=== PATIENT | female | born 1970 | race Caucasian/White ===

== ENCOUNTER 2019-08-20 20:00 | Emergency (ER) | payer OTHER ==
[~2019-08-20] VITALS: Ht 154.9 cm; Wt 63.5 kg
--- OUTSIDE RECORDS SUMMARY | 2019-08-20 20:07 | XMS REPORT ---
[facility] Address Unknown Phone Unavailable Care Team Providers Care Cso Name Role Phone CLARY ZEN RICO Unavailable Unavailable BAYLEE LOVETT Unavailable Unavailable SANTIAGO FLORES Unavailable Unavailable Problems This patient has no known problems. Allergies, Adverse Reactions, Alerts This patient has no known allergies or adverse reactions. Medications This patient has no known medications. Results Test Description Test Time Test Comments Text Results Atomic Results Result Comments U/S, ABDOMINAL, COMPLETE 2019-05-12 18:33:00 Reason for Exam:->jaundice, abnormal liver enzymes, hepatitis C FINAL REPORT TECHNIQUE: Grayscale ultrasound of the abdomen. INDICATION: jaundice, abnormal liver enzymes, hepatitis C. COMPARISON: Ultrasound from 05/05/2018. FINDINGS: MIDLINE V ASCULATURE: The visualized inferior vena cava is unremarkable. The maximum visualized aortic diameter is 1.5 cm. LIVER: Smooth liver contour. No focal lesions. The main portal vein is patent and measures 1.1 cm in diameter. BILIARY:Gallbladder: Prior cholecystectomyCommon bile duct measures 0.5 cm, within normal limits. No intrahepatic biliary ductal dilatation. PANCREAS: Not well visualized due to overlying bowel gas. SPLEEN: The spleen is enlarged at 15 cm in length. PERITONEUM: No free fluid. KIDNEYS: Normal in size bilaterally. No hydronephrosis. No sonographically evident solid mass lesion. IMPRESSION: 1.No definite expiration for the jaundice on this ultrasound. 2.The pancreas was not well visualized. 3.Splenomegaly. Signed: Cody Hernadez MDReport Verified Date/Time: 05/12/2019 18:33:34 Reading Location: [address] Radiology Reading Room ES VIRUS ANTIBODY, IGM 2019-05-09 13:34:00 HERPES VIRUS IGM (BEAKER) (test esdu=8491) Negative TEST PERFORMED BY wikifolioANTI-NUCLEAR ANTIBODY (JESSICA)2019-05-09 10:45:00* Test Item Value Reference Range Comments ANTI-NUCLEAR ANTIBODY (JESSICA) (BEAKER) (test iwqf=941) Positive Negative Test performed by IFA method.JESSICA TITER AND [id number] 10:45:00* Test Item Value Reference Range Comments JESSICA TITER (BEAKER) (test oosf=4626) :160 JESSICA PATTERN (BEAKER) (test mlud=2875) Homogeneous HEPATITIS B PCR, [id number] 09:54:00* Test Item Value Reference Range Comments HBV RESULT COMPONENT (BEAKER) (test uyup=0457) HBV DNA not detected HBV DNA not detected This test uses a Real-Time Polymerase Chain Reaction (RT-PCR) methodology and wa s performed using ASYA AmpliPrep/ASYA TaqMan HBV Test, v2.0 ([employer]Reportable range for this assay is 20 - 170,000,000 IU per mL ( 1.30 - 8.23 Log IU/mL).CMV PCR, [id number] 17:19:00* Test Item Value Reference Range Comments CMV VIRAL LOAD - NEGATIVE (BEAKER) (test znzk=3044) Negative or below the linear range of the assay (<375 copies/mL) Cytomegalovirus (CMV) infection can cause significant disease in immunosuppresse d patients. However, it is common for CMV to manifest as a limited infection whi ch is of no clinical significance in immunosuppressed patients or in healthy ind ividuals.Viral load measurements are helpful to identify clinical CMV infection and to guide the pre-emptive management of antiviral therapy. For treatment of CMV infection due to reactivation in transplant recipients, a threshold between 4,000 and 5,000 copies/mL is suggested. For treatment of primary CMV infection, a lower threshold can be used.CMV infection may also be monitored using weekly serial measurements. Serial measurements of CMV DNA viral load can be evaluated by identifying a 10-fold change, as well as assessing the CMV DNA viral load and the clinical context for each patient.The plasma CMV DNA viral load was detected using quantitative polymerase chain reaction and fluorescent monitoring of a s pecific hybridized probe. Genetic variation and other factors can affect the acc uracy of nucleic acid testing. Therefore, the results should be interpreted in l ight of clinical data. A negative result may not exclude the presence of CMV dis ease.This test was developed and its performance characteristics determined by [facility] Pathology Department, Section of Molecular Patholog y. It has not been cleared or approved by the U.S. Food and Drug Administration (FDA), since FDA approval is not required for clinical use of the test. Validati on was done as required by The Clinical Laboratory Improvement Amendments of 198 8.EBV VIRAL [id number] 15:55:00* Test Item Value Reference Range Comments EBV VIRAL LOAD - NEGATIVE (BEAKER) (test imkh=3591) Negative or below the linear range of the assay (<500 copies/mL) This assay was performed by real-time PCR for the detection of the Katie-Leonard virus (EBV) gene EBNA-1. The test is composed of (1) DNA extraction from patien t specimen, and (2) real-time PCR amplification and detection with NJYY-3-nnbdla ic primers and probes. A well-conserved region of the EBNA-1 gene is targeted, a long with an internal control sequence used to confirm PCR amplification. Asympt omatic carriers and viral genetic variation, among other factors, can affect the accuracy of nucleic acid testing; therefore, results should be interpreted in l ight of clinical data.This test was developed and its performance characteristic s determined by the [facility] Pathology Department, Section of M hanylaanupam Pathology. It has not been cleared or approved by the U.S. Food and Fidelina g Administration (FDA), since FDA approval is not required for clinical use of logan bita test. Validation was done as required by The Clinical Laboratory Improvement Amendments of 1987.HERPES VIRUS ANTIBODY, [id number] 06:41:00* Test Item Value Reference Range Comments HERPES VIRUS IGG (RONAKER) (test jycb=9487) Positive HSV 1 IGG=NEGATIVEHSV 2 IGG=POSITIVECYTOMEGALOVIRUS ANTIBODY, [id number] 06:40:00* Test Item Value Reference Range Comments CYTOMEGALOVIRUS, IGG (RONAKER) (test pnjh=5622) Positive Negative, Equivocal CMV IgG Result Interpretation: </=0.8 Al Negative 0.9-1.0 Al Equivocal >/=1.1 Al PositiveCYTOMEGALOVIRUS ANTIBODY, [id number] 06:40:00* Test Item Value Reference Range Comments CYTOMEGALOVIRUS IGM ANTIBODY (ElementumAKER) (test wswq=2832) Positive Negative, Equivocal CMV IgM Result Interpretation: </=0.8 Al Negative 0.9-1.0 Al Equivocal > /=1.1 Al PositiveEBV ANTIBODY, [id number] 06:40:00* Test Item Value Reference Range Comments KATIE LEONARD VIRAL CAPSID ANTIGEN IGM (BEAKER) (test rqxf=8632) Negative Negative, Equivocal Katie Leonard Viral Capsid Antigen IgM Result Interpretation: </=0.8 Al Negative 0.9-1.0 Al Equivocal >/=1.1 Al PositiveEBV ANTIBODY, [id number] 06:40:00* Test Item Value Reference Range Comments KATIE LEONARD VIRAL CAPSID ANTIGEN IGG (BEAKER) (test lxiw=2672) Negative Negative, Equivocal Katie Leonard Viral Capsid Antigen IgG Result Interpretation: </=0.8 Al Negative 0.9-1.0 Al Equivocal >/=1.1 Al PositiveHEPATITIS A ANTIBODY, [id number] 14:44:00* Test Item Value Reference Range Comments HEPATITIS A IGM ANTIBODY (BEAKER) (test auym=133) Nonreactive Nonreactive HEPATITIS B SURFACE [id number] 13:27:00* Test Item Value Reference Range Comments HEPATITIS B SURFACE ANTIBODY (BEAKER) (test nycb=906) < mIU/mL <8.0 HEPATITIS B SURFACE [id number] 13:25:00* Test Item Value Reference Range Comments HEPATITIS B SURFACE ANTIGEN (2) (BEAKER) (test fkid=0867) Nonreactive Nonreactive HEPATITIS B CORE ANTIBODY, [id number] 13:25:00* Test Item Value Reference Range Comments HEPATITIS B CORE TOTAL ANTIBODY (BEAKER) (test gpmj=766) Nonreactive Nonreactive IMMUNOGLOBULIN G (IGG)2019-05-05 13:13:00* Test Item Value Reference Range Comments IMMUNOGLOBULIN G (IGG) (BEAKER) (test dulp=438) 2421 mg/dL 540-1,822 BASIC METABOLIC [id number] 13:08:00* Test Item Value Reference Range Comments SODIUM (BEAKER) (test hzdp=162) 133 meq/L 136-145 POTASSIUM (BEAKER) (test aoqo=962) 3.8 meq/L 3.5-5.1 CHLORIDE (BEAKER) (test xbrl=922) 104 meq/L 98-107 CO2 (BEAKER) (test fxiw=667) 21 meq/L 22-29 BLOOD UREA NITROGEN (BEAKER) (test pgda=892) 11 mg/dL 7-21 CREATININE (BEAKER) (test jptp=348) 0.76 mg/dL 0.57-1.25 GLUCOSE RANDOM (BEAKER) (test jzzu=364) 145 mg/dL 70-105 CALCIUM (BEAKER) (test nzzg=148) 8.4 mg/dL 8.4-10.2 EGFR (BEAKER) (test fvmu=0507) 80 mL/min/1.73 sq m ESTIMATED GFR IS NOT ACCURATE CREATININE CLEARANCE IN PREDICTING GLOMERULAR FILTRATION RATE. ESTIMATED GFR IS NOT APPLICABLE FOR DIALYSIS PATIENTS. Specimen slightly ictericHEPATIC FUNCTION [id number] 13:08:00* Test Item Value Reference Range Comments TOTAL PROTEIN (BEAKER) (test vypv=742) 7.9 gm/dL 6.0-8.3 ALBUMIN (BEAKER) (test anwi=6189) 3.2 g/dL 3.5-5.0 BILIRUBIN TOTAL (BEAKER) (test bhqd=516) 4.4 mg/dL 0.2-1.2 BILIRUBIN DIRECT (BEAKER) (test hwyo=684) 3.5 mg/dL 0.1-0.5 ALKALINE PHOSPHATASE (BEAKER) (test yeyz=784) 368 U/L 40-150 AST (SGOT) (BEAKER) (test powv=435) 226 U/L 5-34 ALT (SGPT) (BEAKER) (test psyp=585) 112 U/L 6-55 Specimen slightly ictericGAMMA GLUTAMYL TRANSFERASE (GGT)2019-05-05 13:08:00* Test Item Value Reference Range Comments GAMMA GLUTAMYL TRANSFERASE (BEAKER) (test detg=254) 2497 U/L 9-64 Specimen slightly ictericPROTHROMBIN TIME/[id number] 12:35:00* Test Item Value Reference Range Comments PROTIME (BEAKER) (test imod=118) 13.8 seconds 11.9-14.2 INR (BEAKER) (test ciil=841) 1.1 <=5.9 Effective 11/24/2018: PT Reference Range ChangeNew: 11.9-14.2 Previous: 11.7-14. 7RECOMMENDED COUMADIN/WARFARIN INR THERAPY RANGESSTANDARD DOSE: 2.0-3.0 Include s: PROPHYLAXIS for venous thrombosis, systemic embolization; TREATMENT for venou s thrombosis and/or pulmonary embolus.HIGH RISK: Target INR is 2.5-3.5 for patie nts wiht mechanical heart valves.CBC W/PLT COUNT & AUTO [id number] 10:46:00* Test Item Value Reference Range Comments WHITE BLOOD CELL COUNT (BEAKER) (test sdrz=437) 8.3 K/ L 3.5-10.5 RED BLOOD CELL COUNT (BEAKER) (test ggwu=340) 3.70 M/ L 3.93-5.22 HEMOGLOBIN (BEAKER) (test dctx=205) 10.2 GM/DL 11.2-15.7 HEMATOCRIT (BEAKER) (test wesi=681) 33.7 % 34.1-44.9 MEAN CORPUSCULAR VOLUME (BEAKER) (test gybc=331) 91.1 fL 79.4-94.8 MEAN CORPUSCULAR HEMOGLOBIN (BEAKER) (test fdjy=649) 27.6 pg 25.6-32.2 MEAN CORPUSCULAR HEMOGLOBIN CONC (BEAKER) (test acou=122) 30.3 GM/DL 32.2-35.5 RED CELL DISTRIBUTION WIDTH (BEAKER) (test vdfb=173) 17.9 % 11.7-14.4 PLATELET COUNT (BEAKER) (test gsiq=822) 398 K/CU MM 150-450 MEAN PLATELET VOLUME (BEAKER) (test ecsc=731) 10.9 fL 9.4-12.3 NUCLEATED RED BLOOD CELLS (BEAKER) (test zftu=181) 1 /100 WBC 0-0 (CELLAVISION MANUAL DIFF)2018-07-13 10:46:00* Test Item Value Reference Range Comments NEUTROPHILS - REL (CELLAVISION)(BEAKER) (test bxva=3532) 12 % LYMPHOCYTES - REL (CELLAVISION)(BEAKER) (test xlxp=4409) 14 % MONOCYTES - REL (CELLAVISION)(BEAKER) (test hbrd=7492) 23 % EOSINOPHILS - REL (CELLAVISION)(BEAKER) (test gnrn=8661) 1 % BASOPHILS - REL (CELLAVISION)(BEAKER) (test vavx=3717) 9 % METAMYELOCYTES - REL (CELLAVISION)(BEAKER) (test lruw=2810) 7 % 0-0 MYELOCYTES - REL (CELLAVISION)(BEAKER) (test kifw=8839) 19 % 0-0 PROMYELOCYTES - REL (CELLAVSION)(BEAKER) (test fvuh=9141) 4 % 0-0 BANDS - REL (CELLAVISION)(BEAKER) (test hqrz=9102) 5 % 0-10 BLASTS - REL (CELLAVISION)(BEAKER) (test pwgh=2234) 2 % 0-0 ATYPICAL LYMPHOCYTES - REL (CELLAVISION)(BEAKER) (test vwfm=7144) 3 % 0-0 NEUTROPHILS - ABS (CELLAVISION)(BEAKER) (test aajt=0303) 1.00 K/ul 1.56-6.13 LYMPHOCYTES - ABS (CELLAVISION)(BEAKER) (test hlkw=7371) 1.16 K/ul 1.18-3.74 MONOCYTES - ABS (CELLAVISION)(BEAKER) (test ivml=1060) 1.91 K/uL 0.24-0.36 EOSINOPHILS - ABS (CELLAVISION)(BEAKER) (test jetb=3569) 0.08 K/uL 0.04-0.36 BASOPHILS - ABS (CELLAVISION)(BEAKER) (test aute=7440) 0.75 K/uL 0.01-0.08 METAMYELOCYTES - ABS (CELLAVISION)(BEAKER) (test aaix=6260) 0.58 K/uL 0.00-0.00 MYELOCYTES-ABS (CELLAVISION)(BEAKER) (test lcjx=1012) 1.58 K/uL 0.00-0.00 PROMYELOCYTES - ABS (CELLAVISION)(BEAKER) (test amfd=2406) 0.33 K/uL 0.00-0.00 BANDS - ABS (CELLAVISION)(BEAKER) (test cvfh=7955) 0.42 K/uL 0.00-0.80 BLASTS - ABS (CELLAVISION)(BEAKER) (test otqx=8272) 0.17 K/uL 0.00-0.00 ATYPICAL LYMPHOCYTES - ABS (CELLAVISION)(BEAKER) (test sphk=4288) 0.25 K/uL 0.00-0.00 TOTAL COUNTED (BEAKER) (test tsxr=3503) 100 MANUAL NRBC PER 100 CELLS (BEAKER) (test smyc=4351) 1 /100 WBC 0-0 WBC MORPHOLOGY (BEAKER) (test vwnb=505) Normal PLT MORPHOLOGY (BEAKER) (test vwjb=174) Normal POLYCHROMATOPHILLIC RBCS(BEAKER) (test jlpx=000) 1+ few ANISOCYTOSIS (BEAKER) (test tpkj=091) 2+ moderate MICROCYTES (BEAKER) (test pmhw=871) 2+ moderate POIKILOCYTES (BEAKER) (test dsoz=208) 1+ few TEAR DROP CELLS (BEAKER) (test qpdh=291) 1+ few ARTIFACT (CELLAVISION)(BEAKER) (test heei=9084) Present PLATELET CONCENTRATION (CELLAVISION)(BEAKER) (test woxf=5164) Adequate Received comment: User comments: Slide comments: VANCOMYCIN LEVEL, TROUGH 2018-07-13 09:35:00* Test Item Value Reference Range Comments VANCOMYCIN TROUGH (BEAKER) (test kbpf=899) 14.3 ug/mL 10.0-20.0 URIC [id number] 06:08:00* Test Item Value Reference Range Comments URIC ACID (BEAKER) (test naqp=482) 2.2 mg/dL 2.6-7.2 COMPREHENSIVE METABOLIC [id number] 06:08:00* Test Item Value Reference Range Comments TOTAL PROTEIN (BEAKER) (test xxgg=154) 4.9 gm/dL 6.0-8.3 ALBUMIN (BEAKER) (test fgpt=3389) 3.2 g/dL 3.5-5.0 ALKALINE PHOSPHATASE (BEAKER) (test pzlj=457) 170 U/L 40-150 BILIRUBIN TOTAL (BEAKER) (test igyb=567) 0.7 mg/dL 0.2-1.2 SODIUM (BEAKER) (test gpjl=777) 140 meq/L 136-145 POTASSIUM (BEAKER) (test vmwq=884) 3.8 meq/L 3.5-5.1 CHLORIDE (BEAKER) (test gtlo=999) 106 meq/L 98-107 CO2 (BEAKER) (test tfgd=050) 29 meq/L 22-29 BLOOD UREA NITROGEN (BEAKER) (test sdaz=771) 4 mg/dL 7-21 CREATININE (BEAKER) (test adgn=275) 0.65 mg/dL 0.57-1.25 GLUCOSE RANDOM (BEAKER) (test cyvl=690) 78 mg/dL 70-105 CALCIUM (BEAKER) (test nwnh=511) 8.5 mg/dL 8.4-10.2 AST (SGOT) (BEAKER) (test uxkg=951) 48 U/L 5-34 ALT (SGPT) (BEAKER) (test dobo=800) 64 U/L 6-55 EGFR (BEAKER) (test etwt=0744) 96 mL/min/1.73 sq m ESTIMATED GFR IS NOT ACCURATE CREATININE CLEARANCE IN PREDICTING GLOMERULAR FILTRATION RATE. ESTIMATED GFR IS NOT APPLICABLE FOR DIALYSIS PATIENTS. LACTATE DEHYDROGENASE (LDH)2018-07-13 06:08:00* Test Item Value Reference Range Comments LACTATE DEHYDROGENASE (BEAKER) (test ndre=017) 428 U/L 125-220 [id number] 05:45:00* Test Item Value Reference Range Comments PARTIAL THROMBOPLASTIN TIME (BEAKER) (test oeiq=271) 37.1 seconds 22.5-36.0 PROTHROMBIN TIME/[id number] 05:44:00* Test Item Value Reference Range Comments PROTIME (BEAKER) (test pbae=211) 15.8 seconds 11.7-14.7 INR (BEAKER) (test ucdw=194) 1.2 <=5.9 RECOMMENDED COUMADIN/WARFARIN INR THERAPY RANGESSTANDARD DOSE: 2.0 - 3.0 Inclu victoriano: PROPHYLAXIS for venous thrombosis, systemic embolization; TREATMENT for arleen ous thrombosis and/or pulmonary embolus.HIGH RISK: Target INR is 2.5-3.5 for pat ients with mechanical heart valves.BLOOD [id number] 01:01:00* Test Item Value Reference Range Comments CULTURE (BEAKER) (test rltv=8205) No growth in 5 days (MANUAL DIFFERENTIAL)2018-07-12 09:46:00* Test Item Value Reference Range Comments NEUTROPHILS - REL (DIFF) (BEAKER) (test jpzb=8855) 7 % LYMPHOCYTES - REL (DIFF) (BEAKER) (test phwt=6754) 12 % MONOCYTES - REL (DIFF) (BEAKER) (test dzto=7183) 43 % EOSINOPHILS - REL (DIFF) (BEAKER) (test zdln=4565) 2 % BASOPHILS - REL (DIFF) (BEAKER) (test nwco=7726) 4 % METAMYELOCYTES-REL (DIFF) (BEAKER) (test bbmb=811) 1 % 0-0 MYELOCYTES-REL (DIFF) (BEAKER) (test szwc=1034) 5 % 0-0 BANDS - REL (DIFF) (BEAKER) (test vreh=8112) 21 % 0-10 BLASTS - REL (DIFF) (BEAKER) (test qwex=6082) 2 % 0-0 ATYPICAL LYMPHOCYTE - REL (DIFF) (BEAKER) (test plfm=901) 3 % 0-0 NEUTROPHILS - ABS (DIFF) (BEAKER) (test ucvv=0551) 0.39 K/ L 1.80-8.00 LYMPHOCYTES - ABS (DIFF) (BEAKER) (test ticq=1576) 0.66 K/ L 1.48-4.50 MONOCYTES - ABS (DIFF) (BEAKER) (test djnf=1329) 2.37 K/ L 0.00-1.30 EOSINOPHILS - ABS (DIFF) (BEAKER) (test hpjh=7076) 0.11 K/ L 0.00-0.50 BASOPHILS - ABS (DIFF) (BEAKER) (test nszt=9331) 0.22 K/ L 0.00-0.20 METAMYELOCTYES - ABS (DIFF) (BEAKER) (test eswt=336) 0.06 K/ L 0.00-0.00 BANDS-ABS (DIFF) (BEAKER) (test mmzd=4801) 1.2 K/ L 0.0-0.8 BLASTS - ABS (DIFF) (BEAKER) (test zozu=7544) 0.11 K/ L 0.00-0.00 ATYPICAL LYMPHOCYTES - ABS (DIFF) (BEAKER) (test smiy=180) 0.17 K/ L 0.00-0.00 MYELOCYTES-ABS (DIFF) (BEAKER) (test dwnc=5458) 0.28 K/ L 0.00-0.00 TOTAL COUNTED (BEAKER) (test drma=1829) 100 BANDS + SEGMENTED NEUTROPHILS (BEAKER) (test nndg=1406) 1.54 MANUAL NRBC PER 100 CELLS (BEAKER) (test qkde=9677) 1 /100 WBC 0-0 WBC MORPHOLOGY (BEAKER) (test fnhz=259) Normal PLT MORPHOLOGY (BEAKER) (test rnqc=736) Normal HYPOCHROMIA (BEAKER) (test kfsb=651) 1+ few POLYCHROMATOPHILLIC RBCS(BEAKER) (test mkrs=311) 1+ few TEAR DROP CELLS (BEAKER) (test jqyh=156) 1+ few CBC W/PLT COUNT & AUTO [id number] 09:45:00* Test Item Value Reference Range Comments WHITE BLOOD CELL COUNT (BEAKER) (test tebg=631) 5.5 K/ L 3.5-10.5 RED BLOOD CELL COUNT (BEAKER) (test mlzm=670) 3.75 M/ L 3.93-5.22 HEMOGLOBIN (BEAKER) (test joot=469) 10.4 GM/DL 11.2-15.7 HEMATOCRIT (BEAKER) (test bqzw=193) 34.5 % 34.1-44.9 MEAN CORPUSCULAR VOLUME (BEAKER) (test wqhr=686) 92.0 fL 79.4-94.8 MEAN CORPUSCULAR HEMOGLOBIN (BEAKER) (test elqz=572) 27.7 pg 25.6-32.2 MEAN CORPUSCULAR HEMOGLOBIN CONC (BEAKER) (test iqtx=705) 30.1 GM/DL 32.2-35.5 RED CELL DISTRIBUTION WIDTH (BEAKER) (test xbjv=566) 17.8 % 11.7-14.4 PLATELET COUNT (BEAKER) (test opts=231) 438 K/CU MM 150-450 MEAN PLATELET VOLUME (BEAKER) (test sjsk=955) 10.7 fL 9.4-12.3 NUCLEATED RED BLOOD CELLS (BEAKER) (test ttst=535) 1 /100 WBC 0-0 URIC [id number] 06:09:00* Test Item Value Reference Range Comments URIC ACID (BEAKER) (test sckd=895) 1.9 mg/dL 2.6-7.2 COMPREHENSIVE METABOLIC [id number] 06:02:00* Test Item Value Reference Range Comments TOTAL PROTEIN (BEAKER) (test yjig=119) 5.0 gm/dL 6.0-8.3 ALBUMIN (BEAKER) (test krxh=2625) 3.2 g/dL 3.5-5.0 ALKALINE PHOSPHATASE (BEAKER) (test xzem=945) 177 U/L 40-150 BILIRUBIN TOTAL (BEAKER) (test ejca=015) 0.7 mg/dL 0.2-1.2 SODIUM (BEAKER) (test nqrs=227) 140 meq/L 136-145 POTASSIUM (BEAKER) (test mujj=234) 3.9 meq/L 3.5-5.1 CHLORIDE (BEAKER) (test fxxf=207) 107 meq/L 98-107 CO2 (BEAKER) (test fqtr=475) 27 meq/L 22-29 BLOOD UREA NITROGEN (BEAKER) (test lafk=289) 7 mg/dL 7-21 CREATININE (BEAKER) (test mrnp=578) 0.64 mg/dL 0.57-1.25 GLUCOSE RANDOM (BEAKER) (test cwio=364) 106 mg/dL 70-105 CALCIUM (BEAKER) (test dlys=293) 8.7 mg/dL 8.4-10.2 AST (SGOT) (BEAKER) (test ibys=400) 53 U/L 5-34 ALT (SGPT) (BEAKER) (test vhki=683) 71 U/L 6-55 EGFR (BEAKER) (test qyld=9661) 98 mL/min/1.73 sq m ESTIMATED GFR IS NOT ACCURATE CREATININE CLEARANCE IN PREDICTING GLOMERULAR FILTRATION RATE. ESTIMATED GFR IS NOT APPLICABLE FOR DIALYSIS PATIENTS. LACTATE DEHYDROGENASE (LDH)2018-07-12 06:02:00* Test Item Value Reference Range Comments LACTATE DEHYDROGENASE (BEAKER) (test bmtb=084) 444 U/L 125-220 [id number] 05:47:00* Test Item Value Reference Range Comments PARTIAL THROMBOPLASTIN TIME (BEAKER) (test vpxm=655) 38.7 seconds 22.5-36.0 PROTHROMBIN TIME/[id number] 05:46:00* Test Item Value Reference Range Comments PROTIME (BEAKER) (test jzmw=133) 15.9 seconds 11.7-14.7 INR (BEAKER) (test ttek=584) 1.3 <=5.9 RECOMMENDED COUMADIN/WARFARIN INR THERAPY RANGESSTANDARD DOSE: 2.0 - 3.0 Inclu victoriano: PROPHYLAXIS for venous thrombosis, systemic embolization; TREATMENT for arleen ous thrombosis and/or pulmonary embolus.HIGH RISK: Target INR is 2.5-3.5 for pat ients with mechanical heart valves.CBC W/PLT COUNT & AUTO [id number] 14:25:00* Test Item Value Reference Range Comments WHITE BLOOD CELL COUNT (BEAKER) (test syrg=615) 3.7 K/ L 3.5-10.5 RED BLOOD CELL COUNT (BEAKER) (test yetq=093) 3.42 M/ L 3.93-5.22 HEMOGLOBIN (BEAKER) (test zwfo=206) 9.5 GM/DL 11.2-15.7 HEMATOCRIT (BEAKER) (test pznl=382) 31.6 % 34.1-44.9 MEAN CORPUSCULAR VOLUME (BEAKER) (test vfie=967) 92.4 fL 79.4-94.8 MEAN CORPUSCULAR HEMOGLOBIN (BEAKER) (test kvvp=095) 27.8 pg 25.6-32.2 MEAN CORPUSCULAR HEMOGLOBIN CONC (BEAKER) (test crzc=452) 30.1 GM/DL 32.2-35.5 RED CELL DISTRIBUTION WIDTH (BEAKER) (test ekyk=208) 17.3 % 11.7-14.4 PLATELET COUNT (BEAKER) (test uxju=703) 368 K/CU MM 150-450 Discordant PLT result compared to previous one; Clinical correlation required. MEAN PLATELET VOLUME (BEAKER) (test mktn=318) 10.3 fL 9.4-12.3 NUCLEATED RED BLOOD CELLS (BEAKER) (test kgyj=826) 2 /100 WBC 0-0 (CELLAVISION MANUAL DIFF)2018-07-11 14:25:00* Test Item Value Reference Range Comments NEUTROPHILS - REL (CELLAVISION)(BEAKER) (test iryg=8857) 7 % LYMPHOCYTES - REL (CELLAVISION)(BEAKER) (test zthz=5427) 10 % MONOCYTES - REL (CELLAVISION)(BEAKER) (test vuft=5632) 27 % EOSINOPHILS - REL (CELLAVISION)(BEAKER) (test eyhu=2794) 4 % BASOPHILS - REL (CELLAVISION)(BEAKER) (test qbdj=2291) 16 % METAMYELOCYTES - REL (CELLAVISION)(BEAKER) (test wwme=9712) 12 % 0-0 MYELOCYTES - REL (CELLAVISION)(BEAKER) (test kcih=3072) 13 % 0-0 PROMYELOCYTES - REL (CELLAVSION)(BEAKER) (test noib=3832) 1 % 0-0 BANDS - REL (CELLAVISION)(BEAKER) (test zydw=0931) 6 % 0-10 BLASTS - REL (CELLAVISION)(BEAKER) (test agni=2294) 1 % 0-0 ATYPICAL LYMPHOCYTES - REL (CELLAVISION)(BEAKER) (test fvui=7161) 3 % 0-0 NEUTROPHILS - ABS (CELLAVISION)(BEAKER) (test sfol=4608) 0.26 K/ul 1.56-6.13 LYMPHOCYTES - ABS (CELLAVISION)(BEAKER) (test ftnm=1047) 0.37 K/ul 1.18-3.74 MONOCYTES - ABS (CELLAVISION)(BEAKER) (test gacx=5832) 1.00 K/uL 0.24-0.36 EOSINOPHILS - ABS (CELLAVISION)(BEAKER) (test jhdi=0363) 0.15 K/uL 0.04-0.36 BASOPHILS - ABS (CELLAVISION)(BEAKER) (test bazg=0134) 0.59 K/uL 0.01-0.08 METAMYELOCYTES - ABS (CELLAVISION)(BEAKER) (test rkno=2476) 0.44 K/uL 0.00-0.00 MYELOCYTES-ABS (CELLAVISION)(BEAKER) (test zjrp=7857) 0.48 K/uL 0.00-0.00 PROMYELOCYTES - ABS (CELLAVISION)(BEAKER) (test chsy=3834) 0.04 K/uL 0.00-0.00 BANDS - ABS (CELLAVISION)(BEAKER) (test amic=3769) 0.22 K/uL 0.00-0.80 BLASTS - ABS (CELLAVISION)(BEAKER) (test nscp=2850) 0.04 K/uL 0.00-0.00 ATYPICAL LYMPHOCYTES - ABS (CELLAVISION)(BEAKER) (test pncf=2213) 0.11 K/uL 0.00-0.00 TOTAL COUNTED (BEAKER) (test eewg=2475) 100 MANUAL NRBC PER 100 CELLS (BEAKER) (test apcd=5529) 3 /100 WBC 0-0 WBC MORPHOLOGY (BEAKER) (test vzkz=559) Normal PLT MORPHOLOGY (BEAKER) (test gsog=811) Normal POLYCHROMATOPHILLIC RBCS(BEAKER) (test mtbg=945) 2+ moderate ANISOCYTOSIS (BEAKER) (test jayf=445) 2+ moderate POIKILOCYTES (BEAKER) (test oqoo=790) 2+ moderate OVALOCYTES (BEAKER) (test qfza=494) 2+ moderate TEAR DROP CELLS (BEAKER) (test dcvj=899) 2+ moderate ARTIFACT (CELLAVISION)(BEAKER) (test qtqr=0297) Present PLATELET CONCENTRATION (CELLAVISION)(BEAKER) (test ynjd=9506) Adequate Received comment: User comments: Slide comments: URIC [id number] 07:16:00* Test Item Value Reference Range Comments URIC ACID (BEAKER) (test xpjl=746) 1.9 mg/dL 2.6-7.2 COMPREHENSIVE METABOLIC [id number] 07:13:00* Test Item Value Reference Range Comments TOTAL PROTEIN (BEAKER) (test ompv=937) 4.8 gm/dL 6.0-8.3 ALBUMIN (BEAKER) (test spec=9340) 3.1 g/dL 3.5-5.0 ALKALINE PHOSPHATASE (BEAKER) (test crcw=650) 175 U/L 40-150 BILIRUBIN TOTAL (BEAKER) (test fvtt=075) 0.7 mg/dL 0.2-1.2 SODIUM (BEAKER) (test yifu=907) 140 meq/L 136-145 POTASSIUM (BEAKER) (test xoir=167) 4.1 meq/L 3.5-5.1 CHLORIDE (BEAKER) (test xdzg=114) 108 meq/L 98-107 CO2 (BEAKER) (test abxe=557) 27 meq/L 22-29 BLOOD UREA NITROGEN (BEAKER) (test conf=527) 5 mg/dL 7-21 CREATININE (BEAKER) (test jmle=504) 0.62 mg/dL 0.57-1.25 GLUCOSE RANDOM (BEAKER) (test qayj=777) 90 mg/dL 70-105 CALCIUM (BEAKER) (test yrpx=828) 8.7 mg/dL 8.4-10.2 AST (SGOT) (BEAKER) (test hfcu=997) 53 U/L 5-34 ALT (SGPT) (BEAKER) (test mvxp=946) 69 U/L 6-55 EGFR (BEAKER) (test jgwb=9508) 102 mL/min/1.73 sq m ESTIMATED GFR IS NOT ACCURATE CREATININE CLEARANCE IN PREDICTING GLOMERULAR FILTRATION RATE. ESTIMATED GFR IS NOT APPLICABLE FOR DIALYSIS PATIENTS. LACTATE DEHYDROGENASE (LDH)2018-07-11 07:13:00* Test Item Value Reference Range Comments LACTATE DEHYDROGENASE (BEAKER) (test jvls=481) 403 U/L 125-220 PROTHROMBIN TIME/[id number] 06:16:00* Test Item Value Reference Range Comments PROTIME (BEAKER) (test lext=400) 15.7 seconds 11.7-14.7 INR (BEAKER) (test rfho=020) 1.2 <=5.9 RECOMMENDED COUMADIN/WARFARIN INR THERAPY RANGESSTANDARD DOSE: 2.0 - 3.0 Inclu victoriano: PROPHYLAXIS for venous thrombosis, systemic embolization; TREATMENT for arleen ous thrombosis and/or pulmonary embolus.HIGH RISK: Target INR is 2.5-3.5 for pat ients with mechanical heart valves.[id number] 06:16:00* Test Item Value Reference Range Comments PARTIAL THROMBOPLASTIN TIME (BEAKER) (test yiut=523) 40.1 seconds 22.5-36.0 LITHIUM [id number] 21:15:00* Test Item Value Reference Range Comments LITHIUM LEVEL (BEAKER) (test iaxk=563) < mmol/L 0.8-1.2 (CELLAVISION MANUAL DIFF)2018-07-10 13:08:00* Test Item Value Reference Range Comments NEUTROPHILS - REL (CELLAVISION)(BEAKER) (test hxuv=2794) 3 % LYMPHOCYTES - REL (CELLAVISION)(BEAKER) (test ojlj=2800) 17 % MONOCYTES - REL (CELLAVISION)(BEAKER) (test ncmw=9743) 58 % EOSINOPHILS - REL (CELLAVISION)(BEAKER) (test hzti=8378) 3 % BASOPHILS - REL (CELLAVISION)(BEAKER) (test mogz=4903) 11 % METAMYELOCYTES - REL (CELLAVISION)(BEAKER) (test hiqi=0664) 1 % 0-0 MYELOCYTES - REL (CELLAVISION)(BEAKER) (test mkwj=2923) 2 % 0-0 PROMYELOCYTES - REL (CELLAVSION)(BEAKER) (test wyrb=3313) 2 % 0-0 ATYPICAL LYMPHOCYTES - REL (CELLAVISION)(BEAKER) (test hudv=8738) 2 % 0-0 NEUTROPHILS - ABS (CELLAVISION)(BEAKER) (test tkic=4755) 0.10 K/ul 1.56-6.13 LYMPHOCYTES - ABS (CELLAVISION)(BEAKER) (test bquf=3808) 0.56 K/ul 1.18-3.74 MONOCYTES - ABS (CELLAVISION)(BEAKER) (test gbxq=5665) 1.91 K/uL 0.24-0.36 EOSINOPHILS - ABS (CELLAVISION)(BEAKER) (test gvyl=2391) 0.10 K/uL 0.04-0.36 BASOPHILS - ABS (CELLAVISION)(BEAKER) (test ecka=6374) 0.36 K/uL 0.01-0.08 METAMYELOCYTES - ABS (CELLAVISION)(BEAKER) (test ahhh=3207) 0.03 K/uL 0.00-0.00 MYELOCYTES-ABS (CELLAVISION)(BEAKER) (test vsgc=6935) 0.07 K/uL 0.00-0.00 PROMYELOCYTES - ABS (CELLAVISION)(BEAKER) (test dyoi=9033) 0.07 K/uL 0.00-0.00 ATYPICAL LYMPHOCYTES - ABS (CELLAVISION)(BEAKER) (test pdwa=1347) 0.07 K/uL 0.00-0.00 TOTAL COUNTED (BEAKER) (test cpix=1837) 100 MANUAL NRBC PER 100 CELLS (BEAKER) (test lays=1160) 1 /100 WBC 0-0 WBC MORPHOLOGY (BEAKER) (test kbur=228) Normal GIANT PLATELETS (BEAKER) (test iqym=874) Present LARGE PLT(BEAKER) (test trrk=8784) Present POLYCHROMATOPHILLIC RBCS(BEAKER) (test xqne=193) 2+ moderate HYPOCHROMIA (BEAKER) (test yyuy=868) 2+ moderate ANISOCYTOSIS (BEAKER) (test fzyi=728) 2+ moderate MICROCYTES (BEAKER) (test mdum=880) 2+ moderate MACROCYTES (BEAKER) (test kiog=835) 3+ many POIKILOCYTES (BEAKER) (test wioq=331) 2+ moderate SCHISTOCYTES (BEAKER) (test nvjy=510) 1+ few OVALOCYTES (BEAKER) (test lpbk=084) 2+ moderate TEAR DROP CELLS (BEAKER) (test wsvq=756) 2+ moderate ACANTHOCYTES (BEAKER) (test htco=522) 1+ few ARTIFACT (CELLAVISION)(BEAKER) (test rfxs=5011) Present PLATELET CONCENTRATION (CELLAVISION)(BEAKER) (test pwfp=6757) Adequate Received comment: User comments: Slide comments: COMPREHENSIVE METABOLIC PANEL 2018-07-10 06:18:00* Test Item Value Reference Range Comments TOTAL PROTEIN (BEAKER) (test rbix=870) 4.9 gm/dL 6.0-8.3 ALBUMIN (BEAKER) (test myrc=6497) 3.3 g/dL 3.5-5.0 ALKALINE PHOSPHATASE (BEAKER) (test kolj=421) 179 U/L 40-150 BILIRUBIN TOTAL (BEAKER) (test mvsg=100) 0.9 mg/dL 0.2-1.2 SODIUM (BEAKER) (test quzq=044) 142 meq/L 136-145 POTASSIUM (BEAKER) (test gdqq=951) 4.1 meq/L 3.5-5.1 CHLORIDE (BEAKER) (test saqy=532) 107 meq/L 98-107 CO2 (BEAKER) (test vzvl=963) 29 meq/L 22-29 BLOOD UREA NITROGEN (BEAKER) (test gswx=349) 3 mg/dL 7-21 CREATININE (BEAKER) (test gafk=738) 0.62 mg/dL 0.57-1.25 GLUCOSE RANDOM (BEAKER) (test cnfb=250) 86 mg/dL 70-105 CALCIUM (BEAKER) (test spjm=979) 8.7 mg/dL 8.4-10.2 AST (SGOT) (BEAKER) (test ekrh=574) 48 U/L 5-34 ALT (SGPT) (BEAKER) (test rhbe=947) 74 U/L 6-55 EGFR (BEAKER) (test ijhb=6177) 102 mL/min/1.73 sq m ESTIMATED GFR IS NOT ACCURATE CREATININE CLEARANCE IN PREDICTING GLOMERULAR FILTRATION RATE. ESTIMATED GFR IS NOT APPLICABLE FOR DIALYSIS PATIENTS. URIC [id number] 06:14:00* Test Item Value Reference Range Comments URIC ACID (BEAKER) (test kfqd=562) 2.2 mg/dL 2.6-7.2 LACTATE DEHYDROGENASE (LDH)2018-07-10 06:14:00* Test Item Value Reference Range Comments LACTATE DEHYDROGENASE (BEAKER) (test ewte=079) 395 U/L 125-220 CBC W/PLT COUNT & AUTO [id number] 06:05:00* Test Item Value Reference Range Comments WHITE BLOOD CELL COUNT (BEAKER) (test brkz=115) 3.3 K/ L 3.5-10.5 RED BLOOD CELL COUNT (BEAKER) (test cvbm=803) 3.48 M/ L 3.93-5.22 HEMOGLOBIN (BEAKER) (test jupb=693) 9.6 GM/DL 11.2-15.7 HEMATOCRIT (BEAKER) (test ndrv=640) 32.0 % 34.1-44.9 MEAN CORPUSCULAR VOLUME (BEAKER) (test ywwf=076) 92.0 fL 79.4-94.8 MEAN CORPUSCULAR HEMOGLOBIN (BEAKER) (test xtpq=837) 27.6 pg 25.6-32.2 MEAN CORPUSCULAR HEMOGLOBIN CONC (BEAKER) (test gomm=758) 30.0 GM/DL 32.2-35.5 RED CELL DISTRIBUTION WIDTH (BEAKER) (test cjep=360) 17.7 % 11.7-14.4 PLATELET COUNT (BEAKER) (test zxlb=946) 346 K/CU MM 150-450 MEAN PLATELET VOLUME (BEAKER) (test jkek=319) 10.5 fL 9.4-12.3 NUCLEATED RED BLOOD CELLS (BEAKER) (test fvpw=415) 2 /100 WBC 0-0 [id number] 06:01:00* Test Item Value Reference Range Comments PARTIAL THROMBOPLASTIN TIME (BEAKER) (test dpbo=057) 41.1 seconds 22.5-36.0 PROTHROMBIN TIME/[id number] 06:00:00* Test Item Value Reference Range Comments PROTIME (BEAKER) (test rtkm=778) 15.5 seconds 11.7-14.7 INR (BEAKER) (test pgwq=966) 1.2 <=5.9 RECOMMENDED COUMADIN/WARFARIN INR THERAPY RANGESSTANDARD DOSE: 2.0 - 3.0 Inclu victoriano: PROPHYLAXIS for venous thrombosis, systemic embolization; TREATMENT for arleen ous thrombosis and/or pulmonary embolus.HIGH RISK: Target INR is 2.5-3.5 for pat ients with mechanical heart valves.URINE [id number] 04:37:00* Test Item Value Reference Range Comments CULTURE (BEAKER) (test draq=3706) No growth CBC W/PLT COUNT & AUTO [id number] 13:24:00* Test Item Value Reference Range Comments WHITE BLOOD CELL COUNT (BEAKER) (test nzse=282) 2.4 K/ L 3.5-10.5 RED BLOOD CELL COUNT (BEAKER) (test rfcw=875) 3.04 M/ L 3.93-5.22 HEMOGLOBIN (BEAKER) (test jdph=155) 8.5 GM/DL 11.2-15.7 HEMATOCRIT (BEAKER) (test dcbq=546) 28.3 % 34.1-44.9 MEAN CORPUSCULAR VOLUME (BEAKER) (test gywy=041) 93.1 fL 79.4-94.8 MEAN CORPUSCULAR HEMOGLOBIN (BEAKER) (test myvo=414) 28.0 pg 25.6-32.2 MEAN CORPUSCULAR HEMOGLOBIN CONC (BEAKER) (test rkqq=100) 30.0 GM/DL 32.2-35.5 RED CELL DISTRIBUTION WIDTH (BEAKER) (test kqkt=915) 17.8 % 11.7-14.4 PLATELET COUNT (BEAKER) (test kqao=648) 211 K/CU MM 150-450 MEAN PLATELET VOLUME (BEAKER) (test xsiy=803) 11.9 fL 9.4-12.3 NUCLEATED RED BLOOD CELLS (BEAKER) (test hesr=366) 3 /100 WBC 0-0 (CELLAVISION MANUAL DIFF)2018-07-09 13:24:00* Test Item Value Reference Range Comments NEUTROPHILS - REL (CELLAVISION)(BEAKER) (test cxik=3346) 10 % LYMPHOCYTES - REL (CELLAVISION)(BEAKER) (test ltpw=2169) 19 % MONOCYTES - REL (CELLAVISION)(BEAKER) (test sfdm=3134) 45 % EOSINOPHILS - REL (CELLAVISION)(BEAKER) (test zvon=7776) 4 % BASOPHILS - REL (CELLAVISION)(BEAKER) (test pmfa=5191) 8 % METAMYELOCYTES - REL (CELLAVISION)(BEAKER) (test sufl=9774) 2 % 0-0 MYELOCYTES - REL (CELLAVISION)(BEAKER) (test ewyv=5621) 5 % 0-0 ATYPICAL LYMPHOCYTES - REL (CELLAVISION)(BEAKER) (test ezon=0147) 6 % 0-0 NEUTROPHILS - ABS (CELLAVISION)(BEAKER) (test tjjb=1324) 0.24 K/ul 1.56-6.13 LYMPHOCYTES - ABS (CELLAVISION)(BEAKER) (test xxsy=5177) 0.46 K/ul 1.18-3.74 MONOCYTES - ABS (CELLAVISION)(BEAKER) (test siem=1568) 1.08 K/uL 0.24-0.36 EOSINOPHILS - ABS (CELLAVISION)(BEAKER) (test qnww=1974) 0.10 K/uL 0.04-0.36 BASOPHILS - ABS (CELLAVISION)(BEAKER) (test yqkv=1480) 0.19 K/uL 0.01-0.08 METAMYELOCYTES - ABS (CELLAVISION)(BEAKER) (test rtmb=9766) 0.05 K/uL 0.00-0.00 MYELOCYTES-ABS (CELLAVISION)(BEAKER) (test ifcx=2626) 0.12 K/uL 0.00-0.00 ATYPICAL LYMPHOCYTES - ABS (CELLAVISION)(BEAKER) (test lqnd=6831) 0.14 K/uL 0.00-0.00 TOTAL COUNTED (BEAKER) (test tjcy=4755) 100 MANUAL NRBC PER 100 CELLS (BEAKER) (test wcun=4367) 2 /100 WBC 0-0 WBC MORPHOLOGY (BEAKER) (test cyly=578) Normal PLT MORPHOLOGY (BEAKER) (test egdc=267) Normal POLYCHROMATOPHILLIC RBCS(BEAKER) (test fejx=664) 1+ few ANISOCYTOSIS (BEAKER) (test coiu=677) 3+ many MICROCYTES (BEAKER) (test fudw=455) 3+ many POIKILOCYTES (BEAKER) (test ofwv=003) 1+ few TEAR DROP CELLS (BEAKER) (test bqrr=718) 1+ few ARTIFACT (CELLAVISION)(BEAKER) (test epsc=7867) Present PLATELET CONCENTRATION (CELLAVISION)(BEAKER) (test vmws=2494) Adequate Received comment: User comments: Slide comments: VANCOMYCIN LEVEL, TROUGH 2018-07-09 09:52:00* Test Item Value Reference Range Comments VANCOMYCIN TROUGH (BEAKER) (test scvn=350) 12.7 ug/mL 10.0-20.0 COMPREHENSIVE METABOLIC [id number] 07:04:00* Test Item Value Reference Range Comments TOTAL PROTEIN (BEAKER) (test skhq=701) 4.2 gm/dL 6.0-8.3 ALBUMIN (BEAKER) (test rqdq=2044) 2.9 g/dL 3.5-5.0 ALKALINE PHOSPHATASE (BEAKER) (test wcnj=071) 154 U/L 40-150 BILIRUBIN TOTAL (BEAKER) (test rwie=970) 0.7 mg/dL 0.2-1.2 SODIUM (BEAKER) (test pdku=860) 143 meq/L 136-145 POTASSIUM (BEAKER) (test fefe=343) 3.8 meq/L 3.5-5.1 CHLORIDE (BEAKER) (test tjtm=325) 113 meq/L 98-107 CO2 (BEAKER) (test kcsu=917) 24 meq/L 22-29 BLOOD UREA NITROGEN (BEAKER) (test mcus=220) 2 mg/dL 7-21 CREATININE (BEAKER) (test mxbq=075) 0.55 mg/dL 0.57-1.25 GLUCOSE RANDOM (BEAKER) (test ovew=608) 69 mg/dL 70-105 CALCIUM (BEAKER) (test ifxt=391) 7.4 mg/dL 8.4-10.2 AST (SGOT) (BEAKER) (test bgog=721) 35 U/L 5-34 ALT (SGPT) (BEAKER) (test acyw=496) 64 U/L 6-55 EGFR (BEAKER) (test mcda=3308) 117 mL/min/1.73 sq m ESTIMATED GFR IS NOT ACCURATE CREATININE CLEARANCE IN PREDICTING GLOMERULAR FILTRATION RATE. ESTIMATED GFR IS NOT APPLICABLE FOR DIALYSIS PATIENTS. URIC [id number] 07:04:00* Test Item Value Reference Range Comments URIC ACID (RONAKER) (test ykac=581) 1.7 mg/dL 2.6-7.2 LACTATE DEHYDROGENASE (LDH)2018-07-09 07:03:00* Test Item Value Reference Range Comments LACTATE DEHYDROGENASE (RONAKER) (test ewdc=740) 279 U/L 125-220 [id number] 06:44:00* Test Item Value Reference Range Comments PARTIAL THROMBOPLASTIN TIME (RONAKER) (test czep=617) 31.3 seconds 22.5-36.0 PROTHROMBIN TIME/[id number] 06:43:00* Test Item Value Reference Range Comments PROTIME (BEAKER) (test dckk=534) 15.9 seconds 11.7-14.7 INR (BEAKER) (test yhpz=241) 1.2 <=5.9 RECOMMENDED COUMADIN/WARFARIN INR THERAPY RANGESSTANDARD DOSE: 2.0 - 3.0 Inclu victoriano: PROPHYLAXIS for venous thrombosis, systemic embolization; TREATMENT for arleen ous thrombosis and/or pulmonary embolus.HIGH RISK: Target INR is 2.5-3.5 for pat ients with mechanical heart valves.BLOOD [id number] 01:01:00* Test Item Value Reference Range Comments CULTURE (BEAKER) (test ojdw=6599) No growth in 5 days BLOOD [id number] 01:01:00* Test Item Value Reference Range Comments CULTURE (BEAKER) (test kaqg=2692) No growth in 5 days CBC W/PLT COUNT & AUTO [id number] 14:37:00* Test Item Value Reference Range Comments WHITE BLOOD CELL COUNT (BEAKER) (test njtf=491) 1.7 K/ L 3.5-10.5 RED BLOOD CELL COUNT (BEAKER) (test yfcm=878) 3.17 M/ L 3.93-5.22 HEMOGLOBIN (BEAKER) (test yula=743) 8.8 GM/DL 11.2-15.7 HEMATOCRIT (BEAKER) (test rabx=407) 29.7 % 34.1-44.9 MEAN CORPUSCULAR VOLUME (BEAKER) (test kofv=097) 93.7 fL 79.4-94.8 MEAN CORPUSCULAR HEMOGLOBIN (BEAKER) (test yhfk=718) 27.8 pg 25.6-32.2 MEAN CORPUSCULAR HEMOGLOBIN CONC (BEAKER) (test afzr=281) 29.6 GM/DL 32.2-35.5 RED CELL DISTRIBUTION WIDTH (BEAKER) (test gofo=013) 17.5 % 11.7-14.4 PLATELET COUNT (BEAKER) (test txns=910) 256 K/CU MM 150-450 MEAN PLATELET VOLUME (BEAKER) (test boaw=900) 10.8 fL 9.4-12.3 NUCLEATED RED BLOOD CELLS (BEAKER) (test bvmm=309) 2 /100 WBC 0-0 (CELLAVISION MANUAL DIFF)2018-07-08 14:37:00* Test Item Value Reference Range Comments NEUTROPHILS - REL (CELLAVISION)(BEAKER) (test bmnd=6229) 2 % LYMPHOCYTES - REL (CELLAVISION)(BEAKER) (test gagk=9379) 25 % MONOCYTES - REL (CELLAVISION)(BEAKER) (test tigm=7383) 46 % EOSINOPHILS - REL (CELLAVISION)(BEAKER) (test ghzw=7361) 5 % BASOPHILS - REL (CELLAVISION)(BEAKER) (test uoqj=4937) 10 % METAMYELOCYTES - REL (CELLAVISION)(BEAKER) (test yvyj=7907) 2 % 0-0 MYELOCYTES - REL (CELLAVISION)(BEAKER) (test ghyh=6000) 3 % 0-0 PROMYELOCYTES - REL (CELLAVSION)(BEAKER) (test utyl=0851) 2 % 0-0 BANDS - REL (CELLAVISION)(BEAKER) (test qxdx=5832) 1 % 0-10 ATYPICAL LYMPHOCYTES - REL (CELLAVISION)(BEAKER) (test rvty=7163) 3 % 0-0 NEUTROPHILS - ABS (CELLAVISION)(BEAKER) (test gfxz=0955) 0.03 K/ul 1.56-6.13 LYMPHOCYTES - ABS (CELLAVISION)(BEAKER) (test vvar=8985) 0.43 K/ul 1.18-3.74 MONOCYTES - ABS (CELLAVISION)(BEAKER) (test kvce=6809) 0.78 K/uL 0.24-0.36 EOSINOPHILS - ABS (CELLAVISION)(BEAKER) (test zwub=3810) 0.09 K/uL 0.04-0.36 BASOPHILS - ABS (CELLAVISION)(BEAKER) (test bntd=5015) 0.17 K/uL 0.01-0.08 METAMYELOCYTES - ABS (CELLAVISION)(BEAKER) (test dlvy=2422) 0.03 K/uL 0.00-0.00 MYELOCYTES-ABS (CELLAVISION)(BEAKER) (test xfra=2811) 0.05 K/uL 0.00-0.00 PROMYELOCYTES - ABS (CELLAVISION)(BEAKER) (test neve=6512) 0.03 K/uL 0.00-0.00 BANDS - ABS (CELLAVISION)(BEAKER) (test alyf=0868) 0.02 K/uL 0.00-0.80 ATYPICAL LYMPHOCYTES - ABS (CELLAVISION)(BEAKER) (test juxn=1868) 0.05 K/uL 0.00-0.00 TOTAL COUNTED (BEAKER) (test pugm=6596) 100 MANUAL NRBC PER 100 CELLS (BEAKER) (test wltx=0273) 1 /100 WBC 0-0 WBC MORPHOLOGY (BEAKER) (test cnuo=853) Normal PLT MORPHOLOGY (BEAKER) (test qpjp=138) Normal POLYCHROMATOPHILLIC RBCS(BEAKER) (test aamb=074) 2+ moderate ANISOCYTOSIS (BEAKER) (test wqsr=540) 2+ moderate POIKILOCYTES (BEAKER) (test cvwc=814) 2+ moderate ARTIFACT (CELLAVISION)(BEAKER) (test nmcs=1658) Present PLATELET CONCENTRATION (CELLAVISION)(BEAKER) (test qdaj=4735) Adequate Received comment: User comments: Slide comments: URIC [id number] 06:30:00* Test Item Value Reference Range Comments URIC ACID (BEAKER) (test vidz=289) 1.7 mg/dL 2.6-7.2 COMPREHENSIVE METABOLIC [id number] 06:17:00* Test Item Value Reference Range Comments TOTAL PROTEIN (BEAKER) (test aiya=050) 4.5 gm/dL 6.0-8.3 ALBUMIN (BEAKER) (test rjhf=5968) 3.0 g/dL 3.5-5.0 ALKALINE PHOSPHATASE (BEAKER) (test cbkg=140) 163 U/L 40-150 BILIRUBIN TOTAL (BEAKER) (test vtzx=973) 0.7 mg/dL 0.2-1.2 SODIUM (BEAKER) (test djdu=062) 142 meq/L 136-145 POTASSIUM (BEAKER) (test wrdq=034) 3.9 meq/L 3.5-5.1 CHLORIDE (BEAKER) (test aebt=766) 109 meq/L 98-107 CO2 (BEAKER) (test vlim=816) 27 meq/L 22-29 BLOOD UREA NITROGEN (BEAKER) (test fjhm=108) 3 mg/dL 7-21 CREATININE (BEAKER) (test pkng=164) 0.58 mg/dL 0.57-1.25 GLUCOSE RANDOM (BEAKER) (test gkli=882) 99 mg/dL 70-105 CALCIUM (BEAKER) (test odcb=296) 8.3 mg/dL 8.4-10.2 AST (SGOT) (BEAKER) (test rdwk=457) 42 U/L 5-34 ALT (SGPT) (BEAKER) (test cofh=623) 79 U/L 6-55 EGFR (BEAKER) (test jiif=4136) 110 mL/min/1.73 sq m ESTIMATED GFR IS NOT ACCURATE CREATININE CLEARANCE IN PREDICTING GLOMERULAR FILTRATION RATE. ESTIMATED GFR IS NOT APPLICABLE FOR DIALYSIS PATIENTS. LACTATE DEHYDROGENASE (LDH)2018-07-08 06:17:00* Test Item Value Reference Range Comments LACTATE DEHYDROGENASE (BEAKER) (test fywu=686) 283 U/L 125-220 [id number] 06:11:00* Test Item Value Reference Range Comments PARTIAL THROMBOPLASTIN TIME (BEAKER) (test ikdk=651) 36.3 seconds 22.5-36.0 PROTHROMBIN TIME/[id number] 06:10:00* Test Item Value Reference Range Comments PROTIME (BEAKER) (test nuuz=612) 15.7 seconds 11.7-14.7 INR (BEAKER) (test bllu=891) 1.2 <=5.9 RECOMMENDED COUMADIN/WARFARIN INR THERAPY RANGESSTANDARD DOSE: 2.0 - 3.0 Inclu victoriano: PROPHYLAXIS for venous thrombosis, systemic embolization; TREATMENT for arleen ous thrombosis and/or pulmonary embolus.HIGH RISK: Target INR is 2.5-3.5 for pat ients with mechanical heart valves.CBC W/PLT COUNT & AUTO [id number] 13:53:00* Test Item Value Reference Range Comments WHITE BLOOD CELL COUNT (BEAKER) (test qein=418) 1.2 K/ L 3.5-10.5 RED BLOOD CELL COUNT (BEAKER) (test uekc=543) 3.34 M/ L 3.93-5.22 HEMOGLOBIN (BEAKER) (test xwij=621) 9.4 GM/DL 11.2-15.7 HEMATOCRIT (BEAKER) (test zfap=312) 31.1 % 34.1-44.9 MEAN CORPUSCULAR VOLUME (BEAKER) (test oidj=549) 93.1 fL 79.4-94.8 MEAN CORPUSCULAR HEMOGLOBIN (BEAKER) (test zrjh=488) 28.1 pg 25.6-32.2 MEAN CORPUSCULAR HEMOGLOBIN CONC (BEAKER) (test wbbs=314) 30.2 GM/DL 32.2-35.5 RED CELL DISTRIBUTION WIDTH (BEAKER) (test jhza=173) 17.5 % 11.7-14.4 PLATELET COUNT (BEAKER) (test ncrw=445) 192 K/CU MM 150-450 MEAN PLATELET VOLUME (BEAKER) (test fyni=439) 11.0 fL 9.4-12.3 NUCLEATED RED BLOOD CELLS (BEAKER) (test xynq=417) 4 /100 WBC 0-0 (CELLAVISION MANUAL DIFF)2018-07-07 13:53:00* Test Item Value Reference Range Comments NEUTROPHILS - REL (CELLAVISION)(BEAKER) (test vfuh=6847) 5 % LYMPHOCYTES - REL (CELLAVISION)(BEAKER) (test zppl=9368) 37 % MONOCYTES - REL (CELLAVISION)(BEAKER) (test fdnp=5715) 38 % EOSINOPHILS - REL (CELLAVISION)(BEAKER) (test apfp=3722) 1 % BASOPHILS - REL (CELLAVISION)(BEAKER) (test xzoc=9622) 6 % MYELOCYTES - REL (CELLAVISION)(BEAKER) (test bivz=1903) 3 % 0-0 PROMYELOCYTES - REL (CELLAVSION)(BEAKER) (test pype=4927) 5 % 0-0 BANDS - REL (CELLAVISION)(BEAKER) (test jprx=8654) 2 % 0-10 ATYPICAL LYMPHOCYTES - REL (CELLAVISION)(BEAKER) (test tpfc=5690) 3 % 0-0 NEUTROPHILS - ABS (CELLAVISION)(BEAKER) (test bybp=4134) 0.06 K/ul 1.56-6.13 LYMPHOCYTES - ABS (CELLAVISION)(BEAKER) (test ctld=6062) 0.44 K/ul 1.18-3.74 MONOCYTES - ABS (CELLAVISION)(BEAKER) (test fcii=2245) 0.46 K/uL 0.24-0.36 EOSINOPHILS - ABS (CELLAVISION)(BEAKER) (test euri=9815) 0.01 K/uL 0.04-0.36 BASOPHILS - ABS (CELLAVISION)(BEAKER) (test dinr=9815) 0.07 K/uL 0.01-0.08 MYELOCYTES-ABS (CELLAVISION)(BEAKER) (test sfzf=2100) 0.04 K/uL 0.00-0.00 PROMYELOCYTES - ABS (CELLAVISION)(BEAKER) (test romr=3359) 0.06 K/uL 0.00-0.00 BANDS - ABS (CELLAVISION)(BEAKER) (test uvzf=5371) 0.02 K/uL 0.00-0.80 ATYPICAL LYMPHOCYTES - ABS (CELLAVISION)(BEAKER) (test wnbp=6728) 0.04 K/uL 0.00-0.00 TOTAL COUNTED (BEAKER) (test annh=7846) 100 MANUAL NRBC PER 100 CELLS (BEAKER) (test qdus=1623) 5 /100 WBC 0-0 SMUDGE CELLS (BEAKER) (test fxfe=6305) Present GIANT PLATELETS (BEAKER) (test eetj=510) Present POLYCHROMATOPHILLIC RBCS(BEAKER) (test czsn=175) 1+ few ANISOCYTOSIS (BEAKER) (test drvj=679) 2+ moderate MICROCYTES (BEAKER) (test usau=848) 2+ moderate POIKILOCYTES (BEAKER) (test pbqa=753) 1+ few SCHISTOCYTES (BEAKER) (test iqax=564) 1+ few TEAR DROP CELLS (BEAKER) (test ajvl=453) 1+ few ARTIFACT (CELLAVISION)(BEAKER) (test qikw=8908) Present PLATELET CONCENTRATION (CELLAVISION)(BEAKER) (test vobj=4686) Adequate Received comment: User comments: Slide comments: URIC [id number] 07:16:00* Test Item Value Reference Range Comments URIC ACID (BEAKER) (test dhwk=045) 2.1 mg/dL 2.6-7.2 COMPREHENSIVE METABOLIC [id number] 07:16:00* Test Item Value Reference Range Comments TOTAL PROTEIN (BEAKER) (test rtey=797) 4.8 gm/dL 6.0-8.3 ALBUMIN (BEAKER) (test nlqs=2859) 3.2 g/dL 3.5-5.0 ALKALINE PHOSPHATASE (BEAKER) (test nduc=598) 180 U/L 40-150 BILIRUBIN TOTAL (BEAKER) (test uxmx=914) 0.9 mg/dL 0.2-1.2 SODIUM (BEAKER) (test hjoa=887) 143 meq/L 136-145 POTASSIUM (BEAKER) (test asef=500) 4.0 meq/L 3.5-5.1 CHLORIDE (BEAKER) (test urno=512) 111 meq/L 98-107 CO2 (BEAKER) (test gxzk=628) 25 meq/L 22-29 BLOOD UREA NITROGEN (BEAKER) (test gzkm=105) 2 mg/dL 7-21 CREATININE (BEAKER) (test mqdx=387) 0.61 mg/dL 0.57-1.25 GLUCOSE RANDOM (BEAKER) (test cbse=822) 76 mg/dL 70-105 CALCIUM (BEAKER) (test ocix=158) 8.4 mg/dL 8.4-10.2 AST (SGOT) (BEAKER) (test mshx=604) 45 U/L 5-34 ALT (SGPT) (BEAKER) (test cgxp=941) 90 U/L 6-55 EGFR (BEAKER) (test esum=7212) 104 mL/min/1.73 sq m ESTIMATED GFR IS NOT ACCURATE CREATININE CLEARANCE IN PREDICTING GLOMERULAR FILTRATION RATE. ESTIMATED GFR IS NOT APPLICABLE FOR DIALYSIS PATIENTS. LACTATE DEHYDROGENASE (LDH)2018-07-07 07:16:00* Test Item Value Reference Range Comments LACTATE DEHYDROGENASE (BEAKER) (test ydyb=373) 234 U/L 125-220 [id number] 06:36:00* Test Item Value Reference Range Comments PARTIAL THROMBOPLASTIN TIME (BEAKER) (test ywnq=111) 37.6 seconds 22.5-36.0 PROTHROMBIN [id number] 06:35:00* Test Item Value Reference Range Comments PROTIME (BEAKER) (test iljx=699) 15.9 seconds 11.7-14.7 INR (BEAKER) (test jpdz=322) 1.3 <=5.9 RECOMMENDED COUMADIN/WARFARIN INR THERAPY RANGESSTANDARD DOSE: 2.0 - 3.0 Inclu victoriano: PROPHYLAXIS for venous thrombosis, systemic embolization; TREATMENT for arleen ous thrombosis and/or pulmonary embolus.HIGH RISK: Target INR is 2.5-3.5 for pat ients with mechanical heart valves.CBC W/PLT COUNT & AUTO [id number] 11:31:00* Test Item Value Reference Range Comments WHITE BLOOD CELL COUNT (BEAKER) (test pocy=078) 0.5 K/ L 3.5-10.5 RED BLOOD CELL COUNT (BEAKER) (test dfda=668) 2.82 M/ L 3.93-5.22 HEMOGLOBIN (BEAKER) (test blpm=036) 8.0 GM/DL 11.2-15.7 HEMATOCRIT (BEAKER) (test rgjg=711) 26.1 % 34.1-44.9 MEAN CORPUSCULAR VOLUME (BEAKER) (test eobv=971) 92.6 fL 79.4-94.8 MEAN CORPUSCULAR HEMOGLOBIN (BEAKER) (test ivvm=528) 28.4 pg 25.6-32.2 MEAN CORPUSCULAR HEMOGLOBIN CONC (BEAKER) (test bbpe=535) 30.7 GM/DL 32.2-35.5 RED CELL DISTRIBUTION WIDTH (BEAKER) (test lhwz=483) 17.0 % 11.7-14.4 PLATELET COUNT (BEAKER) (test weow=258) 162 K/CU MM 150-450 MEAN PLATELET VOLUME (BEAKER) (test udqc=929) 11.0 fL 9.4-12.3 NUCLEATED RED BLOOD CELLS (BEAKER) (test aalc=200) 6 /100 WBC 0-0 (CELLAVISION MANUAL DIFF)2018-07-06 11:31:00* Test Item Value Reference Range Comments NEUTROPHILS - REL (CELLAVISION)(BEAKER) (test xusl=0568) 8 % LYMPHOCYTES - REL (CELLAVISION)(BEAKER) (test iqmx=8869) 46 % MONOCYTES - REL (CELLAVISION)(BEAKER) (test vwkm=0493) 30 % EOSINOPHILS - REL (CELLAVISION)(BEAKER) (test myzh=6272) 10 % BASOPHILS - REL (CELLAVISION)(BEAKER) (test bmoi=0569) 5 % BANDS - REL (CELLAVISION)(BEAKER) (test rnvl=1129) 1 % 0-10 NEUTROPHILS - ABS (CELLAVISION)(BEAKER) (test deog=4343) 0.04 K/ul 1.56-6.13 LYMPHOCYTES - ABS (CELLAVISION)(BEAKER) (test msmo=3962) 0.23 K/ul 1.18-3.74 MONOCYTES - ABS (CELLAVISION)(BEAKER) (test osbv=5656) 0.15 K/uL 0.24-0.36 EOSINOPHILS - ABS (CELLAVISION)(BEAKER) (test dvwq=8100) 0.05 K/uL 0.04-0.36 BASOPHILS - ABS (CELLAVISION)(BEAKER) (test uykn=1736) 0.03 K/uL 0.01-0.08 BANDS - ABS (CELLAVISION)(BEAKER) (test wtpb=4688) 0.01 K/uL 0.00-0.80 TOTAL COUNTED (BEAKER) (test vzeq=0947) 100 MANUAL NRBC PER 100 CELLS (BEAKER) (test lbts=6230) 6 /100 WBC 0-0 WBC MORPHOLOGY (BEAKER) (test ubaa=605) Normal LARGE PLT(BEAKER) (test fnsa=4239) Present ANISOCYTOSIS (BEAKER) (test xcnn=536) 3+ many MICROCYTES (BEAKER) (test qmfl=914) 3+ many POIKILOCYTES (BEAKER) (test aeln=431) 1+ few ARTIFACT (CELLAVISION)(BEAKER) (test ofwx=8668) Present PLATELET CONCENTRATION (CELLAVISION)(BEAKER) (test jjsm=0455) Adequate Received comment: User comments: Slide comments: URIC [id number] 05:31:00* Test Item Value Reference Range Comments URIC ACID (BEAKER) (test cgtc=891) 2.0 mg/dL 2.6-7.2 COMPREHENSIVE METABOLIC [id number] 05:31:00* Test Item Value Reference Range Comments TOTAL PROTEIN (BEAKER) (test jmuc=215) 4.5 gm/dL 6.0-8.3 ALBUMIN (BEAKER) (test cvzr=4092) 3.0 g/dL 3.5-5.0 ALKALINE PHOSPHATASE (BEAKER) (test zgzv=186) 173 U/L 40-150 BILIRUBIN TOTAL (BEAKER) (test odmp=728) 0.6 mg/dL 0.2-1.2 SODIUM (BEAKER) (test eujr=278) 143 meq/L 136-145 POTASSIUM (BEAKER) (test nwtf=677) 3.7 meq/L 3.5-5.1 CHLORIDE (BEAKER) (test jfwi=230) 111 meq/L 98-107 CO2 (BEAKER) (test ntgl=973) 26 meq/L 22-29 BLOOD UREA NITROGEN (BEAKER) (test vecr=816) 3 mg/dL 7-21 CREATININE (BEAKER) (test mdli=077) 0.61 mg/dL 0.57-1.25 GLUCOSE RANDOM (BEAKER) (test oifr=344) 79 mg/dL 70-105 CALCIUM (BEAKER) (test uwoz=082) 8.2 mg/dL 8.4-10.2 AST (SGOT) (BEAKER) (test isgu=181) 48 U/L 5-34 ALT (SGPT) (BEAKER) (test yjgt=786) 91 U/L 6-55 EGFR (BEAKER) (test rfyb=2672) 104 mL/min/1.73 sq m ESTIMATED GFR IS NOT ACCURATE CREATININE CLEARANCE IN PREDICTING GLOMERULAR FILTRATION RATE. ESTIMATED GFR IS NOT APPLICABLE FOR DIALYSIS PATIENTS. LACTATE DEHYDROGENASE (LDH)2018-07-06 05:31:00* Test Item Value Reference Range Comments LACTATE DEHYDROGENASE (BEAKER) (test zjju=476) 204 U/L 125-220 PROTHROMBIN TIME/[id number] 05:12:00* Test Item Value Reference Range Comments PROTIME (BEAKER) (test ncvk=100) 16.5 seconds 11.7-14.7 INR (BEAKER) (test enfz=099) 1.3 <=5.9 RECOMMENDED COUMADIN/WARFARIN INR THERAPY RANGESSTANDARD DOSE: 2.0 - 3.0 Inclu victoriano: PROPHYLAXIS for venous thrombosis, systemic embolization; TREATMENT for arleen ous thrombosis and/or pulmonary embolus.HIGH RISK: Target INR is 2.5-3.5 for pat ients with mechanical heart valves.[id number] 05:12:00* Test Item Value Reference Range Comments PARTIAL THROMBOPLASTIN TIME (BEAKER) (test bnol=048) 38.7 seconds 22.5-36.0 CBC W/PLT COUNT & AUTO [id number] 13:19:00* Test Item Value Reference Range Comments WHITE BLOOD CELL COUNT (BEAKER) (test gogg=459) 0.3 K/ L 3.5-10.5 RED BLOOD CELL COUNT (BEAKER) (test xdil=180) 2.92 M/ L 3.93-5.22 HEMOGLOBIN (BEAKER) (test npcc=567) 8.3 GM/DL 11.2-15.7 HEMATOCRIT (BEAKER) (test yrwd=107) 26.7 % 34.1-44.9 MEAN CORPUSCULAR VOLUME (BEAKER) (test jdnm=747) 91.4 fL 79.4-94.8 MEAN CORPUSCULAR HEMOGLOBIN (BEAKER) (test yflt=842) 28.4 pg 25.6-32.2 MEAN CORPUSCULAR HEMOGLOBIN CONC (BEAKER) (test magz=909) 31.1 GM/DL 32.2-35.5 RED CELL DISTRIBUTION WIDTH (BEAKER) (test vpfk=551) 16.2 % 11.7-14.4 PLATELET COUNT (BEAKER) (test wpcs=111) 118 K/CU MM 150-450 MEAN PLATELET VOLUME (BEAKER) (test unyp=290) 11.5 fL 9.4-12.3 NUCLEATED RED BLOOD CELLS (BEAKER) (test rcrd=218) 7 /100 WBC 0-0 (CELLAVISION MANUAL DIFF)2018-07-05 13:19:00* Test Item Value Reference Range Comments NEUTROPHILS - REL (CELLAVISION)(BEAKER) (test pwxj=8167) 13 % LYMPHOCYTES - REL (CELLAVISION)(BEAKER) (test iosh=3460) 46 % MONOCYTES - REL (CELLAVISION)(BEAKER) (test ihaj=1757) 29 % EOSINOPHILS - REL (CELLAVISION)(BEAKER) (test iwtk=9396) 11 % ATYPICAL LYMPHOCYTES - REL (CELLAVISION)(BEAKER) (test zjfm=3983) 1 % 0-0 NEUTROPHILS - ABS (CELLAVISION)(BEAKER) (test lioa=8459) 0.04 K/ul 1.56-6.13 LYMPHOCYTES - ABS (CELLAVISION)(BEAKER) (test rjle=2600) 0.14 K/ul 1.18-3.74 MONOCYTES - ABS (CELLAVISION)(BEAKER) (test loxc=7919) 0.09 K/uL 0.24-0.36 EOSINOPHILS - ABS (CELLAVISION)(BEAKER) (test mzik=1997) 0.03 K/uL 0.04-0.36 ATYPICAL LYMPHOCYTES - ABS (CELLAVISION)(BEAKER) (test ldvo=6140) 0.00 K/uL 0.00-0.00 TOTAL COUNTED (BEAKER) (test kqqt=4828) 100 MANUAL NRBC PER 100 CELLS (BEAKER) (test wvjv=3515) 8 /100 WBC 0-0 WBC MORPHOLOGY (BEAKER) (test tvrj=043) Normal PLT MORPHOLOGY (BEAKER) (test deqa=477) Normal POLYCHROMATOPHILLIC RBCS(BEAKER) (test jbje=059) 2+ moderate ANISOCYTOSIS (BEAKER) (test bick=958) 2+ moderate POIKILOCYTES (BEAKER) (test ikdt=434) 2+ moderate URIC [id number] 06:01:00* Test Item Value Reference Range Comments URIC ACID (BEAKER) (test orrx=540) 2.1 mg/dL 2.6-7.2 COMPREHENSIVE METABOLIC [id number] 06:01:00* Test Item Value Reference Range Comments TOTAL PROTEIN (BEAKER) (test sxks=115) 4.8 gm/dL 6.0-8.3 ALBUMIN (BEAKER) (test ogaw=8034) 3.3 g/dL 3.5-5.0 ALKALINE PHOSPHATASE (BEAKER) (test zysd=277) 184 U/L 40-150 BILIRUBIN TOTAL (BEAKER) (test gpyo=548) 0.8 mg/dL 0.2-1.2 SODIUM (BEAKER) (test ppgp=769) 141 meq/L 136-145 POTASSIUM (BEAKER) (test bywa=229) 4.1 meq/L 3.5-5.1 CHLORIDE (BEAKER) (test fwnt=920) 108 meq/L 98-107 CO2 (BEAKER) (test zehx=374) 27 meq/L 22-29 BLOOD UREA NITROGEN (BEAKER) (test gipe=530) 3 mg/dL 7-21 CREATININE (BEAKER) (test wafp=421) 0.65 mg/dL 0.57-1.25 GLUCOSE RANDOM (BEAKER) (test dypi=326) 93 mg/dL 70-105 CALCIUM (BEAKER) (test caxv=292) 8.4 mg/dL 8.4-10.2 AST (SGOT) (BEAKER) (test vgvb=683) 48 U/L 5-34 ALT (SGPT) (BEAKER) (test cqhr=296) 92 U/L 6-55 EGFR (BEAKER) (test cvcz=9902) 96 mL/min/1.73 sq m ESTIMATED GFR IS NOT ACCURATE CREATININE CLEARANCE IN PREDICTING GLOMERULAR FILTRATION RATE. ESTIMATED GFR IS NOT APPLICABLE FOR DIALYSIS PATIENTS. LACTATE DEHYDROGENASE (LDH)2018-07-05 06:01:00* Test Item Value Reference Range Comments LACTATE DEHYDROGENASE (BEAKER) (test ybte=756) 231 U/L 125-220 PROTHROMBIN TIME/[id number] 05:48:00* Test Item Value Reference Range Comments PROTIME (BEAKER) (test ieol=130) 15.3 seconds 11.7-14.7 INR (BEAKER) (test xngv=041) 1.2 <=5.9 RECOMMENDED COUMADIN/WARFARIN INR THERAPY RANGESSTANDARD DOSE: 2.0 - 3.0 Inclu victoriano: PROPHYLAXIS for venous thrombosis, systemic embolization; TREATMENT for arleen ous thrombosis and/or pulmonary embolus.HIGH RISK: Target INR is 2.5-3.5 for pat ients with mechanical heart valves.[id number] 05:48:00* Test Item Value Reference Range Comments PARTIAL THROMBOPLASTIN TIME (BEAKER) (test hbye=486) 36.2 seconds 22.5-36.0 CBC W/PLT COUNT & AUTO [id number] 11:12:00* Test Item Value Reference Range Comments WHITE BLOOD CELL COUNT (BEAKER) (test ogau=502) 0.2 K/ L 3.5-10.5 RED BLOOD CELL COUNT (BEAKER) (test xrhr=709) 2.75 M/ L 3.93-5.22 HEMOGLOBIN (BEAKER) (test hyph=982) 7.7 GM/DL 11.2-15.7 HEMATOCRIT (BEAKER) (test jret=227) 25.1 % 34.1-44.9 MEAN CORPUSCULAR VOLUME (BEAKER) (test yhrf=883) 91.3 fL 79.4-94.8 MEAN CORPUSCULAR HEMOGLOBIN (BEAKER) (test vysx=640) 28.0 pg 25.6-32.2 MEAN CORPUSCULAR HEMOGLOBIN CONC (BEAKER) (test kege=714) 30.7 GM/DL 32.2-35.5 RED CELL DISTRIBUTION WIDTH (BEAKER) (test nafz=612) 15.3 % 11.7-14.4 PLATELET COUNT (BEAKER) (test wipp=259) 59 K/CU MM 150-450 Discordant result compared to previous result; clinical correlation required. MEAN PLATELET VOLUME (BEAKER) (test iqrh=947) 11.9 fL 9.4-12.3 NUCLEATED RED BLOOD CELLS (BEAKER) (test wdss=724) 0 /100 WBC 0-0 (CELLAVISION MANUAL DIFF)2018-07-04 11:12:00* Test Item Value Reference Range Comments NEUTROPHILS - REL (CELLAVISION)(BEAKER) (test bvqi=9472) 21 % LYMPHOCYTES - REL (CELLAVISION)(BEAKER) (test stdy=1972) 64 % MONOCYTES - REL (CELLAVISION)(BEAKER) (test uent=4862) 6 % EOSINOPHILS - REL (CELLAVISION)(BEAKER) (test pwxx=5883) 6 % BASOPHILS - REL (CELLAVISION)(BEAKER) (test nupg=6079) 3 % NEUTROPHILS - ABS (CELLAVISION)(BEAKER) (test pwzs=8532) 0.04 K/ul 1.56-6.13 LYMPHOCYTES - ABS (CELLAVISION)(BEAKER) (test lejn=7434) 0.13 K/ul 1.18-3.74 MONOCYTES - ABS (CELLAVISION)(BEAKER) (test texu=0452) 0.01 K/uL 0.24-0.36 EOSINOPHILS - ABS (CELLAVISION)(BEAKER) (test gojt=9565) 0.01 K/uL 0.04-0.36 BASOPHILS - ABS (CELLAVISION)(BEAKER) (test djwk=5409) 0.01 K/uL 0.01-0.08 TOTAL COUNTED (BEAKER) (test slnz=9145) 100 MANUAL NRBC PER 100 CELLS (BEAKER) (test emot=1888) 6 /100 WBC 0-0 WBC MORPHOLOGY (BEAKER) (test jfzi=475) Normal LARGE PLT(BEAKER) (test ytwx=3024) Present ANISOCYTOSIS (BEAKER) (test qazl=085) 3+ many MICROCYTES (BEAKER) (test pmds=336) 3+ many POIKILOCYTES (BEAKER) (test umwj=079) 1+ few ARTIFACT (CELLAVISION)(BEAKER) (test qarh=7362) Present PLATELET CONCENTRATION (CELLAVISION)(BEAKER) (test oyis=6935) Decreased Received comment: User comments: Slide comments: URIC [id number] 07:38:00* Test Item Value Reference Range Comments URIC ACID (BEAKER) (test xssg=376) 2.2 mg/dL 2.6-7.2 COMPREHENSIVE METABOLIC [id number] 07:38:00* Test Item Value Reference Range Comments TOTAL PROTEIN (BEAKER) (test zcdi=542) 4.7 gm/dL 6.0-8.3 ALBUMIN (BEAKER) (test bufi=2898) 3.2 g/dL 3.5-5.0 ALKALINE PHOSPHATASE (BEAKER) (test siei=795) 176 U/L 40-150 BILIRUBIN TOTAL (BEAKER) (test vudy=603) 0.8 mg/dL 0.2-1.2 SODIUM (BEAKER) (test hvle=470) 142 meq/L 136-145 POTASSIUM (BEAKER) (test feda=284) 4.0 meq/L 3.5-5.1 CHLORIDE (BEAKER) (test weuu=102) 110 meq/L 98-107 CO2 (BEAKER) (test fomu=887) 28 meq/L 22-29 BLOOD UREA NITROGEN (BEAKER) (test iydc=668) 3 mg/dL 7-21 CREATININE (BEAKER) (test dcec=507) 0.61 mg/dL 0.57-1.25 GLUCOSE RANDOM (BEAKER) (test bhvs=689) 82 mg/dL 70-105 CALCIUM (BEAKER) (test yreq=371) 8.5 mg/dL 8.4-10.2 AST (SGOT) (BEAKER) (test yahh=748) 44 U/L 5-34 ALT (SGPT) (BEAKER) (test nbkg=013) 90 U/L 6-55 EGFR (BEAKER) (test kzra=2937) 104 mL/min/1.73 sq m ESTIMATED GFR IS NOT ACCURATE CREATININE CLEARANCE IN PREDICTING GLOMERULAR FILTRATION RATE. ESTIMATED GFR IS NOT APPLICABLE FOR DIALYSIS PATIENTS. LACTATE DEHYDROGENASE (LDH)2018-07-04 07:38:00* Test Item Value Reference Range Comments LACTATE DEHYDROGENASE (BEAKER) (test hiig=727) 197 U/L 125-220 [id number] 07:20:00* Test Item Value Reference Range Comments PARTIAL THROMBOPLASTIN TIME (BEAKER) (test wcat=857) 33.7 seconds 22.5-36.0 PROTHROMBIN TIME/[id number] 07:16:00* Test Item Value Reference Range Comments PROTIME (BEAKER) (test kxwi=627) 15.4 seconds 11.7-14.7 INR (BEAKER) (test qwwg=094) 1.2 <=5.9 RECOMMENDED COUMADIN/WARFARIN INR THERAPY RANGESSTANDARD DOSE: 2.0 - 3.0 Inclu victoriano: PROPHYLAXIS for venous thrombosis, systemic embolization; TREATMENT for arleen ous thrombosis and/or pulmonary embolus.HIGH RISK: Target INR is 2.5-3.5 for pat ients with mechanical heart valves.CT, MAXILLOFACIAL AREA, [id number] 21:24:00FINAL REPORT CT, MAXILLOFACIAL AREA, CONTRAST, CT, CHEST, WITH CONTRAST, CT, SOFT TISSUE NECK, CONTRAST CLINICAL INDICATION: Pain, maxface COMPARISON: CT chest dated 06/18/2018. TECHNIQUE: Noncontrast CT of the maxillofacial , neck and chest area. Coronal and sagittal reconstructions were performed. DOSE REDUCTION: Dose modulation, iterative reconstruction, and/or weight-based adjustment of the mA/kV was utilized to reduce the radiation dose to as low as reasonably achievable. FINDINGS: Face:Soft tissue swelling over the right cheek with no drainable fluid collection identified. Dental period of multiple maxillary and mandibular teeth. Periapical lucency surrounding the left mandibular canine and first premolar as well as the right maxillary first and second premolar.Mucosal thickening in the right maxillary sinus. The mandible is otherwise intact.Well aerated mastoids.Symmetric globes without retrobulbar hemorrhage.Intracranial contents are normal. Neck:There is no evidence of abnormal mass, enlarged lymphadenopathy, or fluid collection in the soft tissues of the neck. Scattered subcentimeter lymph nodes are seen in the bilateral jugulodigastric and posterior triangle regions. The salivary glands are symmetrical and unremarkable in appearance. The aerodigestive tract is patent. The vascular structures in the neck are patent.Mild multilevel degenerative changes of the cervical spine, worst at C5-6 where however no significant spinal canal stenosis. Chest:Bilateral lower lobe dependent atelectasis. No large pleural effusion or lobar consolidation. No suspicious pulmonary nodules. No pneumothorax.. The heart and great vessels are normal in size. Right upper extremity PICC with tip terminating in the cavoatrial junction. There is no evidence of axillary, mediastinal, or hilar lymphadenop athy. Soft tissues are unremarkable. No aggressive osseous lesions or acute frac tures. Unchanged anterior wedging of the T12 vertebral body with a prominent Sc hmorl's node. Splenomegaly. Periportal edema is incompletely characterized on th is examination. IMPRESSION:Inflammatory stranding of the right cheek surroundin g the right mandible with no drainable fluid collection identified however multi ple dental caries and periapical lucencies as detailed above suggest a odontogen ic origin. No lymphadenopathy, drainable fluid collection or mass effect within the neck. No acute intrathoracic process. No venous occlusion in the right inte rnal jugular vein or SVC as clinically.. Signed: Karen Tran rified Date/Time: 07/03/2018 21:24:35 Reading Location: [address] Reading Room Electronically signed by: KAREN TRAN MD on 2018 09:[address], CHEST, WITH [id number] 21:24:00FINAL REPORT CT, MAXILLOFACIAL AREA, CONTRAST, CT, CHEST, WITH CONTRAST, CT, SOFT TISSUE NECK, CONTRAST CLINICAL INDICATION: Pain, maxface COMPARISON: CT chest dated 06/18/2018. TECHNIQUE: Noncontrast CT of the maxillofacial , neck and chest area. Coronal and sagittal reconstructions were performed. DOSE REDUCTION: Dose modulation, iterative reconstruction, and/or weight-based adjustment of the mA/kV was utilized to reduce the radiation dose to as low as reasonably achievable. FINDINGS: Face:Soft tissue swelling over the right cheek with no drainable fluid collection identified. Dental period of multiple maxil ledy and mandibular teeth. Periapical lucency surrounding the left mandibular ca nine and first premolar as well as the right maxillary first and second premolar .Mucosal thickening in the right maxillary sinus. The mandible is otherwise inta ct.Well aerated mastoids.Symmetric globes without retrobulbar hemorrhage.Intracr anial contents are normal. Neck:There is no evidence of abnormal mass, enlarge d lymphadenopathy, or fluid collection in the soft tissues of the neck. Scattere d subcentimeter lymph nodes are seen in the bilateral jugulodigastric and fruit washer ior triangle regions. The salivary glands are symmetrical and unremarkable in ap pearance. The aerodigestive tract is patent. The vascular structures in the neck are patent.Mild multilevel degenerative changes of the cervical spine, worst at C5-6 where however no significant spinal canal stenosis. Chest:Bilateral lower lobe dependent atelectasis. No large pleural effusion or lobar consolidation. No suspicious pulmonary nodules. No pneumothorax.. The heart and great vessels are normal in size. Right upper extremity PICC with tip terminating in the cavoatri al junction. There is no evidence of axillary, mediastinal, or hilar lymphadenop athy. Soft tissues are unremarkable. No aggressive osseous lesions or acute frac tures. Unchanged anterior wedging of the T12 vertebral body with a prominent Sc hmorl's node. Splenomegaly. Periportal edema is incompletely characterized on th is examination. IMPRESSION:Inflammatory stranding of the right cheek surroundin g the right mandible with no drainable fluid collection identified however multi ple dental caries and periapical lucencies as detailed above suggest a odontogen ic origin. No lymphadenopathy, drainable fluid collection or mass effect within the neck. No acute intrathoracic process. No venous occlusion in the right inte rnal jugular vein or SVC as clinically.. Signed: Karen Tran Date/Time: 07/03/2018 21:24:35 Reading Location: [address] Reading Room Electronically signed by: KAREN TRAN MD on 2018 09:[address], SOFT TISSUE NECK, [id number] 21:24:00FINAL REPORT CT, MAXILLOFACIAL AREA, CONTRAST, CT, CHEST, WITH CONTRAST, CT, SOFT TISSUE NECK, CONTRAST CLINICAL INDICATION: Pain, maxface COMPARISON: CT chest dated 06/18/2018. TECHNIQUE: Noncontrast CT of the maxill ofacial , neck and chest area. Coronal and sagittal reconstructions were perform ed. DOSE REDUCTION: Dose modulation, iterative reconstruction, and/or weight-bas ed adjustment of the mA/kV was utilized to reduce the radiation dose to as low a s reasonably achievable. FINDINGS: Face:Soft tissue swelling over the right irena k with no drainable fluid collection identified. Dental period of multiple maxil ledy and mandibular teeth. Periapical lucency surrounding the left mandibular ca nine and first premolar as well as the right maxillary first and second premolar .Mucosal thickening in the right maxillary sinus. The mandible is otherwise inta ct.Well aerated mastoids.Symmetric globes without retrobulbar hemorrhage.Intracr anial contents are normal. Neck:There is no evidence of abnormal mass, enlarge d lymphadenopathy, or fluid collection in the soft tissues of the neck. Scattere d subcentimeter lymph nodes are seen in the bilateral jugulodigastric and fruit washer ior triangle regions. The salivary glands are symmetrical and unremarkable in ap pearance. The aerodigestive tract is patent. The vascular structures in the neck are patent.Mild multilevel degenerative changes of the cervical spine, worst at C5-6 where however no significant spinal canal stenosis. Chest:Bilateral lower lobe dependent atelectasis. No large pleural effusion or lobar consolidation. No suspicious pulmonary nodules. No pneumothorax.. The heart and great vessels are normal in size. Right upper extremity PICC with tip terminating in the cavoatri al junction. There is no evidence of axillary, mediastinal, or hilar lymphadenop athy. Soft tissues are unremarkable. No aggressive osseous lesions or acute frac tures. Unchanged anterior wedging of the T12 vertebral body with a prominent Sc hmorl's node. Splenomegaly. Periportal edema is incompletely characterized on th is examination. IMPRESSION:Inflammatory stranding of the right cheek surroundin g the right mandible with no drainable fluid collection identified however multi ple dental caries and periapical lucencies as detailed above suggest a odontogen ic origin. No lymphadenopathy, drainable fluid collection or mass effect within the neck. No acute intrathoracic process. No venous occlusion in the right inte rnal jugular vein or SVC as clinically.. Signed: Karen Tran Date/Time: 07/03/2018 21:24:35 Reading Location: [address] Reading Room Electronically signed by: KAREN TRAN MD on 2018 09:[address], BRAIN/STROKE [id number] 20:53:00Stroke Protocol. Phone/Page MD for reporting.Reason for exam:->Acute neurological changeSuspected strokeFINAL REPORT CT Head without contrast CLINICAL HISTORY: StrokeAcute neurological change TECHNIQUE: Contiguous axial images through the head without contrast. This exam was performed according to the departmental dose optimization program which includes automated exposure control, adjustment of the mA and/or kV according to the patient size, and/or use of an iterative reconstruction technique. COMPARISON: CT head dated 06/22/2019. FINDINGS: There is no CT evidence of acute infarct or intracranial hemorrhage. There are no extra-axial fluid collections. The skull is intact. The paranasal sinuses are well-aerated. No subcutaneous soft tissue stranding in the visualized face. IMPRESSION: There is no CT evidence of acute infarct or intracranial hemorrhage. The findings were discussed with industrial resident at 07/03/2017, 2052 hours. Signed: Karen Tran Verified Date/Time: 07/03/2018 20:53:02 Reading Location: [address] Transitional Reading Room -GLUCOSE [id number] 20:12:00* Test Item Value Reference Range Comments POC-GLUCOSE METER (BEAKER) (test rxlt=9568) 86 mg/dL 70-110 TESTED AT [address] [address] CBC W/PLT COUNT & AUTO [id number] 11:33:00* Test Item Value Reference Range Comments WHITE BLOOD CELL COUNT (BEAKER) (test cezp=605) 0.3 K/ L 3.5-10.5 RED BLOOD CELL COUNT (BEAKER) (test svwz=834) 2.84 M/ L 3.93-5.22 HEMOGLOBIN (BEAKER) (test ddaf=282) 8.0 GM/DL 11.2-15.7 HEMATOCRIT (BEAKER) (test pykn=062) 25.6 % 34.1-44.9 MEAN CORPUSCULAR VOLUME (BEAKER) (test gfkv=170) 90.1 fL 79.4-94.8 MEAN CORPUSCULAR HEMOGLOBIN (BEAKER) (test nhda=493) 28.2 pg 25.6-32.2 MEAN CORPUSCULAR HEMOGLOBIN CONC (BEAKER) (test pgmf=013) 31.3 GM/DL 32.2-35.5 RED CELL DISTRIBUTION WIDTH (BEAKER) (test gjrd=575) 15.3 % 11.7-14.4 PLATELET COUNT (BEAKER) (test pzii=361) 33 K/CU MM 150-450 MEAN PLATELET VOLUME (BEAKER) (test vsyl=822) 9.7 fL 9.4-12.3 NUCLEATED RED BLOOD CELLS (BEAKER) (test syur=633) 7 /100 WBC 0-0 (MANUAL DIFFERENTIAL)2018-07-03 11:33:00* Test Item Value Reference Range Comments NEUTROPHILS - REL (DIFF) (BEAKER) (test huqd=6145) 10 % LYMPHOCYTES - REL (DIFF) (BEAKER) (test pfbk=9941) 79 % MONOCYTES - REL (DIFF) (BEAKER) (test vhvu=0199) 5 % EOSINOPHILS - REL (DIFF) (BEAKER) (test qrfu=9775) 2 % BASOPHILS - REL (DIFF) (BEAKER) (test emsa=4897) 1 % ATYPICAL LYMPHOCYTE - REL (DIFF) (BEAKER) (test chqo=989) 3 % 0-0 NEUTROPHILS - ABS (DIFF) (BEAKER) (test lpcn=6124) 0.03 K/ L 1.80-8.00 LYMPHOCYTES - ABS (DIFF) (BEAKER) (test dhjl=6650) 0.24 K/ L 1.48-4.50 MONOCYTES - ABS (DIFF) (BEAKER) (test kqbr=0277) 0.02 K/ L 0.00-1.30 EOSINOPHILS - ABS (DIFF) (BEAKER) (test jkmi=5980) 0.01 K/ L 0.00-0.50 BASOPHILS - ABS (DIFF) (BEAKER) (test foen=7814) 0.00 K/ L 0.00-0.20 ATYPICAL LYMPHOCYTES - ABS (DIFF) (BEAKER) (test kmkq=938) 0.01 K/ L 0.00-0.00 TOTAL COUNTED (BEAKER) (test khcx=1600) 100 MANUAL NRBC PER 100 CELLS (BEAKER) (test pyrw=6615) 4 /100 WBC 0-0 WBC MORPHOLOGY (BEAKER) (test ouzq=580) Normal PLT MORPHOLOGY (BEAKER) (test oewf=303) Normal POLYCHROMATOPHILLIC RBCS(BEAKER) (test wavq=361) 1+ few [id number] 06:04:00* Test Item Value Reference Range Comments PARTIAL THROMBOPLASTIN TIME (BEAKER) (test eqan=415) 32.5 seconds 22.5-36.0 PROTHROMBIN TIME/[id number] 06:03:00* Test Item Value Reference Range Comments PROTIME (BEAKER) (test kvdl=338) 14.4 seconds 11.7-14.7 INR (BEAKER) (test nnat=827) 1.1 <=5.9 RECOMMENDED COUMADIN/WARFARIN INR THERAPY RANGESSTANDARD DOSE: 2.0 - 3.0 Inclu victoriano: PROPHYLAXIS for venous thrombosis, systemic embolization; TREATMENT for arleen ous thrombosis and/or pulmonary embolus.HIGH RISK: Target INR is 2.5-3.5 for pat ients with mechanical heart valves.URIC [id number] 05:51:00* Test Item Value Reference Range Comments URIC ACID (BEAKER) (test xcnj=291) 1.7 mg/dL 2.6-7.2 COMPREHENSIVE METABOLIC [id number] 05:47:00* Test Item Value Reference Range Comments TOTAL PROTEIN (BEAKER) (test aybo=630) 4.7 gm/dL 6.0-8.3 ALBUMIN (BEAKER) (test kira=7406) 3.2 g/dL 3.5-5.0 ALKALINE PHOSPHATASE (BEAKER) (test bqvk=739) 176 U/L 40-150 BILIRUBIN TOTAL (BEAKER) (test ylsm=230) 0.7 mg/dL 0.2-1.2 SODIUM (BEAKER) (test txpz=113) 142 meq/L 136-145 POTASSIUM (BEAKER) (test rhrp=082) 4.1 meq/L 3.5-5.1 CHLORIDE (BEAKER) (test uhvk=284) 109 meq/L 98-107 CO2 (BEAKER) (test idnr=450) 29 meq/L 22-29 BLOOD UREA NITROGEN (BEAKER) (test dfss=435) 7 mg/dL 7-21 CREATININE (BEAKER) (test kcwy=236) 0.64 mg/dL 0.57-1.25 GLUCOSE RANDOM (BEAKER) (test kall=288) 95 mg/dL 70-105 CALCIUM (BEAKER) (test cziq=365) 8.6 mg/dL 8.4-10.2 AST (SGOT) (BEAKER) (test bvwt=724) 46 U/L 5-34 ALT (SGPT) (BEAKER) (test utts=582) 98 U/L 6-55 EGFR (BEAKER) (test fgvj=7829) 98 mL/min/1.73 sq m ESTIMATED GFR IS NOT ACCURATE CREATININE CLEARANCE IN PREDICTING GLOMERULAR FILTRATION RATE. ESTIMATED GFR IS NOT APPLICABLE FOR DIALYSIS PATIENTS. LACTATE DEHYDROGENASE (LDH)2018-07-03 05:47:00* Test Item Value Reference Range Comments LACTATE DEHYDROGENASE (BEAKER) (test mocx=091) 189 U/L 125-220 CBC W/PLT COUNT & AUTO [id number] 10:54:00* Test Item Value Reference Range Comments WHITE BLOOD CELL COUNT (BEAKER) (test ypos=959) 0.2 K/ L 3.5-10.5 RED BLOOD CELL COUNT (BEAKER) (test rosq=370) 2.80 M/ L 3.93-5.22 HEMOGLOBIN (BEAKER) (test gshi=969) 7.8 GM/DL 11.2-15.7 HEMATOCRIT (BEAKER) (test arex=963) 24.8 % 34.1-44.9 MEAN CORPUSCULAR VOLUME (BEAKER) (test pmhu=165) 88.6 fL 79.4-94.8 MEAN CORPUSCULAR HEMOGLOBIN (BEAKER) (test qent=010) 27.9 pg 25.6-32.2 MEAN CORPUSCULAR HEMOGLOBIN CONC (BEAKER) (test mxhz=763) 31.5 GM/DL 32.2-35.5 RED CELL DISTRIBUTION WIDTH (BEAKER) (test gvcz=251) 15.0 % 11.7-14.4 PLATELET COUNT (BEAKER) (test mmlk=632) 13 K/CU MM 150-450 MEAN PLATELET VOLUME (BEAKER) (test crgu=412) fL 9.4-12.3 Unable to report due to abnormal Platelet population distribution. NUCLEATED RED BLOOD CELLS (BEAKER) (test gdyo=647) 11 /100 WBC 0-0 (CELLAVISION MANUAL DIFF)2018-07-02 10:54:00* Test Item Value Reference Range Comments NEUTROPHILS - REL (CELLAVISION)(BEAKER) (test hwnc=2222) 27 % LYMPHOCYTES - REL (CELLAVISION)(BEAKER) (test jcto=1923) 54 % MONOCYTES - REL (CELLAVISION)(BEAKER) (test coii=2265) 3 % EOSINOPHILS - REL (CELLAVISION)(BEAKER) (test gfyk=2582) 7 % BANDS - REL (CELLAVISION)(BEAKER) (test xoet=3054) 2 % 0-10 ATYPICAL LYMPHOCYTES - REL (CELLAVISION)(BEAKER) (test wina=3990) 7 % 0-0 NEUTROPHILS - ABS (CELLAVISION)(BEAKER) (test aaxl=3430) 0.05 K/ul 1.56-6.13 LYMPHOCYTES - ABS (CELLAVISION)(BEAKER) (test rrlk=9597) 0.11 K/ul 1.18-3.74 MONOCYTES - ABS (CELLAVISION)(BEAKER) (test vzji=4285) 0.01 K/uL 0.24-0.36 EOSINOPHILS - ABS (CELLAVISION)(BEAKER) (test jocv=6337) 0.01 K/uL 0.04-0.36 BANDS - ABS (CELLAVISION)(BEAKER) (test fjbx=0544) 0.00 K/uL 0.00-0.80 ATYPICAL LYMPHOCYTES - ABS (CELLAVISION)(BEAKER) (test uyqg=4103) 0.01 K/uL 0.00-0.00 TOTAL COUNTED (BEAKER) (test keui=1517) 100 MANUAL NRBC PER 100 CELLS (BEAKER) (test dotu=2645) 2 /100 WBC 0-0 WBC MORPHOLOGY (BEAKER) (test spnj=357) Normal PLT MORPHOLOGY (BEAKER) (test abwy=963) Normal ANISOCYTOSIS (BEAKER) (test zxlh=835) 3+ many MICROCYTES (BEAKER) (test gqff=286) 3+ many POIKILOCYTES (BEAKER) (test jrsd=082) 1+ few ARTIFACT (CELLAVISION)(BEAKER) (test uuwp=5990) Present PLATELET CONCENTRATION (CELLAVISION)(BEAKER) (test vjxx=9002) Decreased Received comment: User comments: Slide comments: URIC [id number] 06:01:00* Test Item Value Reference Range Comments URIC ACID (BEAKER) (test xmrx=937) 1.3 mg/dL 2.6-7.2 COMPREHENSIVE METABOLIC [id number] 05:44:00* Test Item Value Reference Range Comments TOTAL PROTEIN (BEAKER) (test xtkd=571) 4.6 gm/dL 6.0-8.3 ALBUMIN (BEAKER) (test becc=1982) 3.1 g/dL 3.5-5.0 ALKALINE PHOSPHATASE (BEAKER) (test yobv=218) 163 U/L 40-150 BILIRUBIN TOTAL (BEAKER) (test wuhd=471) 1.3 mg/dL 0.2-1.2 SODIUM (BEAKER) (test brle=081) 140 meq/L 136-145 POTASSIUM (BEAKER) (test mjls=659) 4.3 meq/L 3.5-5.1 CHLORIDE (BEAKER) (test yvxw=522) 106 meq/L 98-107 CO2 (BEAKER) (test wkth=229) 29 meq/L 22-29 BLOOD UREA NITROGEN (BEAKER) (test dbyb=208) 9 mg/dL 7-21 CREATININE (BEAKER) (test qtvw=638) 0.63 mg/dL 0.57-1.25 GLUCOSE RANDOM (BEAKER) (test jyhe=175) 93 mg/dL 70-105 CALCIUM (BEAKER) (test rqkv=199) 8.2 mg/dL 8.4-10.2 AST (SGOT) (BEAKER) (test rjbq=564) 49 U/L 5-34 ALT (SGPT) (BEAKER) (test bjbs=649) 95 U/L 6-55 EGFR (BEAKER) (test rdtz=5928) 100 mL/min/1.73 sq m ESTIMATED GFR IS NOT ACCURATE CREATININE CLEARANCE IN PREDICTING GLOMERULAR FILTRATION RATE. ESTIMATED GFR IS NOT APPLICABLE FOR DIALYSIS PATIENTS. LACTATE DEHYDROGENASE (LDH)2018-07-02 05:44:00* Test Item Value Reference Range Comments LACTATE DEHYDROGENASE (BEAKER) (test stbw=251) 198 U/L 125-220 [id number] 05:19:00* Test Item Value Reference Range Comments PARTIAL THROMBOPLASTIN TIME (BEAKER) (test defj=783) 32.8 seconds 22.5-36.0 PROTHROMBIN TIME/[id number] 05:18:00* Test Item Value Reference Range Comments PROTIME (BEAKER) (test nrzs=916) 15.0 seconds 11.7-14.7 INR (BEAKER) (test bhpt=746) 1.2 <=5.9 RECOMMENDED COUMADIN/WARFARIN INR THERAPY RANGESSTANDARD DOSE: 2.0 - 3.0 Inclu victoriano: PROPHYLAXIS for venous thrombosis, systemic embolization; TREATMENT for arleen ous thrombosis and/or pulmonary embolus.HIGH RISK: Target INR is 2.5-3.5 for pat ients with mechanical heart valves.CBC W/PLT COUNT & AUTO [id number] 15:22:00* Test Item Value Reference Range Comments WHITE BLOOD CELL COUNT (BEAKER) (test klxi=431) 0.2 K/ L 3.5-10.5 RED BLOOD CELL COUNT (BEAKER) (test xomn=642) 2.41 M/ L 3.93-5.22 HEMOGLOBIN (BEAKER) (test bbqh=310) 6.7 GM/DL 11.2-15.7 HEMATOCRIT (BEAKER) (test pplz=538) 21.7 % 34.1-44.9 MEAN CORPUSCULAR VOLUME (BEAKER) (test bbcy=478) 90.0 fL 79.4-94.8 MEAN CORPUSCULAR HEMOGLOBIN (BEAKER) (test tcgn=464) 27.8 pg 25.6-32.2 MEAN CORPUSCULAR HEMOGLOBIN CONC (BEAKER) (test xaku=293) 30.9 GM/DL 32.2-35.5 RED CELL DISTRIBUTION WIDTH (BEAKER) (test nnhb=994) 15.8 % 11.7-14.4 PLATELET COUNT (BEAKER) (test prht=552) 11 K/CU MM 150-450 MEAN PLATELET VOLUME (BEAKER) (test rktt=725) fL 9.4-12.3 Unable to report due to abnormal Platelet population distribution. NUCLEATED RED BLOOD CELLS (BEAKER) (test adjv=921) 0 /100 WBC 0-0 (MANUAL DIFFERENTIAL)2018-07-01 15:22:00* Test Item Value Reference Range Comments NEUTROPHILS - REL (DIFF) (BEAKER) (test zwbr=5040) 14 % LYMPHOCYTES - REL (DIFF) (BEAKER) (test cvit=3777) 71 % MONOCYTES - REL (DIFF) (BEAKER) (test negt=0250) 6 % EOSINOPHILS - REL (DIFF) (BEAKER) (test lxce=1847) 4 % BANDS - REL (DIFF) (BEAKER) (test bjee=8850) 4 % 0-10 BLASTS - REL (DIFF) (BEAKER) (test hlmc=2030) 1 % 0-0 NEUTROPHILS - ABS (DIFF) (BEAKER) (test rmud=7459) 0.03 K/ L 1.80-8.00 LYMPHOCYTES - ABS (DIFF) (BEAKER) (test bdzp=8483) 0.14 K/ L 1.48-4.50 MONOCYTES - ABS (DIFF) (BEAKER) (test vxlz=2845) 0.01 K/ L 0.00-1.30 EOSINOPHILS - ABS (DIFF) (BEAKER) (test hbkb=0018) 0.01 K/ L 0.00-0.50 BANDS-ABS (DIFF) (BEAKER) (test dxvx=3731) 0.0 K/ L 0.0-0.8 BLASTS - ABS (DIFF) (BEAKER) (test lbcv=4984) 0.00 K/ L 0.00-0.00 TOTAL COUNTED (BEAKER) (test gjkn=4294) 100 BANDS + SEGMENTED NEUTROPHILS (BEAKER) (test qkqx=7414) 0.04 MANUAL NRBC PER 100 CELLS (BEAKER) (test smdk=6711) 1 /100 WBC 0-0 WBC MORPHOLOGY (BEAKER) (test fhhc=960) Normal PLT MORPHOLOGY (BEAKER) (test whda=336) Normal ANISOCYTOSIS (BEAKER) (test jqgn=895) 1+ few POLYCHROMATOPHILLIC RBCS(BEAKER) (test nmxp=494) 1+ few COMPREHENSIVE METABOLIC [id number] 07:07:00* Test Item Value Reference Range Comments TOTAL PROTEIN (BEAKER) (test ytyn=890) 4.2 gm/dL 6.0-8.3 Specimen slightly hemolyzed ALBUMIN (BEAKER) (test usms=4620) 2.8 g/dL 3.5-5.0 Specimen slightly hemolyzed ALKALINE PHOSPHATASE (BEAKER) (test cktn=994) 138 U/L 40-150 BILIRUBIN TOTAL (BEAKER) (test khhk=721) 0.7 mg/dL 0.2-1.2 Specimen slightly hemolyzed SODIUM (BEAKER) (test ismp=572) 143 meq/L 136-145 POTASSIUM (BEAKER) (test spxq=049) 3.8 meq/L 3.5-5.1 Specimen slightly hemolyzed CHLORIDE (BEAKER) (test cqyc=681) 111 meq/L 98-107 CO2 (BEAKER) (test rnan=033) 27 meq/L 22-29 BLOOD UREA NITROGEN (BEAKER) (test qstz=773) 6 mg/dL 7-21 CREATININE (BEAKER) (test dyia=973) 0.58 mg/dL 0.57-1.25 Specimen slightly hemolyzed GLUCOSE RANDOM (BEAKER) (test heqi=274) 78 mg/dL 70-105 CALCIUM (BEAKER) (test ussk=312) 7.9 mg/dL 8.4-10.2 AST (SGOT) (BEAKER) (test lfni=152) 59 U/L 5-34 Specimen slightly hemolyzed ALT (SGPT) (BEAKER) (test yywr=626) 92 U/L 6-55 Specimen slightly hemolyzed EGFR (BEAKER) (test fqgo=7949) 110 mL/min/1.73 sq m ESTIMATED GFR IS NOT ACCURATE CREATININE CLEARANCE IN PREDICTING GLOMERULAR FILTRATION RATE. ESTIMATED GFR IS NOT APPLICABLE FOR DIALYSIS PATIENTS. URIC [id number] 07:07:00* Test Item Value Reference Range Comments URIC ACID (BEAKER) (test mura=929) 1.1 mg/dL 2.6-7.2 Specimen slightly hemolyzed LACTATE DEHYDROGENASE (LDH)2018-07-01 07:07:00* Test Item Value Reference Range Comments LACTATE DEHYDROGENASE (BEAKER) (test nqxd=678) 238 U/L 125-220 Specimen slightly hemolyzed [id number] 07:06:00* Test Item Value Reference Range Comments PARTIAL THROMBOPLASTIN TIME (BEAKER) (test qhuj=119) 34.3 seconds 22.5-36.0 PROTHROMBIN TIME/[id number] 07:04:00* Test Item Value Reference Range Comments PROTIME (BEAKER) (test kheg=631) 15.1 seconds 11.7-14.7 INR (BEAKER) (test wnrd=809) 1.2 <=5.9 RECOMMENDED COUMADIN/WARFARIN INR THERAPY RANGESSTANDARD DOSE: 2.0 - 3.0 Inclu victoriano: PROPHYLAXIS for venous thrombosis, systemic embolization; TREATMENT for arleen ous thrombosis and/or pulmonary embolus.HIGH RISK: Target INR is 2.5-3.5 for pat ients with mechanical heart valves.CBC W/PLT COUNT & AUTO [id number] 11:33:00* Test Item Value Reference Range Comments WHITE BLOOD CELL COUNT (BEAKER) (test zdmp=251) 0.3 K/ L 3.5-10.5 RED BLOOD CELL COUNT (BEAKER) (test sauy=127) 2.55 M/ L 3.93-5.22 HEMOGLOBIN (BEAKER) (test bycy=901) 7.2 GM/DL 11.2-15.7 HEMATOCRIT (BEAKER) (test fulf=249) 23.1 % 34.1-44.9 MEAN CORPUSCULAR VOLUME (BEAKER) (test dooo=058) 90.6 fL 79.4-94.8 MEAN CORPUSCULAR HEMOGLOBIN (BEAKER) (test dasq=168) 28.2 pg 25.6-32.2 MEAN CORPUSCULAR HEMOGLOBIN CONC (BEAKER) (test snao=329) 31.2 GM/DL 32.2-35.5 RED CELL DISTRIBUTION WIDTH (BEAKER) (test qrte=406) 15.9 % 11.7-14.4 PLATELET COUNT (BEAKER) (test uuvp=011) 17 K/CU MM 150-450 MEAN PLATELET VOLUME (BEAKER) (test rwgi=223) fL 9.4-12.3 NUCLEATED RED BLOOD CELLS (BEAKER) (test sqmo=405) 0 /100 WBC 0-0 (MANUAL DIFFERENTIAL)2018-06-30 11:33:00* Test Item Value Reference Range Comments NEUTROPHILS - REL (DIFF) (BEAKER) (test knlr=6591) 26 % LYMPHOCYTES - REL (DIFF) (BEAKER) (test xhxf=1830) 65 % EOSINOPHILS - REL (DIFF) (BEAKER) (test dkvd=5435) 1 % METAMYELOCYTES-REL (DIFF) (BEAKER) (test uycu=806) 1 % 0-0 BANDS - REL (DIFF) (BEAKER) (test wfmz=6683) 7 % 0-10 NEUTROPHILS - ABS (DIFF) (BEAKER) (test bqcb=0832) 0.08 K/ L 1.80-8.00 LYMPHOCYTES - ABS (DIFF) (BEAKER) (test qjeg=0272) 0.20 K/ L 1.48-4.50 EOSINOPHILS - ABS (DIFF) (BEAKER) (test dzdn=3589) 0.00 K/ L 0.00-0.50 METAMYELOCTYES - ABS (DIFF) (BEAKER) (test vjub=316) 0.00 K/ L 0.00-0.00 BANDS-ABS (DIFF) (BEAKER) (test nznn=5395) 0.0 K/ L 0.0-0.8 TOTAL COUNTED (BEAKER) (test orgo=2792) 100 BANDS + SEGMENTED NEUTROPHILS (BEAKER) (test qgor=9951) 0.10 MANUAL NRBC PER 100 CELLS (BEAKER) (test gmql=5776) 3 /100 WBC 0-0 WBC MORPHOLOGY (BEAKER) (test mifp=001) Normal PLT MORPHOLOGY (BEAKER) (test opnz=388) Normal OVALOCYTES (BEAKER) (test civs=609) 1+ few POIKILOCYTES (BEAKER) (test ebvy=636) 2+ moderate TEAR DROP CELLS (BEAKER) (test fytn=094) 2+ moderate URIC [id number] 04:45:00* Test Item Value Reference Range Comments URIC ACID (BEAKER) (test glza=214) < mg/dL 2.6-7.2 COMPREHENSIVE METABOLIC [id number] 04:44:00* Test Item Value Reference Range Comments TOTAL PROTEIN (BEAKER) (test avrx=592) 4.3 gm/dL 6.0-8.3 ALBUMIN (BEAKER) (test olab=3285) 2.9 g/dL 3.5-5.0 ALKALINE PHOSPHATASE (BEAKER) (test rpkh=231) 146 U/L 40-150 BILIRUBIN TOTAL (BEAKER) (test cnbl=500) 0.6 mg/dL 0.2-1.2 SODIUM (BEAKER) (test fpos=976) 139 meq/L 136-145 POTASSIUM (BEAKER) (test gyhq=425) 4.0 meq/L 3.5-5.1 CHLORIDE (BEAKER) (test mnhh=473) 108 meq/L 98-107 CO2 (BEAKER) (test xohz=109) 27 meq/L 22-29 BLOOD UREA NITROGEN (BEAKER) (test hqhv=681) 8 mg/dL 7-21 CREATININE (BEAKER) (test elah=346) 0.60 mg/dL 0.57-1.25 GLUCOSE RANDOM (BEAKER) (test mxga=527) 106 mg/dL 70-105 CALCIUM (BEAKER) (test alrh=177) 8.2 mg/dL 8.4-10.2 AST (SGOT) (BEAKER) (test rhkx=812) 51 U/L 5-34 ALT (SGPT) (BEAKER) (test rwag=237) 88 U/L 6-55 EGFR (BEAKER) (test kwuk=9470) 106 mL/min/1.73 sq m ESTIMATED GFR IS NOT ACCURATE CREATININE CLEARANCE IN PREDICTING GLOMERULAR FILTRATION RATE. ESTIMATED GFR IS NOT APPLICABLE FOR DIALYSIS PATIENTS. LACTATE DEHYDROGENASE (LDH)2018-06-30 04:44:00* Test Item Value Reference Range Comments LACTATE DEHYDROGENASE (RONAKER) (test hgau=048) 204 U/L 125-220 [id number] 04:41:00* Test Item Value Reference Range Comments PARTIAL THROMBOPLASTIN TIME (RONAKER) (test caxc=225) 31.0 seconds 22.5-36.0 PROTHROMBIN TIME/[id number] 04:40:00* Test Item Value Reference Range Comments PROTIME (RONAKER) (test lbbo=219) 14.7 seconds 11.7-14.7 INR (BEAKER) (test aypj=611) 1.1 <=5.9 RECOMMENDED COUMADIN/WARFARIN INR THERAPY RANGESSTANDARD DOSE: 2.0 - 3.0 Inclu victoriano: PROPHYLAXIS for venous thrombosis, systemic embolization; TREATMENT for arleen ous thrombosis and/or pulmonary embolus.HIGH RISK: Target INR is 2.5-3.5 for pat ients with mechanical heart valves.HEPATITIS C PCR, [id number] 11:51:00* Test Item Value Reference Range Comments HCV NUMERIC RESULT (RONAKER) (test rtez=0592) [id number] IU/mL <15 This test uses a Real-Time Polymerase Chain Reaction (RT-PCR) methodology and wa s performed using ASYA Ampliprep/ASYA TaqMan HCV test kit version 2.0 ([employer]).Reportable range for this assay is 15 - 100,000,000 IU per mL (1.18 - 8.00 Log IU/mL).CBC W/PLT COUNT & AUTO [id number] 11:09:00* Test Item Value Reference Range Comments WHITE BLOOD CELL COUNT (BEAKER) (test iboi=949) 0.5 K/ L 3.5-10.5 RED BLOOD CELL COUNT (BEAKER) (test tcmt=623) 2.37 M/ L 3.93-5.22 HEMOGLOBIN (BEAKER) (test xblh=621) 6.6 GM/DL 11.2-15.7 HEMATOCRIT (BEAKER) (test cdtw=511) 21.8 % 34.1-44.9 MEAN CORPUSCULAR VOLUME (BEAKER) (test owzj=403) 92.0 fL 79.4-94.8 MEAN CORPUSCULAR HEMOGLOBIN (BEAKER) (test nveu=721) 27.8 pg 25.6-32.2 MEAN CORPUSCULAR HEMOGLOBIN CONC (BEAKER) (test soan=278) 30.3 GM/DL 32.2-35.5 RED CELL DISTRIBUTION WIDTH (BEAKER) (test gipj=617) 16.4 % 11.7-14.4 PLATELET COUNT (BEAKER) (test bxha=910) 40 K/CU MM 150-450 MEAN PLATELET VOLUME (BEAKER) (test hqxx=520) 9.9 fL 9.4-12.3 NUCLEATED RED BLOOD CELLS (BEAKER) (test jtbz=965) 0 /100 WBC 0-0 (CELLAVISION MANUAL DIFF)2018-06-29 11:09:00* Test Item Value Reference Range Comments NEUTROPHILS - REL (CELLAVISION)(BEAKER) (test mhhu=8615) 46 % LYMPHOCYTES - REL (CELLAVISION)(BEAKER) (test vons=2697) 49 % EOSINOPHILS - REL (CELLAVISION)(BEAKER) (test euqt=7955) 2 % BASOPHILS - REL (CELLAVISION)(BEAKER) (test vtoa=2432) 1 % BANDS - REL (CELLAVISION)(BEAKER) (test esmv=2484) 1 % 0-10 NEUTROPHILS - ABS (CELLAVISION)(BEAKER) (test aeoh=3457) 0.23 K/ul 1.56-6.13 LYMPHOCYTES - ABS (CELLAVISION)(BEAKER) (test kixs=3577) 0.25 K/ul 1.18-3.74 EOSINOPHILS - ABS (CELLAVISION)(BEAKER) (test thfv=4899) 0.01 K/uL 0.04-0.36 BASOPHILS - ABS (CELLAVISION)(BEAKER) (test irlf=8941) 0.01 K/uL 0.01-0.08 BANDS - ABS (CELLAVISION)(BEAKER) (test mktn=3336) 0.01 K/uL 0.00-0.80 TOTAL COUNTED (BEAKER) (test ynvz=8765) 100 MANUAL NRBC PER 100 CELLS (BEAKER) (test wzrr=2756) 1 /100 WBC 0-0 WBC MORPHOLOGY (BEAKER) (test wklw=989) Normal PLT MORPHOLOGY (BEAKER) (test rrsz=124) Normal POLYCHROMATOPHILLIC RBCS(BEAKER) (test fkgt=143) 1+ few ANISOCYTOSIS (BEAKER) (test eayt=120) 1+ few POIKILOCYTES (BEAKER) (test ehio=663) 1+ few OVALOCYTES (BEAKER) (test abas=573) 1+ few TEAR DROP CELLS (BEAKER) (test tkyx=341) 1+ few ARTIFACT (CELLAVISION)(BEAKER) (test ndjq=0828) Present PLATELET CONCENTRATION (CELLAVISION)(BEAKER) (test ucuz=6124) Decreased Received comment: User comments: Slide comments: URIC [id number] 05:11:00* Test Item Value Reference Range Comments URIC ACID (BEAKER) (test nuvq=954) < mg/dL 2.6-7.2 COMPREHENSIVE METABOLIC [id number] 05:09:00* Test Item Value Reference Range Comments TOTAL PROTEIN (BEAKER) (test bikf=470) 4.5 gm/dL 6.0-8.3 ALBUMIN (BEAKER) (test sqta=8912) 3.0 g/dL 3.5-5.0 ALKALINE PHOSPHATASE (BEAKER) (test obdx=983) 141 U/L 40-150 BILIRUBIN TOTAL (BEAKER) (test duxu=117) 0.6 mg/dL 0.2-1.2 SODIUM (BEAKER) (test xpeu=236) 140 meq/L 136-145 POTASSIUM (BEAKER) (test lqzc=245) 3.7 meq/L 3.5-5.1 CHLORIDE (BEAKER) (test nfjy=433) 109 meq/L 98-107 CO2 (BEAKER) (test ddfp=891) 24 meq/L 22-29 BLOOD UREA NITROGEN (BEAKER) (test xocz=575) 7 mg/dL 7-21 CREATININE (BEAKER) (test cuor=919) 0.59 mg/dL 0.57-1.25 GLUCOSE RANDOM (BEAKER) (test htpc=147) 104 mg/dL 70-105 CALCIUM (BEAKER) (test btun=668) 8.0 mg/dL 8.4-10.2 AST (SGOT) (BEAKER) (test afwp=128) 57 U/L 5-34 ALT (SGPT) (BEAKER) (test ylca=992) 89 U/L 6-55 EGFR (BEAKER) (test qdro=6092) 108 mL/min/1.73 sq m ESTIMATED GFR IS NOT ACCURATE CREATININE CLEARANCE IN PREDICTING GLOMERULAR FILTRATION RATE. ESTIMATED GFR IS NOT APPLICABLE FOR DIALYSIS PATIENTS. LACTATE DEHYDROGENASE (LDH)2018-06-29 05:09:00* Test Item Value Reference Range Comments LACTATE DEHYDROGENASE (BEAKER) (test xgoa=993) 261 U/L 125-220 [id number] 04:49:00* Test Item Value Reference Range Comments PARTIAL THROMBOPLASTIN TIME (BEAKER) (test pwrm=678) 31.6 seconds 22.5-36.0 PROTHROMBIN TIME/[id number] 04:48:00* Test Item Value Reference Range Comments PROTIME (BEAKER) (test nawd=594) 14.2 seconds 11.7-14.7 INR (BEAKER) (test tzky=230) 1.1 <=5.9 RECOMMENDED COUMADIN/WARFARIN INR THERAPY RANGESSTANDARD DOSE: 2.0 - 3.0 Inclu victoriano: PROPHYLAXIS for venous thrombosis, systemic embolization; TREATMENT for arleen ous thrombosis and/or pulmonary embolus.HIGH RISK: Target INR is 2.5-3.5 for pat ients with mechanical heart valves.CBC W/PLT COUNT & AUTO [id number] 14:27:00* Test Item Value Reference Range Comments WHITE BLOOD CELL COUNT (BEAKER) (test mgrv=277) 0.7 K/ L 3.5-10.5 RED BLOOD CELL COUNT (BEAKER) (test ekac=636) 2.64 M/ L 3.93-5.22 HEMOGLOBIN (BEAKER) (test tdic=985) 7.2 GM/DL 11.2-15.7 HEMATOCRIT (BEAKER) (test qzxo=299) 24.6 % 34.1-44.9 MEAN CORPUSCULAR VOLUME (BEAKER) (test apfu=130) 93.2 fL 79.4-94.8 MEAN CORPUSCULAR HEMOGLOBIN (BEAKER) (test ahda=609) 27.3 pg 25.6-32.2 MEAN CORPUSCULAR HEMOGLOBIN CONC (BEAKER) (test eiob=298) 29.3 GM/DL 32.2-35.5 RED CELL DISTRIBUTION WIDTH (BEAKER) (test ueff=496) 16.7 % 11.7-14.4 PLATELET COUNT (BEAKER) (test nnqe=521) 73 K/CU MM 150-450 MEAN PLATELET VOLUME (BEAKER) (test rscn=832) 11.5 fL 9.4-12.3 NUCLEATED RED BLOOD CELLS (BEAKER) (test xizi=021) 0 /100 WBC 0-0 NEUTROPHILS RELATIVE PERCENT (BEAKER) (test tcxf=398) 63 % LYMPHOCYTES RELATIVE PERCENT (BEAKER) (test mwvw=256) 29 % MONOCYTES RELATIVE PERCENT (BEAKER) (test iegv=586) 2 % EOSINOPHILS RELATIVE PERCENT (BEAKER) (test sbzd=426) 5 % BASOPHILS RELATIVE PERCENT (BEAKER) (test blfa=558) 0 % NEUTROPHILS ABSOLUTE COUNT (BEAKER) (test ybqh=684) 0.41 K/ L 1.56-6.13 LYMPHOCYTES ABSOLUTE COUNT (BEAKER) (test nrjg=167) 0.19 K/ L 1.18-3.74 MONOCYTES ABSOLUTE COUNT (BEAKER) (test ehrp=609) 0.01 K/ L 0.24-0.36 EOSINOPHILS ABSOLUTE COUNT (BEAKER) (test noou=021) 0.03 K/ L 0.04-0.36 BASOPHILS ABSOLUTE COUNT (BEAKER) (test vaiq=085) 0.00 K/ L 0.01-0.08 IMMATURE GRANULOCYTES-RELATIVE PERCENT (BEAKER) (test yzhl=2979) 2 % 0-1 (CELLAVISION MANUAL DIFF)2018-06-28 14:27:00* Test Item Value Reference Range Comments TOTAL COUNTED (BEAKER) (test nbtu=3623) RBC MORPHOLOGY (BEAKER) (test atgp=671) Normal WBC MORPHOLOGY (BEAKER) (test bvhp=641) Normal PLT MORPHOLOGY (BEAKER) (test nyxr=934) Normal OVA AND PARASITE [id number] 10:07:00* Test Item Value Reference Range Comments CONCENTRATE SMEAR - O\\T\\P (BEAKER) (test swvo=431) No ova or parasites seen No ova or parasites seen TRICHROME SMEAR - O\\T\\P (BEAKER) (test wdap=646) No ova or parasites seen No ova or parasites seen MISCELLANEOUS LAB [id number] 09:20:00* Test Item Value Reference Range Comments SCAN RESULT (test lupb=[id number]) URIC [id number] 06:08:00* Test Item Value Reference Range Comments URIC ACID (BEAKER) (test ivba=914) < mg/dL 2.6-7.2 COMPREHENSIVE METABOLIC [id number] 06:05:00* Test Item Value Reference Range Comments TOTAL PROTEIN (BEAKER) (test muom=283) 4.7 gm/dL 6.0-8.3 ALBUMIN (BEAKER) (test zzwl=8680) 3.2 g/dL 3.5-5.0 ALKALINE PHOSPHATASE (BEAKER) (test uckz=891) 139 U/L 40-150 BILIRUBIN TOTAL (BEAKER) (test kemb=062) 0.7 mg/dL 0.2-1.2 SODIUM (BEAKER) (test sbjb=303) 141 meq/L 136-145 POTASSIUM (BEAKER) (test zdys=478) 4.2 meq/L 3.5-5.1 CHLORIDE (BEAKER) (test kebp=716) 111 meq/L 98-107 CO2 (BEAKER) (test amdv=430) 25 meq/L 22-29 BLOOD UREA NITROGEN (BEAKER) (test ehsx=664) 9 mg/dL 7-21 CREATININE (BEAKER) (test iywe=780) 0.56 mg/dL 0.57-1.25 GLUCOSE RANDOM (BEAKER) (test hfzw=259) 93 mg/dL 70-105 CALCIUM (BEAKER) (test fcpv=540) 8.5 mg/dL 8.4-10.2 AST (SGOT) (BEAKER) (test ggbx=542) 59 U/L 5-34 ALT (SGPT) (BEAKER) (test oeis=102) 88 U/L 6-55 EGFR (BEAKER) (test bjew=6087) 115 mL/min/1.73 sq m ESTIMATED GFR IS NOT ACCURATE CREATININE CLEARANCE IN PREDICTING GLOMERULAR FILTRATION RATE. ESTIMATED GFR IS NOT APPLICABLE FOR DIALYSIS PATIENTS. LACTATE DEHYDROGENASE (LDH)2018-06-28 06:05:00* Test Item Value Reference Range Comments LACTATE DEHYDROGENASE (BEAKER) (test wxfu=739) 299 U/L 125-220 [id number] 05:56:00* Test Item Value Reference Range Comments PARTIAL THROMBOPLASTIN TIME (BEAKER) (test uevn=054) 30.9 seconds 22.5-36.0 PROTHROMBIN TIME/[id number] 05:55:00* Test Item Value Reference Range Comments PROTIME (BEAKER) (test lnfq=372) 13.9 seconds 11.7-14.7 INR (BEAKER) (test wies=336) 1.1 <=5.9 RECOMMENDED COUMADIN/WARFARIN INR THERAPY RANGESSTANDARD DOSE: 2.0 - 3.0 Inclu victoriano: PROPHYLAXIS for venous thrombosis, systemic embolization; TREATMENT for arleen ous thrombosis and/or pulmonary embolus.HIGH RISK: Target INR is 2.5-3.5 for pat ients with mechanical heart valves.CBC W/PLT COUNT & AUTO [id number] 08:09:00* Test Item Value Reference Range Comments WHITE BLOOD CELL COUNT (BEAKER) (test omun=562) 1.7 K/ L 3.5-10.5 RED BLOOD CELL COUNT (BEAKER) (test kcnh=534) 2.74 M/ L 3.93-5.22 HEMOGLOBIN (BEAKER) (test acbj=761) 7.5 GM/DL 11.2-15.7 HEMATOCRIT (BEAKER) (test ezcb=640) 25.3 % 34.1-44.9 MEAN CORPUSCULAR VOLUME (BEAKER) (test dlae=240) 92.3 fL 79.4-94.8 MEAN CORPUSCULAR HEMOGLOBIN (BEAKER) (test jfmt=638) 27.4 pg 25.6-32.2 MEAN CORPUSCULAR HEMOGLOBIN CONC (BEAKER) (test zljz=484) 29.6 GM/DL 32.2-35.5 RED CELL DISTRIBUTION WIDTH (BEAKER) (test qkeh=621) 17.2 % 11.7-14.4 PLATELET COUNT (BEAKER) (test osru=133) 101 K/CU MM 150-450 MEAN PLATELET VOLUME (BEAKER) (test otvl=709) 11.0 fL 9.4-12.3 NUCLEATED RED BLOOD CELLS (BEAKER) (test hcjm=689) 0 /100 WBC 0-0 (MANUAL DIFFERENTIAL)2018-06-27 08:09:00* Test Item Value Reference Range Comments NEUTROPHILS - REL (DIFF) (BEAKER) (test dhyf=3757) 85 % LYMPHOCYTES - REL (DIFF) (BEAKER) (test kvbb=6850) 12 % MONOCYTES - REL (DIFF) (BEAKER) (test afza=8458) 1 % EOSINOPHILS - REL (DIFF) (BEAKER) (test jcsu=0334) 1 % BASOPHILS - REL (DIFF) (BEAKER) (test lviu=2941) 1 % NEUTROPHILS - ABS (DIFF) (BEAKER) (test tzaq=4287) 1.45 K/ L 1.80-8.00 LYMPHOCYTES - ABS (DIFF) (BEAKER) (test lisp=7394) 0.20 K/ L 1.48-4.50 MONOCYTES - ABS (DIFF) (BEAKER) (test xopu=8098) 0.02 K/ L 0.00-1.30 EOSINOPHILS - ABS (DIFF) (BEAKER) (test izac=8763) 0.02 K/ L 0.00-0.50 BASOPHILS - ABS (DIFF) (BEAKER) (test tldb=5650) 0.02 K/ L 0.00-0.20 TOTAL COUNTED (BEAKER) (test ejmk=2330) 100 MANUAL NRBC PER 100 CELLS (BEAKER) (test kxom=0570) 1 /100 WBC 0-0 WBC MORPHOLOGY (BEAKER) (test qkqo=876) Normal PLT MORPHOLOGY (BEAKER) (test wpak=579) Normal ANISOCYTOSIS (BEAKER) (test kkji=369) 2+ moderate MICROCYTES (BEAKER) (test lcgu=090) 2+ moderate POIKILOCYTES (BEAKER) (test nuel=664) 1+ few COMPREHENSIVE METABOLIC [id number] 06:39:00* Test Item Value Reference Range Comments TOTAL PROTEIN (BEAKER) (test xqcf=349) 4.8 gm/dL 6.0-8.3 Specimen slightly hemolyzed ALBUMIN (BEAKER) (test wxtf=0570) 3.0 g/dL 3.5-5.0 Specimen slightly hemolyzed ALKALINE PHOSPHATASE (BEAKER) (test bobq=136) 139 U/L 40-150 BILIRUBIN TOTAL (BEAKER) (test fnzg=004) 0.7 mg/dL 0.2-1.2 Specimen slightly hemolyzed SODIUM (BEAKER) (test cbei=211) 141 meq/L 136-145 POTASSIUM (BEAKER) (test qmqx=242) 3.8 meq/L 3.5-5.1 Specimen slightly hemolyzed CHLORIDE (BEAKER) (test smyx=134) 112 meq/L 98-107 CO2 (BEAKER) (test esnf=031) 23 meq/L 22-29 BLOOD UREA NITROGEN (BEAKER) (test nmpg=579) 9 mg/dL 7-21 CREATININE (BEAKER) (test wfzp=837) 0.56 mg/dL 0.57-1.25 Specimen slightly hemolyzed GLUCOSE RANDOM (BEAKER) (test bxdy=665) 91 mg/dL 70-105 CALCIUM (BEAKER) (test szrh=490) 7.9 mg/dL 8.4-10.2 AST (SGOT) (BEAKER) (test biov=297) 65 U/L 5-34 Specimen slightly hemolyzed ALT (SGPT) (BEAKER) (test ewwy=496) 78 U/L 6-55 Specimen slightly hemolyzed EGFR (BEAKER) (test dnya=8300) 115 mL/min/1.73 sq m ESTIMATED GFR IS NOT ACCURATE CREATININE CLEARANCE IN PREDICTING GLOMERULAR FILTRATION RATE. ESTIMATED GFR IS NOT APPLICABLE FOR DIALYSIS PATIENTS. URIC [id number] 06:39:00* Test Item Value Reference Range Comments URIC ACID (BEAKER) (test vnds=033) 1.2 mg/dL 2.6-7.2 Specimen slightly hemolyzed LACTATE DEHYDROGENASE (LDH)2018-06-27 06:39:00* Test Item Value Reference Range Comments LACTATE DEHYDROGENASE (BEAKER) (test keiz=107) 378 U/L 125-220 Specimen slightly hemolyzed PROTHROMBIN TIME/[id number] 06:09:00* Test Item Value Reference Range Comments PROTIME (BEAKER) (test ujkd=336) 14.4 seconds 11.7-14.7 INR (BEAKER) (test ecvs=368) 1.1 <=5.9 RECOMMENDED COUMADIN/WARFARIN INR THERAPY RANGESSTANDARD DOSE: 2.0 - 3.0 Inclu victoriano: PROPHYLAXIS for venous thrombosis, systemic embolization; TREATMENT for arleen ous thrombosis and/or pulmonary embolus.HIGH RISK: Target INR is 2.5-3.5 for pat ients with mechanical heart valves.[id number] 06:09:00* Test Item Value Reference Range Comments PARTIAL THROMBOPLASTIN TIME (BEAKER) (test ukaa=962) 31.0 seconds 22.5-36.0 BLOOD [id number] 19:01:00* Test Item Value Reference Range Comments CULTURE (BEAKER) (test isyf=1682) No growth in 5 days CBC W/PLT COUNT & AUTO [id number] 07:13:00* Test Item Value Reference Range Comments WHITE BLOOD CELL COUNT (BEAKER) (test iczk=358) 7.1 K/ L 3.5-10.5 RED BLOOD CELL COUNT (BEAKER) (test jwcz=889) 2.71 M/ L 3.93-5.22 HEMOGLOBIN (BEAKER) (test tftm=282) 7.5 GM/DL 11.2-15.7 HEMATOCRIT (BEAKER) (test kbrp=344) 25.1 % 34.1-44.9 MEAN CORPUSCULAR VOLUME (BEAKER) (test aajs=266) 92.6 fL 79.4-94.8 MEAN CORPUSCULAR HEMOGLOBIN (BEAKER) (test sblb=401) 27.7 pg 25.6-32.2 MEAN CORPUSCULAR HEMOGLOBIN CONC (BEAKER) (test veae=255) 29.9 GM/DL 32.2-35.5 RED CELL DISTRIBUTION WIDTH (BEAKER) (test vvqn=283) 17.5 % 11.7-14.4 PLATELET COUNT (BEAKER) (test zulh=757) 141 K/CU MM 150-450 MEAN PLATELET VOLUME (BEAKER) (test qoxw=986) 12.0 fL 9.4-12.3 NUCLEATED RED BLOOD CELLS (BEAKER) (test mrzj=596) 0 /100 WBC 0-0 NEUTROPHILS RELATIVE PERCENT (BEAKER) (test gnup=374) 94 % LYMPHOCYTES RELATIVE PERCENT (BEAKER) (test jsqt=256) 3 % MONOCYTES RELATIVE PERCENT (BEAKER) (test lbng=843) 1 % EOSINOPHILS RELATIVE PERCENT (BEAKER) (test ghrn=208) 1 % BASOPHILS RELATIVE PERCENT (BEAKER) (test pzhx=040) 0 % NEUTROPHILS ABSOLUTE COUNT (BEAKER) (test itls=682) 6.65 K/ L 1.56-6.13 LYMPHOCYTES ABSOLUTE COUNT (BEAKER) (test xrwk=275) 0.21 K/ L 1.18-3.74 MONOCYTES ABSOLUTE COUNT (BEAKER) (test cwpe=788) 0.05 K/ L 0.24-0.36 EOSINOPHILS ABSOLUTE COUNT (BEAKER) (test ydfx=481) 0.06 K/ L 0.04-0.36 BASOPHILS ABSOLUTE COUNT (BEAKER) (test tegx=092) 0.03 K/ L 0.01-0.08 IMMATURE GRANULOCYTES-RELATIVE PERCENT (BEAKER) (test vqye=6357) 1 % 0-1 COMPREHENSIVE METABOLIC [id number] 06:28:00* Test Item Value Reference Range Comments TOTAL PROTEIN (BEAKER) (test moru=079) 4.6 gm/dL 6.0-8.3 ALBUMIN (BEAKER) (test fvuq=6628) 3.0 g/dL 3.5-5.0 ALKALINE PHOSPHATASE (BEAKER) (test pgzw=504) 148 U/L 40-150 BILIRUBIN TOTAL (BEAKER) (test gsie=106) 0.6 mg/dL 0.2-1.2 SODIUM (BEAKER) (test omod=485) 138 meq/L 136-145 POTASSIUM (BEAKER) (test efkl=086) 4.3 meq/L 3.5-5.1 CHLORIDE (BEAKER) (test ypjj=958) 111 meq/L 98-107 CO2 (BEAKER) (test xoee=542) 22 meq/L 22-29 BLOOD UREA NITROGEN (BEAKER) (test ttuy=183) 12 mg/dL 7-21 CREATININE (BEAKER) (test bzuk=211) 0.57 mg/dL 0.57-1.25 GLUCOSE RANDOM (BEAKER) (test jllc=785) 91 mg/dL 70-105 CALCIUM (BEAKER) (test oydk=590) 7.8 mg/dL 8.4-10.2 AST (SGOT) (BEAKER) (test dphq=183) 65 U/L 5-34 ALT (SGPT) (BEAKER) (test vcwt=252) 64 U/L 6-55 EGFR (BEAKER) (test pbbx=6066) 112 mL/min/1.73 sq m ESTIMATED GFR IS NOT ACCURATE CREATININE CLEARANCE IN PREDICTING GLOMERULAR FILTRATION RATE. ESTIMATED GFR IS NOT APPLICABLE FOR DIALYSIS PATIENTS. URIC [id number] 06:27:00* Test Item Value Reference Range Comments URIC ACID (BEAKER) (test mcak=580) 2.2 mg/dL 2.6-7.2 LACTATE DEHYDROGENASE (LDH)2018-06-26 06:27:00* Test Item Value Reference Range Comments LACTATE DEHYDROGENASE (BEAKER) (test aozq=546) 460 U/L 125-220 [id number] 06:09:00* Test Item Value Reference Range Comments PARTIAL THROMBOPLASTIN TIME (BEAKER) (test zqat=436) 32.9 seconds 22.5-36.0 PROTHROMBIN [id number] 06:08:00* Test Item Value Reference Range Comments PROTIME (BEAKER) (test jagu=316) 14.3 seconds 11.7-14.7 INR (BEAKER) (test sszf=096) 1.1 <=5.9 RECOMMENDED COUMADIN/WARFARIN INR THERAPY RANGESSTANDARD DOSE: 2.0 - 3.0 Inclu victoriano: PROPHYLAXIS for venous thrombosis, systemic embolization; TREATMENT for arleen ous thrombosis and/or pulmonary embolus.HIGH RISK: Target INR is 2.5-3.5 for pat ients with mechanical heart valves.URIC [id number] 17:22:00* Test Item Value Reference Range Comments URIC ACID (BEAKER) (test quwq=929) 2.0 mg/dL 2.6-7.2 COMPREHENSIVE METABOLIC [id number] 17:22:00* Test Item Value Reference Range Comments TOTAL PROTEIN (BEAKER) (test ptsc=618) 4.8 gm/dL 6.0-8.3 ALBUMIN (BEAKER) (test dpud=8751) 3.2 g/dL 3.5-5.0 ALKALINE PHOSPHATASE (BEAKER) (test aemb=578) 147 U/L 40-150 BILIRUBIN TOTAL (BEAKER) (test jucz=077) 0.8 mg/dL 0.2-1.2 SODIUM (BEAKER) (test xgwb=780) 138 meq/L 136-145 POTASSIUM (BEAKER) (test sdfj=086) 4.4 meq/L 3.5-5.1 CHLORIDE (BEAKER) (test atpm=528) 110 meq/L 98-107 CO2 (BEAKER) (test yjgk=843) 24 meq/L 22-29 BLOOD UREA NITROGEN (BEAKER) (test jifn=287) 12 mg/dL 7-21 CREATININE (BEAKER) (test bppq=039) 0.58 mg/dL 0.57-1.25 GLUCOSE RANDOM (BEAKER) (test aygv=872) 89 mg/dL 70-105 CALCIUM (BEAKER) (test cltm=617) 8.1 mg/dL 8.4-10.2 AST (SGOT) (BEAKER) (test gheb=305) 73 U/L 5-34 ALT (SGPT) (BEAKER) (test oevn=943) 59 U/L 6-55 EGFR (BEAKER) (test xwep=3547) 110 mL/min/1.73 sq m ESTIMATED GFR IS NOT ACCURATE CREATININE CLEARANCE IN PREDICTING GLOMERULAR FILTRATION RATE. ESTIMATED GFR IS NOT APPLICABLE FOR DIALYSIS PATIENTS. LACTATE DEHYDROGENASE (LDH)2018-06-25 17:22:00* Test Item Value Reference Range Comments LACTATE DEHYDROGENASE (BEAKER) (test iotc=295) 472 U/L 125-220 EBV VIRAL [id number] 14:18:00* Test Item Value Reference Range Comments EBV VIRAL LOAD - NEGATIVE (BEAKER) (test ibrk=4451) Negative or below the linear range of the assay (<500 copies/mL) This assay was performed by real-time PCR for the detection of the Katie-Leonard virus (EBV) gene EBNA-1. The test is composed of (1) DNA extraction from patien t specimen, and (2) real-time PCR amplification and detection with KVES-3-snhfyk ic primers and probes. A well-conserved region of the EBNA-1 gene is targeted, a long with an internal control sequence used to confirm PCR amplification. Asympt omatic carriers and viral genetic variation, among other factors, can affect the accuracy of nucleic acid testing; therefore, results should be interpreted in l ight of clinical data.This test was developed and its performance characteristic s determined by the [facility] Pathology Department, Section of M olecular Pathology. It has not been cleared or approved by the U.S. Food and Fidelina g Administration (FDA), since FDA approval is not required for clinical use of t he test. Validation was done as required by The Clinical Laboratory Improvement Amendments of 1988.CBC W/PLT COUNT & AUTO [id number] 10:49:00* Test Item Value Reference Range Comments WHITE BLOOD CELL COUNT (BEAKER) (test qbxb=947) 19.9 K/ L 3.5-10.5 RED BLOOD CELL COUNT (BEAKER) (test ouqy=774) 2.88 M/ L 3.93-5.22 HEMOGLOBIN (BEAKER) (test bxjg=639) 7.9 GM/DL 11.2-15.7 HEMATOCRIT (BEAKER) (test egfd=035) 26.6 % 34.1-44.9 MEAN CORPUSCULAR VOLUME (BEAKER) (test oiut=472) 92.4 fL 79.4-94.8 MEAN CORPUSCULAR HEMOGLOBIN (BEAKER) (test hkoa=855) 27.4 pg 25.6-32.2 MEAN CORPUSCULAR HEMOGLOBIN CONC (BEAKER) (test hkpw=316) 29.7 GM/DL 32.2-35.5 RED CELL DISTRIBUTION WIDTH (BEAKER) (test xlmd=708) 17.4 % 11.7-14.4 PLATELET COUNT (BEAKER) (test dmvx=476) 208 K/CU MM 150-450 MEAN PLATELET VOLUME (BEAKER) (test wnwf=855) 11.6 fL 9.4-12.3 NUCLEATED RED BLOOD CELLS (BEAKER) (test hpgt=188) 0 /100 WBC 0-0 (CELLAVISION MANUAL DIFF)2018-06-25 10:49:00* Test Item Value Reference Range Comments NEUTROPHILS - REL (CELLAVISION)(BEAKER) (test xjvj=6525) 96 % LYMPHOCYTES - REL (CELLAVISION)(BEAKER) (test usbi=3534) 1 % MONOCYTES - REL (CELLAVISION)(BEAKER) (test fwzc=7081) 1 % EOSINOPHILS - REL (CELLAVISION)(BEAKER) (test htmt=4062) 1 % BANDS - REL (CELLAVISION)(BEAKER) (test ftrs=2101) 1 % 0-10 NEUTROPHILS - ABS (CELLAVISION)(BEAKER) (test aqcc=4313) 19.10 K/ul 1.56-6.13 LYMPHOCYTES - ABS (CELLAVISION)(BEAKER) (test yaon=6696) 0.20 K/ul 1.18-3.74 MONOCYTES - ABS (CELLAVISION)(BEAKER) (test zdtt=1871) 0.20 K/uL 0.24-0.36 EOSINOPHILS - ABS (CELLAVISION)(BEAKER) (test blip=7871) 0.20 K/uL 0.04-0.36 BANDS - ABS (CELLAVISION)(BEAKER) (test jyim=2417) 0.20 K/uL 0.00-0.80 TOTAL COUNTED (BEAKER) (test ajpx=8097) 100 WBC MORPHOLOGY (BEAKER) (test ccly=398) Normal PLT MORPHOLOGY (BEAKER) (test pfyt=705) Normal ANISOCYTOSIS (BEAKER) (test kbqv=519) 2+ moderate MICROCYTES (BEAKER) (test tmjt=052) 2+ moderate POIKILOCYTES (BEAKER) (test xkbg=447) 1+ few TEAR DROP CELLS (BEAKER) (test ypuw=810) 1+ few ARTIFACT (CELLAVISION)(BEAKER) (test ofko=6764) Present PLATELET CONCENTRATION (CELLAVISION)(BEAKER) (test hcgm=5029) Adequate Received comment: User comments: Slide comments: STOOL CULTURE + SHIGA TOXIN 2018-06-25 09:19:00* Test Item Value Reference Range Comments CULTURE (BEAKER) (test ccvo=9121) No Salmonella, Shigella or Campylobacter isolated [id number] 06:05:00* Test Item Value Reference Range Comments PARTIAL THROMBOPLASTIN TIME (BEAKER) (test khiz=734) 30.9 seconds 22.5-36.0 PROTHROMBIN TIME/[id number] 06:04:00* Test Item Value Reference Range Comments PROTIME (DARA) (test bxzr=653) 15.2 seconds 11.7-14.7 INR (RONAKER) (test wedd=400) 1.2 <=5.9 RECOMMENDED COUMADIN/WARFARIN INR THERAPY RANGESSTANDARD DOSE: 2.0 - 3.0 Inclu victoriano: PROPHYLAXIS for venous thrombosis, systemic embolization; TREATMENT for arleen ous thrombosis and/or pulmonary embolus.HIGH RISK: Target INR is 2.5-3.5 for pat ients with mechanical heart valves.CRYPTOCOCCAL [id number] 14:49:00* Test Item Value Reference Range Comments CRYPTOCOCCAL ANTIGEN, SERUM (DARA) (test mday=7907) Negative Negative, Interference CMV PCR, [id number] 14:08:00* Test Item Value Reference Range Comments CMV VIRAL LOAD - NEGATIVE (DARA) (test ntqh=1098) Negative or below the linear range of the assay (<375 copies/mL) Cytomegalovirus (CMV) infection can cause significant disease in immunosuppresse d patients. However, it is common for CMV to manifest as a limited infection whi ch is of no clinical significance in immunosuppressed patients or in healthy ind ividuals.Viral load measurements are helpful to identify clinical CMV infection and to guide the pre-emptive management of antiviral therapy. For treatment of CMV infection due to reactivation in transplant recipients, a threshold between 4,000 and 5,000 copies/mL is suggested. For treatment of primary CMV infection, a lower threshold can be used.CMV infection may also be monitored using weekly serial measurements. Serial measurements of CMV DNA viral load can be evaluated by identifying a 10-fold change, as well as assessing the CMV DNA viral load and the clinical context for each patient.The plasma CMV DNA viral load was detected using quantitative polymerase chain reaction and fluorescent monitoring of a s pecific hybridized probe. Genetic variation and other factors can affect the acc uracy of nucleic acid testing. Therefore, the results should be interpreted in l ight of clinical data. A negative result may not exclude the presence of CMV dis ease.This test was developed and its performance characteristics determined by [facility] Pathology Department, Section of Molecular Patholog y. It has not been cleared or approved by the U.S. Food and Drug Administration (FDA), since FDA approval is not required for clinical use of the test. Validati on was done as required by The Clinical Laboratory Improvement Amendments of 198 8.CBC W/PLT COUNT & AUTO [id number] 13:55:00* Test Item Value Reference Range Comments WHITE BLOOD CELL COUNT (BEAKER) (test rdac=348) 35.6 K/ L 3.5-10.5 RED BLOOD CELL COUNT (BEAKER) (test wrsd=491) 2.88 M/ L 3.93-5.22 HEMOGLOBIN (BEAKER) (test ygdr=921) 8.0 GM/DL 11.2-15.7 HEMATOCRIT (BEAKER) (test jnkk=146) 26.5 % 34.1-44.9 MEAN CORPUSCULAR VOLUME (BEAKER) (test yjjh=292) 92.0 fL 79.4-94.8 MEAN CORPUSCULAR HEMOGLOBIN (BEAKER) (test zrys=116) 27.8 pg 25.6-32.2 MEAN CORPUSCULAR HEMOGLOBIN CONC (BEAKER) (test armr=225) 30.2 GM/DL 32.2-35.5 RED CELL DISTRIBUTION WIDTH (BEAKER) (test hyyl=753) 17.6 % 11.7-14.4 PLATELET COUNT (BEAKER) (test ktfj=518) 256 K/CU MM 150-450 MEAN PLATELET VOLUME (BEAKER) (test uplk=994) 11.3 fL 9.4-12.3 NUCLEATED RED BLOOD CELLS (BEAKER) (test rtlu=481) 0 /100 WBC 0-0 (CELLAVISION MANUAL DIFF)2018-06-24 13:55:00* Test Item Value Reference Range Comments NEUTROPHILS - REL (CELLAVISION)(BEAKER) (test zghk=2627) 98 % LYMPHOCYTES - REL (CELLAVISION)(BEAKER) (test iomi=2991) 1 % MONOCYTES - REL (CELLAVISION)(BEAKER) (test fbdr=4460) 1 % NEUTROPHILS - ABS (CELLAVISION)(BEAKER) (test tiei=1782) 34.89 K/ul 1.56-6.13 LYMPHOCYTES - ABS (CELLAVISION)(BEAKER) (test dvle=0578) 0.36 K/ul 1.18-3.74 MONOCYTES - ABS (CELLAVISION)(BEAKER) (test tvwh=7498) 0.36 K/uL 0.24-0.36 TOTAL COUNTED (BEAKER) (test egix=8262) 100 WBC MORPHOLOGY (BEAKER) (test pgpg=213) Normal PLT MORPHOLOGY (BEAKER) (test vvhu=033) Normal POLYCHROMATOPHILLIC RBCS(BEAKER) (test rqme=221) 1+ few ANISOCYTOSIS (BEAKER) (test rdgd=512) 1+ few POIKILOCYTES (BEAKER) (test uore=076) 1+ few SCHISTOCYTES (BEAKER) (test zpbm=281) 1+ few ARTIFACT (CELLAVISION)(BEAKER) (test wzqc=7411) Present PLATELET CONCENTRATION (CELLAVISION)(BEAKER) (test seex=8014) Adequate Received comment: User comments: Slide comments: VANCOMYCIN LEVEL, TROUGH 2018-06-24 12:19:00* Test Item Value Reference Range Comments VANCOMYCIN TROUGH (BEAKER) (test icxc=154) 9.8 ug/mL 10.0-20.0 COMPREHENSIVE METABOLIC [id number] 06:34:00* Test Item Value Reference Range Comments TOTAL PROTEIN (BEAKER) (test fedu=489) 4.5 gm/dL 6.0-8.3 ALBUMIN (BEAKER) (test wzwr=9283) 3.0 g/dL 3.5-5.0 ALKALINE PHOSPHATASE (BEAKER) (test jszd=065) 146 U/L 40-150 BILIRUBIN TOTAL (BEAKER) (test uxqp=181) 0.9 mg/dL 0.2-1.2 SODIUM (BEAKER) (test dozt=886) 139 meq/L 136-145 POTASSIUM (BEAKER) (test zykx=647) 3.8 meq/L 3.5-5.1 CHLORIDE (BEAKER) (test kdsf=764) 110 meq/L 98-107 CO2 (BEAKER) (test teyx=521) 23 meq/L 22-29 BLOOD UREA NITROGEN (BEAKER) (test yqpv=510) 12 mg/dL 7-21 CREATININE (BEAKER) (test gcdx=461) 0.57 mg/dL 0.57-1.25 GLUCOSE RANDOM (BEAKER) (test besi=039) 69 mg/dL 70-105 CALCIUM (BEAKER) (test jylc=258) 7.9 mg/dL 8.4-10.2 AST (SGOT) (BEAKER) (test kpbj=239) 56 U/L 5-34 ALT (SGPT) (BEAKER) (test nbfn=524) 39 U/L 6-55 EGFR (BEAKER) (test aaan=2894) 112 mL/min/1.73 sq m ESTIMATED GFR IS NOT ACCURATE CREATININE CLEARANCE IN PREDICTING GLOMERULAR FILTRATION RATE. ESTIMATED GFR IS NOT APPLICABLE FOR DIALYSIS PATIENTS. URIC [id number] 06:34:00* Test Item Value Reference Range Comments URIC ACID (BEAKER) (test zzqg=520) 1.9 mg/dL 2.6-7.2 LACTATE DEHYDROGENASE (LDH)2018-06-24 06:32:00* Test Item Value Reference Range Comments LACTATE DEHYDROGENASE (BEAKER) (test dlwh=627) 617 U/L 125-220 PROTHROMBIN TIME/[id number] 06:24:00* Test Item Value Reference Range Comments PROTIME (BEAKER) (test ygxa=041) 14.7 seconds 11.7-14.7 INR (BEAKER) (test opob=609) 1.1 <=5.9 RECOMMENDED COUMADIN/WARFARIN INR THERAPY RANGESSTANDARD DOSE: 2.0 - 3.0 Inclu victoriano: PROPHYLAXIS for venous thrombosis, systemic embolization; TREATMENT for arleen ous thrombosis and/or pulmonary embolus.HIGH RISK: Target INR is 2.5-3.5 for pat ients with mechanical heart valves.[id number] 06:24:00* Test Item Value Reference Range Comments PARTIAL THROMBOPLASTIN TIME (BEAKER) (test mhhy=449) 38.8 seconds 22.5-36.0 URINE [id number] 15:13:00* Test Item Value Reference Range Comments CULTURE (BEAKER) (test ikfe=3638) No growth SHIGA TOXIN [id number] 15:07:00* Test Item Value Reference Range Comments SHIGA TOXIN 1 (BEAKER) (test oneo=5195) Not detected Not detected SHIGA TOXIN 2 (BEAKER) (test rprp=7507) Not detected Not detected STOOL PATH [id number] 11:21:00* Test Item Value Reference Range Comments PATHOGEN EXAM CHARGED (BEAKER) (test zske=7495) Done CBC W/PLT COUNT & AUTO [id number] 10:10:00* Test Item Value Reference Range Comments WHITE BLOOD CELL COUNT (BEAKER) (test msoy=121) 34.2 K/ L 3.5-10.5 RED BLOOD CELL COUNT (BEAKER) (test kgwy=840) 2.61 M/ L 3.93-5.22 HEMOGLOBIN (BEAKER) (test bupt=415) 7.4 GM/DL 11.2-15.7 HEMATOCRIT (BEAKER) (test kvxz=980) 24.4 % 34.1-44.9 MEAN CORPUSCULAR VOLUME (BEAKER) (test ilmk=754) 93.5 fL 79.4-94.8 MEAN CORPUSCULAR HEMOGLOBIN (BEAKER) (test bdso=183) 28.4 pg 25.6-32.2 MEAN CORPUSCULAR HEMOGLOBIN CONC (BEAKER) (test nhcj=725) 30.3 GM/DL 32.2-35.5 RED CELL DISTRIBUTION WIDTH (BEAKER) (test udnr=065) 18.0 % 11.7-14.4 PLATELET COUNT (BEAKER) (test hara=849) 270 K/CU MM 150-450 MEAN PLATELET VOLUME (BEAKER) (test xpqv=550) 11.6 fL 9.4-12.3 NUCLEATED RED BLOOD CELLS (BEAKER) (test xxdk=804) 0 /100 WBC 0-0 (CELLAVISION MANUAL DIFF)2018-06-23 10:10:00* Test Item Value Reference Range Comments NEUTROPHILS - REL (CELLAVISION)(BEAKER) (test jlwi=1250) 86 % LYMPHOCYTES - REL (CELLAVISION)(BEAKER) (test kheb=9283) 5 % MONOCYTES - REL (CELLAVISION)(BEAKER) (test sxcj=4505) 3 % BANDS - REL (CELLAVISION)(BEAKER) (test yvvi=2754) 6 % 0-10 NEUTROPHILS - ABS (CELLAVISION)(BEAKER) (test xrhe=5793) 29.41 K/ul 1.56-6.13 LYMPHOCYTES - ABS (CELLAVISION)(BEAKER) (test ricb=1158) 1.71 K/ul 1.18-3.74 MONOCYTES - ABS (CELLAVISION)(BEAKER) (test mfdk=7233) 1.03 K/uL 0.24-0.36 BANDS - ABS (CELLAVISION)(BEAKER) (test ckfp=2478) 2.05 K/uL 0.00-0.80 TOTAL COUNTED (BEAKER) (test rjdu=0276) 100 RBC MORPHOLOGY (BEAKER) (test hdhv=409) Normal WBC MORPHOLOGY (BEAKER) (test jonc=507) Normal PLT MORPHOLOGY (BEAKER) (test vlgn=928) Normal MISCELLANEOUS LAB [id number] 07:21:00* Test Item Value Reference Range Comments SCAN RESULT (test zioj=6096911) COMPREHENSIVE METABOLIC [id number] 07:15:00* Test Item Value Reference Range Comments TOTAL PROTEIN (BEAKER) (test yygd=711) 4.5 gm/dL 6.0-8.3 ALBUMIN (BEAKER) (test pjxj=9209) 3.0 g/dL 3.5-5.0 ALKALINE PHOSPHATASE (BEAKER) (test ymkt=437) 134 U/L 40-150 BILIRUBIN TOTAL (BEAKER) (test hthy=785) 0.7 mg/dL 0.2-1.2 SODIUM (BEAKER) (test hcby=617) 139 meq/L 136-145 POTASSIUM (BEAKER) (test qczh=838) 3.8 meq/L 3.5-5.1 CHLORIDE (BEAKER) (test pzro=254) 111 meq/L 98-107 CO2 (BEAKER) (test tbwy=402) 21 meq/L 22-29 BLOOD UREA NITROGEN (BEAKER) (test viul=539) 13 mg/dL 7-21 CREATININE (BEAKER) (test qkdj=469) 0.54 mg/dL 0.57-1.25 GLUCOSE RANDOM (BEAKER) (test wzyw=974) 65 mg/dL 70-105 CALCIUM (BEAKER) (test ukew=937) 8.2 mg/dL 8.4-10.2 AST (SGOT) (BEAKER) (test lfou=012) 45 U/L 5-34 ALT (SGPT) (BEAKER) (test wqgw=102) 33 U/L 6-55 EGFR (BEAKER) (test imli=1702) 120 mL/min/1.73 sq m ESTIMATED GFR IS NOT ACCURATE CREATININE CLEARANCE IN PREDICTING GLOMERULAR FILTRATION RATE. ESTIMATED GFR IS NOT APPLICABLE FOR DIALYSIS PATIENTS. LACTATE DEHYDROGENASE (LDH)2018-06-23 07:15:00* Test Item Value Reference Range Comments LACTATE DEHYDROGENASE (BEAKER) (test zfun=803) 848 U/L 125-220 URIC [id number] 07:15:00* Test Item Value Reference Range Comments URIC ACID (BEAKER) (test orrn=592) 1.9 mg/dL 2.6-7.2 BLOOD [id number] 07:01:00* Test Item Value Reference Range Comments CULTURE (BEAKER) (test kzbr=6487) No growth in 5 days [id number] 06:24:00* Test Item Value Reference Range Comments PARTIAL THROMBOPLASTIN TIME (BEAKER) (test chnz=113) 47.2 seconds 22.5-36.0 PROTHROMBIN TIME/[id number] 06:23:00* Test Item Value Reference Range Comments PROTIME (BEAKER) (test vhez=083) 15.5 seconds 11.7-14.7 INR (BEAKER) (test cjgh=944) 1.2 <=5.9 RECOMMENDED COUMADIN/WARFARIN INR THERAPY RANGESSTANDARD DOSE: 2.0 - 3.0 Inclu victoriano: PROPHYLAXIS for venous thrombosis, systemic embolization; TREATMENT for arleen ous thrombosis and/or pulmonary embolus.HIGH RISK: Target INR is 2.5-3.5 for pat ients with mechanical heart valves.GI PATHOGEN PROFILE BY [id number] 19:25:00 * Test Item Value Reference Range Comments CAMPYLOBACTER (PCR) (test yxns=7837229) Not detected Not detected PLESIOMONAS SHIGELLOIDES (PCR) (test yvgy=4195822) Not detected Not detected SALMONELLA (PCR) (test uxog=7200714) Not detected Not detected YERSINIA ENTEROCOLITICA (PCR) (test meub=0323641) Not detected Not detected VIBRIO CHOLERAE (PCR) (test xcuu=4757382) Not detected Not detected ENTEROAGGREGATIVE E. COLI (EAEC) BY PCR (test rezf=3582721) Not detected Not detected ENTEROPATHOGENIC E. COLI (EPEC) BY PCR (test mvud=4459265) Not detected Not detected ENTEROTOXIGENIC E. COLI (ETEC) LT/ST BY PCR (test rvtk=0999657) Not detected Not detected SHIGA-LIKE TOXIN-PRODUCING E. COLI (STEC) STX1/STX2 (test mvqp=7182024) Not detected Not detected E. COLI O157 (PCR) (test ldac=7360982) Not detected SHIGELLA/ENTEROINVASIVE E. COLI (EIEC) BY PCR (test kmpn=2446206) Not detected Not detected CRYPTOSPORIDIUM (PCR) (test vmuj=4341293) Not detected Not detected CYCLOSPORA CAYETANENSIS (PCR) (test xgvn=2925859) Not detected Not detected ENTAMOEBA HISTOLYTICA (PCR) (test hwth=2758024) Not detected Not detected GIARDIA LAMBLIA (PCR) (test hyzc=8477929) Not detected Not detected ADENOVIRUS F 40/41 (PCR) (test bzti=3019114) Not detected Not detected ASTROVIRUS (PCR) (test hhry=6272078) Not detected Not detected NOROVIRUS GI/GII (PCR) (test uaqm=6483960) Not detected Not detected ROTAVIRUS A (PCR) (test olsv=7460619) Not detected Not detected SAPOVIRUS (I, II, IV, V) BY PCR (test cviw=9311115) Not detected Not detected VIBRIO (PARAHAEMOLYTICUS, VULNIFICUS) (test bzhg=4577638) Not detected Not detected Other viruses, parasites and bacteria not targeted by this PCR panel cannot be e xcluded; therefore clinical correlation and follow up of serology, culture resul ts, and other molecular studies is required. The results are not intended to be used as the sole means for clinical diagnosis or patient management decisions. T his sample was tested at the [facility] Molecular Diagnostics Laboratory using the [employer] Gastrointestinal Panel. It is FDA cleared and has been verified and approved by the [facility] Molecular Diagnostics Laboratory for clinical use. Thi s laboratory is CLIA-certified and [employer] ([employer])-accred ited to perform high complexity testing.CT, BRAIN, WITHOUT [id number] 13:28:00FINAL REPORT CT head without contrast 06/22/2018 1:27 PM CLINICAL HISTORY: Headache, new, immunocompromised or cancer TECHNIQUE: Axial noncontrast CT images through the head were obtained. This examination was performed according to our departmental dose optimization program, which includes automated exposure control, adjustment of the mA and/or kV according to patient size, and/or use of iterated reconstruction technique. COMPARISON: 05/09/2018 FINDINGS: There is no hemorrhage, extra-axial collection, mass, hydrocephalus, or midline shift. There is no CT evidence for cerebral infarction. The visualized paranasal sinuses and mastoid air cells are well aerated. The skull is intact. IMPRESSION: No intracranial hemorrhage or mass effect. If concern for acute pathology persists, further evaluation with MRI is recommended. Signed: Briseida Mercer Verified Date/Time: 06/22/2018 13:28:26 Reading Location: [address] Neuro Reading Room W/PLT COUNT & AUTO [id number] 12:18:00* Test Item Value Reference Range Comments WHITE BLOOD CELL COUNT (BEAKER) (test gdsl=494) 62.4 K/ L 3.5-10.5 RED BLOOD CELL COUNT (BEAKER) (test pypa=294) 2.68 M/ L 3.93-5.22 HEMOGLOBIN (BEAKER) (test qtim=299) 7.7 GM/DL 11.2-15.7 HEMATOCRIT (BEAKER) (test zvxo=176) 24.8 % 34.1-44.9 MEAN CORPUSCULAR VOLUME (BEAKER) (test vhyu=230) 92.5 fL 79.4-94.8 MEAN CORPUSCULAR HEMOGLOBIN (BEAKER) (test mvsq=513) 28.7 pg 25.6-32.2 MEAN CORPUSCULAR HEMOGLOBIN CONC (BEAKER) (test hfpu=545) 31.0 GM/DL 32.2-35.5 RED CELL DISTRIBUTION WIDTH (BEAKER) (test buas=011) 17.9 % 11.7-14.4 PLATELET COUNT (BEAKER) (test kier=867) 337 K/CU MM 150-450 MEAN PLATELET VOLUME (BEAKER) (test tzpg=935) 11.6 fL 9.4-12.3 NUCLEATED RED BLOOD CELLS (BEAKER) (test ajli=383) 0 /100 WBC 0-0 (CELLAVISION MANUAL DIFF)2018-06-22 12:18:00* Test Item Value Reference Range Comments NEUTROPHILS - REL (CELLAVISION)(BEAKER) (test htgz=6670) 78 % MONOCYTES - REL (CELLAVISION)(BEAKER) (test ckaa=4669) 1 % METAMYELOCYTES - REL (CELLAVISION)(BEAKER) (test zzjt=1209) 2 % 0-0 MYELOCYTES - REL (CELLAVISION)(BEAKER) (test plgv=8135) 1 % 0-0 BANDS - REL (CELLAVISION)(BEAKER) (test ilzr=3034) 18 % 0-10 NEUTROPHILS - ABS (CELLAVISION)(BEAKER) (test mjcs=1863) 48.67 K/ul 1.56-6.13 MONOCYTES - ABS (CELLAVISION)(BEAKER) (test owcx=2295) 0.62 K/uL 0.24-0.36 METAMYELOCYTES - ABS (CELLAVISION)(BEAKER) (test eqle=7109) 1.25 K/uL 0.00-0.00 MYELOCYTES-ABS (CELLAVISION)(BEAKER) (test fyem=2563) 0.62 K/uL 0.00-0.00 BANDS - ABS (CELLAVISION)(BEAKER) (test oljx=2316) 11.23 K/uL 0.00-0.80 TOTAL COUNTED (BEAKER) (test sopm=8821) 100 PLT MORPHOLOGY (BEAKER) (test umnf=805) Normal SMUDGE CELLS (BEAKER) (test cqrx=2157) Present ANISOCYTOSIS (BEAKER) (test vzqo=687) 2+ moderate MICROCYTES (BEAKER) (test book=927) 2+ moderate POIKILOCYTES (BEAKER) (test wuya=035) 1+ few SCHISTOCYTES (BEAKER) (test arwg=749) 2+ moderate OVALOCYTES (BEAKER) (test utzh=228) 1+ few TEAR DROP CELLS (BEAKER) (test zuwx=542) 1+ few PLATELET CONCENTRATION (CELLAVISION)(BEAKER) (test rhwb=9965) Adequate Received comment: User comments: Slide comments: POCT-GLUCOSE [id number] 08:31:00* Test Item Value Reference Range Comments POC-GLUCOSE METER (BEAKER) (test xcye=2979) 141 mg/dL 70-110 TESTED AT [facility] [address] [facility] [address] COMPREHENSIVE METABOLIC [id number] 06:22:00* Test Item Value Reference Range Comments TOTAL PROTEIN (BEAKER) (test vkpe=276) 4.6 gm/dL 6.0-8.3 ALBUMIN (BEAKER) (test guib=3170) 3.0 g/dL 3.5-5.0 ALKALINE PHOSPHATASE (BEAKER) (test jgqx=694) 198 U/L 40-150 BILIRUBIN TOTAL (BEAKER) (test mtow=498) 1.1 mg/dL 0.2-1.2 SODIUM (BEAKER) (test tzab=599) 140 meq/L 136-145 POTASSIUM (BEAKER) (test gedz=827) 3.6 meq/L 3.5-5.1 CHLORIDE (BEAKER) (test yowl=135) 109 meq/L 98-107 CO2 (BEAKER) (test agkm=672) 26 meq/L 22-29 BLOOD UREA NITROGEN (BEAKER) (test lted=890) 15 mg/dL 7-21 CREATININE (BEAKER) (test edpp=632) 0.63 mg/dL 0.57-1.25 GLUCOSE RANDOM (BEAKER) (test dnte=097) 93 mg/dL 70-105 CALCIUM (BEAKER) (test vhmq=587) 7.8 mg/dL 8.4-10.2 AST (SGOT) (BEAKER) (test uhsa=729) 46 U/L 5-34 ALT (SGPT) (BEAKER) (test nlaw=456) 38 U/L 6-55 EGFR (BEAKER) (test msgl=0902) 100 mL/min/1.73 sq m ESTIMATED GFR IS NOT ACCURATE CREATININE CLEARANCE IN PREDICTING GLOMERULAR FILTRATION RATE. ESTIMATED GFR IS NOT APPLICABLE FOR DIALYSIS PATIENTS. URIC [id number] 06:18:00* Test Item Value Reference Range Comments URIC ACID (BEAKER) (test cctr=889) 2.0 mg/dL 2.6-7.2 LACTATE DEHYDROGENASE (LDH)2018-06-22 06:18:00* Test Item Value Reference Range Comments LACTATE DEHYDROGENASE (BEAKER) (test iexv=593) 1357 U/L 125-220 [id number] 06:08:00* Test Item Value Reference Range Comments PARTIAL THROMBOPLASTIN TIME (BEAKER) (test alkg=323) 47.3 seconds 22.5-36.0 PROTHROMBIN [id number] 06:07:00* Test Item Value Reference Range Comments PROTIME (DARA) (test sjxx=230) 18.3 seconds 11.7-14.7 INR (BEAKER) (test atlm=729) 1.5 <=5.9 RECOMMENDED COUMADIN/WARFARIN INR THERAPY RANGESSTANDARD DOSE: 2.0 - 3.0 Inclu victoriano: PROPHYLAXIS for venous thrombosis, systemic embolization; TREATMENT for arleen ous thrombosis and/or pulmonary embolus.HIGH RISK: Target INR is 2.5-3.5 for pat ients with mechanical heart valves.C. DIFFICILE GDH [id number] 17:09:00* Test Item Value Reference Range Comments CDT TOXIN (test qfcw=[id number]) Negative Negative CDT GDH ANTIGEN (test lwbp=[id number]) Positive Negative C. difficile present but toxin not detected. Indicates colonization with non-toxigenic strain or level of toxin below detectable levels. No need for enteric isolation. Treatment is rarely needed (only when strong clinical suspicion for Clostridium difficile infection) Testing performed by [employer] Rapid Cassette Assay. For GDH, published sensitivity of the assay is 98.7% compared to cytotoxicity testing. For Toxin AB, published sensitivity is 87.8% and specificity 99.4% compared to cytotoxicity testing.Ve rification of kit performance was done by the [facility] Microbiology Lab prior to cl inical use.RAD, CHEST, 1 VIEW, NON [id number] 14:52:00Reason for exam:-> FeverShould this be performed at the bedside?->YesFINAL REPORT RAD, CHEST, 1 VIEW, NON DEPT INDICATION: Fever COMPARISON: June 18, 2018 FINDINGS: Portable frontal view of the chest. IMPRESSION: Support Lines: Right PICC has been repositioned and terminates over the superior vena cava. Lungs and pleura: Lungs are clear. Costophrenic sulci are sharp. No pneumothorax.Heart and mediastinum: Stable, unremarkable contours.Additional findings: None. Signed: JR Paz Robert MDReport Verified Date/Time: 06/21/2018 14:52:55 Reading Location: [facility] B1 [id number] Consult Reading Room IC ACID, VENOUS, WHOLE [id number] 13:10:00* Test Item Value Reference Range Comments LACTATE BLOOD VENOUS (2) (BEAKER) (test oxui=3278) 1.3 mmol/L 0.5-2.2 RESPIRATORY PANEL [id number] 11:39:00* Test Item Value Reference Range Comments HUMAN METAPNEUMOVIRUS (BEAKER) (test gflk=8928) Not detected Not detected, Equivocal RHINOVIRUS (BEAKER) (test jyfk=3370) Not detected Not detected, Equivocal INFLUENZA A (BEAKER) (test ymjh=9698) Not detected Not detected, Equivocal INFLUENZA A (NO SUBTYPE) (test vaak=2856) Not detected, Equivocal INFLUENZA A SUBTYPE H1 (BEAKER) (test aads=6900) Not detected, Equivocal INFLUENZA A SUBTYPE H3 (BEAKER) (test iolx=3294) Not detected, Equivocal INFLUENZA A SUBTYPE H1-2009 (BEAKER) (test maau=8360) Not detected, Equivocal INFLUENZA B (BEAKER) (test sgas=8753) Not detected Not detected, Equivocal RESPIRATORY SYNCYTIAL VIRUS (BEAKER) (test mrgz=5287) Not detected Not detected, Equivocal PARAINFLUENZA VIRUS 1 (BEAKER) (test mnyd=7672) Not detected Not detected, Equivocal PARAINFLUENZA VIRUS 2 (BEAKER) (test fzgh=6653) Not detected Not detected, Equivocal PARAINFLUENZA VIRUS 3 (BEAKER) (test ghzn=6145) Not detected Not detected, Equivocal PARAINFLUENZA VIRUS 4 (BEAKER) (test vbob=8976) Not detected Not detected, Equivocal ADENOVIRUS (BEAKER) (test ptkl=3959) Not detected Not detected, Equivocal CORONAVIRUS 229E (BEAKER) (test ucuv=8249) Not detected Not detected, Equivocal CORONAVIRUS HKU1 (BEAKER) (test vbmt=2899) Not detected Not detected, Equivocal CORONAVIRUS NL63 (BEAKER) (test tsyt=8075) Not detected Not detected, Equivocal CORONAVIRUS OC43 (BEAKER) (test hkoz=3028) Not detected Not detected, Equivocal BORDETELLA PERTUSSIS (BEAKER) (test xdkw=7785) Not detected Not detected, Equivocal CHLAMYDOPHILA PNEUMONIAE (BEAKER) (test qxmw=6801) Not detected Not detected, Equivocal MYCOPLASMA PNEUMONIAE (BEAKER) (test tlgb=7152) Not detected Not detected, Equivocal Other viruses and bacteria not targeted by this PCR panel cannot be excluded; th erefore clinical correlation and follow up of serology, culture results, and oth er molecular studies is required. The results are not intended to be used as the sole means for clinical diagnosis or patient management decisions. This sample was tested at the [facility] Molecular Diagnostics Laboratory using the [employer] Computer rray Respiratory Panel. It is FDA cleared and has been verified and approved by the [facility] Molecular Diagnostics Laboratory for clinical use on nasal swab specim ens. It is not FDA-cleared for use on bronchial wash/lavage samples. However, fo r this sample type, validation was performed and test characteristics were deter mined and approved, by [facility] for clinical use u nder the Clinical Laboratory Improvement Amendments (CLIA) of 1988 requirements. Therefore, FDA clearance is not required. This laboratory is CLIA-certified and [employer] ([employer])-accredited to perform high complexity t esting.CBC W/PLT COUNT & AUTO [id number] 09:54:00* Test Item Value Reference Range Comments WHITE BLOOD CELL COUNT (BEAKER) (test jbct=969) 133.1 K/ L 3.5-10.5 RED BLOOD CELL COUNT (BEAKER) (test aivz=419) 2.99 M/ L 3.93-5.22 HEMOGLOBIN (BEAKER) (test ihcs=971) 8.5 GM/DL 11.2-15.7 HEMATOCRIT (BEAKER) (test zgos=575) 28.3 % 34.1-44.9 MEAN CORPUSCULAR VOLUME (BEAKER) (test lqcf=359) 94.6 fL 79.4-94.8 MEAN CORPUSCULAR HEMOGLOBIN (BEAKER) (test xgco=920) 28.4 pg 25.6-32.2 MEAN CORPUSCULAR HEMOGLOBIN CONC (BEAKER) (test xzzr=550) 30.0 GM/DL 32.2-35.5 RED CELL DISTRIBUTION WIDTH (BEAKER) (test yxmq=864) 18.5 % 11.7-14.4 PLATELET COUNT (BEAKER) (test xvup=426) 434 K/CU MM 150-450 MEAN PLATELET VOLUME (BEAKER) (test nxak=102) 11.4 fL 9.4-12.3 NUCLEATED RED BLOOD CELLS (BEAKER) (test tgga=114) 0 /100 WBC 0-0 (MANUAL DIFFERENTIAL)2018-06-21 09:54:00* Test Item Value Reference Range Comments NEUTROPHILS - REL (DIFF) (BEAKER) (test baqw=3637) 82 % LYMPHOCYTES - REL (DIFF) (BEAKER) (test sugu=9352) 2 % MONOCYTES - REL (DIFF) (BEAKER) (test ygbx=7417) 0 % EOSINOPHILS - REL (DIFF) (BEAKER) (test zzno=5176) 0 % BASOPHILS - REL (DIFF) (BEAKER) (test fjtc=8944) 0 % MYELOCYTES-REL (DIFF) (BEAKER) (test azfd=3316) 3 % 0-0 BANDS - REL (DIFF) (BEAKER) (test crqt=3089) 13 % 0-10 NEUTROPHILS - ABS (DIFF) (BEAKER) (test zoob=4832) 109.14 K/ L 1.80-8.00 LYMPHOCYTES - ABS (DIFF) (BEAKER) (test gesd=0146) 2.66 K/ L 1.48-4.50 MONOCYTES - ABS (DIFF) (BEAKER) (test wupg=7502) 0.00 K/ L 0.00-1.30 EOSINOPHILS - ABS (DIFF) (BEAKER) (test jsbz=9044) 0.00 K/ L 0.00-0.50 BASOPHILS - ABS (DIFF) (BEAKER) (test uqqr=1244) 0.00 K/ L 0.00-0.20 BANDS-ABS (DIFF) (BEAKER) (test jqkz=3668) 17.3 K/ L 0.0-0.8 MYELOCYTES-ABS (DIFF) (BEAKER) (test gtao=0696) 3.99 K/ L 0.00-0.00 TOTAL COUNTED (BEAKER) (test wtbx=8315) 100 BANDS + SEGMENTED NEUTROPHILS (BEAKER) (test vinc=4159) 126.45 WBC MORPHOLOGY (BEAKER) (test yhcb=276) Normal PLT MORPHOLOGY (BEAKER) (test dcql=543) Normal SCHISTOCYTES (BEAKER) (test frte=713) 1+ few ANISOCYTOSIS (BEAKER) (test bgqr=047) 2+ moderate OVALOCYTES (BEAKER) (test xmjx=247) 1+ few POLYCHROMATOPHILLIC RBCS(BEAKER) (test bkmw=817) 1+ few TEAR DROP CELLS (BEAKER) (test omks=883) 1+ few ANG, NON-TUNNELED CATH/PICC >5 Y.O.2018-06-21 09:51:00Please reposition picc line, or place new line. 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 Computer Repair Instructor: Malik Norton MD. Magnetic Grinder Operator: None. Approach: Via indwelling right upper extremity with PICC line Estimated blood loss: < 5 cc. Specimen: None. Fluoroscopy Time: 0.1 min.Reference Air Kerma (Ka, r): 1.4 mGy. Technique: Informed written consent was obtained. Discussion of risks, benefits, and alternatives were made with the patient. The patient expressed understanding and agreed to proceed. A universal timeout was performed prior to starting the procedure. All elements maximal sterile barrier technique was utilized for this procedure, including utilization of sterile scrub solution for skin prep, a large sterile sheet to cover the areas of the patient that were not prepped, and hand hygiene, mask, head covering, and sterile gown for performing radiologist and scrub technologist. Right upper chest from the PICC line tip noted terminating within the left brachiocephalic vein. Saline was injected via the indwelling PICC line excessively repositioning the tip into the SVC terminating at the cavoatrial junction. Both lumens easily aspirated and flushed after reposition. 1% lidocaine was used for local anesthesia and the catheter was fixed to the skin with silk suture. Impression: Successful fluoroscopy guided right upper PICC line reposition as detailed above. Line is ready for immediate use. Signed: Malik Norton MDReport Verified Date/Time: 06/21/2018 09:51:49 Reading Location: [place] [address] Angio Body Reading Room Electronically signed by: MALIK NORTON MD on 06/21 09:51 AM POCT-LACTIC ACID, [id number] 09:38:00* Test Item Value Reference Range Comments POC-LACTIC ACID, ARTERIAL (BEAKER) (test mbth=6654) 1.8 mmol/L 0.4-1.3 TESTED AT [facility] [address] [place] [address] URIC [id number] 06:43:00* Test Item Value Reference Range Comments URIC ACID (BEAKER) (test iflh=534) 1.5 mg/dL 2.6-7.2 COMPREHENSIVE METABOLIC [id number] 05:52:00* Test Item Value Reference Range Comments TOTAL PROTEIN (BEAKER) (test bhwo=363) 4.8 gm/dL 6.0-8.3 ALBUMIN (BEAKER) (test xgik=3851) 3.2 g/dL 3.5-5.0 ALKALINE PHOSPHATASE (BEAKER) (test cmzj=252) 200 U/L 40-150 BILIRUBIN TOTAL (BEAKER) (test rhfs=967) 0.8 mg/dL 0.2-1.2 SODIUM (BEAKER) (test savc=948) 144 meq/L 136-145 POTASSIUM (BEAKER) (test shjg=482) 4.0 meq/L 3.5-5.1 CHLORIDE (BEAKER) (test oepf=346) 112 meq/L 98-107 CO2 (BEAKER) (test ofvc=605) 22 meq/L 22-29 BLOOD UREA NITROGEN (BEAKER) (test uufg=966) 9 mg/dL 7-21 CREATININE (BEAKER) (test cyjo=168) 0.60 mg/dL 0.57-1.25 GLUCOSE RANDOM (BEAKER) (test yawj=098) 70 mg/dL 70-105 CALCIUM (BEAKER) (test arwo=611) 8.6 mg/dL 8.4-10.2 AST (SGOT) (BEAKER) (test kdia=375) 58 U/L 5-34 ALT (SGPT) (BEAKER) (test pxwc=238) 46 U/L 6-55 EGFR (BEAKER) (test sekz=2322) 106 mL/min/1.73 sq m ESTIMATED GFR IS NOT ACCURATE CREATININE CLEARANCE IN PREDICTING GLOMERULAR FILTRATION RATE. ESTIMATED GFR IS NOT APPLICABLE FOR DIALYSIS PATIENTS. LACTATE DEHYDROGENASE (LDH)2018-06-21 05:52:00* Test Item Value Reference Range Comments LACTATE DEHYDROGENASE (BEAKER) (test zcyi=116) 1346 U/L 125-220 [id number] 05:26:00* Test Item Value Reference Range Comments PARTIAL THROMBOPLASTIN TIME (BEAKER) (test fmsh=018) 36.2 seconds 22.5-36.0 PROTHROMBIN [id number] 05:25:00* Test Item Value Reference Range Comments PROTIME (BEAKER) (test miez=357) 18.0 seconds 11.7-14.7 INR (BEAKER) (test buso=083) 1.5 <=5.9 RECOMMENDED COUMADIN/WARFARIN INR THERAPY RANGESSTANDARD DOSE: 2.0 - 3.0 Inclu victoriano: PROPHYLAXIS for venous thrombosis, systemic embolization; TREATMENT for arleen ous thrombosis and/or pulmonary embolus.HIGH RISK: Target INR is 2.5-3.5 for pat ients with mechanical heart valves.CBC W/PLT COUNT & AUTO [id number] 14:18:00* Test Item Value Reference Range Comments WHITE BLOOD CELL COUNT (BEAKER) (test sbps=687) 174.9 K/ L 3.5-10.5 RED BLOOD CELL COUNT (BEAKER) (test gpta=429) 3.34 M/ L 3.93-5.22 HEMOGLOBIN (BEAKER) (test szht=189) 9.6 GM/DL 11.2-15.7 HEMATOCRIT (BEAKER) (test ybvf=542) 32.3 % 34.1-44.9 MEAN CORPUSCULAR VOLUME (BEAKER) (test atpp=997) 96.7 fL 79.4-94.8 MEAN CORPUSCULAR HEMOGLOBIN (BEAKER) (test vetn=193) 28.7 pg 25.6-32.2 MEAN CORPUSCULAR HEMOGLOBIN CONC (BEAKER) (test ijvp=078) 29.7 GM/DL 32.2-35.5 RED CELL DISTRIBUTION WIDTH (BEAKER) (test mkzv=723) 18.5 % 11.7-14.4 PLATELET COUNT (BEAKER) (test piom=726) 447 K/CU MM 150-450 MEAN PLATELET VOLUME (BEAKER) (test zkqj=069) 11.5 fL 9.4-12.3 NUCLEATED RED BLOOD CELLS (BEAKER) (test okco=692) 0 /100 WBC 0-0 (CELLAVISION MANUAL DIFF)2018-06-20 14:18:00* Test Item Value Reference Range Comments NEUTROPHILS - REL (CELLAVISION)(BEAKER) (test fzmq=0707) 50 % LYMPHOCYTES - REL (CELLAVISION)(BEAKER) (test iwvy=9344) 1 % MONOCYTES - REL (CELLAVISION)(BEAKER) (test siwb=9674) 3 % EOSINOPHILS - REL (CELLAVISION)(BEAKER) (test ejch=8552) 1 % BASOPHILS - REL (CELLAVISION)(BEAKER) (test quvh=3441) 2 % METAMYELOCYTES - REL (CELLAVISION)(BEAKER) (test hodd=0159) 2 % 0-0 MYELOCYTES - REL (CELLAVISION)(BEAKER) (test pejg=7146) 4 % 0-0 BANDS - REL (CELLAVISION)(BEAKER) (test utct=9346) 36 % 0-10 ATYPICAL LYMPHOCYTES - REL (CELLAVISION)(BEAKER) (test dcqw=9166) 1 % 0-0 NEUTROPHILS - ABS (CELLAVISION)(BEAKER) (test yndl=6946) 87.45 K/ul 1.56-6.13 LYMPHOCYTES - ABS (CELLAVISION)(BEAKER) (test jddt=5607) 1.75 K/ul 1.18-3.74 MONOCYTES - ABS (CELLAVISION)(BEAKER) (test efri=6048) 5.25 K/uL 0.24-0.36 EOSINOPHILS - ABS (CELLAVISION)(BEAKER) (test rtwm=0687) 1.75 K/uL 0.04-0.36 BASOPHILS - ABS (CELLAVISION)(BEAKER) (test xwlt=4073) 3.50 K/uL 0.01-0.08 METAMYELOCYTES - ABS (CELLAVISION)(BEAKER) (test rapu=8141) 3.50 K/uL 0.00-0.00 MYELOCYTES-ABS (CELLAVISION)(BEAKER) (test aazl=1309) 7.00 K/uL 0.00-0.00 BANDS - ABS (CELLAVISION)(BEAKER) (test fllf=7724) 62.96 K/uL 0.00-0.80 ATYPICAL LYMPHOCYTES - ABS (CELLAVISION)(BEAKER) (test odfn=4290) 1.75 K/uL 0.00-0.00 TOTAL COUNTED (BEAKER) (test wqin=2191) 100 SMUDGE CELLS (BEAKER) (test ifnk=7681) Present GIANT PLATELETS (BEAKER) (test lzcw=295) Present POLYCHROMATOPHILLIC RBCS(BEAKER) (test usgx=300) 1+ few ANISOCYTOSIS (BEAKER) (test ogif=833) 2+ moderate MICROCYTES (BEAKER) (test jcny=720) 1+ few POIKILOCYTES (BEAKER) (test lgut=464) 2+ moderate SCHISTOCYTES (BEAKER) (test reqn=182) 1+ few TEAR DROP CELLS (BEAKER) (test fkqe=151) 1+ few JONY CELLS (BEAKER) (test kqig=499) 1+ few ARTIFACT (CELLAVISION)(BEAKER) (test pipq=9544) Present PLATELET CONCENTRATION (CELLAVISION)(BEAKER) (test sser=0192) Adequate Received comment: User comments: Slide comments: URIC [id number] 07:04:00* Test Item Value Reference Range Comments URIC ACID (BEAKER) (test kdwj=849) 1.3 mg/dL 2.6-7.2 COMPREHENSIVE METABOLIC [id number] 06:58:00* Test Item Value Reference Range Comments TOTAL PROTEIN (BEAKER) (test rfpg=288) 5.3 gm/dL 6.0-8.3 ALBUMIN (BEAKER) (test ttbs=4658) 3.4 g/dL 3.5-5.0 ALKALINE PHOSPHATASE (BEAKER) (test apot=776) 176 U/L 40-150 BILIRUBIN TOTAL (BEAKER) (test utxo=891) 0.9 mg/dL 0.2-1.2 SODIUM (BEAKER) (test foma=357) 142 meq/L 136-145 POTASSIUM (BEAKER) (test jceh=445) 4.3 meq/L 3.5-5.1 CHLORIDE (BEAKER) (test rpqi=492) 108 meq/L 98-107 CO2 (BEAKER) (test syfc=270) 22 meq/L 22-29 BLOOD UREA NITROGEN (BEAKER) (test mwmg=055) 5 mg/dL 7-21 CREATININE (BEAKER) (test dxru=499) 0.66 mg/dL 0.57-1.25 GLUCOSE RANDOM (BEAKER) (test eape=796) 142 mg/dL 70-105 CALCIUM (BEAKER) (test wlmb=621) 8.7 mg/dL 8.4-10.2 AST (SGOT) (BEAKER) (test ajea=652) 68 U/L 5-34 ALT (SGPT) (BEAKER) (test ztxj=874) 61 U/L 6-55 EGFR (BEAKER) (test xiur=4425) 95 mL/min/1.73 sq m ESTIMATED GFR IS NOT ACCURATE CREATININE CLEARANCE IN PREDICTING GLOMERULAR FILTRATION RATE. ESTIMATED GFR IS NOT APPLICABLE FOR DIALYSIS PATIENTS. LACTATE DEHYDROGENASE (LDH)2018-06-20 06:58:00* Test Item Value Reference Range Comments LACTATE DEHYDROGENASE (BEAKER) (test lhnh=420) 1434 U/L 125-220 [id number] 06:47:00* Test Item Value Reference Range Comments PARTIAL THROMBOPLASTIN TIME (BEAKER) (test icbm=730) 36.3 seconds 22.5-36.0 PROTHROMBIN TIME/[id number] 06:46:00* Test Item Value Reference Range Comments PROTIME (BEAKER) (test tgkr=302) 16.0 seconds 11.7-14.7 INR (AKER) (test bxuj=652) 1.3 <=5.9 RECOMMENDED COUMADIN/WARFARIN INR THERAPY RANGESSTANDARD DOSE: 2.0 - 3.0 Inclu victoriano: PROPHYLAXIS for venous thrombosis, systemic embolization; TREATMENT for arleen ous thrombosis and/or pulmonary embolus.HIGH RISK: Target INR is 2.5-3.5 for pat ients with mechanical heart valves.VANCOMYCIN LEVEL, [id number] 00:25:00* Test Item Value Reference Range Comments VANCOMYCIN TROUGH (BEAKER) (test cxwi=289) 11.8 ug/mL 10.0-20.0 VANCOMYCIN LEVEL, [id number] 19:09:00* Test Item Value Reference Range Comments VANCOMYCIN RANDOM (BEAKER) (test kmnt=286) 22.7 ug/mL Reference Range: No NormalsHold further dosing for level > 20, alert and [facility] CBC W/PLT COUNT & AUTO [id number] 17:14:00* Test Item Value Reference Range Comments WHITE BLOOD CELL COUNT (BEAKER) (test domh=027) 135.7 K/ L 3.5-10.5 RED BLOOD CELL COUNT (BEAKER) (test fvaa=206) 3.38 M/ L 3.93-5.22 HEMOGLOBIN (BEAKER) (test mxtj=085) 9.7 GM/DL 11.2-15.7 HEMATOCRIT (BEAKER) (test prah=802) 31.1 % 34.1-44.9 MEAN CORPUSCULAR VOLUME (BEAKER) (test dzye=166) 92.0 fL 79.4-94.8 MEAN CORPUSCULAR HEMOGLOBIN (BEAKER) (test lqnx=455) 28.7 pg 25.6-32.2 MEAN CORPUSCULAR HEMOGLOBIN CONC (BEAKER) (test nkxi=497) 31.2 GM/DL 32.2-35.5 RED CELL DISTRIBUTION WIDTH (BEAKER) (test zwxs=826) 18.3 % 11.7-14.4 PLATELET COUNT (BEAKER) (test jxlp=640) 462 K/CU MM 150-450 MEAN PLATELET VOLUME (BEAKER) (test ofsp=735) 11.0 fL 9.4-12.3 NUCLEATED RED BLOOD CELLS (BEAKER) (test gllt=072) 1 /100 WBC 0-0 (CELLAVISION MANUAL DIFF)2018-06-19 17:14:00* Test Item Value Reference Range Comments NEUTROPHILS - REL (CELLAVISION)(BEAKER) (test utgi=2539) 40 % LYMPHOCYTES - REL (CELLAVISION)(BEAKER) (test juwd=4243) 2 % MONOCYTES - REL (CELLAVISION)(BEAKER) (test uqmq=3841) 1 % EOSINOPHILS - REL (CELLAVISION)(BEAKER) (test yadk=7633) 3 % BASOPHILS - REL (CELLAVISION)(BEAKER) (test dptn=6197) 8 % METAMYELOCYTES - REL (CELLAVISION)(BEAKER) (test fedt=5137) 17 % 0-0 MYELOCYTES - REL (CELLAVISION)(BEAKER) (test hfxs=4587) 11 % 0-0 PROMYELOCYTES - REL (CELLAVSION)(BEAKER) (test ufzy=3076) 4 % 0-0 BANDS - REL (CELLAVISION)(BEAKER) (test juwh=7319) 14 % 0-10 BLASTS - REL (CELLAVISION)(BEAKER) (test ttar=8858) 1 % 0-0 NEUTROPHILS - ABS (CELLAVISION)(BEAKER) (test bjpf=8744) 54.28 K/ul 1.56-6.13 LYMPHOCYTES - ABS (CELLAVISION)(BEAKER) (test mvfu=7436) 2.71 K/ul 1.18-3.74 MONOCYTES - ABS (CELLAVISION)(BEAKER) (test rrvh=1768) 1.36 K/uL 0.24-0.36 EOSINOPHILS - ABS (CELLAVISION)(BEAKER) (test azll=0573) 4.07 K/uL 0.04-0.36 BASOPHILS - ABS (CELLAVISION)(BEAKER) (test fzur=5439) 10.86 K/uL 0.01-0.08 METAMYELOCYTES - ABS (CELLAVISION)(BEAKER) (test ilct=6614) 23.07 K/uL 0.00-0.00 MYELOCYTES-ABS (CELLAVISION)(BEAKER) (test mnwh=2017) 14.93 K/uL 0.00-0.00 PROMYELOCYTES - ABS (CELLAVISION)(BEAKER) (test amgy=4004) 5.43 K/uL 0.00-0.00 BANDS - ABS (CELLAVISION)(BEAKER) (test lplr=0017) 19.00 K/uL 0.00-0.80 BLASTS - ABS (CELLAVISION)(BEAKER) (test gpzb=1842) 1.36 K/uL 0.00-0.00 TOTAL COUNTED (BEAKER) (test coao=5848) 100 MANUAL NRBC PER 100 CELLS (BEAKER) (test zsvl=7769) 1 /100 WBC 0-0 WBC MORPHOLOGY (BEAKER) (test pzwb=437) Normal LARGE PLT(BEAKER) (test wwnl=5188) Present POLYCHROMATOPHILLIC RBCS(BEAKER) (test qaqa=175) 1+ few HYPOCHROMIA (BEAKER) (test fsky=558) 1+ few ANISOCYTOSIS (BEAKER) (test rupb=620) 2+ moderate MICROCYTES (BEAKER) (test jyhy=951) 1+ few POIKILOCYTES (BEAKER) (test caam=940) 2+ moderate SPHEROCYTES (BEAKER) (test cvaj=582) 1+ few OVALOCYTES (BEAKER) (test bphq=702) 1+ few TEAR DROP CELLS (BEAKER) (test eeug=259) 2+ moderate ARTIFACT (CELLAVISION)(BEAKER) (test qjhb=9601) Present HELMET CELLS (CELLAVISION)(BEAKER) (test idvh=8066) 1+ few PLATELET CONCENTRATION (CELLAVISION)(BEAKER) (test rwbs=1010) Increased Received comment: User comments: Slide comments: URIC [id number] 16:14:00* Test Item Value Reference Range Comments URIC ACID (BEAKER) (test musf=510) 1.1 mg/dL 2.6-7.2 [id number] 16:13:00* Test Item Value Reference Range Comments MAGNESIUM (BEAKER) (test kiaq=237) 1.8 mg/dL 1.6-2.6 [id number] 16:13:00* Test Item Value Reference Range Comments PHOSPHORUS (BEAKER) (test jjwy=980) 3.4 mg/dL 2.3-4.7 HEPATIC FUNCTION [id number] 16:13:00* Test Item Value Reference Range Comments TOTAL PROTEIN (BEAKER) (test ozev=745) 5.5 gm/dL 6.0-8.3 ALBUMIN (BEAKER) (test dzaf=6833) 3.6 g/dL 3.5-5.0 BILIRUBIN TOTAL (BEAKER) (test uzrp=368) 1.2 mg/dL 0.2-1.2 BILIRUBIN DIRECT (BEAKER) (test ebgr=640) 0.8 mg/dL 0.1-0.5 ALKALINE PHOSPHATASE (BEAKER) (test zbkd=418) 165 U/L 40-150 AST (SGOT) (BEAKER) (test kows=222) 90 U/L 5-34 ALT (SGPT) (BEAKER) (test acvf=756) 72 U/L 6-55 COMPREHENSIVE METABOLIC [id number] 16:13:00* Test Item Value Reference Range Comments TOTAL PROTEIN (BEAKER) (test cmvm=176) 5.5 gm/dL 6.0-8.3 ALBUMIN (BEAKER) (test xeih=6153) 3.6 g/dL 3.5-5.0 ALKALINE PHOSPHATASE (BEAKER) (test vphr=811) 165 U/L 40-150 BILIRUBIN TOTAL (BEAKER) (test abvp=961) 1.2 mg/dL 0.2-1.2 SODIUM (BEAKER) (test wchr=688) 140 meq/L 136-145 POTASSIUM (BEAKER) (test evug=739) 3.5 meq/L 3.5-5.1 CHLORIDE (BEAKER) (test bikf=093) 106 meq/L 98-107 CO2 (BEAKER) (test onmz=628) 25 meq/L 22-29 BLOOD UREA NITROGEN (BEAKER) (test obuu=889) 3 mg/dL 7-21 CREATININE (BEAKER) (test rojs=981) 0.66 mg/dL 0.57-1.25 GLUCOSE RANDOM (BEAKER) (test wbpr=833) 87 mg/dL 70-105 CALCIUM (BEAKER) (test hbuo=508) 8.9 mg/dL 8.4-10.2 AST (SGOT) (BEAKER) (test nrzj=139) 90 U/L 5-34 ALT (SGPT) (BEAKER) (test xfce=558) 72 U/L 6-55 EGFR (BEAKER) (test sevl=7940) 95 mL/min/1.73 sq m ESTIMATED GFR IS NOT ACCURATE CREATININE CLEARANCE IN PREDICTING GLOMERULAR FILTRATION RATE. ESTIMATED GFR IS NOT APPLICABLE FOR DIALYSIS PATIENTS. LACTATE DEHYDROGENASE (LDH)2018-06-19 16:13:00* Test Item Value Reference Range Comments LACTATE DEHYDROGENASE (BEAKER) (test eyrh=993) 1130 U/L 125-220 [id number] 16:12:00* Test Item Value Reference Range Comments PARTIAL THROMBOPLASTIN TIME (BEAKER) (test oudc=488) 32.9 seconds 22.5-36.0 PROTHROMBIN [id number] 16:11:00* Test Item Value Reference Range Comments PROTIME (BEAKER) (test inps=921) 15.7 seconds 11.7-14.7 INR (BEAKER) (test lkuw=847) 1.3 <=5.9 RECOMMENDED COUMADIN/WARFARIN INR THERAPY RANGESSTANDARD DOSE: 2.0 - 3.0 Inclu victoriano: PROPHYLAXIS for venous thrombosis, systemic embolization; TREATMENT for arleen ous thrombosis and/or pulmonary embolus.HIGH RISK: Target INR is 2.5-3.5 for pat ients with mechanical heart valves.RESPIRATORY PANEL [id number] 12:28:00* Test Item Value Reference Range Comments HUMAN METAPNEUMOVIRUS (BEAKER) (test ogsg=4115) Not detected Not detected, Equivocal RHINOVIRUS (BEAKER) (test ebmn=6405) Not detected Not detected, Equivocal INFLUENZA A (BEAKER) (test macw=2142) Not detected Not detected, Equivocal INFLUENZA A (NO SUBTYPE) (test jbci=5995) Not detected, Equivocal INFLUENZA A SUBTYPE H1 (BEAKER) (test qjjy=3917) Not detected, Equivocal INFLUENZA A SUBTYPE H3 (BEAKER) (test lnwl=8432) Not detected, Equivocal INFLUENZA A SUBTYPE H1-2009 (BEAKER) (test jyes=3947) Not detected, Equivocal INFLUENZA B (BEAKER) (test apal=4614) Not detected Not detected, Equivocal RESPIRATORY SYNCYTIAL VIRUS (BEAKER) (test fkgc=5330) Not detected Not detected, Equivocal PARAINFLUENZA VIRUS 1 (BEAKER) (test mxqa=4234) Not detected Not detected, Equivocal PARAINFLUENZA VIRUS 2 (BEAKER) (test xzkv=2557) Not detected Not detected, Equivocal PARAINFLUENZA VIRUS 3 (BEAKER) (test qupt=7041) Not detected Not detected, Equivocal PARAINFLUENZA VIRUS 4 (BEAKER) (test huiv=8443) Not detected Not detected, Equivocal ADENOVIRUS (BEAKER) (test cgow=1539) Not detected Not detected, Equivocal CORONAVIRUS 229E (BEAKER) (test fpva=9891) Not detected Not detected, Equivocal CORONAVIRUS HKU1 (BEAKER) (test rngj=6385) Not detected Not detected, Equivocal CORONAVIRUS NL63 (BEAKER) (test moud=0381) Not detected Not detected, Equivocal CORONAVIRUS OC43 (BEAKER) (test ttqp=5550) Not detected Not detected, Equivocal BORDETELLA PERTUSSIS (BEAKER) (test hubz=3930) Not detected Not detected, Equivocal CHLAMYDOPHILA PNEUMONIAE (BEAKER) (test qweb=0885) Not detected Not detected, Equivocal MYCOPLASMA PNEUMONIAE (BEAKER) (test olmf=4272) Not detected Not detected, Equivocal Other viruses and bacteria not targeted by this PCR panel cannot be excluded; th erefore clinical correlation and follow up of serology, culture results, and oth er molecular studies is required. The results are not intended to be used as the sole means for clinical diagnosis or patient management decisions. This sample was tested at the [facility] using the [employer] Computer rray Respiratory Panel. It is FDA cleared and has been verified and approved by the [facility] for clinical use on nasal swab specim ens. It is not FDA-cleared for use on bronchial wash/lavage samples. However, fo r this sample type, validation was performed and test characteristics were deter mined and approved, by [facility] for clinical use u nder the Clinical Laboratory Improvement Amendments (CLIA) of 1988 requirements. Therefore, FDA clearance is not required. This laboratory is CLIA-certified and [employer] ([employer])-accredited to perform high complexity t esting.URINE [id number] 08:10:00* Test Item Value Reference Range Comments CULTURE (DARA) (test tcvo=8746) See comment <10,000 col/mL gram negative rods.>100,000 col/mL skin floraCT, CHEST, WITH [id number] 01:12:00FINAL REPORT TECHNIQUE: CT of the chest, abdomen, and pelvis WITH intravenous contrast and oral contrast. Dose modulation, iterative reconstruction, and/or weight-based adjustment of the mA/kV was utilized to reduce the radiation dose to as low as reasonably achievable. INDICATION: Fever, history of CML with blast crisis. COMPARISON: None. FINDINGS: LINES/TUBES: None. LUNGS AND AIRWAYS: Minimal subsegmental atelectasis at the lung bases. No focal airspace consolidation..PLEURA: The pleural spaces are clear.HEART AND MEDIASTINUM: The visualized thyroid gland is normal. No significant mediastinal, hilar, or axillary lymphadenopathy. The heart and pericardium are within normal limits. HEPATOBILIARY: No focal hepatic lesions. Gallbladder is unremarkable. No biliary ductal dilatation.SPLEEN: Spleen has enlarged in the interim and now measures 19 cm in greatest dimension, formerly 15 cm.PANCREAS: No focal masses or ductal dilatation. ADRENALS: No adrenal nodules.KIDNEYS/URETERS: No hydronephrosis, stones, or solid mass lesions.PELVIC ORGANS/BLADDER: Unremarkable. PERITONEUM/RETROPERITONEUM: No free air or fluid. Nodularity within the left pelvic fat is unchanged (axial image) measuring 6 mm.LYMPH NODES: No lymphadenopathy.VESSELS: Unremarkable. GI TRACT: No distention or wall thickening. BONES AND SOFT TISSUES: Osseous hemangioma of the T12 vertebral body, unchanged. IMPRESSION:No definite etiology of fever identified Slight interval increased minimally compared to prior exam. Splenic vein is widely patent. Signed: Kaylen Maxwell MDReport Verified Date/Time: 06/19/2018 01:12:35 Reading Location: [address] Neuro Reading Room , [id number] 01:12:00FINAL REPORT TECHNIQUE: CT of the chest, abdomen, and pelvis WITH intravenous contrast and oral contrast. Dose modulation, iterative reconstruction, and/or weight-based adjustment of the mA/kV was utilized to reduce the radiation dose to as low as reasonably achievable. INDICATION: Fever, history of CML with blast crisis. COMPARISON: None. FINDINGS: LINES/TUBES: None. LUNGS AND AIRWAYS: Minimal subsegmental atelectasis at the lung bases. No focal airspace consolidation..PLEURA: The pleural spaces are clear.HEART AND MEDIASTINUM: The visualized thyroid gland is normal. No significant mediastinal, hilar, or axillary lymphadenopathy. The heart and pericardium are within normal limits. H EPATOBILIARY: No focal hepatic lesions. Gallbladder is unremarkable. No biliary ductal dilatation.SPLEEN: Spleen has enlarged in the interim and now measures 19 cm in greatest dimension, formerly 15 cm.PANCREAS: No focal masses or ductal di latation. ADRENALS: No adrenal nodules.KIDNEYS/URETERS: No hydronephrosis, stone s, or solid mass lesions.PELVIC ORGANS/BLADDER: Unremarkable. PERITONEUM/RETROPE RITONEUM: No free air or fluid. Nodularity within the left pelvic fat is unchang ed (axial image) measuring 6 mm.LYMPH NODES: No lymphadenopathy.VESSELS: Unremar kable. GI TRACT: No distention or wall thickening. BONES AND SOFT TISSUES: Orange us hemangioma of the T12 vertebral body, unchanged. IMPRESSION:No definite etiol ogy of fever identified Slight interval increased minimally compared to prior ex am. Splenic vein is widely patent. Signed: Kaylen Maxwell Verified Bob e/Time: 06/19/2018 01:12:35 Reading Location: [facility] C013V Neuro Reading Room , SINUS, WITH IV [id number] 21:00:00FINAL REPORT CT sinuses with contrast 06/18/2018 8:59 PM CLINICAL HISTORY: fever in patient with CML with blast crisis COMPARISON: None available TECHNIQUE: Axial contrast-enhanced CT imaging of the sinuses was performed. Axially acquired data were reformatted in coronal and sagittal planes for further analysis. This examination was performed according to our departmental dose optimization program, which includes automated exposure control, adjustment of the mA and/or kV according to patient size, and/or use of iterated reconstruction technique. FINDINGS: The frontal, ethmoid, maxillary, and sphenoid sinuses are pneumatized. There is no sinus based mass or remarkable mucosal disease. There are no concerning anatomic variants. The tympanomastoid cavities are clear. There are multifocal dental caries without evident inflammatory changes in the visualized oral cavity. IMPRESSION: 1. No current evidence for sinusitis. 2. Dental disease. Signed: Briseida Mercer Verified Date/Time: 06/18/2018 21: 00:52 Reading Location: [facility] Radiology Reading Room Electronically s igned by: BRISEIDA MERCER M.D. on 06/18/2018 09:00 PM RAD, CHEST, 1 VIEW, NON [id number] 19:18:00Reason for exam:->PICC LINE PLACEMENTShould this be performed at the bedside?->YesFINAL REPORT History: PICC line placement. FINDINGS: Chest, single view: Single AP view of the chest shows a new right upper extremity PICC line the tip of which extends into an atypical position and presumably lies in the region of the left brachiocephalic vein, to the left of midline. The heart and mediastinum are unremarkable. Lung volumes are slightly decreased but the lungs are clear, free of edema, focal consolidation or visible effusions. No pneumothorax. Bones are unremarkable. IMPRESSION: 1. Atypical position of the tip of the patient's new right upper extremity PICC line as described above. Signed: Delmar Richards MDReport Verified Date/Time: 06/18/2018 19:18:56 Reading Location: [facility] Diagnostic Imaging Reading Room - [place] [address] D INFLUENZA A&B [id number] 14:43:00* Test Item Value Reference Range Comments RAPID INFLUENZA A AG (BEAKER) (test tjey=1324) Negative Negative, Inconclusive RAPID INFLUENZA B AG (BEAKER) (test dfhw=8241) Negative Negative, Inconclusive CBC W/PLT COUNT & AUTO [id number] 14:22:00* Test Item Value Reference Range Comments WHITE BLOOD CELL COUNT (BEAKER) (test znpw=491) 122.3 K/ L 3.5-10.5 RED BLOOD CELL COUNT (BEAKER) (test yehw=191) 3.14 M/ L 3.93-5.22 HEMOGLOBIN (BEAKER) (test cetw=790) 9.2 GM/DL 11.2-15.7 HEMATOCRIT (BEAKER) (test xhou=915) 29.2 % 34.1-44.9 MEAN CORPUSCULAR VOLUME (BEAKER) (test tlnh=036) 93.0 fL 79.4-94.8 MEAN CORPUSCULAR HEMOGLOBIN (BEAKER) (test bzrz=571) 29.3 pg 25.6-32.2 MEAN CORPUSCULAR HEMOGLOBIN CONC (BEAKER) (test vvmi=796) 31.5 GM/DL 32.2-35.5 RED CELL DISTRIBUTION WIDTH (BEAKER) (test rdkj=790) 18.2 % 11.7-14.4 PLATELET COUNT (BEAKER) (test hgvj=931) 417 K/CU MM 150-450 MEAN PLATELET VOLUME (BEAKER) (test afrv=880) 11.3 fL 9.4-12.3 NUCLEATED RED BLOOD CELLS (BEAKER) (test vzbd=538) 1 /100 WBC 0-0 (CELLAVISION MANUAL DIFF)2018-06-18 14:22:00* Test Item Value Reference Range Comments NEUTROPHILS - REL (CELLAVISION)(BEAKER) (test eoby=5083) 43 % LYMPHOCYTES - REL (CELLAVISION)(BEAKER) (test mihf=6084) 2 % MONOCYTES - REL (CELLAVISION)(BEAKER) (test itav=7725) 5 % EOSINOPHILS - REL (CELLAVISION)(BEAKER) (test jqtc=0455) 1 % BASOPHILS - REL (CELLAVISION)(BEAKER) (test ovkb=9874) 2 % METAMYELOCYTES - REL (CELLAVISION)(BEAKER) (test tqwp=0725) 3 % 0-0 MYELOCYTES - REL (CELLAVISION)(BEAKER) (test bfya=4613) 9 % 0-0 PROMYELOCYTES - REL (CELLAVSION)(BEAKER) (test uyzq=2035) 5 % 0-0 BANDS - REL (CELLAVISION)(BEAKER) (test uouz=2955) 28 % 0-10 BLASTS - REL (CELLAVISION)(BEAKER) (test vrts=1507) 2 % 0-0 NEUTROPHILS - ABS (CELLAVISION)(BEAKER) (test ieaq=7466) 52.59 K/ul 1.56-6.13 LYMPHOCYTES - ABS (CELLAVISION)(BEAKER) (test uvhk=0911) 2.45 K/ul 1.18-3.74 MONOCYTES - ABS (CELLAVISION)(BEAKER) (test tfor=4700) 6.12 K/uL 0.24-0.36 EOSINOPHILS - ABS (CELLAVISION)(BEAKER) (test mqjp=6710) 1.22 K/uL 0.04-0.36 BASOPHILS - ABS (CELLAVISION)(BEAKER) (test cwnd=0096) 2.45 K/uL 0.01-0.08 METAMYELOCYTES - ABS (CELLAVISION)(BEAKER) (test fspo=4184) 3.67 K/uL 0.00-0.00 MYELOCYTES-ABS (CELLAVISION)(BEAKER) (test fsys=8029) 11.01 K/uL 0.00-0.00 PROMYELOCYTES - ABS (CELLAVISION)(BEAKER) (test pmkf=5208) 6.12 K/uL 0.00-0.00 BANDS - ABS (CELLAVISION)(BEAKER) (test vlmj=2781) 34.24 K/uL 0.00-0.80 BLASTS - ABS (CELLAVISION)(BEAKER) (test wteg=4194) 2.45 K/uL 0.00-0.00 TOTAL COUNTED (BEAKER) (test olsl=6898) 100 MANUAL NRBC PER 100 CELLS (BEAKER) (test gdkx=5888) 2 /100 WBC 0-0 SMUDGE CELLS (BEAKER) (test ooll=1187) Present GIANT PLATELETS (BEAKER) (test smkq=733) Present POLYCHROMATOPHILLIC RBCS(BEAKER) (test mlrj=701) 2+ moderate ANISOCYTOSIS (BEAKER) (test wzbb=541) 2+ moderate MICROCYTES (BEAKER) (test aaxm=340) 2+ moderate POIKILOCYTES (BEAKER) (test njdi=855) 1+ few TEAR DROP CELLS (BEAKER) (test edol=708) 1+ few BASOPHILIC STIPPLING (BEAKER) (test aapd=771) Present PLATELET CONCENTRATION (CELLAVISION)(BEAKER) (test tgys=4468) Adequate Received comment: User comments: Slide comments: LACTATE DEHYDROGENASE (LDH) 2018-06-18 06:41:00* Test Item Value Reference Range Comments LACTATE DEHYDROGENASE (BEAKER) (test pwng=802) 1074 U/L 125-220 Specimen slightly hemolyzed URIC [id number] 06:40:00* Test Item Value Reference Range Comments URIC ACID (BEAKER) (test aslc=194) 1.2 mg/dL 2.6-7.2 Specimen slightly hemolyzed [id number] 06:38:00* Test Item Value Reference Range Comments MAGNESIUM (BEAKER) (test ygpk=915) 2.0 mg/dL 1.6-2.6 Specimen slightly hemolyzed [id number] 06:38:00* Test Item Value Reference Range Comments PHOSPHORUS (BEAKER) (test ojnm=339) 3.7 mg/dL 2.3-4.7 Specimen slightly hemolyzed COMPREHENSIVE METABOLIC [id number] 06:38:00* Test Item Value Reference Range Comments TOTAL PROTEIN (BEAKER) (test uhlh=612) 5.0 gm/dL 6.0-8.3 Specimen slightly hemolyzed ALBUMIN (BEAKER) (test qskt=3508) 3.2 g/dL 3.5-5.0 Specimen slightly hemolyzed ALKALINE PHOSPHATASE (BEAKER) (test fvdr=480) 146 U/L 40-150 BILIRUBIN TOTAL (BEAKER) (test ldnr=540) 1.2 mg/dL 0.2-1.2 Specimen slightly hemolyzed SODIUM (BEAKER) (test nhfx=013) 140 meq/L 136-145 POTASSIUM (BEAKER) (test ikna=732) 3.7 meq/L 3.5-5.1 Specimen slightly hemolyzed CHLORIDE (BEAKER) (test jeip=829) 109 meq/L 98-107 CO2 (BEAKER) (test ooij=101) 26 meq/L 22-29 BLOOD UREA NITROGEN (BEAKER) (test hpgz=075) 4 mg/dL 7-21 CREATININE (BEAKER) (test ctix=468) 0.63 mg/dL 0.57-1.25 Specimen slightly hemolyzed GLUCOSE RANDOM (BEAKER) (test mnyf=308) 86 mg/dL 70-105 CALCIUM (BEAKER) (test dhsl=302) 8.6 mg/dL 8.4-10.2 AST (SGOT) (BEAKER) (test nhxt=722) 106 U/L 5-34 Specimen slightly hemolyzed ALT (SGPT) (BEAKER) (test ezjv=282) 72 U/L 6-55 Specimen slightly hemolyzed EGFR (BEAKER) (test kcow=5744) 100 mL/min/1.73 sq m ESTIMATED GFR IS NOT ACCURATE CREATININE CLEARANCE IN PREDICTING GLOMERULAR FILTRATION RATE. ESTIMATED GFR IS NOT APPLICABLE FOR DIALYSIS PATIENTS. HEPATIC FUNCTION [id number] 06:38:00* Test Item Value Reference Range Comments TOTAL PROTEIN (BEAKER) (test byrj=946) 5.0 gm/dL 6.0-8.3 Specimen slightly hemolyzed ALBUMIN (BEAKER) (test efxl=0190) 3.2 g/dL 3.5-5.0 Specimen slightly hemolyzed BILIRUBIN TOTAL (BEAKER) (test aliw=286) 1.2 mg/dL 0.2-1.2 Specimen slightly hemolyzed BILIRUBIN DIRECT (BEAKER) (test wliq=823) 0.6 mg/dL 0.1-0.5 Specimen slightly hemolyzed ALKALINE PHOSPHATASE (BEAKER) (test khri=891) 146 U/L 40-150 AST (SGOT) (BEAKER) (test smrh=767) 106 U/L 5-34 Specimen slightly hemolyzed ALT (SGPT) (BEAKER) (test elnk=857) 72 U/L 6-55 Specimen slightly hemolyzed [id number] 06:23:00* Test Item Value Reference Range Comments PARTIAL THROMBOPLASTIN TIME (BEAKER) (test wgib=024) 34.3 seconds 22.5-36.0 PROTHROMBIN TIME/[id number] 06:22:00* Test Item Value Reference Range Comments PROTIME (BEAKER) (test jyry=143) 16.0 seconds 11.7-14.7 INR (BEAKER) (test amej=928) 1.3 <=5.9 RECOMMENDED COUMADIN/WARFARIN INR THERAPY RANGESSTANDARD DOSE: 2.0 - 3.0 Inclu victoriano: PROPHYLAXIS for venous thrombosis, systemic embolization; TREATMENT for arleen ous thrombosis and/or pulmonary embolus.HIGH RISK: Target INR is 2.5-3.5 for pat ients with mechanical heart valves.LACTIC ACID, VENOUS, WHOLE [id number] 06:14:00* Test Item Value Reference Range Comments LACTATE BLOOD VENOUS (2) (BEAKER) (test vxsd=5524) 0.6 mmol/L 0.5-2.2 RAD, CHEST, 1 VIEW, NON [id number] 23:20:00Reason for exam:->feverShould this be performed at the bedside?->YesFINAL REPORT Exam: Chest radiograph Clinical History: Fever COMPARISON: June 16, 2018 Findings: The cardiomediastinal silhouette and lungs are normal. The regional skeleton and soft tissue are unremarkable. There is no evidence of pleural effusion or pneumothorax. Impression: No radiographic evidence of acute cardiopulmonary disease. Signed: Soniya Anderson MDReport Verified Date/Time: 06/17/2018 23:20:50 Reading Location: [facility] B1 C013W Consult Reading Room PHERAL BLOOD SMEAR - PATHOLOGIST [id number] 13:37:00* Test Item Value Reference Range Comments PERIPHERAL SMR REVIEW (BEAKER) (test tntc=2368) Left shifted granulopoiesis, consistent with reported clinical history of CML. Clinical follow up recommended. [id number] (BEAKER) (test iolj=4588) Hever Velasquez M.D.(electronic signature) CBC W/PLT COUNT & AUTO [id number] 11:17:00* Test Item Value Reference Range Comments WHITE BLOOD CELL COUNT (BEAKER) (test pdem=642) 149.3 K/ L 3.5-10.5 RED BLOOD CELL COUNT (BEAKER) (test jhlm=022) 3.31 M/ L 3.93-5.22 HEMOGLOBIN (BEAKER) (test nnyq=643) 9.6 GM/DL 11.2-15.7 HEMATOCRIT (BEAKER) (test qmkh=871) 31.0 % 34.1-44.9 MEAN CORPUSCULAR VOLUME (BEAKER) (test cyxi=914) 93.7 fL 79.4-94.8 MEAN CORPUSCULAR HEMOGLOBIN (BEAKER) (test eabo=929) 29.0 pg 25.6-32.2 MEAN CORPUSCULAR HEMOGLOBIN CONC (BEAKER) (test svkc=080) 31.0 GM/DL 32.2-35.5 RED CELL DISTRIBUTION WIDTH (BEAKER) (test xbyj=236) 18.3 % 11.7-14.4 PLATELET COUNT (BEAKER) (test unlo=215) 414 K/CU MM 150-450 MEAN PLATELET VOLUME (BEAKER) (test tirb=652) 11.8 fL 9.4-12.3 NUCLEATED RED BLOOD CELLS (BEAKER) (test lpjm=274) 1 /100 WBC 0-0 (MANUAL DIFFERENTIAL)2018-06-17 11:17:00* Test Item Value Reference Range Comments NEUTROPHILS - REL (DIFF) (BEAKER) (test fgze=4929) 37 % MONOCYTES - REL (DIFF) (BEAKER) (test sxsa=9463) 5 % EOSINOPHILS - REL (DIFF) (BEAKER) (test smmb=3411) 2 % BASOPHILS - REL (DIFF) (BEAKER) (test wscg=2375) 3 % METAMYELOCYTES-REL (DIFF) (BEAKER) (test khoz=126) 5 % 0-0 MYELOCYTES-REL (DIFF) (BEAKER) (test xokh=6351) 15 % 0-0 PROMYELOCYTES-REL (DIFF) (BEAKER) (test ubbx=078) 4 % 0-0 BANDS - REL (DIFF) (BEAKER) (test usrt=5518) 26 % 0-10 BLASTS - REL (DIFF) (BEAKER) (test qzyp=4148) 3 % 0-0 NEUTROPHILS - ABS (DIFF) (BEAKER) (test rrai=6118) 55.24 K/ L 1.80-8.00 MONOCYTES - ABS (DIFF) (BEAKER) (test vudt=0263) 7.47 K/ L 0.00-1.30 EOSINOPHILS - ABS (DIFF) (BEAKER) (test vnii=4680) 2.99 K/ L 0.00-0.50 BASOPHILS - ABS (DIFF) (BEAKER) (test biiu=6811) 4.48 K/ L 0.00-0.20 METAMYELOCTYES - ABS (DIFF) (BEAKER) (test hjkg=798) 7.47 K/ L 0.00-0.00 PROMYELOCYTES - ABS (DIFF) (BEAKER) (test zgeq=053) 5.97 K/ L 0.00-0.00 BANDS-ABS (DIFF) (BEAKER) (test ciui=9836) 38.8 K/ L 0.0-0.8 BLASTS - ABS (DIFF) (BEAKER) (test xnbo=1665) 4.48 K/ L 0.00-0.00 MYELOCYTES-ABS (DIFF) (BEAKER) (test jhvk=4849) 22.40 K/ L 0.00-0.00 TOTAL COUNTED (BEAKER) (test lscx=8324) 100 BANDS + SEGMENTED NEUTROPHILS (BEAKER) (test gobf=9171) 94.06 WBC MORPHOLOGY (BEAKER) (test xzjv=883) Normal PLT MORPHOLOGY (BEAKER) (test dzsp=101) Normal RBC MORPHOLOGY (BEAKER) (test pjmk=857) Normal URIC [id number] 08:22:00* Test Item Value Reference Range Comments URIC ACID (BEAKER) (test pcoy=550) 1.6 mg/dL 2.6-7.2 Specimen slightly hemolyzed LACTATE DEHYDROGENASE (LDH)2018-06-17 08:22:00* Test Item Value Reference Range Comments LACTATE DEHYDROGENASE (BEAKER) (test lasp=984) 1313 U/L 125-220 Specimen slightly hemolyzed [id number] 08:09:00* Test Item Value Reference Range Comments MAGNESIUM (BEAKER) (test dmib=930) 2.1 mg/dL 1.6-2.6 Specimen slightly hemolyzed [id number] 08:09:00* Test Item Value Reference Range Comments PHOSPHORUS (BEAKER) (test svku=880) 4.1 mg/dL 2.3-4.7 Specimen slightly hemolyzed COMPREHENSIVE METABOLIC [id number] 08:09:00* Test Item Value Reference Range Comments TOTAL PROTEIN (BEAKER) (test zetv=479) 5.3 gm/dL 6.0-8.3 Specimen slightly hemolyzed ALBUMIN (BEAKER) (test sahq=7374) 3.3 g/dL 3.5-5.0 Specimen slightly hemolyzed ALKALINE PHOSPHATASE (BEAKER) (test jsbr=807) 164 U/L 40-150 BILIRUBIN TOTAL (BEAKER) (test boyh=845) 1.2 mg/dL 0.2-1.2 Specimen slightly hemolyzed SODIUM (BEAKER) (test mzel=817) 140 meq/L 136-145 POTASSIUM (BEAKER) (test akwf=574) 4.0 meq/L 3.5-5.1 Specimen slightly hemolyzed CHLORIDE (BEAKER) (test rizq=105) 110 meq/L 98-107 CO2 (BEAKER) (test phpa=479) 23 meq/L 22-29 BLOOD UREA NITROGEN (BEAKER) (test odrq=227) 7 mg/dL 7-21 CREATININE (BEAKER) (test ahgb=923) 0.66 mg/dL 0.57-1.25 Specimen slightly hemolyzed GLUCOSE RANDOM (BEAKER) (test ltoa=401) 76 mg/dL 70-105 CALCIUM (BEAKER) (test mbai=653) 8.6 mg/dL 8.4-10.2 AST (SGOT) (BEAKER) (test bxhz=280) 90 U/L 5-34 Specimen slightly hemolyzed ALT (SGPT) (BEAKER) (test odpg=130) 67 U/L 6-55 Specimen slightly hemolyzed EGFR (BEAKER) (test kemm=2056) 95 mL/min/1.73 sq m ESTIMATED GFR IS NOT ACCURATE CREATININE CLEARANCE IN PREDICTING GLOMERULAR FILTRATION RATE. ESTIMATED GFR IS NOT APPLICABLE FOR DIALYSIS PATIENTS. HEPATIC FUNCTION [id number] 08:09:00* Test Item Value Reference Range Comments TOTAL PROTEIN (BEAKER) (test bnis=105) 5.3 gm/dL 6.0-8.3 Specimen slightly hemolyzed ALBUMIN (BEAKER) (test kxhj=3400) 3.3 g/dL 3.5-5.0 Specimen slightly hemolyzed BILIRUBIN TOTAL (BEAKER) (test vexz=066) 1.2 mg/dL 0.2-1.2 Specimen slightly hemolyzed BILIRUBIN DIRECT (BEAKER) (test cdif=042) 0.7 mg/dL 0.1-0.5 Specimen slightly hemolyzed ALKALINE PHOSPHATASE (BEAKER) (test upld=119) 164 U/L 40-150 AST (SGOT) (BEAKER) (test myfc=615) 90 U/L 5-34 Specimen slightly hemolyzed ALT (SGPT) (BEAKER) (test yguf=342) 67 U/L 6-55 Specimen slightly hemolyzed PERIPHERAL BLOOD SMEAR - HOLD [id number] 08:08:00* Test Item Value Reference Range Comments PERIPHERAL SMEAR SAVE (BEAKER) (test cyia=5667) saved [id number] 08:00:00* Test Item Value Reference Range Comments PARTIAL THROMBOPLASTIN TIME (BEAKER) (test zodz=065) 32.6 seconds 22.5-36.0 PROTHROMBIN TIME/[id number] 07:57:00* Test Item Value Reference Range Comments PROTIME (BEAKER) (test jole=470) 15.7 seconds 11.7-14.7 INR (BEAKER) (test lfmt=826) 1.3 <=5.9 RECOMMENDED COUMADIN/WARFARIN INR THERAPY RANGESSTANDARD DOSE: 2.0 - 3.0 Inclu victoriano: PROPHYLAXIS for venous thrombosis, systemic embolization; TREATMENT for arleen ous thrombosis and/or pulmonary embolus.HIGH RISK: Target INR is 2.5-3.5 for pat ients with mechanical heart valves.CBC W/PLT COUNT & AUTO [id number] 16:45:00* Test Item Value Reference Range Comments WHITE BLOOD CELL COUNT (BEAKER) (test ahnz=442) 165.4 K/ L 3.5-10.5 RED BLOOD CELL COUNT (BEAKER) (test wjek=159) 3.43 M/ L 3.93-5.22 HEMOGLOBIN (BEAKER) (test dvor=006) 9.9 GM/DL 11.2-15.7 HEMATOCRIT (BEAKER) (test kikq=809) 31.5 % 34.1-44.9 MEAN CORPUSCULAR VOLUME (BEAKER) (test lfnu=700) 91.8 fL 79.4-94.8 MEAN CORPUSCULAR HEMOGLOBIN (BEAKER) (test lccf=776) 28.9 pg 25.6-32.2 MEAN CORPUSCULAR HEMOGLOBIN CONC (BEAKER) (test amwn=150) 31.4 GM/DL 32.2-35.5 RED CELL DISTRIBUTION WIDTH (BEAKER) (test xasj=379) 18.2 % 11.7-14.4 PLATELET COUNT (BEAKER) (test xqin=518) 423 K/CU MM 150-450 MEAN PLATELET VOLUME (BEAKER) (test nkdi=008) 11.3 fL 9.4-12.3 NUCLEATED RED BLOOD CELLS (BEAKER) (test elxc=191) 1 /100 WBC 0-0 (CELLAVISION MANUAL DIFF)2018-06-16 16:45:00* Test Item Value Reference Range Comments NEUTROPHILS - REL (CELLAVISION)(BEAKER) (test wwtv=9610) 36 % LYMPHOCYTES - REL (CELLAVISION)(BEAKER) (test wvso=6700) 3 % MONOCYTES - REL (CELLAVISION)(BEAKER) (test mlyl=3992) 5 % EOSINOPHILS - REL (CELLAVISION)(BEAKER) (test gsxm=2357) 1 % BASOPHILS - REL (CELLAVISION)(BEAKER) (test ltns=0915) 4 % METAMYELOCYTES - REL (CELLAVISION)(BEAKER) (test gmmf=5592) 4 % 0-0 MYELOCYTES - REL (CELLAVISION)(BEAKER) (test zxqh=5736) 5 % 0-0 PROMYELOCYTES - REL (CELLAVSION)(BEAKER) (test scsj=1022) 9 % 0-0 BANDS - REL (CELLAVISION)(BEAKER) (test kjxw=6945) 16 % 0-10 BLASTS - REL (CELLAVISION)(BEAKER) (test nsak=8200) 16 % 0-0 ATYPICAL LYMPHOCYTES - REL (CELLAVISION)(BEAKER) (test bacm=0142) 1 % 0-0 NEUTROPHILS - ABS (CELLAVISION)(BEAKER) (test vnvu=7672) 59.54 K/ul 1.56-6.13 LYMPHOCYTES - ABS (CELLAVISION)(BEAKER) (test vhsn=2749) 4.96 K/ul 1.18-3.74 MONOCYTES - ABS (CELLAVISION)(BEAKER) (test nzci=8196) 8.27 K/uL 0.24-0.36 EOSINOPHILS - ABS (CELLAVISION)(BEAKER) (test cdmp=5010) 1.65 K/uL 0.04-0.36 BASOPHILS - ABS (CELLAVISION)(BEAKER) (test xpcu=3633) 6.62 K/uL 0.01-0.08 METAMYELOCYTES - ABS (CELLAVISION)(BEAKER) (test pppk=3937) 6.62 K/uL 0.00-0.00 MYELOCYTES-ABS (CELLAVISION)(BEAKER) (test uwvt=5571) 8.27 K/uL 0.00-0.00 PROMYELOCYTES - ABS (CELLAVISION)(BEAKER) (test czov=2181) 14.89 K/uL 0.00-0.00 BANDS - ABS (CELLAVISION)(BEAKER) (test jswt=0667) 26.46 K/uL 0.00-0.80 BLASTS - ABS (CELLAVISION)(BEAKER) (test rhmq=1290) 26.46 K/uL 0.00-0.00 ATYPICAL LYMPHOCYTES - ABS (CELLAVISION)(BEAKER) (test wocl=4349) 1.65 K/uL 0.00-0.00 TOTAL COUNTED (BEAKER) (test mnsy=5621) 100 WBC MORPHOLOGY (BEAKER) (test xkql=644) Normal PLT MORPHOLOGY (BEAKER) (test xrgo=775) Normal ANISOCYTOSIS (BEAKER) (test pvny=372) 2+ moderate MICROCYTES (BEAKER) (test cppf=923) 2+ moderate POIKILOCYTES (BEAKER) (test aqbo=347) 1+ few SPHEROCYTES (BEAKER) (test avjs=098) 1+ few ELLIPTOCYTES (BEAKER) (test jtng=234) 1+ few ARTIFACT (CELLAVISION)(BEAKER) (test zayt=7785) Present PLATELET CONCENTRATION (CELLAVISION)(BEAKER) (test iukj=2256) Adequate Received comment: User comments: Slide comments: [id number] 16:23:00* Test Item Value Reference Range Comments LIPASE (BEAKER) (test pire=777) 8 U/L 8-78 BASIC METABOLIC [id number] 16:23:00* Test Item Value Reference Range Comments SODIUM (BEAKER) (test dsxc=666) 142 meq/L 136-145 POTASSIUM (BEAKER) (test fqhw=745) 3.5 meq/L 3.5-5.1 CHLORIDE (BEAKER) (test elmx=573) 107 meq/L 98-107 CO2 (BEAKER) (test trml=880) 26 meq/L 22-29 BLOOD UREA NITROGEN (BEAKER) (test yrvh=913) 5 mg/dL 7-21 CREATININE (BEAKER) (test zbco=166) 0.70 mg/dL 0.57-1.25 GLUCOSE RANDOM (BEAKER) (test kwae=797) 90 mg/dL 70-105 CALCIUM (BEAKER) (test nazd=638) 9.0 mg/dL 8.4-10.2 EGFR (BEAKER) (test sixf=0820) 89 mL/min/1.73 sq m ESTIMATED GFR IS NOT ACCURATE CREATININE CLEARANCE IN PREDICTING GLOMERULAR FILTRATION RATE. ESTIMATED GFR IS NOT APPLICABLE FOR DIALYSIS PATIENTS. HEPATIC FUNCTION [id number] 16:23:00* Test Item Value Reference Range Comments TOTAL PROTEIN (BEAKER) (test rmwm=878) 5.9 gm/dL 6.0-8.3 ALBUMIN (BEAKER) (test mctw=9041) 3.8 g/dL 3.5-5.0 BILIRUBIN TOTAL (BEAKER) (test bdrd=842) 1.1 mg/dL 0.2-1.2 BILIRUBIN DIRECT (BEAKER) (test cyfn=857) 0.7 mg/dL 0.1-0.5 ALKALINE PHOSPHATASE (BEAKER) (test mrem=229) 173 U/L 40-150 AST (SGOT) (BEAKER) (test gnnn=648) 93 U/L 5-34 ALT (SGPT) (BEAKER) (test gfkr=000) 76 U/L 6-55 RAD, CHEST, 1 VIEW, NON [id number] 16:13:00Reason for exam:->ABDOMINAL PAINReason for exam:->FEVERReason for exam:->EMESISShould this be performed at the bedside?->YesFINAL REPORT Chest, AP view. History: Abdominal pain, fever, emesis. Comparison: 05/13/2018. Discussion: The cardiomediastinal silhouette and pulmonary vasculature are within normal limits. The lungs are clear without evidence of consolidation or effusion. There are no acute osseous abnormalities. The soft tissues are unremarkable. IMPRESSION: No acute cardiopulmonary abnormality. Signed: Den[facility] Verified Date/Time: 06/16/2018 16:13:21 Reading Location: [address] Radiology Reading Room MARROW [id number] 14:01:00Bone Marrow Pathology Report Case: [id number] Authorizing Provider: Miranda Roberto Collected: 05/21/2018 1415 Ordering Location: [address] Received: 05/21/2018 1427 SERVICE Pathologist: Sarah Oneill MD Specimens: A) - Iliac Crest, Left B) - C) - Classical cytogenetic studies show the translocation t(9;22)/[place] chromosome and would support persistent involvement by chronic myeloid leukemia. RT-PCR confirms the presence of the p210 fusion transcript (%BCR-ABL1/ABL1 (IS) 53.123) - see attac hed report for full details). Addendum electronically signed by Sarah Oneill MD on 06/02/2018 at 2:01 PMPreliminary result electronically signed by [facility] HospitalSarah MD on 05/27/2018 at 10:17 AMBONE MARROW ASPIRATE, CLOT, A ND DECALCIFIED BIOPSY:-HYPERCELLULAR (95 %) MARROW WITH TRILINEAGE HEMATOPOIESIS AND 2% BLASTS-STAINABLE IRON PRESENT-PENDING CYTOGENETIC AND MOLECULAR STUDIES- SEE COMMENTPERIPHERAL BLOOD:-LEUKOCYTOSIS WITH GRANULOCYTIC LEFT SHIFT-NORMOCYTI C ANEMIA Signing Pathologist Direct Phone Line: [phone] signed by Sarah Oneill MD on 05/25/2018 at 12:30 PMLess than 5% blast s are noted on aspirate smears, as confirmed by flow cytometry ([id number]) and CD 34 immunostaining of the marrow biopsy. Given the history of chronic myeloid le ukemia ongoing chemotherapy, cytogenetic and molecular studies (RT-PCR for BCR-A BL1 fusion transcript) will be of interest for further evaluation of disease sta tus. These results are pending, and will follow in an addendum. [id number]; [id number]; 8 8305 x 2; 04423; 26949; [id number] diagnosed 06/2016, refractory to multiple TKI, D ay 29 s/p induction chemotherapyLeft iliac crest bone marrowThe specimen is rece ived in three parts all labeled with the patient's information and labeled "left iliac crest".Part A consists of several aspirate smears with one unstained slide for iron stain. Part B is received in formalin and consists of a blood clot me asuring 1 x 0.5 cm. The specimen is sectioned submitted entirely B1. Part C cons ists of a single boyer-red core measuring 1.6 cm in length, submitted entirely C1 for decalcification. CG/pl BONE MARROW ASPIRATE:QUALITY:Aspirate- AdequateTouch imprint- AdequateMARROW DIFFERENTIAL COUNT: Number of cells counted: 4002 % Bl asts 5 % Promyelocytes 31 % Myelocytes/Metamyelocytes 29 % Bands/Segmented gr anulocytes 3 % Eosinophils and precursors 0 % Basophils and precursors 24 % E rythroid precursors 2 % Lymphocytes 3 % Monocytes1 % Plasma cellsMyeloid: Khari throid Ratio: 3; NormalBlasts: Not IncreasedErythropoiesis: Slightly left shift ed, complete maturation, rare dyserythropoietic forms Myelopoiesis: Left shifted and complete maturation Megakaryocytes: PresentStainable iron is present based on an iron stain performed on the aspirate smear. There are no ring sideroblasts iden tified. BONE MARROW BIOPSY:Biopsy- AdequateClot- AdequateHypercellular ( 95 %). Cellular composition similar to aspirate smears and touch imprints. Erythropoie sis and myelopoiesis are complete. Megakaryocytes are increased and include o ccasional hypolobated forms. CD34 immunostaining performed on the marrow biopsy (C1) reveals few scattered CD34+ mononuclear cells compatible with blasts, which comprise less than 5% of marrow cellularity. B cherelle trabeculae: unremarkableStainable iron is present based on an iron stain p erformed on the clot section. PERIPHERAL BLOOD:RBCs: Normocytic, increased ani sopoikilocytosis, increased polychromasia, rare nucleated RBCs WBCs: Mild granulocytic left shift Platelets: AdequateThe interpretation of this case included the use of immunohistochemistry or special stains.C1: CD34 Immunohistochemistry technical testing was performed at [facility], Pathology Laboratory where it was developed and its performance characteristics were de termined. It has not been cleared or approved by the U.S. Food and Drug Administ ration. The FDA has determined that such clearance or approval is not necessary. The test is used for clinical purposes. It should not be regarded as investigat ional or for research. This laboratory is certified under the Clinical Laborator y Improvement Amendments of 1988 (CLIA-88) as qualified to perform high complexi ty clinical laboratory testing.[facility], Department of P athology, [address] [place] [address], [place] [address], EELN CYTOMETRY [id number] 08:57:00* Test Item Value Reference Range Comments FLOW CYTOMETRY RESULT POINTER (DARA) (test xhkv=5061) See Separate Report FLOW CYTOMETRY AP CASE # (DARA) (test lthy=1246) [id number] FLOW [id number] 14:33:00Flow Cytometry Report Case: [id number] Authorizing Provider: Miranda Roberto Collected: 05/21/2018 1418 Ordering Location: [address] Received: 05/21/2018 1449 SERVICE Pathologist: Kyrie Epperson MD Specimen: Other BONE MARROW ASPIRATE, FLOW CYTOMETRY:-NO ABERRANT T LYMPHOCYTE POPULATION-NO B LYMPHOCYTES IDENTIFIED- NO INCREASE IN CD34 POSITIVE BLASTS (2.9%)-SEE COMMENT Flow cytometric evaluation of the bone marrow aspirate was essentially negative. There was no evidence of an aberrant T lymphocyte process. B lymphocytes are not identified. There was no increase in blasts. 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 Bone marrow aspirateCD8, surface-[place], CD56, surface-Lambda, CD5, CD19, CD10, CD3, CD20, CD4, CD45, CD14, CD13, CD33, CD117, WA34Lhvyvxsu Viability: 99.2% Number of Events Acquired: [id number] The following populations are identified: Blasts: the dim CD45+ CD34+ blasts comprise 2.9% of total cells. The majority of these cells express CD13 and CD33 (myeloblasts). Lymphocytes: Bright CD45+ lymphocytes comprise 4.5% of total cells. T cells show a CD4:CD8 ratio of 1.1 and normal expression of the zimmerman T cell antigens CD3 and CD5. No B lymphocytes identified. Myeloid/monocytic populations: As identified by CD45 and light scatter characteristics, granulocytes(71.1%) comprise the majority of cells analyzed, and CD14+ monocytes comprise 2.0% of total cells. The remaining events analyzed represent nonviable cells, non-hematolymphoid cells, and debris.These tests were developed and their performance characteristics determined by [facility] They have not been cleared or approved by the U.S. Food and Drug Administration. The FDA has determined that such clearance or approval is not necessary. It should not be regarded as investigational or for research. This laboratory is certified under the Clinical Laboratory Improvement Amendments of 1988 ("CLIA") as qualified to perform high-complexity clinical testing.BONE MARROW PROCESS.2018-05-21 14:28:00* Test Item Value Reference Range Comments ANATOMIC CASE# (DARA) (test lkue=2852) [id number] ORDERED BY DOCTOR# (RONDARIO) (test nvcv=5841) Felisa PERFORMED BY DOCTOR# (RONDARIO) (test qqbi=6295) Michelle CLOT RECEIVED? (DARA) (test jvmt=9598) Yes BIOPSY RECEIVED? (DARA) (test eqef=0740) Yes CULTURE RECEIVED? (DARA) (test ecnk=4998) No FLOW RECEIVED? (DARA) (test irgy=3815) Yes CYTOGENICS? (DARA) (test bemt=7032) Yes MOLECULAR GENETICS? (RONAKER) (test wkas=1488) Yes CT, BIOPSY, BONE [id number] 14:24:00Patient unable to tolerate bedside bone marrow biopsy, so will likely require some degree of sedation.Reason for exam:->Evaluating treatment-refractory CML response to first round of chemo after patient's counts have recovered. WBC 4.2 -> 7.7 and ANC 460 -> 770 on 05/20.FINAL REPORT CT guided bone marrow aspiration and biopsy History: Evaluating treatment-refractory CML response to first round of chemo after patient's counts have recovered. WBC 4.2 -> 7.7 and ANC 460 -> 770 on 05/20. Modality: CT, CT fluoroscopy Anesthesia: 1% lidocaine local Approach: Right dorsal percutaneous Consent: Informed written consent was obtained from the patient. Sedation: Moderate sedation was administered. 3 mg of Versed and 150 mcg of fentanyl IV was used for moderate sedation monitored under my direc tion. Total intraservice time of sedation was 15 minutes. The patient's vital si gns were monitored throughout the procedure and recorded in the patient's medica l record by the nurse. Technique: The patient was placed in the prone position i n the CT scanner. A safe window to the right iliac bone was localized using CT a nd CT fluoroscopy. This exam was performed according to our departmental dose op timization program which includes automated exposure control, adjustment of the mA and/or kV according to patient size and/or use of iterative reconstructive te chnique. After the usual sterile preparation and application of local anesthesia , using a right dorsal percutaneous approach, a 10 cm 12 gauge [email or web address] bone biop sy needle was advanced into the right iliac bone using CT guidance. Approximatel y 10 cc of marrow aspirates were obtained. Subsequently, a 2 cm core biopsy samp le was obtained. The samples were collected by cytopathology for further analysi s. Disposition: The patient tolerated the procedure well, without immediate comp lications. The patient left CT in stable condition. Impression: 1. Technically s uccessful CT guided bone marrow aspiration and biopsy Signed: Quinn Martinez MDRepor t Verified Date/Time: 05/21/2018 14:24:11 Reading Location: [facility] C0X Ortho Consult Reading Room Electronically signed by: QUINN MARTINEZ M.D. on 2017 02:24 PM CBC W/PLT COUNT & AUTO [id number] 10:55:00* Test Item Value Reference Range Comments WHITE BLOOD CELL COUNT (BEAKER) (test zrcc=745) 11.5 K/ L 3.5-10.5 RED BLOOD CELL COUNT (BEAKER) (test kvlu=455) 3.13 M/ L 3.93-5.22 HEMOGLOBIN (BEAKER) (test ipag=905) 8.7 GM/DL 11.2-15.7 HEMATOCRIT (BEAKER) (test bwvp=882) 27.9 % 34.1-44.9 MEAN CORPUSCULAR VOLUME (BEAKER) (test bihb=536) 89.1 fL 79.4-94.8 MEAN CORPUSCULAR HEMOGLOBIN (BEAKER) (test ntez=322) 27.8 pg 25.6-32.2 MEAN CORPUSCULAR HEMOGLOBIN CONC (BEAKER) (test xnnw=246) 31.2 GM/DL 32.2-35.5 RED CELL DISTRIBUTION WIDTH (BEAKER) (test amyl=325) 16.7 % 11.7-14.4 PLATELET COUNT (BEAKER) (test bgsf=826) 331 K/CU MM 150-450 MEAN PLATELET VOLUME (BEAKER) (test maqz=608) 11.8 fL 9.4-12.3 NUCLEATED RED BLOOD CELLS (BEAKER) (test zcsz=379) 2 /100 WBC 0-0 (CELLAVISION MANUAL DIFF)2018-05-21 10:55:00* Test Item Value Reference Range Comments NEUTROPHILS - REL (CELLAVISION)(BEAKER) (test eron=1331) 16 % LYMPHOCYTES - REL (CELLAVISION)(BEAKER) (test cgsb=6535) 18 % MONOCYTES - REL (CELLAVISION)(BEAKER) (test aaeo=9487) 21 % BASOPHILS - REL (CELLAVISION)(BEAKER) (test agaz=0714) 2 % METAMYELOCYTES - REL (CELLAVISION)(BEAKER) (test dsva=2605) 7 % 0-0 MYELOCYTES - REL (CELLAVISION)(BEAKER) (test gsru=3878) 16 % 0-0 BANDS - REL (CELLAVISION)(BEAKER) (test immq=9951) 17 % 0-10 BLASTS - REL (CELLAVISION)(BEAKER) (test xnnw=6102) 4 % 0-0 NEUTROPHILS - ABS (CELLAVISION)(BEAKER) (test chbd=2425) 1.84 K/ul 1.56-6.13 LYMPHOCYTES - ABS (CELLAVISION)(BEAKER) (test ypfj=9439) 2.07 K/ul 1.18-3.74 MONOCYTES - ABS (CELLAVISION)(BEAKER) (test pbaz=8004) 2.42 K/uL 0.24-0.36 BASOPHILS - ABS (CELLAVISION)(BEAKER) (test bggr=2209) 0.23 K/uL 0.01-0.08 METAMYELOCYTES - ABS (CELLAVISION)(BEAKER) (test ttbj=7253) 0.81 K/uL 0.00-0.00 MYELOCYTES-ABS (CELLAVISION)(BEAKER) (test ilqb=1415) 1.84 K/uL 0.00-0.00 BANDS - ABS (CELLAVISION)(BEAKER) (test htlp=1122) 1.96 K/uL 0.00-0.80 BLASTS - ABS (CELLAVISION)(BEAKER) (test vyvq=9821) 0.46 K/uL 0.00-0.00 TOTAL COUNTED (BEAKER) (test otck=8799) 100 MANUAL NRBC PER 100 CELLS (BEAKER) (test innu=5233) 4 /100 WBC 0-0 WBC MORPHOLOGY (BEAKER) (test jqle=699) Normal PLT MORPHOLOGY (BEAKER) (test zctg=689) Normal ANISOCYTOSIS (BEAKER) (test hqhg=505) 2+ moderate MICROCYTES (BEAKER) (test iayb=445) 2+ moderate POIKILOCYTES (BEAKER) (test himr=666) 1+ few SCHISTOCYTES (BEAKER) (test ovex=377) 1+ few ARTIFACT (CELLAVISION)(BEAKER) (test mxtq=4693) Present PLATELET CONCENTRATION (CELLAVISION)(BEAKER) (test zxyu=7081) Adequate Received comment: User comments: Slide comments: PT/[id number] 10:24:00* Test Item Value Reference Range Comments PROTIME (BEAKER) (test xbtm=852) 15.7 seconds 11.7-14.7 INR (BEAKER) (test ipwl=542) 1.3 <=5.9 PARTIAL THROMBOPLASTIN TIME (BEAKER) (test qjja=254) 35.8 seconds 22.5-36.0 RECOMMENDED COUMADIN/WARFARIN INR THERAPY RANGESSTANDARD DOSE: 2.0 - 3.0 Inclu victoriano: PROPHYLAXIS for venous thrombosis, systemic embolization; TREATMENT for arleen ous thrombosis and/or pulmonary embolus.HIGH RISK: Target INR is 2.5-3.5 for pat ients with mechanical heart valves.[id number] 07:04:00* Test Item Value Reference Range Comments MAGNESIUM (BEAKER) (test qyzx=622) 2.1 mg/dL 1.6-2.6 BASIC METABOLIC [id number] 07:04:00* Test Item Value Reference Range Comments SODIUM (BEAKER) (test ngdb=867) 143 meq/L 136-145 POTASSIUM (BEAKER) (test kwcf=615) 3.9 meq/L 3.5-5.1 CHLORIDE (BEAKER) (test vayr=394) 110 meq/L 98-107 CO2 (BEAKER) (test wzgl=555) 27 meq/L 22-29 BLOOD UREA NITROGEN (BEAKER) (test vmuw=744) 4 mg/dL 7-21 CREATININE (BEAKER) (test rhbd=807) 0.63 mg/dL 0.57-1.25 GLUCOSE RANDOM (BEAKER) (test ygnf=783) 86 mg/dL 70-105 CALCIUM (BEAKER) (test ivzj=426) 8.2 mg/dL 8.4-10.2 EGFR (BEAKER) (test ajes=1673) 100 mL/min/1.73 sq m ESTIMATED GFR IS NOT ACCURATE CREATININE CLEARANCE IN PREDICTING GLOMERULAR FILTRATION RATE. ESTIMATED GFR IS NOT APPLICABLE FOR DIALYSIS PATIENTS. HEPATIC FUNCTION [id number] 07:04:00* Test Item Value Reference Range Comments TOTAL PROTEIN (BEAKER) (test hnmt=626) 4.8 gm/dL 6.0-8.3 ALBUMIN (BEAKER) (test htdz=0149) 3.2 g/dL 3.5-5.0 BILIRUBIN TOTAL (BEAKER) (test upwz=063) 0.7 mg/dL 0.2-1.2 BILIRUBIN DIRECT (BEAKER) (test hjyq=646) 0.4 mg/dL 0.1-0.5 ALKALINE PHOSPHATASE (BEAKER) (test brpm=438) 199 U/L 40-150 AST (SGOT) (BEAKER) (test jqeb=680) 46 U/L 5-34 ALT (SGPT) (BEAKER) (test gbwo=875) 67 U/L 6-55 CBC W/PLT COUNT & AUTO [id number] 14:19:00* Test Item Value Reference Range Comments WHITE BLOOD CELL COUNT (BEAKER) (test kpsa=528) 7.7 K/ L 3.5-10.5 RED BLOOD CELL COUNT (BEAKER) (test bggk=303) 3.11 M/ L 3.93-5.22 HEMOGLOBIN (BEAKER) (test dsad=749) 8.8 GM/DL 11.2-15.7 HEMATOCRIT (BEAKER) (test qjzf=316) 27.3 % 34.1-44.9 MEAN CORPUSCULAR VOLUME (BEAKER) (test aequ=349) 87.8 fL 79.4-94.8 MEAN CORPUSCULAR HEMOGLOBIN (BEAKER) (test pkdc=105) 28.3 pg 25.6-32.2 MEAN CORPUSCULAR HEMOGLOBIN CONC (BEAKER) (test wepw=234) 32.2 GM/DL 32.2-35.5 RED CELL DISTRIBUTION WIDTH (BEAKER) (test vewk=114) 16.7 % 11.7-14.4 PLATELET COUNT (BEAKER) (test pvjn=395) 304 K/CU MM 150-450 MEAN PLATELET VOLUME (BEAKER) (test ylim=347) 13.0 fL 9.4-12.3 NUCLEATED RED BLOOD CELLS (BEAKER) (test ihny=841) 2 /100 WBC 0-0 (CELLAVISION MANUAL DIFF)2018-05-20 14:19:00* Test Item Value Reference Range Comments NEUTROPHILS - REL (CELLAVISION)(BEAKER) (test lzut=4858) 10 % LYMPHOCYTES - REL (CELLAVISION)(BEAKER) (test pzhf=0598) 12 % MONOCYTES - REL (CELLAVISION)(BEAKER) (test exml=1922) 23 % BASOPHILS - REL (CELLAVISION)(BEAKER) (test xruq=4830) 3 % METAMYELOCYTES - REL (CELLAVISION)(BEAKER) (test vlmf=0723) 14 % 0-0 MYELOCYTES - REL (CELLAVISION)(BEAKER) (test ywjd=0245) 16 % 0-0 PROMYELOCYTES - REL (CELLAVSION)(BEAKER) (test jorh=3297) 3 % 0-0 BANDS - REL (CELLAVISION)(BEAKER) (test reso=4146) 13 % 0-10 BLASTS - REL (CELLAVISION)(BEAKER) (test gscx=5297) 5 % 0-0 NEUTROPHILS - ABS (CELLAVISION)(BEAKER) (test kfij=4741) 0.77 K/ul 1.56-6.13 LYMPHOCYTES - ABS (CELLAVISION)(BEAKER) (test oxuf=0043) 0.92 K/ul 1.18-3.74 MONOCYTES - ABS (CELLAVISION)(BEAKER) (test ynrc=4316) 1.77 K/uL 0.24-0.36 BASOPHILS - ABS (CELLAVISION)(BEAKER) (test ousl=6860) 0.23 K/uL 0.01-0.08 METAMYELOCYTES - ABS (CELLAVISION)(BEAKER) (test cmos=4020) 1.08 K/uL 0.00-0.00 MYELOCYTES-ABS (CELLAVISION)(BEAKER) (test shtb=9001) 1.23 K/uL 0.00-0.00 PROMYELOCYTES - ABS (CELLAVISION)(BEAKER) (test fzcy=4263) 0.23 K/uL 0.00-0.00 BANDS - ABS (CELLAVISION)(BEAKER) (test ngwl=3737) 1.00 K/uL 0.00-0.80 BLASTS - ABS (CELLAVISION)(BEAKER) (test rnnp=6174) 0.39 K/uL 0.00-0.00 TOTAL COUNTED (BEAKER) (test nbqe=1913) 100 MANUAL NRBC PER 100 CELLS (BEAKER) (test vmrm=8643) 4 /100 WBC 0-0 WBC MORPHOLOGY (BEAKER) (test ratq=873) Normal PLT MORPHOLOGY (BEAKER) (test xjax=528) Normal POLYCHROMATOPHILLIC RBCS(BEAKER) (test rdns=253) 2+ moderate ANISOCYTOSIS (BEAKER) (test dvit=346) 2+ moderate POIKILOCYTES (BEAKER) (test wzdj=755) 2+ moderate SCHISTOCYTES (BEAKER) (test kbcp=788) 1+ few OVALOCYTES (BEAKER) (test ghjs=604) 2+ moderate TEAR DROP CELLS (BEAKER) (test sjws=757) 2+ moderate ARTIFACT (CELLAVISION)(BEAKER) (test qkyv=4385) Present PLATELET CONCENTRATION (CELLAVISION)(BEAKER) (test fvaq=5835) Adequate Received comment: User comments: Slide comments: [id number] 06:54:00* Test Item Value Reference Range Comments MAGNESIUM (BEAKER) (test gigi=016) 1.9 mg/dL 1.6-2.6 BASIC METABOLIC [id number] 06:54:00* Test Item Value Reference Range Comments SODIUM (BEAKER) (test fuqz=394) 140 meq/L 136-145 POTASSIUM (BEAKER) (test srli=242) 4.0 meq/L 3.5-5.1 CHLORIDE (BEAKER) (test qgnu=375) 108 meq/L 98-107 CO2 (BEAKER) (test qivm=820) 27 meq/L 22-29 BLOOD UREA NITROGEN (BEAKER) (test poej=857) 5 mg/dL 7-21 CREATININE (BEAKER) (test nhew=581) 0.59 mg/dL 0.57-1.25 GLUCOSE RANDOM (BEAKER) (test idwm=323) 97 mg/dL 70-105 CALCIUM (BEAKER) (test afpg=858) 8.4 mg/dL 8.4-10.2 EGFR (BEAKER) (test suww=9069) 108 mL/min/1.73 sq m ESTIMATED GFR IS NOT ACCURATE CREATININE CLEARANCE IN PREDICTING GLOMERULAR FILTRATION RATE. ESTIMATED GFR IS NOT APPLICABLE FOR DIALYSIS PATIENTS. HEPATIC FUNCTION [id number] 06:54:00* Test Item Value Reference Range Comments TOTAL PROTEIN (BEAKER) (test bjdz=586) 4.9 gm/dL 6.0-8.3 ALBUMIN (BEAKER) (test epvy=0826) 3.1 g/dL 3.5-5.0 BILIRUBIN TOTAL (BEAKER) (test lsrv=684) 0.8 mg/dL 0.2-1.2 BILIRUBIN DIRECT (BEAKER) (test umgx=997) 0.4 mg/dL 0.1-0.5 ALKALINE PHOSPHATASE (BEAKER) (test zqet=655) 186 U/L 40-150 AST (SGOT) (BEAKER) (test kxob=248) 60 U/L 5-34 ALT (SGPT) (BEAKER) (test ftgo=417) 72 U/L 6-55 AMIKACIN LEVEL, [id number] 12:25:00* Test Item Value Reference Range Comments AMIKACIN, TROUGH (BEAKER) (test tfrw=1892) < ug/mL 4.0-8.0 Therapeutic Range (ug/mL)Peak: 25.0-35.0Trough: 4.0-8.0 Toxic: >35.0Please draw trough 30 minutes prior to amikacin dose on 05/19.CBC W/PLT COUNT & AUTO [id number] 10:53:00* Test Item Value Reference Range Comments WHITE BLOOD CELL COUNT (BEAKER) (test dqqv=422) 4.2 K/ L 3.5-10.5 RED BLOOD CELL COUNT (BEAKER) (test vamq=483) 2.86 M/ L 3.93-5.22 HEMOGLOBIN (BEAKER) (test xcvp=317) 7.9 GM/DL 11.2-15.7 HEMATOCRIT (BEAKER) (test xdsu=902) 25.2 % 34.1-44.9 MEAN CORPUSCULAR VOLUME (BEAKER) (test tnpn=570) 88.1 fL 79.4-94.8 MEAN CORPUSCULAR HEMOGLOBIN (BEAKER) (test imyr=233) 27.6 pg 25.6-32.2 MEAN CORPUSCULAR HEMOGLOBIN CONC (BEAKER) (test xegp=240) 31.3 GM/DL 32.2-35.5 RED CELL DISTRIBUTION WIDTH (BEAKER) (test nzdc=428) 15.9 % 11.7-14.4 PLATELET COUNT (BEAKER) (test rtwt=425) 174 K/CU MM 150-450 MEAN PLATELET VOLUME (BEAKER) (test csun=640) 11.5 fL 9.4-12.3 NUCLEATED RED BLOOD CELLS (BEAKER) (test silz=565) 2 /100 WBC 0-0 (MANUAL DIFFERENTIAL)2018-05-19 10:53:00* Test Item Value Reference Range Comments NEUTROPHILS - REL (DIFF) (BEAKER) (test swzt=3708) 11 % LYMPHOCYTES - REL (DIFF) (BEAKER) (test cgvh=6658) 25 % MONOCYTES - REL (DIFF) (BEAKER) (test ximg=8665) 28 % BASOPHILS - REL (DIFF) (BEAKER) (test jigf=4266) 1 % METAMYELOCYTES-REL (DIFF) (BEAKER) (test emar=923) 2 % 0-0 MYELOCYTES-REL (DIFF) (BEAKER) (test ncdt=2520) 11 % 0-0 PROMYELOCYTES-REL (DIFF) (BEAKER) (test qscq=540) 3 % 0-0 BANDS - REL (DIFF) (BEAKER) (test pvjl=9635) 14 % 0-10 BLASTS - REL (DIFF) (BEAKER) (test nbkp=6039) 1 % 0-0 ATYPICAL LYMPHOCYTE - REL (DIFF) (BEAKER) (test vejm=134) 4 % 0-0 NEUTROPHILS - ABS (DIFF) (BEAKER) (test rcxy=0836) 0.46 K/ L 1.80-8.00 LYMPHOCYTES - ABS (DIFF) (BEAKER) (test tnnz=6756) 1.05 K/ L 1.48-4.50 MONOCYTES - ABS (DIFF) (BEAKER) (test wefk=6043) 1.18 K/ L 0.00-1.30 BASOPHILS - ABS (DIFF) (BEAKER) (test gswy=9904) 0.04 K/ L 0.00-0.20 METAMYELOCTYES - ABS (DIFF) (BEAKER) (test pwok=798) 0.08 K/ L 0.00-0.00 PROMYELOCYTES - ABS (DIFF) (BEAKER) (test eeww=427) 0.13 K/ L 0.00-0.00 BANDS-ABS (DIFF) (BEAKER) (test dyow=7681) 0.6 K/ L 0.0-0.8 BLASTS - ABS (DIFF) (BEAKER) (test taun=9291) 0.04 K/ L 0.00-0.00 ATYPICAL LYMPHOCYTES - ABS (DIFF) (BEAKER) (test cwgq=285) 0.17 K/ L 0.00-0.00 MYELOCYTES-ABS (DIFF) (BEAKER) (test ivgo=1962) 0.46 K/ L 0.00-0.00 TOTAL COUNTED (BEAKER) (test kxky=7571) 100 BANDS + SEGMENTED NEUTROPHILS (BEAKER) (test ecnz=1379) 1.05 MANUAL NRBC PER 100 CELLS (BEAKER) (test fzyk=4861) 3 /100 WBC 0-0 WBC MORPHOLOGY (BEAKER) (test xqxi=143) Normal LARGE PLT(BEAKER) (test gzcf=3382) Present HYPOCHROMIA (BEAKER) (test wxpg=602) 1+ few OVALOCYTES (BEAKER) (test imdu=439) 1+ few POLYCHROMATOPHILLIC RBCS(BEAKER) (test bhbp=506) 1+ few TEAR DROP CELLS (BEAKER) (test bogo=973) 1+ few [id number] 06:39:00* Test Item Value Reference Range Comments MAGNESIUM (BEAKER) (test fdah=141) 1.9 mg/dL 1.6-2.6 BASIC METABOLIC [id number] 06:39:00* Test Item Value Reference Range Comments SODIUM (BEAKER) (test qwxy=311) 138 meq/L 136-145 POTASSIUM (BEAKER) (test eyrs=626) 4.1 meq/L 3.5-5.1 CHLORIDE (BEAKER) (test qppj=591) 109 meq/L 98-107 CO2 (BEAKER) (test ozfm=952) 25 meq/L 22-29 BLOOD UREA NITROGEN (BEAKER) (test vdye=151) 5 mg/dL 7-21 CREATININE (BEAKER) (test urnu=745) 0.61 mg/dL 0.57-1.25 GLUCOSE RANDOM (BEAKER) (test voqe=979) 93 mg/dL 70-105 CALCIUM (BEAKER) (test sedj=741) 8.1 mg/dL 8.4-10.2 EGFR (BEAKER) (test oayw=5115) 104 mL/min/1.73 sq m ESTIMATED GFR IS NOT ACCURATE CREATININE CLEARANCE IN PREDICTING GLOMERULAR FILTRATION RATE. ESTIMATED GFR IS NOT APPLICABLE FOR DIALYSIS PATIENTS. HEPATIC FUNCTION [id number] 06:39:00* Test Item Value Reference Range Comments TOTAL PROTEIN (BEAKER) (test cstl=069) 4.6 gm/dL 6.0-8.3 ALBUMIN (BEAKER) (test kbwn=5932) 3.0 g/dL 3.5-5.0 BILIRUBIN TOTAL (BEAKER) (test pwjp=639) 0.7 mg/dL 0.2-1.2 BILIRUBIN DIRECT (BEAKER) (test kdsl=159) 0.5 mg/dL 0.1-0.5 ALKALINE PHOSPHATASE (BEAKER) (test qaid=921) 146 U/L 40-150 AST (SGOT) (BEAKER) (test qmsk=054) 41 U/L 5-34 ALT (SGPT) (BEAKER) (test hqax=432) 56 U/L 6-55 BLOOD [id number] 23:01:00* Test Item Value Reference Range Comments CULTURE (BEAKER) (test lapo=0743) No growth in 5 days BLOOD [id number] 23:01:00* Test Item Value Reference Range Comments CULTURE (BEAKER) (test ejhd=6242) No growth in 5 days CBC W/PLT COUNT & AUTO [id number] 10:21:00* Test Item Value Reference Range Comments WHITE BLOOD CELL COUNT (BEAKER) (test klxq=520) 2.4 K/ L 3.5-10.5 RED BLOOD CELL COUNT (BEAKER) (test igqs=182) 2.60 M/ L 3.93-5.22 HEMOGLOBIN (BEAKER) (test mnol=747) 7.2 GM/DL 11.2-15.7 HEMATOCRIT (BEAKER) (test jvxr=557) 22.5 % 34.1-44.9 MEAN CORPUSCULAR VOLUME (BEAKER) (test qzoj=612) 86.5 fL 79.4-94.8 MEAN CORPUSCULAR HEMOGLOBIN (BEAKER) (test bdmf=286) 27.7 pg 25.6-32.2 MEAN CORPUSCULAR HEMOGLOBIN CONC (BEAKER) (test oqyf=548) 32.0 GM/DL 32.2-35.5 RED CELL DISTRIBUTION WIDTH (BEAKER) (test quih=589) 15.8 % 11.7-14.4 PLATELET COUNT (BEAKER) (test rloq=922) 110 K/CU MM 150-450 MEAN PLATELET VOLUME (BEAKER) (test jbxn=313) 12.6 fL 9.4-12.3 NUCLEATED RED BLOOD CELLS (BEAKER) (test ihya=006) 3 /100 WBC 0-0 (CELLAVISION MANUAL DIFF)2018-05-18 10:21:00* Test Item Value Reference Range Comments NEUTROPHILS - REL (CELLAVISION)(BEAKER) (test cies=0653) 7 % LYMPHOCYTES - REL (CELLAVISION)(BEAKER) (test sdnj=5007) 37 % MONOCYTES - REL (CELLAVISION)(BEAKER) (test fpwo=5869) 40 % BASOPHILS - REL (CELLAVISION)(BEAKER) (test ntby=7838) 1 % METAMYELOCYTES - REL (CELLAVISION)(BEAKER) (test vcry=7715) 5 % 0-0 MYELOCYTES - REL (CELLAVISION)(BEAKER) (test dewr=2452) 3 % 0-0 PROMYELOCYTES - REL (CELLAVSION)(BEAKER) (test cxsz=2485) 1 % 0-0 BANDS - REL (CELLAVISION)(BEAKER) (test suol=0014) 4 % 0-10 BLASTS - REL (CELLAVISION)(BEAKER) (test kddf=8838) 2 % 0-0 NEUTROPHILS - ABS (CELLAVISION)(BEAKER) (test ogev=4133) 0.17 K/ul 1.56-6.13 LYMPHOCYTES - ABS (CELLAVISION)(BEAKER) (test fujt=5023) 0.89 K/ul 1.18-3.74 MONOCYTES - ABS (CELLAVISION)(BEAKER) (test bwea=9694) 0.96 K/uL 0.24-0.36 BASOPHILS - ABS (CELLAVISION)(BEAKER) (test zycs=7379) 0.02 K/uL 0.01-0.08 METAMYELOCYTES - ABS (CELLAVISION)(BEAKER) (test ftyl=5988) 0.12 K/uL 0.00-0.00 MYELOCYTES-ABS (CELLAVISION)(BEAKER) (test mchl=7130) 0.07 K/uL 0.00-0.00 PROMYELOCYTES - ABS (CELLAVISION)(BEAKER) (test dhgz=7928) 0.02 K/uL 0.00-0.00 BANDS - ABS (CELLAVISION)(BEAKER) (test feai=9369) 0.10 K/uL 0.00-0.80 BLASTS - ABS (CELLAVISION)(BEAKER) (test nxxa=1823) 0.05 K/uL 0.00-0.00 TOTAL COUNTED (BEAKER) (test yrhk=4601) 100 MANUAL NRBC PER 100 CELLS (BEAKER) (test tbqh=0651) 4 /100 WBC 0-0 WBC MORPHOLOGY (BEAKER) (test vnur=587) Normal PLT MORPHOLOGY (BEAKER) (test jvpr=442) Normal POLYCHROMATOPHILLIC RBCS(BEAKER) (test vtkx=755) 2+ moderate ANISOCYTOSIS (BEAKER) (test fpdz=551) 3+ many POIKILOCYTES (BEAKER) (test vdpw=953) 2+ moderate ARTIFACT (CELLAVISION)(BEAKER) (test ygxa=8844) Present PLATELET CONCENTRATION (CELLAVISION)(BEAKER) (test wlif=2532) Decreased Received comment: User comments: Slide comments: [id number] 07:12:00* Test Item Value Reference Range Comments MAGNESIUM (BEAKER) (test lsua=626) 1.9 mg/dL 1.6-2.6 BASIC METABOLIC [id number] 07:12:00* Test Item Value Reference Range Comments SODIUM (BEAKER) (test sujg=227) 139 meq/L 136-145 POTASSIUM (BEAKER) (test gshu=742) 3.8 meq/L 3.5-5.1 CHLORIDE (BEAKER) (test xpgj=926) 109 meq/L 98-107 CO2 (BEAKER) (test qdbu=911) 26 meq/L 22-29 BLOOD UREA NITROGEN (BEAKER) (test gzsa=007) 4 mg/dL 7-21 CREATININE (BEAKER) (test oaza=949) 0.56 mg/dL 0.57-1.25 GLUCOSE RANDOM (BEAKER) (test vcle=607) 83 mg/dL 70-105 CALCIUM (BEAKER) (test wvqs=827) 8.3 mg/dL 8.4-10.2 EGFR (BEAKER) (test huwi=7122) 115 mL/min/1.73 sq m ESTIMATED GFR IS NOT ACCURATE CREATININE CLEARANCE IN PREDICTING GLOMERULAR FILTRATION RATE. ESTIMATED GFR IS NOT APPLICABLE FOR DIALYSIS PATIENTS. HEPATIC FUNCTION [id number] 07:12:00* Test Item Value Reference Range Comments TOTAL PROTEIN (BEAKER) (test gluh=961) 4.6 gm/dL 6.0-8.3 ALBUMIN (BEAKER) (test iblt=2684) 3.1 g/dL 3.5-5.0 BILIRUBIN TOTAL (BEAKER) (test odze=038) 0.9 mg/dL 0.2-1.2 BILIRUBIN DIRECT (BEAKER) (test frpj=837) 0.6 mg/dL 0.1-0.5 ALKALINE PHOSPHATASE (BEAKER) (test tuht=604) 137 U/L 40-150 AST (SGOT) (BEAKER) (test lmoh=459) 20 U/L 5-34 ALT (SGPT) (BEAKER) (test pfoq=087) 57 U/L 6-55 BLOOD [id number] 23:01:00* Test Item Value Reference Range Comments CULTURE (BEAKER) (test trra=2983) No growth in 5 days BLOOD [id number] 23:01:00* Test Item Value Reference Range Comments CULTURE (BEAKER) (test slek=7200) No growth in 5 days CBC W/PLT COUNT & AUTO [id number] 11:26:00* Test Item Value Reference Range Comments WHITE BLOOD CELL COUNT (BEAKER) (test axcl=689) 3.0 K/ L 3.5-10.5 RED BLOOD CELL COUNT (BEAKER) (test oakn=164) 3.28 M/ L 3.93-5.22 HEMOGLOBIN (BEAKER) (test wjjl=205) 9.1 GM/DL 11.2-15.7 HEMATOCRIT (BEAKER) (test mmwt=773) 27.6 % 34.1-44.9 MEAN CORPUSCULAR VOLUME (BEAKER) (test gnti=526) 84.1 fL 79.4-94.8 MEAN CORPUSCULAR HEMOGLOBIN (BEAKER) (test eyhk=264) 27.7 pg 25.6-32.2 MEAN CORPUSCULAR HEMOGLOBIN CONC (BEAKER) (test ftfv=711) 33.0 GM/DL 32.2-35.5 RED CELL DISTRIBUTION WIDTH (BEAKER) (test unqs=124) 15.9 % 11.7-14.4 PLATELET COUNT (BEAKER) (test qsnn=405) 70 K/CU MM 150-450 MEAN PLATELET VOLUME (BEAKER) (test zoli=729) fL 9.4-12.3 Unable to report due to abnormal Platelet population distribution. NUCLEATED RED BLOOD CELLS (BEAKER) (test ryvn=721) 3 /100 WBC 0-0 (MANUAL DIFFERENTIAL)2018-05-17 11:26:00* Test Item Value Reference Range Comments NEUTROPHILS - REL (DIFF) (BEAKER) (test hmdz=5613) 3 % LYMPHOCYTES - REL (DIFF) (BEAKER) (test qynj=3907) 40 % MONOCYTES - REL (DIFF) (BEAKER) (test pzll=8829) 30 % EOSINOPHILS - REL (DIFF) (BEAKER) (test luvd=4116) 0 % BASOPHILS - REL (DIFF) (BEAKER) (test lpav=4599) 0 % METAMYELOCYTES-REL (DIFF) (BEAKER) (test nayf=538) 5 % 0-0 MYELOCYTES-REL (DIFF) (BEAKER) (test izkt=8701) 11 % 0-0 PROMYELOCYTES-REL (DIFF) (BEAKER) (test sqih=327) 3 % 0-0 BLASTS - REL (DIFF) (BEAKER) (test ngne=6871) 5 % 0-0 ATYPICAL LYMPHOCYTE - REL (DIFF) (BEAKER) (test lubb=508) 3 % 0-0 NEUTROPHILS - ABS (DIFF) (BEAKER) (test gphz=3027) 0.09 K/ L 1.80-8.00 LYMPHOCYTES - ABS (DIFF) (BEAKER) (test dvez=5132) 1.20 K/ L 1.48-4.50 MONOCYTES - ABS (DIFF) (BEAKER) (test mafh=1812) 0.90 K/ L 0.00-1.30 EOSINOPHILS - ABS (DIFF) (BEAKER) (test teej=5315) 0.00 K/ L 0.00-0.50 BASOPHILS - ABS (DIFF) (BEAKER) (test hhez=8290) 0.00 K/ L 0.00-0.20 METAMYELOCTYES - ABS (DIFF) (BEAKER) (test rdqn=470) 0.15 K/ L 0.00-0.00 PROMYELOCYTES - ABS (DIFF) (BEAKER) (test edlz=706) 0.09 K/ L 0.00-0.00 BLASTS - ABS (DIFF) (BEAKER) (test igzt=9790) 0.15 K/ L 0.00-0.00 ATYPICAL LYMPHOCYTES - ABS (DIFF) (BEAKER) (test otva=387) 0.09 K/ L 0.00-0.00 MYELOCYTES-ABS (DIFF) (BEAKER) (test cdtp=2612) 0.33 K/ L 0.00-0.00 TOTAL COUNTED (BEAKER) (test avnf=1635) 100 MANUAL NRBC PER 100 CELLS (BEAKER) (test zcjc=9254) 6 /100 WBC 0-0 WBC MORPHOLOGY (BEAKER) (test kbjq=918) Normal PLT MORPHOLOGY (BEAKER) (test kjgc=581) Normal RBC MORPHOLOGY (BEAKER) (test vlzw=866) Normal [id number] 05:44:00* Test Item Value Reference Range Comments MAGNESIUM (BEAKER) (test fgrg=965) 1.9 mg/dL 1.6-2.6 Specimen slightly hemolyzed BASIC METABOLIC [id number] 05:44:00* Test Item Value Reference Range Comments SODIUM (BEAKER) (test jdvn=449) 137 meq/L 136-145 POTASSIUM (BEAKER) (test ixrs=279) 3.8 meq/L 3.5-5.1 Specimen slightly hemolyzed CHLORIDE (BEAKER) (test bkpt=507) 106 meq/L 98-107 CO2 (BEAKER) (test psur=711) 24 meq/L 22-29 BLOOD UREA NITROGEN (BEAKER) (test ktdj=338) 4 mg/dL 7-21 CREATININE (BEAKER) (test hpwb=885) 0.66 mg/dL 0.57-1.25 Specimen slightly hemolyzed GLUCOSE RANDOM (BEAKER) (test rapg=369) 98 mg/dL 70-105 CALCIUM (BEAKER) (test uumd=237) 8.8 mg/dL 8.4-10.2 EGFR (BEAKER) (test ilrd=6957) 95 mL/min/1.73 sq m ESTIMATED GFR IS NOT ACCURATE CREATININE CLEARANCE IN PREDICTING GLOMERULAR FILTRATION RATE. ESTIMATED GFR IS NOT APPLICABLE FOR DIALYSIS PATIENTS. HEPATIC FUNCTION [id number] 05:44:00* Test Item Value Reference Range Comments TOTAL PROTEIN (BEAKER) (test refn=423) 5.7 gm/dL 6.0-8.3 Specimen slightly hemolyzed ALBUMIN (BEAKER) (test hskj=4769) 3.6 g/dL 3.5-5.0 Specimen slightly hemolyzed BILIRUBIN TOTAL (BEAKER) (test ereg=414) 1.7 mg/dL 0.2-1.2 Specimen slightly hemolyzed BILIRUBIN DIRECT (BEAKER) (test okkl=877) 0.9 mg/dL 0.1-0.5 Specimen slightly hemolyzed ALKALINE PHOSPHATASE (BEAKER) (test mqrw=358) 168 U/L 40-150 AST (SGOT) (BEAKER) (test grga=620) 38 U/L 5-34 Specimen slightly hemolyzed ALT (SGPT) (BEAKER) (test rsau=930) 78 U/L 6-55 Specimen slightly hemolyzed CBC W/PLT COUNT & AUTO [id number] 11:04:00* Test Item Value Reference Range Comments WHITE BLOOD CELL COUNT (BEAKER) (test nguf=341) 1.4 K/ L 3.5-10.5 RED BLOOD CELL COUNT (BEAKER) (test mnwe=556) 2.93 M/ L 3.93-5.22 HEMOGLOBIN (BEAKER) (test tcjk=422) 8.2 GM/DL 11.2-15.7 HEMATOCRIT (BEAKER) (test opla=425) 24.8 % 34.1-44.9 MEAN CORPUSCULAR VOLUME (BEAKER) (test afsc=514) 84.6 fL 79.4-94.8 MEAN CORPUSCULAR HEMOGLOBIN (BEAKER) (test dfye=036) 28.0 pg 25.6-32.2 MEAN CORPUSCULAR HEMOGLOBIN CONC (BEAKER) (test wfhe=010) 33.1 GM/DL 32.2-35.5 RED CELL DISTRIBUTION WIDTH (BEAKER) (test wnfg=890) 15.4 % 11.7-14.4 PLATELET COUNT (BEAKER) (test hsqk=020) 50 K/CU MM 150-450 MEAN PLATELET VOLUME (BEAKER) (test iceq=311) 10.1 fL 9.4-12.3 NUCLEATED RED BLOOD CELLS (BEAKER) (test babo=126) 3 /100 WBC 0-0 (CELLAVISION MANUAL DIFF)2018-05-16 11:04:00* Test Item Value Reference Range Comments NEUTROPHILS - REL (CELLAVISION)(BEAKER) (test pxjx=2067) 2 % LYMPHOCYTES - REL (CELLAVISION)(BEAKER) (test nhpj=0095) 62 % MONOCYTES - REL (CELLAVISION)(BEAKER) (test kdro=7832) 32 % PROMYELOCYTES - REL (CELLAVSION)(BEAKER) (test uaec=4991) 2 % 0-0 BLASTS - REL (CELLAVISION)(BEAKER) (test lzxq=9763) 2 % 0-0 NEUTROPHILS - ABS (CELLAVISION)(BEAKER) (test ihxe=0947) 0.03 K/ul 1.56-6.13 LYMPHOCYTES - ABS (CELLAVISION)(BEAKER) (test vyjk=4961) 0.87 K/ul 1.18-3.74 MONOCYTES - ABS (CELLAVISION)(BEAKER) (test ttbw=8913) 0.45 K/uL 0.24-0.36 PROMYELOCYTES - ABS (CELLAVISION)(BEAKER) (test jcli=4920) 0.03 K/uL 0.00-0.00 BLASTS - ABS (CELLAVISION)(BEAKER) (test mabs=7632) 0.03 K/uL 0.00-0.00 TOTAL COUNTED (BEAKER) (test zlto=4044) 100 MANUAL NRBC PER 100 CELLS (BEAKER) (test purz=7630) 3 /100 WBC 0-0 WBC MORPHOLOGY (BEAKER) (test twkz=394) Normal PLT MORPHOLOGY (BEAKER) (test skxv=241) Normal ANISOCYTOSIS (BEAKER) (test vtsi=823) 3+ many MICROCYTES (BEAKER) (test apnf=354) 3+ many POIKILOCYTES (BEAKER) (test sjnb=466) 1+ few ARTIFACT (CELLAVISION)(BEAKER) (test epdr=7008) Present PLATELET CONCENTRATION (CELLAVISION)(BEAKER) (test anhk=3158) Decreased Received comment: User comments: Slide comments: BLOOD [id number] 11:00:00* Test Item Value Reference Range Comments CULTURE (BEAKER) (test jjjz=8383) No growth in 5 days [id number] 07:33:00* Test Item Value Reference Range Comments MAGNESIUM (BEAKER) (test bdue=580) 2.0 mg/dL 1.6-2.6 BASIC METABOLIC [id number] 07:33:00* Test Item Value Reference Range Comments SODIUM (BEAKER) (test qxdz=377) 141 meq/L 136-145 POTASSIUM (BEAKER) (test jwgq=346) 3.9 meq/L 3.5-5.1 CHLORIDE (BEAKER) (test qzel=475) 112 meq/L 98-107 CO2 (BEAKER) (test ifav=602) 23 meq/L 22-29 BLOOD UREA NITROGEN (BEAKER) (test fbpy=954) 6 mg/dL 7-21 CREATININE (BEAKER) (test yrtu=695) 0.62 mg/dL 0.57-1.25 GLUCOSE RANDOM (BEAKER) (test znxn=568) 96 mg/dL 70-105 CALCIUM (BEAKER) (test xgml=684) 8.4 mg/dL 8.4-10.2 EGFR (BEAKER) (test mbru=8983) 102 mL/min/1.73 sq m ESTIMATED GFR IS NOT ACCURATE CREATININE CLEARANCE IN PREDICTING GLOMERULAR FILTRATION RATE. ESTIMATED GFR IS NOT APPLICABLE FOR DIALYSIS PATIENTS. HEPATIC FUNCTION [id number] 07:33:00* Test Item Value Reference Range Comments TOTAL PROTEIN (BEAKER) (test bjot=777) 5.2 gm/dL 6.0-8.3 ALBUMIN (BEAKER) (test npyj=2402) 3.5 g/dL 3.5-5.0 BILIRUBIN TOTAL (BEAKER) (test gxke=672) 1.0 mg/dL 0.2-1.2 BILIRUBIN DIRECT (BEAKER) (test qprt=318) 0.6 mg/dL 0.1-0.5 ALKALINE PHOSPHATASE (BEAKER) (test mryb=377) 157 U/L 40-150 AST (SGOT) (BEAKER) (test tcrd=805) 27 U/L 5-34 ALT (SGPT) (BEAKER) (test pifc=405) 62 U/L 6-55 RESPIRATORY PANEL [id number] 11:06:00* Test Item Value Reference Range Comments HUMAN METAPNEUMOVIRUS (BEAKER) (test hccy=0600) Not detected Not detected, Equivocal RHINOVIRUS (BEAKER) (test joqc=8154) Not detected Not detected, Equivocal INFLUENZA A (BEAKER) (test csjm=6713) Not detected Not detected, Equivocal INFLUENZA A (NO SUBTYPE) (test smjc=5109) Not detected, Equivocal INFLUENZA A SUBTYPE H1 (BEAKER) (test laaq=5347) Not detected, Equivocal INFLUENZA A SUBTYPE H3 (BEAKER) (test vzxh=7928) Not detected, Equivocal INFLUENZA A SUBTYPE H1-2009 (BEAKER) (test ljzt=4858) Not detected, Equivocal INFLUENZA B (BEAKER) (test snza=0840) Not detected Not detected, Equivocal RESPIRATORY SYNCYTIAL VIRUS (BEAKER) (test otiz=5354) Not detected Not detected, Equivocal PARAINFLUENZA VIRUS 1 (BEAKER) (test yekv=0384) Not detected Not detected, Equivocal PARAINFLUENZA VIRUS 2 (BEAKER) (test eqkt=0633) Not detected Not detected, Equivocal PARAINFLUENZA VIRUS 3 (BEAKER) (test wdla=7339) Not detected Not detected, Equivocal PARAINFLUENZA VIRUS 4 (BEAKER) (test kkov=3233) Not detected Not detected, Equivocal ADENOVIRUS (BEAKER) (test urps=3244) Not detected Not detected, Equivocal CORONAVIRUS 229E (BEAKER) (test wsqe=3678) Not detected Not detected, Equivocal CORONAVIRUS HKU1 (BEAKER) (test ysqa=4272) Not detected Not detected, Equivocal CORONAVIRUS NL63 (BEAKER) (test fbjk=6996) Not detected Not detected, Equivocal CORONAVIRUS OC43 (BEAKER) (test gslc=1816) Not detected Not detected, Equivocal BORDETELLA PERTUSSIS (BEAKER) (test nczb=3465) Not detected Not detected, Equivocal CHLAMYDOPHILA PNEUMONIAE (BEAKER) (test esbg=1708) Not detected Not detected, Equivocal MYCOPLASMA PNEUMONIAE (BEAKER) (test kttp=4875) Not detected Not detected, Equivocal Other viruses and bacteria not targeted by this PCR panel cannot be excluded; th erefore clinical correlation and follow up of serology, culture results, and oth er molecular studies is required. The results are not intended to be used as the sole means for clinical diagnosis or patient management decisions. This sample was tested at the [facility] using the [employer] Respiratory Panel. It is FDA cleared and has been verified and approved by the [facility] for clinical use on nasal swab specim ens. It is not FDA-cleared for use on bronchial wash/lavage samples. However, fo r this sample type, validation was performed and test characteristics were deter mined and approved, by [facility] for clinical use u nder the Clinical Laboratory Improvement Amendments (CLIA) of 1988 requirements. Therefore, FDA clearance is not required. This laboratory is CLIA-certified and [employer] ([employer])-accredited to perform high complexity t esting.CBC W/PLT COUNT & AUTO [id number] 09:19:00* Test Item Value Reference Range Comments WHITE BLOOD CELL COUNT (BEAKER) (test pars=694) 0.7 K/ L 3.5-10.5 RED BLOOD CELL COUNT (BEAKER) (test kjyb=447) 2.46 M/ L 3.93-5.22 HEMOGLOBIN (BEAKER) (test daba=991) 6.8 GM/DL 11.2-15.7 HEMATOCRIT (BEAKER) (test ywxo=792) 20.8 % 34.1-44.9 MEAN CORPUSCULAR VOLUME (BEAKER) (test vjhs=199) 84.6 fL 79.4-94.8 MEAN CORPUSCULAR HEMOGLOBIN (BEAKER) (test glcg=038) 27.6 pg 25.6-32.2 MEAN CORPUSCULAR HEMOGLOBIN CONC (BEAKER) (test ljah=515) 32.7 GM/DL 32.2-35.5 RED CELL DISTRIBUTION WIDTH (BEAKER) (test njrv=821) 15.9 % 11.7-14.4 PLATELET COUNT (BEAKER) (test qzwg=645) 31 K/CU MM 150-450 MEAN PLATELET VOLUME (BEAKER) (test yssl=838) fL 9.4-12.3 Unable to report due to abnormal Platelet population distribution. NUCLEATED RED BLOOD CELLS (BEAKER) (test deit=555) 0 /100 WBC 0-0 (CELLAVISION MANUAL DIFF)2018-05-15 09:19:00* Test Item Value Reference Range Comments LYMPHOCYTES - REL (CELLAVISION)(BEAKER) (test drzc=2627) 88 % MONOCYTES - REL (CELLAVISION)(BEAKER) (test vsaw=5842) 11 % MYELOCYTES - REL (CELLAVISION)(BEAKER) (test tcva=0232) 2 % 0-0 LYMPHOCYTES - ABS (CELLAVISION)(BEAKER) (test pjke=8281) 0.62 K/ul 1.18-3.74 MONOCYTES - ABS (CELLAVISION)(BEAKER) (test rgdn=2649) 0.08 K/uL 0.24-0.36 MYELOCYTES-ABS (CELLAVISION)(BEAKER) (test ipgh=5855) 0.01 K/uL 0.00-0.00 TOTAL COUNTED (BEAKER) (test aopm=9995) 100 WBC MORPHOLOGY (BEAKER) (test qxaf=584) Normal GIANT PLATELETS (BEAKER) (test xqyj=315) Present POLYCHROMATOPHILLIC RBCS(BEAKER) (test ikmo=246) 1+ few HYPOCHROMIA (BEAKER) (test cyav=672) 2+ moderate ANISOCYTOSIS (BEAKER) (test jnfb=666) 2+ moderate MICROCYTES (BEAKER) (test xyqj=165) 1+ few MACROCYTES (BEAKER) (test kjtz=018) 2+ moderate POIKILOCYTES (BEAKER) (test sqsw=915) 2+ moderate SCHISTOCYTES (BEAKER) (test udlz=134) 1+ few OVALOCYTES (BEAKER) (test ksks=540) 2+ moderate TEAR DROP CELLS (BEAKER) (test ttdx=207) 2+ moderate ACANTHOCYTES (BEAKER) (test zcbs=888) 1+ few ARTIFACT (CELLAVISION)(BEAKER) (test otnh=4424) Present PLATELET CONCENTRATION (CELLAVISION)(BEAKER) (test gvwm=2960) Decreased Received comment: User comments: Slide comments: CREATINE KINASE (CK)2018-05-15 06:22:00* Test Item Value Reference Range Comments CREATINE KINASE TOTAL (BEAKER) (test ytxr=593) 15 U/L 29-200 [id number] 06:13:00* Test Item Value Reference Range Comments MAGNESIUM (BEAKER) (test icdi=312) 2.0 mg/dL 1.6-2.6 Specimen slightly hemolyzed BASIC METABOLIC [id number] 06:13:00* Test Item Value Reference Range Comments SODIUM (BEAKER) (test dkel=667) 140 meq/L 136-145 POTASSIUM (BEAKER) (test wwqq=523) 3.8 meq/L 3.5-5.1 Specimen slightly hemolyzed CHLORIDE (BEAKER) (test jecv=730) 112 meq/L 98-107 CO2 (BEAKER) (test timo=713) 21 meq/L 22-29 BLOOD UREA NITROGEN (BEAKER) (test ydyt=654) 8 mg/dL 7-21 CREATININE (BEAKER) (test lben=554) 0.63 mg/dL 0.57-1.25 Specimen slightly hemolyzed GLUCOSE RANDOM (BEAKER) (test pdoz=773) 81 mg/dL 70-105 CALCIUM (BEAKER) (test pdnw=156) 8.2 mg/dL 8.4-10.2 EGFR (BEAKER) (test vjwz=8439) 100 mL/min/1.73 sq m ESTIMATED GFR IS NOT ACCURATE CREATININE CLEARANCE IN PREDICTING GLOMERULAR FILTRATION RATE. ESTIMATED GFR IS NOT APPLICABLE FOR DIALYSIS PATIENTS. HEPATIC FUNCTION [id number] 06:13:00* Test Item Value Reference Range Comments TOTAL PROTEIN (BEAKER) (test aivc=877) 5.0 gm/dL 6.0-8.3 Specimen slightly hemolyzed ALBUMIN (BEAKER) (test rlpg=1188) 3.3 g/dL 3.5-5.0 Specimen slightly hemolyzed BILIRUBIN TOTAL (BEAKER) (test kmlq=979) 1.0 mg/dL 0.2-1.2 Specimen slightly hemolyzed BILIRUBIN DIRECT (BEAKER) (test hznw=405) 0.6 mg/dL 0.1-0.5 Specimen slightly hemolyzed ALKALINE PHOSPHATASE (BEAKER) (test cqmd=417) 143 U/L 40-150 AST (SGOT) (BEAKER) (test lfdm=749) 16 U/L 5-34 Specimen slightly hemolyzed ALT (SGPT) (BEAKER) (test xhrq=828) 54 U/L 6-55 Specimen slightly hemolyzed RAPID INFLUENZA A&B [id number] 05:26:00* Test Item Value Reference Range Comments RAPID INFLUENZA A AG (BEAKER) (test uzoa=4476) Negative Negative, Inconclusive RAPID INFLUENZA B AG (BEAKER) (test pvvc=9295) Negative Negative, Inconclusive CT, CHEST, WITH [id number] 17:08:00FINAL REPORT INDICATION:48-year-old female with neutropenic fever. COMPARISON: Chest radiograph May 13, 2018Abdomen pelvis CT May 09, 2018 TECHNIQUE: CT of the Chest, Abdomen and Pelvis WITH intravenous contrast. Enteric contrast was not used. The exam was performed according to our department dose-optimization protocol, which includes automated exposure control, adjustments of mA and kV according to patient size. Iterative reconstructions are also sometimes employed. FINDINGS: THORAX: Apart from left base subsegmental atelectasis the lungs are clear. Central airways are clear. No supraclavicular, mediastinal, hilar, or axillary lymphadenopathy is demonstrated. Heart, pericardium, thyroid gland unremarkable. Esophagus is mildly patulous and fluid-filled. ABDOMEN and PELVIS: Spleen measures 15 x 6 cm axial plane. Liver, pancreas, adrenal glands, kidneys, bladder are unremarkable. Patient is status post hysterectomy. No bowel mass or bowel wall thickening is demonstrated. No peritoneal free fluid. A few prominent mesenteric lymph nodes do not reach size criterion for pathological involvement. No upper abdominal, retroperitoneal, pelvic, or inguinal l ymphadenopathy is demonstrated. BONES: No suspicious osseous lesion demonstrated . Osseous hemangioma of the T12 vertebral body noted. IMPRESSION: No evidence of infection in the chest, abdomen, or pelvis. Splenomegaly. Signed: Beka Richardson art MDReport Verified Date/Time: 05/14/2018 17:08:56 Reading Location: [address] Radiology Reading Room , [id number] 17:08:00FINAL REPORT INDICATION:48-year-old female with neutropenic fever. COMPARISON: Chest radiograph May 13, 2018Abdomen pelvis CT May 09, 2018 TECHNIQUE: CT of the Chest, Abdomen and Pelvis WITH intravenous contrast. Enteric contrast was not used. The exam was performed according to our department dose- optimization protocol, which includes automated exposure control, adjustments of mA and kV according to patient size. Iterative reconstructions are also sometimes employed. FINDINGS: THORAX: Apart from left base subsegmental a telectasis the lungs are clear. Central airways are clear. No supraclavicular, m ediastinal, hilar, or axillary lymphadenopathy is demonstrated. Heart, pericardi um, thyroid gland unremarkable. Esophagus is mildly patulous and fluid-filled. A BDOMEN and PELVIS: Spleen measures 15 x 6 cm axial plane. Liver, pancreas, adren al glands, kidneys, bladder are unremarkable. Patient is status post hysterectom y. No bowel mass or bowel wall thickening is demonstrated. No peritoneal free fl uid. A few prominent mesenteric lymph nodes do not reach size criterion for path ological involvement. No upper abdominal, retroperitoneal, pelvic, or inguinal l ymphadenopathy is demonstrated. BONES: No suspicious osseous lesion demonstrated . Osseous hemangioma of the T12 vertebral body noted. IMPRESSION: No evidence of infection in the chest, abdomen, or pelvis. Splenomegaly. Signed: Beka Richardson art MDReport Verified Date/Time: 05/14/2018 17:08:56 Reading Location: [address] Radiology Reading Room W/PLT COUNT & AUTO [id number] 13:57:00* Test Item Value Reference Range Comments WHITE BLOOD CELL COUNT (BEAKER) (test oasp=361) 0.3 K/ L 3.5-10.5 RED BLOOD CELL COUNT (BEAKER) (test nqcp=075) 2.74 M/ L 3.93-5.22 HEMOGLOBIN (BEAKER) (test wcvm=911) 7.6 GM/DL 11.2-15.7 HEMATOCRIT (BEAKER) (test tmvy=794) 22.7 % 34.1-44.9 MEAN CORPUSCULAR VOLUME (BEAKER) (test ghmt=054) 82.8 fL 79.4-94.8 MEAN CORPUSCULAR HEMOGLOBIN (BEAKER) (test lsfc=480) 27.7 pg 25.6-32.2 MEAN CORPUSCULAR HEMOGLOBIN CONC (BEAKER) (test hbmi=424) 33.5 GM/DL 32.2-35.5 RED CELL DISTRIBUTION WIDTH (BEAKER) (test tjpv=697) 15.9 % 11.7-14.4 PLATELET COUNT (BEAKER) (test lzzj=274) 24 K/CU MM 150-450 MEAN PLATELET VOLUME (BEAKER) (test eszb=805) fL 9.4-12.3 Unable to report due to abnormal Platelet population distribution. NUCLEATED RED BLOOD CELLS (BEAKER) (test ozyt=308) 0 /100 WBC 0-0 (MANUAL DIFFERENTIAL)2018-05-14 13:57:00* Test Item Value Reference Range Comments LYMPHOCYTES - REL (DIFF) (BEAKER) (test tyml=4676) 88 % MONOCYTES - REL (DIFF) (BEAKER) (test czbv=9302) 12 % LYMPHOCYTES - ABS (DIFF) (BEAKER) (test nxjd=7224) 0.26 K/ L 1.48-4.50 MONOCYTES - ABS (DIFF) (BEAKER) (test skmv=2438) 0.04 K/ L 0.00-1.30 TOTAL COUNTED (BEAKER) (test guti=0878) 100 PLT MORPHOLOGY (BEAKER) (test trew=820) Normal ATYPICAL LYMPHS(BEAKER) (test bbab=8030) Present ANISOCYTOSIS (BEAKER) (test eqlz=981) 1+ few POIKILOCYTES (BEAKER) (test ynxd=451) 1+ few [id number] 12:27:00* Test Item Value Reference Range Comments MAGNESIUM (BEAKER) (test axla=511) 2.1 mg/dL 1.6-2.6 BASIC METABOLIC [id number] 12:27:00* Test Item Value Reference Range Comments SODIUM (BEAKER) (test xryk=000) 139 meq/L 136-145 POTASSIUM (BEAKER) (test crxf=571) 4.1 meq/L 3.5-5.1 CHLORIDE (BEAKER) (test qzgb=934) 105 meq/L 98-107 CO2 (BEAKER) (test trvp=086) 26 meq/L 22-29 BLOOD UREA NITROGEN (BEAKER) (test jlvq=816) 9 mg/dL 7-21 CREATININE (BEAKER) (test cczv=827) 0.68 mg/dL 0.57-1.25 GLUCOSE RANDOM (BEAKER) (test pbdh=655) 102 mg/dL 70-105 CALCIUM (BEAKER) (test fffo=087) 9.3 mg/dL 8.4-10.2 EGFR (BEAKER) (test kvks=5600) 92 mL/min/1.73 sq m ESTIMATED GFR IS NOT ACCURATE CREATININE CLEARANCE IN PREDICTING GLOMERULAR FILTRATION RATE. ESTIMATED GFR IS NOT APPLICABLE FOR DIALYSIS PATIENTS. HEPATIC FUNCTION [id number] 12:27:00* Test Item Value Reference Range Comments TOTAL PROTEIN (BEAKER) (test hblv=660) 6.0 gm/dL 6.0-8.3 ALBUMIN (BEAKER) (test olvk=2891) 4.0 g/dL 3.5-5.0 BILIRUBIN TOTAL (BEAKER) (test zpme=888) 1.8 mg/dL 0.2-1.2 BILIRUBIN DIRECT (BEAKER) (test suts=082) 1.0 mg/dL 0.1-0.5 ALKALINE PHOSPHATASE (BEAKER) (test kwvi=164) 182 U/L 40-150 AST (SGOT) (BEAKER) (test sjds=653) 24 U/L 5-34 ALT (SGPT) (BEAKER) (test ajvy=648) 77 U/L 6-55 URINALYSIS W/ REFLEX URINE [id number] 04:07:00* Test Item Value Reference Range Comments COLOR (BEAKER) (test zmfb=033) Yellow CLARITY (BEAKER) (test sqje=588) Clear SPECIFIC GRAVITY UA (BEAKER) (test rxmo=518) 1.007 1.001-1.035 PH UA (BEAKER) (test oaqn=286) 7.0 5.0-8.0 PROTEIN UA (BEAKER) (test xryb=850) Negative Negative GLUCOSE UA (BEAKER) (test ituj=041) Negative Negative KETONES UA (BEAKER) (test nysp=054) Negative Negative BILIRUBIN UA (BEAKER) (test frzh=224) Negative Negative BLOOD UA (BEAKER) (test divg=266) Trace Negative NITRITE UA (BEAKER) (test utuu=775) Negative Negative LEUKOCYTE ESTERASE UA (BEAKER) (test gjtg=427) Negative Negative UROBILINOGEN UA (BEAKER) (test lsse=351) 0.2 mg/dL 0.2-1.0 RBC UA (BEAKER) (test onum=068) 2 /HPF WBC UA (BEAKER) (test jfwe=500) 1 /HPF MUCUS (BEAKER) (test huhr=4297) Rare SQUAMOUS EPITHELIAL (BEAKER) (test pzit=690) 1 /HPF SOURCE(BEAKER) (test rhoi=2800) CBC W/PLT COUNT & AUTO [id number] 15:10:00* Test Item Value Reference Range Comments WHITE BLOOD CELL COUNT (BEAKER) (test mgdg=160) 0.4 K/ L 3.5-10.5 RED BLOOD CELL COUNT (BEAKER) (test jsmy=823) 2.88 M/ L 3.93-5.22 HEMOGLOBIN (BEAKER) (test ilzp=727) 7.9 GM/DL 11.2-15.7 HEMATOCRIT (BEAKER) (test cqis=292) 24.5 % 34.1-44.9 MEAN CORPUSCULAR VOLUME (BEAKER) (test camp=191) 85.1 fL 79.4-94.8 MEAN CORPUSCULAR HEMOGLOBIN (BEAKER) (test kpis=765) 27.4 pg 25.6-32.2 MEAN CORPUSCULAR HEMOGLOBIN CONC (BEAKER) (test nrsm=800) 32.2 GM/DL 32.2-35.5 RED CELL DISTRIBUTION WIDTH (BEAKER) (test syng=289) 16.0 % 11.7-14.4 PLATELET COUNT (BEAKER) (test ohbp=998) 16 K/CU MM 150-450 MEAN PLATELET VOLUME (BEAKER) (test yklz=898) fL 9.4-12.3 Unable to report due to abnormal Platelet population distribution. NUCLEATED RED BLOOD CELLS (BEAKER) (test rcuw=624) 0 /100 WBC 0-0 (CELLAVISION MANUAL DIFF)2018-05-13 15:10:00* Test Item Value Reference Range Comments NEUTROPHILS - REL (CELLAVISION)(BEAKER) (test fgrg=7060) 0 % LYMPHOCYTES - REL (CELLAVISION)(BEAKER) (test sjdh=3945) 94 % MONOCYTES - REL (CELLAVISION)(BEAKER) (test jnqh=6797) 4 % ATYPICAL LYMPHOCYTES - REL (CELLAVISION)(BEAKER) (test phod=9675) 2 % 0-0 NEUTROPHILS - ABS (CELLAVISION)(BEAKER) (test ycke=6657) 0.00 K/ul 1.56-6.13 LYMPHOCYTES - ABS (CELLAVISION)(BEAKER) (test ycrn=8065) 0.38 K/ul 1.18-3.74 MONOCYTES - ABS (CELLAVISION)(BEAKER) (test zoha=8118) 0.02 K/uL 0.24-0.36 ATYPICAL LYMPHOCYTES - ABS (CELLAVISION)(BEAKER) (test ajmu=3771) 0.01 K/uL 0.00-0.00 TOTAL COUNTED (BEAKER) (test wnpq=3976) 100 WBC MORPHOLOGY (BEAKER) (test uasv=547) Normal PLT MORPHOLOGY (BEAKER) (test cozx=309) Normal POLYCHROMATOPHILLIC RBCS(BEAKER) (test ubxv=007) 1+ few ANISOCYTOSIS (BEAKER) (test qibj=850) 1+ few RAD, CHEST, 1 VIEW, NON [id number] 13:04:00Reason for exam:->fever, neutropeniaFINAL REPORT TECHNIQUE: Frontal chest radiograph dated 05/13/2018. CLINICAL HISTORY: Fever, neutropenia COMPARISON STUDY: Chest radiograph dated 05/06/2018 IMPRESSION: Left PICC is unchanged in position. Lungs are clear. No pleural effusion or pneumothorax. Cardiomediastinal silhouette is normal in size. No pulmonary edema. No fracture. Signed: Lillian Covarrubias Verified Date/Time: 05/13/2018 13:04:10 Reading Location: [facility] Radiology Reading Room , BRAIN, [id number] 08:31:00 FINAL REPORT MR, BRAIN, WITH \\T\\ WITHOUT CONTRAST INDICAT ION: Headache, acute, norm neuro examHeadache, new, meningitis or encephalitis s uspected TECHNIQUE: Multiplanar, multisequence MR imaging of the brain was obtai mahsa before and after uneventful administration of gadolinium contrast. COMPARISO N: Correlation to noncontrast brain CT May 09, 2018 FINDINGS:Minimal deep w mary jane matter changes compatible with sequela of chronic microvascular disease. Th ere is decreased mineralization the basal ganglia, likely metabolic/interval. No diffusion restriction is present. Mild volume loss noted. No midline shift or h ydrocephalus. Following the administration of gadolinium-based contrast, no abno rmal enhancement within the parenchyma or leptomeningeal surfaces is detected. D ural appearance is within normal limits. No abnormality of the skull base or daniella varium is present. The visualized paranasal sinuses, mastoid air cells, and orbi ts are within normal limits. IMPRESSION: Mild involutional changes. No imaging evidence of meningitis. No infarct or parenchymal hemorrhage. Signed: Bozena bauer JR, Lucille Dominguez Verified Date/Time: 05/13/2018 08:31:44 Reading Locati on: [facility] B1 C013V Neuro Reading Room [id number] 06:33:00* Test Item Value Reference Range Comments MAGNESIUM (BEAKER) (test haju=398) 2.0 mg/dL 1.6-2.6 BASIC METABOLIC [id number] 06:33:00* Test Item Value Reference Range Comments SODIUM (BEAKER) (test vdqo=573) 138 meq/L 136-145 POTASSIUM (BEAKER) (test crsl=921) 4.6 meq/L 3.5-5.1 CHLORIDE (BEAKER) (test pakg=619) 108 meq/L 98-107 CO2 (BEAKER) (test qwlt=571) 24 meq/L 22-29 BLOOD UREA NITROGEN (BEAKER) (test sfut=577) 7 mg/dL 7-21 CREATININE (BEAKER) (test srja=385) 0.64 mg/dL 0.57-1.25 GLUCOSE RANDOM (BEAKER) (test edfl=747) 94 mg/dL 70-105 CALCIUM (BEAKER) (test bmit=975) 8.6 mg/dL 8.4-10.2 EGFR (BEAKER) (test xujo=2644) 98 mL/min/1.73 sq m ESTIMATED GFR IS NOT ACCURATE CREATININE CLEARANCE IN PREDICTING GLOMERULAR FILTRATION RATE. ESTIMATED GFR IS NOT APPLICABLE FOR DIALYSIS PATIENTS. HEPATIC FUNCTION [id number] 06:33:00* Test Item Value Reference Range Comments TOTAL PROTEIN (BEAKER) (test cymm=387) 5.4 gm/dL 6.0-8.3 ALBUMIN (BEAKER) (test fazp=7432) 3.6 g/dL 3.5-5.0 BILIRUBIN TOTAL (BEAKER) (test hjkk=439) 1.2 mg/dL 0.2-1.2 BILIRUBIN DIRECT (BEAKER) (test npmz=810) 0.7 mg/dL 0.1-0.5 ALKALINE PHOSPHATASE (BEAKER) (test gefq=066) 182 U/L 40-150 AST (SGOT) (BEAKER) (test tviz=252) 34 U/L 5-34 ALT (SGPT) (BEAKER) (test psam=616) 89 U/L 6-55 URINALYSIS W/ REFLEX URINE [id number] 17:54:00* Test Item Value Reference Range Comments COLOR (BEAKER) (test xbca=510) Yellow CLARITY (BEAKER) (test osqd=619) Clear SPECIFIC GRAVITY UA (BEAKER) (test ujme=141) 1.010 1.001-1.035 PH UA (BEAKER) (test dgbm=267) 7.5 5.0-8.0 PROTEIN UA (BEAKER) (test yauk=146) Negative Negative GLUCOSE UA (BEAKER) (test wnsg=070) Negative Negative KETONES UA (BEAKER) (test idtx=054) Trace Negative BILIRUBIN UA (BEAKER) (test jikp=147) Negative Negative BLOOD UA (BEAKER) (test mrku=313) Negative Negative NITRITE UA (BEAKER) (test rawv=309) Negative Negative LEUKOCYTE ESTERASE UA (BEAKER) (test ruak=812) Negative Negative UROBILINOGEN UA (BEAKER) (test cxea=380) 0.2 mg/dL 0.2-1.0 RBC UA (BEAKER) (test bcmh=761) < /HPF WBC UA (BEAKER) (test fuvi=815) < /HPF SQUAMOUS EPITHELIAL (BEAKER) (test vnfr=838) 1 /HPF SOURCE(BEAKER) (test qhcc=1481) CBC W/PLT COUNT & AUTO [id number] 14:33:00* Test Item Value Reference Range Comments WHITE BLOOD CELL COUNT (BEAKER) (test xouh=619) 0.4 K/ L 3.5-10.5 RED BLOOD CELL COUNT (BEAKER) (test usbx=533) 2.94 M/ L 3.93-5.22 HEMOGLOBIN (BEAKER) (test wzrg=941) 8.2 GM/DL 11.2-15.7 HEMATOCRIT (BEAKER) (test bawc=979) 25.1 % 34.1-44.9 MEAN CORPUSCULAR VOLUME (BEAKER) (test jesx=659) 85.4 fL 79.4-94.8 MEAN CORPUSCULAR HEMOGLOBIN (BEAKER) (test xwgu=477) 27.9 pg 25.6-32.2 MEAN CORPUSCULAR HEMOGLOBIN CONC (BEAKER) (test rmrk=463) 32.7 GM/DL 32.2-35.5 RED CELL DISTRIBUTION WIDTH (BEAKER) (test tnog=548) 16.1 % 11.7-14.4 PLATELET COUNT (BEAKER) (test akvg=351) 10 K/CU MM 150-450 MEAN PLATELET VOLUME (BEAKER) (test ugtl=804) fL 9.4-12.3 Unable to report due to abnormal Platelet population distribution. NUCLEATED RED BLOOD CELLS (BEAKER) (test mhdf=187) 0 /100 WBC 0-0 (CELLAVISION MANUAL DIFF)2018-05-12 14:33:00* Test Item Value Reference Range Comments LYMPHOCYTES - REL (CELLAVISION)(BEAKER) (test uupy=2378) 94 % MONOCYTES - REL (CELLAVISION)(BEAKER) (test llgk=9864) 6 % LYMPHOCYTES - ABS (CELLAVISION)(BEAKER) (test qhzj=2748) 0.38 K/ul 1.18-3.74 MONOCYTES - ABS (CELLAVISION)(BEAKER) (test xhkv=0760) 0.02 K/uL 0.24-0.36 TOTAL COUNTED (BEAKER) (test xsxu=8595) 100 WBC MORPHOLOGY (BEAKER) (test qdfk=404) Normal PLT MORPHOLOGY (BEAKER) (test humi=333) Normal POLYCHROMATOPHILLIC RBCS(BEAKER) (test jvod=028) 1+ few ANISOCYTOSIS (BEAKER) (test koyw=666) 1+ few [id number] 06:51:00* Test Item Value Reference Range Comments MAGNESIUM (BEAKER) (test tpxj=321) 2.3 mg/dL 1.6-2.6 Specimen slightly hemolyzed BASIC METABOLIC [id number] 06:51:00* Test Item Value Reference Range Comments SODIUM (BEAKER) (test ltrw=707) 140 meq/L 136-145 POTASSIUM (BEAKER) (test owlh=668) 4.7 meq/L 3.5-5.1 Specimen slightly hemolyzed CHLORIDE (BEAKER) (test cbue=473) 110 meq/L 98-107 CO2 (BEAKER) (test xzdr=936) 25 meq/L 22-29 BLOOD UREA NITROGEN (BEAKER) (test yzoz=821) 9 mg/dL 7-21 CREATININE (BEAKER) (test ekuf=763) 0.58 mg/dL 0.57-1.25 Specimen slightly hemolyzed GLUCOSE RANDOM (BEAKER) (test ixur=014) 92 mg/dL 70-105 CALCIUM (BEAKER) (test gdqp=986) 8.6 mg/dL 8.4-10.2 EGFR (BEAKER) (test qglv=0592) 110 mL/min/1.73 sq m ESTIMATED GFR IS NOT ACCURATE CREATININE CLEARANCE IN PREDICTING GLOMERULAR FILTRATION RATE. ESTIMATED GFR IS NOT APPLICABLE FOR DIALYSIS PATIENTS. HEPATIC FUNCTION [id number] 06:51:00* Test Item Value Reference Range Comments TOTAL PROTEIN (BEAKER) (test yarv=650) 5.0 gm/dL 6.0-8.3 Specimen slightly hemolyzed ALBUMIN (BEAKER) (test omyv=7523) 3.3 g/dL 3.5-5.0 Specimen slightly hemolyzed BILIRUBIN TOTAL (BEAKER) (test mfzb=585) 1.1 mg/dL 0.2-1.2 Specimen slightly hemolyzed BILIRUBIN DIRECT (BEAKER) (test hcqi=453) 0.5 mg/dL 0.1-0.5 Specimen slightly hemolyzed ALKALINE PHOSPHATASE (BEAKER) (test nrgw=618) 172 U/L 40-150 AST (SGOT) (BEAKER) (test blsx=813) 61 U/L 5-34 Specimen slightly hemolyzed ALT (SGPT) (BEAKER) (test syrt=669) 110 U/L 6-55 Specimen slightly hemolyzed CBC W/PLT COUNT & AUTO [id number] 13:48:00* Test Item Value Reference Range Comments WHITE BLOOD CELL COUNT (BEAKER) (test cunk=130) 0.4 K/ L 3.5-10.5 RED BLOOD CELL COUNT (BEAKER) (test nhrn=681) 2.90 M/ L 3.93-5.22 HEMOGLOBIN (BEAKER) (test znoj=260) 8.0 GM/DL 11.2-15.7 HEMATOCRIT (BEAKER) (test pilv=501) 25.2 % 34.1-44.9 MEAN CORPUSCULAR VOLUME (BEAKER) (test pddp=632) 86.9 fL 79.4-94.8 MEAN CORPUSCULAR HEMOGLOBIN (BEAKER) (test jjyh=941) 27.6 pg 25.6-32.2 MEAN CORPUSCULAR HEMOGLOBIN CONC (BEAKER) (test iriy=332) 31.7 GM/DL 32.2-35.5 RED CELL DISTRIBUTION WIDTH (BEAKER) (test lmyd=702) 16.2 % 11.7-14.4 PLATELET COUNT (BEAKER) (test kmbw=041) 19 K/CU MM 150-450 MEAN PLATELET VOLUME (BEAKER) (test riks=439) fL 9.4-12.3 Unable to report due to abnormal Platelet population distribution. NUCLEATED RED BLOOD CELLS (BEAKER) (test geoo=372) 0 /100 WBC 0-0 (MANUAL DIFFERENTIAL)2018-05-11 13:48:00* Test Item Value Reference Range Comments LYMPHOCYTES - REL (DIFF) (BEAKER) (test vukq=3937) 98 % MONOCYTES - REL (DIFF) (BEAKER) (test maos=7101) 2 % LYMPHOCYTES - ABS (DIFF) (BEAKER) (test gwfx=8858) 0.39 K/ L 1.48-4.50 MONOCYTES - ABS (DIFF) (BEAKER) (test exdu=7503) 0.01 K/ L 0.00-1.30 TOTAL COUNTED (BEAKER) (test iihc=7943) 100 PLT MORPHOLOGY (BEAKER) (test jmxa=868) Normal RBC MORPHOLOGY (BEAKER) (test xuli=303) Normal ATYPICAL LYMPHS(BEAKER) (test pjlr=6673) Present BLOOD [id number] 11:00:00* Test Item Value Reference Range Comments CULTURE (BEAKER) (test vpkl=8798) VIRIDANS GROUP STREPTOCOCCUS From Aerobic And Anaerobic Bottles Viridans Streptococcus Ceftriaxone (test code=52) Erythromycin (test code=4) Penicillin G (test code=3) GRAM STAIN RESULT (BEAKER) (test odcx=6055) From aerobic and anaerobic bottles: gram positive cocci in clusters Corrected result: Previously reported as From aerobic bottle only: gram positive cocci in clusters on 05/09/2018 at 1547 VISUAL COMMUNICATIONS INSTRUCTOR. BLOOD [id number] 10:29:00* Test Item Value Reference Range Comments CULTURE (BEAKER) (test oqmi=9252) From Aerobic And Anaerobic Bottles Same organism has been isolated from cultures(s) of the same body site and collection date. Repeat identification and susceptibility testing performed only after consultation with the clinical microbiology laboratory.Refer to previous culture of* - Streptococcus viridansThis is a corrected organism result. Previous result was Viridans Streptococcus on 05/10/2018 at 0849 VISUAL COMMUNICATIONS INSTRUCTOR GRAM STAIN RESULT (BEAKER) (test vitb=5348) From aerobic and anaerobic bottles: gram positive cocci in chains and pairs Corrected result: Previously reported as From aerobic bottle only: gram positive cocci in clusters on 05/09/2018 at 1218 VISUAL COMMUNICATIONS INSTRUCTOR. [id number] 07:17:00* Test Item Value Reference Range Comments MAGNESIUM (BEAKER) (test itmv=991) 2.4 mg/dL 1.6-2.6 BASIC METABOLIC [id number] 07:17:00* Test Item Value Reference Range Comments SODIUM (BEAKER) (test zdoc=770) 138 meq/L 136-145 POTASSIUM (BEAKER) (test avwn=558) 4.5 meq/L 3.5-5.1 CHLORIDE (BEAKER) (test uzui=927) 107 meq/L 98-107 CO2 (BEAKER) (test djaf=801) 26 meq/L 22-29 BLOOD UREA NITROGEN (BEAKER) (test dsml=015) 9 mg/dL 7-21 CREATININE (BEAKER) (test fdci=676) 0.63 mg/dL 0.57-1.25 GLUCOSE RANDOM (BEAKER) (test ysou=271) 85 mg/dL 70-105 CALCIUM (BEAKER) (test axxd=703) 8.3 mg/dL 8.4-10.2 EGFR (BEAKER) (test ehwx=5067) 100 mL/min/1.73 sq m ESTIMATED GFR IS NOT ACCURATE CREATININE CLEARANCE IN PREDICTING GLOMERULAR FILTRATION RATE. ESTIMATED GFR IS NOT APPLICABLE FOR DIALYSIS PATIENTS. HEPATIC FUNCTION [id number] 07:17:00* Test Item Value Reference Range Comments TOTAL PROTEIN (BEAKER) (test egci=131) 4.9 gm/dL 6.0-8.3 ALBUMIN (BEAKER) (test teei=1461) 3.3 g/dL 3.5-5.0 BILIRUBIN TOTAL (BEAKER) (test qioj=830) 1.1 mg/dL 0.2-1.2 BILIRUBIN DIRECT (BEAKER) (test uhmv=146) 0.5 mg/dL 0.1-0.5 ALKALINE PHOSPHATASE (BEAKER) (test riji=603) 154 U/L 40-150 AST (SGOT) (BEAKER) (test ivbv=587) 47 U/L 5-34 ALT (SGPT) (BEAKER) (test ogwo=272) 84 U/L 6-55 CBC W/PLT COUNT & AUTO [id number] 16:27:00* Test Item Value Reference Range Comments WHITE BLOOD CELL COUNT (BEAKER) (test tzju=009) 0.3 K/ L 3.5-10.5 RED BLOOD CELL COUNT (BEAKER) (test zaru=225) 2.37 M/ L 3.93-5.22 HEMOGLOBIN (BEAKER) (test mdbn=382) 6.6 GM/DL 11.2-15.7 HEMATOCRIT (BEAKER) (test rorz=721) 20.4 % 34.1-44.9 MEAN CORPUSCULAR VOLUME (BEAKER) (test xghg=079) 86.1 fL 79.4-94.8 MEAN CORPUSCULAR HEMOGLOBIN (BEAKER) (test nqeu=825) 27.8 pg 25.6-32.2 MEAN CORPUSCULAR HEMOGLOBIN CONC (BEAKER) (test wlkc=291) 32.4 GM/DL 32.2-35.5 RED CELL DISTRIBUTION WIDTH (BEAKER) (test vjms=590) 16.6 % 11.7-14.4 PLATELET COUNT (BEAKER) (test isfx=158) 21 K/CU MM 150-450 MEAN PLATELET VOLUME (BEAKER) (test clww=952) fL 9.4-12.3 Unable to report due to abnormal Platelet population distribution. NUCLEATED RED BLOOD CELLS (BEAKER) (test kzoc=928) 0 /100 WBC 0-0 (MANUAL DIFFERENTIAL)2018-05-10 16:27:00* Test Item Value Reference Range Comments NEUTROPHILS - REL (DIFF) (BEAKER) (test wuvd=9480) 1 % LYMPHOCYTES - REL (DIFF) (BEAKER) (test plta=3204) 97 % MONOCYTES - REL (DIFF) (BEAKER) (test baie=5082) 1 % ATYPICAL LYMPHOCYTE - REL (DIFF) (BEAKER) (test gtaq=489) 1 % 0-0 NEUTROPHILS - ABS (DIFF) (BEAKER) (test japk=3159) 0.00 K/ L 1.80-8.00 LYMPHOCYTES - ABS (DIFF) (BEAKER) (test kwqh=7749) 0.29 K/ L 1.48-4.50 MONOCYTES - ABS (DIFF) (BEAKER) (test ykup=8930) 0.00 K/ L 0.00-1.30 ATYPICAL LYMPHOCYTES - ABS (DIFF) (BEAKER) (test kfye=422) 0.00 K/ L 0.00-0.00 TOTAL COUNTED (BEAKER) (test pexy=1780) 100 WBC MORPHOLOGY (BEAKER) (test eusx=412) Normal PLT MORPHOLOGY (BEAKER) (test nwou=290) Normal RBC MORPHOLOGY (BEAKER) (test jhat=524) Normal LIVER FIBROSIS, FIBROTEST-ACTITEST [id number] 09:48:00* Test Item Value Reference Range Comments FIBROSIS SCORE (QUEST) (test kbmf=0661570) FIBROSIS STAGE (QUEST) (test gnkh=8519798) FIBROSIS INTERPRETATION (QUEST) (test ywqe=3459770) NECROINFLAMMAT ACTIVITY GRADE ([facility]) (test uqjj=0460089) NECROINFLAMMAT INTERP (QUEST) (test ksho=5783464) BILIRUBIN, TOTAL (QUEST) (test fqzi=8427535) GGT (QUEST) (test uxky=5453568) ALT (SGPT) (QUEST) (test lsdw=7730662) ALPHA 2 MACROGLOBULIN (QUEST) (test miuk=1959385) HAPTOGLOBIN (QUEST) (test kcrh=2816265) APOLIPOPROTEIN A-1 (QUEST) (test jcab=4369625) NECROINFLAMMAT ACTIVITY SCORE (test wtvr=3576947) [id number] 05:50:00* Test Item Value Reference Range Comments MAGNESIUM (BEAKER) (test smif=563) 1.9 mg/dL 1.6-2.6 BASIC METABOLIC [id number] 05:50:00* Test Item Value Reference Range Comments SODIUM (BEAKER) (test rsfj=223) 140 meq/L 136-145 POTASSIUM (BEAKER) (test kcqq=244) 3.9 meq/L 3.5-5.1 CHLORIDE (BEAKER) (test brdl=803) 107 meq/L 98-107 CO2 (BEAKER) (test bcha=408) 28 meq/L 22-29 BLOOD UREA NITROGEN (BEAKER) (test ojgt=340) 8 mg/dL 7-21 CREATININE (BEAKER) (test yxcx=836) 0.61 mg/dL 0.57-1.25 GLUCOSE RANDOM (BEAKER) (test rilk=414) 92 mg/dL 70-105 CALCIUM (BEAKER) (test hnqu=518) 8.3 mg/dL 8.4-10.2 EGFR (BEAKER) (test ccto=6616) 104 mL/min/1.73 sq m ESTIMATED GFR IS NOT ACCURATE CREATININE CLEARANCE IN PREDICTING GLOMERULAR FILTRATION RATE. ESTIMATED GFR IS NOT APPLICABLE FOR DIALYSIS PATIENTS. HEPATIC FUNCTION [id number] 05:50:00* Test Item Value Reference Range Comments TOTAL PROTEIN (BEAKER) (test bglb=263) 4.7 gm/dL 6.0-8.3 ALBUMIN (BEAKER) (test bumc=0234) 3.2 g/dL 3.5-5.0 BILIRUBIN TOTAL (BEAKER) (test tenk=108) 1.0 mg/dL 0.2-1.2 BILIRUBIN DIRECT (BEAKER) (test plfw=919) 0.5 mg/dL 0.1-0.5 ALKALINE PHOSPHATASE (BEAKER) (test gwcg=696) 139 U/L 40-150 AST (SGOT) (BEAKER) (test kvuq=434) 35 U/L 5-34 ALT (SGPT) (BEAKER) (test qgfq=372) 80 U/L 6-55 VANCOMYCIN LEVEL, [id number] 05:31:00* Test Item Value Reference Range Comments VANCOMYCIN TROUGH (BEAKER) (test csdx=242) 11.8 ug/mL 10.0-20.0 [id number] 05:14:00* Test Item Value Reference Range Comments FIBRINOGEN LEVEL (BEAKER) (test tsgy=198) 295 mg/dl 225-434 CT, [id number] 15:17:00MD wanted with and without IV contrastFINAL REPORT TECHNIQUE: CT of the abdomen and pelvis WITH intravenous contrast and WITHOUT oral contrast. Dose modulation, iterative reconstruction, and/or weight-based adjustment of the mA/kV was utilized to reduce the radiation dose to as low as reasonably achievable. INDICATION: Abdominal pain, gastroenteritis or colitis suspected.. COMPARISON: CT from 01/12/2004. FINDINGS: LOWER THORAX: Trace bilateral pleural effusions. Left PICC with tip in the high right atrium. HEPATOBILIARY: No focal hepatic lesions. Prior cholecystectomy. No biliary ductal dilatation.SPLEEN: 16.57 m pulmonary splenomegaly.PANCREAS: No focal masses or ductal dilatation. ADRENALS: No adrenal nodules.KIDNEYS/URETERS: No hydronephrosis, stones, or solid mass lesions.PELVIC ORGANS/BLADDER: Prior hysterectomy. PERITONEUM/RETROPERITONEUM: Nonspecific small volume free fluid in the pelvis. A single area of nodularity in the left pelvic fat measure 6 mm on image 69.LYMPH NODES: No lymphadenopathy. The mildly prominent lymph nodes in t he jejunal mesentery are similar to the prior examination.VESSELS: Unremarkable. GI TRACT: No distention or wall thickening. It is not definitely visualized. Ho wever, there are no inflammatory changes in the right lower quadrant to suggest appendicitis. BONES AND SOFT TISSUES: Right appearance of the right T12 vertebra l body is most consistent with an intraosseous hemangioma. Schmorl's node of the superior endplate of T12.. IMPRESSION: 1.No specific findings for enteritis or colitis. 2.A single nodular density in the left pelvic fat is of indeterminate cause. This could be an old omental infarct. However, consider a follow-up CT in three months to document stability and exclude a neoplasm. 3.The spleen is enla rged up to 16.5 cm in maximum dimension. 4.Nonspecific small volume free fluid i n the pelvis. Signed: Cody Hernadez MDReport Verified Date/Time: 05/09/2018 15:17: 38 Reading Location: [facility] B1 C013Y CT Body Reading Room Electronically elenita d by: CODY HERNADEZ MD on 05/09/2018 03:17 PM BLOOD CULTURE IDENTIFICATION [id number] 14:55:00* Test Item Value Reference Range Comments LISTERIA MONOCYTOGENES (test gqwj=[id number]) Not detected Not detected STAPHYLOCOCCUS (test asny=5421219) Not detected Not detected STAPHYLOCOCCUS AUREUS (test xkzl=9162979) Not detected Not detected STREPTOCOCCUS (test bien=6458771) Detected Not detected First line therapy: VancomycinDe- escalate based on susceptibilities Reference Range: Not Detected STREPTOCOCCUS AGALACTIAE (GROUP B) (test oorx=5455528) Not detected Not detected STREPTOCOCCUS PNEUMONIAE (test feor=1901229) Not detected Not detected STREPTOCOCCUS PYOGENES (GROUP A) (test oqme=1845800) Not detected Not detected ACINETOBACTER BAUMANNII (test angs=8108052) Not detected Not detected HAEMOPHILUS INFLUENZAE (test pghu=3188492) Not detected Not detected NEISSERIA MENINGITIDIS (test vtzl=0410291) Not detected Not detected ENTEROBACTERIACEAE (test xwys=9024958) Not detected Not detected ENTEROBACTER CLOACOE COMPLEX (test mlzr=3416654) Not detected Not detected KLEBSIELLA OXYTOCA (test gysz=2269557) Not detected Not detected KLEBSIELLA PNEUMONIAE (test dqlu=1178) Not detected Not detected PROTEUS (test finv=2484149) Not detected Not detected SERRATIA MARCESCENS (test xmij=5387972) Not detected Not detected IAIN ALBICANS (test gsmj=3613617) Not detected Not detected IAIN GLABRATA (test zgzg=7522023) Not detected Not detected IAIN KRUSEI (test lasu=0597594) Not detected Not detected IAIN PARAPSILOSIS (test xzaf=1643206) Not detected Not detected IAIN TROPICALIS (test ctkx=6348711) Not detected Not detected ESCHERICHIA COLI (test qulf=4286947) Not detected Not detected METHICILLIN-RESISTANCE GENE (test ktjj=0627741) Not detected VANCOMYCIN-RESISTANCE GENE (test xrey=4575077) Not detected CARBAPENEM-RESISTANCE GENE (test ckrr=5967703) Not detected ENTEROCOCCUS-BEAKER (test nnmv=1222461) Not detected Not detected PSEUDOMONAS AERUGINOSA-BEAKER (test jyfm=8976048) Not detected Not detected Other bacteria and resistance markers not targeted by this PCR panel cannot be e xcluded; therefore clinical correlation and follow up of serology, culture resul ts, and other molecular studies is required. The results are not intended to be used as the sole means for clinical diagnosis or patient management decisions. T his sample was tested at the [facility] using the [employer] Blood Culture ID Panel. It is FDA cleared and has been verified and approved by the [facility] for clinical use. Thi s laboratory is CLIA-certified and [employer] ([employer])-accred ited to perform high complexity testing.CT, BRAIN, WITHOUT [id number] 14:09:00FINAL REPORT CT head without contrast INDICATION: Headache TECHNIQUE: Axial noncontrast CT images through the head were obtained. This exam was performed according to our departmental dose optimization program which includes automated exposure control, adjustment of the mA and/or kV according to patient size and/or use of iterative reconstruction technique. COMPARISON: CT head 04/20/2018 FINDINGS:There is no acute intracranial hemorrhage or mass effect. There are no specific CT findings of acute infarct. Please note that CT is insensitive for early or small infarcts. There is parenchymal volume loss with frontal lobe predominance but no hydrocephalus or midline shift. There is mild right cerebellar tonsillar ectopia. There is minimal chronic sinus mucosal thickening. The mastoid air cells and orbits are unremarkable. The calvarium is intact. IMPRESSION: No acute intracranial hemorrhage or mass effect. Chronic and involutional findings as discussed above. If there is persistent concern for acute abnormality, MRI is advised. Signed: Luis Reynolds MDReport Verified Date/Time: 05/09/2018 14:09:17 Reading Location: [address] Neuro Reading Room W/PLT COUNT & AUTO DIFFERENTIAL 2018-05-09 12:03:00* Test Item Value Reference Range Comments WHITE BLOOD CELL COUNT (BEAKER) (test blzf=753) 0.2 K/ L 3.5-10.5 RED BLOOD CELL COUNT (BEAKER) (test dqou=318) 2.57 M/ L 3.93-5.22 HEMOGLOBIN (BEAKER) (test bupt=464) 7.1 GM/DL 11.2-15.7 HEMATOCRIT (BEAKER) (test uyhp=778) 22.1 % 34.1-44.9 MEAN CORPUSCULAR VOLUME (BEAKER) (test fuzu=407) 86.0 fL 79.4-94.8 MEAN CORPUSCULAR HEMOGLOBIN (BEAKER) (test cmul=584) 27.6 pg 25.6-32.2 MEAN CORPUSCULAR HEMOGLOBIN CONC (BEAKER) (test eifh=619) 32.1 GM/DL 32.2-35.5 RED CELL DISTRIBUTION WIDTH (BEAKER) (test xsgc=482) 16.7 % 11.7-14.4 PLATELET COUNT (BEAKER) (test yvop=855) 6 K/CU MM 150-450 MEAN PLATELET VOLUME (BEAKER) (test jbob=888) fL 9.4-12.3 Unable to report due to abnormal Platelet population distribution. NUCLEATED RED BLOOD CELLS (BEAKER) (test gusq=681) 0 /100 WBC 0-0 (MANUAL DIFFERENTIAL)2018-05-09 12:03:00* Test Item Value Reference Range Comments NEUTROPHILS - REL (DIFF) (BEAKER) (test lgxr=2385) 2 % LYMPHOCYTES - REL (DIFF) (BEAKER) (test yoau=6557) 96 % MONOCYTES - REL (DIFF) (BEAKER) (test sdvu=6536) 0 % EOSINOPHILS - REL (DIFF) (BEAKER) (test fodn=6494) 0 % BASOPHILS - REL (DIFF) (BEAKER) (test zlsx=5367) 0 % BLASTS - REL (DIFF) (BEAKER) (test bxzs=3589) 1 % 0-0 ATYPICAL LYMPHOCYTE - REL (DIFF) (BEAKER) (test hnng=937) 1 % 0-0 NEUTROPHILS - ABS (DIFF) (BEAKER) (test dusr=5494) 0.00 K/ L 1.80-8.00 LYMPHOCYTES - ABS (DIFF) (BEAKER) (test czrt=5096) 0.19 K/ L 1.48-4.50 MONOCYTES - ABS (DIFF) (BEAKER) (test bhsg=2681) 0.00 K/ L 0.00-1.30 EOSINOPHILS - ABS (DIFF) (BEAKER) (test nvbq=8171) 0.00 K/ L 0.00-0.50 BASOPHILS - ABS (DIFF) (BEAKER) (test eaih=6540) 0.00 K/ L 0.00-0.20 BLASTS - ABS (DIFF) (BEAKER) (test lhem=7859) 0.00 K/ L 0.00-0.00 ATYPICAL LYMPHOCYTES - ABS (DIFF) (BEAKER) (test fpkg=172) 0.00 K/ L 0.00-0.00 TOTAL COUNTED (BEAKER) (test djhy=7832) 100 WBC MORPHOLOGY (BEAKER) (test vgxp=391) Normal PLT MORPHOLOGY (BEAKER) (test bakb=647) Normal ANISOCYTOSIS (BEAKER) (test monk=878) 1+ few OVALOCYTES (BEAKER) (test jrux=242) 1+ few TEAR DROP CELLS (BEAKER) (test lexf=038) 1+ few [id number] 05:59:00* Test Item Value Reference Range Comments MAGNESIUM (BEAKER) (test hxcf=266) 1.6 mg/dL 1.6-2.6 BASIC METABOLIC [id number] 05:59:00* Test Item Value Reference Range Comments SODIUM (BEAKER) (test wwyf=675) 136 meq/L 136-145 POTASSIUM (BEAKER) (test ibcm=801) 4.1 meq/L 3.5-5.1 CHLORIDE (BEAKER) (test dttb=887) 105 meq/L 98-107 CO2 (BEAKER) (test mzwc=215) 27 meq/L 22-29 BLOOD UREA NITROGEN (BEAKER) (test yubx=667) 10 mg/dL 7-21 CREATININE (BEAKER) (test galj=171) 0.64 mg/dL 0.57-1.25 GLUCOSE RANDOM (BEAKER) (test syot=509) 94 mg/dL 70-105 CALCIUM (BEAKER) (test hzvd=504) 8.4 mg/dL 8.4-10.2 EGFR (BEAKER) (test ywuj=8631) 98 mL/min/1.73 sq m ESTIMATED GFR IS NOT ACCURATE CREATININE CLEARANCE IN PREDICTING GLOMERULAR FILTRATION RATE. ESTIMATED GFR IS NOT APPLICABLE FOR DIALYSIS PATIENTS. HEPATIC FUNCTION [id number] 05:59:00* Test Item Value Reference Range Comments TOTAL PROTEIN (BEAKER) (test umie=214) 4.6 gm/dL 6.0-8.3 ALBUMIN (BEAKER) (test buds=2762) 3.2 g/dL 3.5-5.0 BILIRUBIN TOTAL (BEAKER) (test vdyw=363) 1.1 mg/dL 0.2-1.2 BILIRUBIN DIRECT (BEAKER) (test esfj=716) 0.5 mg/dL 0.1-0.5 ALKALINE PHOSPHATASE (BEAKER) (test tgnt=450) 153 U/L 40-150 AST (SGOT) (BEAKER) (test dkqj=239) 35 U/L 5-34 ALT (SGPT) (BEAKER) (test xjeb=390) 89 U/L 6-55 [id number] 05:44:00* Test Item Value Reference Range Comments FIBRINOGEN LEVEL (BEAKER) (test faku=467) 284 mg/dl 225-434 URINALYSIS W/ REFLEX URINE [id number] 17:31:00* Test Item Value Reference Range Comments COLOR (BEAKER) (test iczx=630) Yellow CLARITY (BEAKER) (test kawv=688) Clear SPECIFIC GRAVITY UA (BEAKER) (test maib=195) 1.009 1.001-1.035 PH UA (BEAKER) (test viop=689) 7.5 5.0-8.0 PROTEIN UA (BEAKER) (test xqph=394) Negative Negative GLUCOSE UA (BEAKER) (test csxk=792) Negative Negative KETONES UA (BEAKER) (test ywfv=227) Negative Negative BILIRUBIN UA (BEAKER) (test lmwx=215) Negative Negative BLOOD UA (BEAKER) (test nvng=858) Negative Negative NITRITE UA (BEAKER) (test hxge=503) Negative Negative LEUKOCYTE ESTERASE UA (BEAKER) (test lsys=508) Negative Negative UROBILINOGEN UA (BEAKER) (test kfqr=230) 0.2 mg/dL 0.2-1.0 RBC UA (BEAKER) (test lbef=168) < /HPF WBC UA (BEAKER) (test ppsi=641) < /HPF SQUAMOUS EPITHELIAL (BEAKER) (test fzvr=240) < /HPF SOURCE(BEAKER) (test jwkw=1792) CT, SINUS, WITHOUT IV [id number] 12:45:00Reason for exam:->headache congestion neutropeniaFINAL REPORT CT sinuses without contrast INDICATION: Headache, sinus congestion, neutropenia COMPARISON: CT head 04/20/2018 TECHNIQUE: Axial and direct coronal CT imaging of the sinuses was performed and evaluated with bone and soft tissue algorithms. This exam was performed according to our departmental dose optimization program which includes automated exposure control, adjustment of the mA and/or kV according to patient size and/or use of iterative reconstruction technique. FINDINGS: The left sphenoid sinus is hypoplastic. There is minimal mucosal thickening in the anterior ethmoid air cells and left maxillary sinus. The remaining sinuses are clear. There are no air-fluid levels. There is mild leftward nasal septal deviation. A left melissa bullosa is present. There is partial aeration of the right middle turbinate. The bilateral ostiomeatal channel and other sinus outflow pathways are patent. The mastoid air cells are well aerated. There are numerous carious teeth in the maxilla and mandible with suspected maxillary endodontal disease and small periapical lucencies. Cervical spondylosis is partially imaged. The orbits are unremarkable. The imaged brain demonstrates no acute abnormality. IMPRESSION: 1. Minimal chronic sinus mucosal thickening. No evidence of acute sinusitis. 2. 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 3. Additional chronic and anatomic findings as discussed. Signed: Luis Reynolds MDReport Verified Date/Time: 05/08/2018 12:45:44 Reading Location: [address] Neuro Reading Room W/PLT COUNT & AUTO [id number] 11:02:00* Test Item Value Reference Range Comments WHITE BLOOD CELL COUNT (BEAKER) (test zctd=485) 0.4 K/ L 3.5-10.5 RED BLOOD CELL COUNT (BEAKER) (test uoib=698) 2.95 M/ L 3.93-5.22 HEMOGLOBIN (BEAKER) (test sdzr=593) 8.2 GM/DL 11.2-15.7 HEMATOCRIT (BEAKER) (test jqdc=552) 26.4 % 34.1-44.9 MEAN CORPUSCULAR VOLUME (BEAKER) (test gflv=006) 89.5 fL 79.4-94.8 MEAN CORPUSCULAR HEMOGLOBIN (BEAKER) (test evcp=839) 27.8 pg 25.6-32.2 MEAN CORPUSCULAR HEMOGLOBIN CONC (BEAKER) (test qaie=212) 31.1 GM/DL 32.2-35.5 RED CELL DISTRIBUTION WIDTH (BEAKER) (test kayd=222) 17.0 % 11.7-14.4 PLATELET COUNT (BEAKER) (test bdtr=092) 14 K/CU MM 150-450 MEAN PLATELET VOLUME (BEAKER) (test yrhw=292) fL 9.4-12.3 Unable to report due to abnormal Platelet population distribution. NUCLEATED RED BLOOD CELLS (BEAKER) (test klxw=490) 0 /100 WBC 0-0 (MANUAL DIFFERENTIAL)2018-05-08 11:02:00* Test Item Value Reference Range Comments NEUTROPHILS - REL (DIFF) (BEAKER) (test wshf=3612) 4 % LYMPHOCYTES - REL (DIFF) (BEAKER) (test ntky=4859) 88 % EOSINOPHILS - REL (DIFF) (BEAKER) (test vlhi=6584) 1 % BLASTS - REL (DIFF) (BEAKER) (test bhxx=7164) 2 % 0-0 ATYPICAL LYMPHOCYTE - REL (DIFF) (BEAKER) (test whrs=851) 5 % 0-0 NEUTROPHILS - ABS (DIFF) (BEAKER) (test adpb=2803) 0.02 K/ L 1.80-8.00 LYMPHOCYTES - ABS (DIFF) (BEAKER) (test sjph=5272) 0.35 K/ L 1.48-4.50 EOSINOPHILS - ABS (DIFF) (BEAKER) (test rssk=2675) 0.00 K/ L 0.00-0.50 BLASTS - ABS (DIFF) (BEAKER) (test fecb=5043) 0.01 K/ L 0.00-0.00 ATYPICAL LYMPHOCYTES - ABS (DIFF) (BEAKER) (test ayfz=883) 0.02 K/ L 0.00-0.00 TOTAL COUNTED (BEAKER) (test intd=6779) 100 WBC MORPHOLOGY (BEAKER) (test lrko=230) Normal PLT MORPHOLOGY (BEAKER) (test fyqd=235) Normal POLYCHROMATOPHILLIC RBCS(BEAKER) (test mmyk=462) 1+ few TEAR DROP CELLS (BEAKER) (test mcar=343) 1+ few [id number] 09:15:00* Test Item Value Reference Range Comments MAGNESIUM (BEAKER) (test xnwv=370) 1.7 mg/dL 1.6-2.6 BASIC METABOLIC [id number] 09:15:00* Test Item Value Reference Range Comments SODIUM (BEAKER) (test cmoh=559) 140 meq/L 136-145 POTASSIUM (BEAKER) (test jfrh=018) 4.5 meq/L 3.5-5.1 CHLORIDE (BEAKER) (test qoft=407) 107 meq/L 98-107 CO2 (BEAKER) (test zyua=939) 26 meq/L 22-29 BLOOD UREA NITROGEN (BEAKER) (test alxc=302) 12 mg/dL 7-21 CREATININE (BEAKER) (test sczx=851) 0.61 mg/dL 0.57-1.25 GLUCOSE RANDOM (BEAKER) (test qnpc=576) 91 mg/dL 70-105 CALCIUM (BEAKER) (test yxlt=557) 8.4 mg/dL 8.4-10.2 EGFR (BEAKER) (test yirp=3796) 104 mL/min/1.73 sq m ESTIMATED GFR IS NOT ACCURATE CREATININE CLEARANCE IN PREDICTING GLOMERULAR FILTRATION RATE. ESTIMATED GFR IS NOT APPLICABLE FOR DIALYSIS PATIENTS. HEPATIC FUNCTION [id number] 09:15:00* Test Item Value Reference Range Comments TOTAL PROTEIN (BEAKER) (test sqdy=465) 4.7 gm/dL 6.0-8.3 ALBUMIN (BEAKER) (test sink=4980) 3.2 g/dL 3.5-5.0 BILIRUBIN TOTAL (BEAKER) (test nzup=188) 0.7 mg/dL 0.2-1.2 BILIRUBIN DIRECT (BEAKER) (test pqrx=562) 0.4 mg/dL 0.1-0.5 ALKALINE PHOSPHATASE (BEAKER) (test rizy=580) 140 U/L 40-150 AST (SGOT) (BEAKER) (test fxuc=465) 36 U/L 5-34 ALT (SGPT) (BEAKER) (test lmhu=602) 93 U/L 6-55 [id number] 07:11:00* Test Item Value Reference Range Comments FIBRINOGEN LEVEL (BEAKER) (test nwsj=606) 256 mg/dl 225-434 TROPONIN [id number] 10:20:00* Test Item Value Reference Range Comments TROPONIN I (BEAKER) (test prba=575) < ng/mL 0.00-0.03 Troponin I (TnI) levels must be interpreted in the context of the presenting sym ptoms and the clinical findings. Elevated TnI levels indicate myocardial damage, but are not specific for ischemic heart disease. Elevated TnI levels are seen in patients with other cardiac conditions (including myocarditis and congestive h eart failure), and slight TnI elevations occur in patients with other conditions , including sepsis, renal failure, acidosis, acute neurological disease, and per sistent tachyarrhythmia.CBC W/PLT COUNT & AUTO [id number] 10:02:00* Test Item Value Reference Range Comments WHITE BLOOD CELL COUNT (BEAKER) (test wcgw=107) 0.5 K/ L 3.5-10.5 RED BLOOD CELL COUNT (BEAKER) (test niag=795) 2.85 M/ L 3.93-5.22 HEMOGLOBIN (BEAKER) (test klmk=272) 7.8 GM/DL 11.2-15.7 HEMATOCRIT (BEAKER) (test rcgh=392) 25.8 % 34.1-44.9 MEAN CORPUSCULAR VOLUME (BEAKER) (test jzkb=501) 90.5 fL 79.4-94.8 MEAN CORPUSCULAR HEMOGLOBIN (BEAKER) (test apje=213) 27.4 pg 25.6-32.2 MEAN CORPUSCULAR HEMOGLOBIN CONC (BEAKER) (test cgby=455) 30.2 GM/DL 32.2-35.5 RED CELL DISTRIBUTION WIDTH (BEAKER) (test lgax=988) 17.2 % 11.7-14.4 PLATELET COUNT (BEAKER) (test ytpk=121) 24 K/CU MM 150-450 MEAN PLATELET VOLUME (BEAKER) (test wnrn=899) fL 9.4-12.3 Unable to report due to abnormal Platelet population distribution. NUCLEATED RED BLOOD CELLS (BEAKER) (test lkls=484) 0 /100 WBC 0-0 (MANUAL DIFFERENTIAL)2018-05-07 10:02:00* Test Item Value Reference Range Comments NEUTROPHILS - REL (DIFF) (BEAKER) (test qpqb=8272) 3 % LYMPHOCYTES - REL (DIFF) (BEAKER) (test amvy=9750) 96 % MONOCYTES - REL (DIFF) (BEAKER) (test hblx=3151) 1 % NEUTROPHILS - ABS (DIFF) (BEAKER) (test rfsd=2684) 0.02 K/ L 1.80-8.00 LYMPHOCYTES - ABS (DIFF) (BEAKER) (test keub=2726) 0.48 K/ L 1.48-4.50 MONOCYTES - ABS (DIFF) (BEAKER) (test funv=3560) 0.01 K/ L 0.00-1.30 TOTAL COUNTED (BEAKER) (test ndfp=0084) 100 PLT MORPHOLOGY (BEAKER) (test neoj=488) Normal RBC MORPHOLOGY (BEAKER) (test qxgq=707) Normal ATYPICAL LYMPHS(BEAKER) (test xoff=8319) Present [id number] 05:45:00* Test Item Value Reference Range Comments MAGNESIUM (BEAKER) (test ilah=645) 1.9 mg/dL 1.6-2.6 BASIC METABOLIC [id number] 05:45:00* Test Item Value Reference Range Comments SODIUM (BEAKER) (test llwa=335) 142 meq/L 136-145 POTASSIUM (BEAKER) (test gbad=722) 4.5 meq/L 3.5-5.1 CHLORIDE (BEAKER) (test oipj=610) 111 meq/L 98-107 CO2 (BEAKER) (test zfbp=622) 24 meq/L 22-29 BLOOD UREA NITROGEN (BEAKER) (test dreg=333) 12 mg/dL 7-21 CREATININE (BEAKER) (test sdmx=126) 0.62 mg/dL 0.57-1.25 GLUCOSE RANDOM (BEAKER) (test wkss=837) 91 mg/dL 70-105 CALCIUM (BEAKER) (test nrzf=744) 8.5 mg/dL 8.4-10.2 EGFR (BEAKER) (test ffae=6712) 102 mL/min/1.73 sq m ESTIMATED GFR IS NOT ACCURATE CREATININE CLEARANCE IN PREDICTING GLOMERULAR FILTRATION RATE. ESTIMATED GFR IS NOT APPLICABLE FOR DIALYSIS PATIENTS. HEPATIC FUNCTION [id number] 05:45:00* Test Item Value Reference Range Comments TOTAL PROTEIN (BEAKER) (test cmtz=295) 4.3 gm/dL 6.0-8.3 ALBUMIN (BEAKER) (test afbh=1437) 3.1 g/dL 3.5-5.0 BILIRUBIN TOTAL (BEAKER) (test ttaj=399) 1.0 mg/dL 0.2-1.2 BILIRUBIN DIRECT (BEAKER) (test uuab=471) 0.4 mg/dL 0.1-0.5 ALKALINE PHOSPHATASE (BEAKER) (test fotw=578) 121 U/L 40-150 AST (SGOT) (BEAKER) (test skdn=939) 38 U/L 5-34 ALT (SGPT) (BEAKER) (test znda=326) 95 U/L 6-55 [id number] 05:25:00* Test Item Value Reference Range Comments FIBRINOGEN LEVEL (BEAKER) (test aawz=498) 230 mg/dl 225-434 TROPONIN [id number] 01:15:00* Test Item Value Reference Range Comments TROPONIN I (BEAKER) (test fqjb=944) < ng/mL 0.00-0.03 Troponin I (TnI) levels must be interpreted in the context of the presenting sym ptoms and the clinical findings. Elevated TnI levels indicate myocardial damage, but are not specific for ischemic heart disease. Elevated TnI levels are seen in patients with other cardiac conditions (including myocarditis and congestive h eart failure), and slight TnI elevations occur in patients with other conditions , including sepsis, renal failure, acidosis, acute neurological disease, and per sistent tachyarrhythmia.RAD, CHEST, 1 VIEW, NON [id number] 17:45:00Reason for exam:->pnaShould this be performed at the bedside?->YesFINAL REPORT TECHNIQUE: Frontal chest radiograph dated 05/06/2018. CLINICAL HISTORY: PNA COMPARISON STUDY: Chest radiograph dated 04/27/2018 IMPRESSION: Left-sided PICC is unchanged in position. Atelectasis is seen in the left lung base. No pleural effusion or pneumothorax. Cardiomediastinal silhouette is normal in size. No pulmonary edema. No fracture. Signed: Lillian Covarrubiaseport Verified Date/Time: 05/06/2018 17:45:59 Reading Location: [facility] Radiology Reading Room TINE KINASE (CK)2018-05-06 16:38:00* Test Item Value Reference Range Comments CREATINE KINASE TOTAL (BEAKER) (test hade=929) 16 U/L 29-200 TROPONIN [id number] 16:32:00* Test Item Value Reference Range Comments TROPONIN I (BEAKER) (test zicf=352) < ng/mL 0.00-0.03 Troponin I (TnI) levels must be interpreted in the context of the presenting sym ptoms and the clinical findings. Elevated TnI levels indicate myocardial damage, but are not specific for ischemic heart disease. Elevated TnI levels are seen in patients with other cardiac conditions (including myocarditis and congestive h eart failure), and slight TnI elevations occur in patients with other conditions , including sepsis, renal failure, acidosis, acute neurological disease, and per sistent tachyarrhythmia.CBC W/PLT COUNT & AUTO [id number] 09:44:00* Test Item Value Reference Range Comments WHITE BLOOD CELL COUNT (BEAKER) (test icmw=900) 0.6 K/ L 3.5-10.5 RED BLOOD CELL COUNT (BEAKER) (test ardh=643) 2.99 M/ L 3.93-5.22 HEMOGLOBIN (BEAKER) (test cpgg=159) 8.4 GM/DL 11.2-15.7 HEMATOCRIT (BEAKER) (test sdko=547) 26.6 % 34.1-44.9 MEAN CORPUSCULAR VOLUME (BEAKER) (test kwow=668) 89.0 fL 79.4-94.8 MEAN CORPUSCULAR HEMOGLOBIN (BEAKER) (test ytlt=228) 28.1 pg 25.6-32.2 MEAN CORPUSCULAR HEMOGLOBIN CONC (BEAKER) (test uwbn=780) 31.6 GM/DL 32.2-35.5 RED CELL DISTRIBUTION WIDTH (BEAKER) (test nzok=030) 17.5 % 11.7-14.4 PLATELET COUNT (BEAKER) (test deao=615) 10 K/CU MM 150-450 MEAN PLATELET VOLUME (BEAKER) (test qwcd=434) fL 9.4-12.3 NUCLEATED RED BLOOD CELLS (BEAKER) (test cpvp=717) 0 /100 WBC 0-0 (MANUAL DIFFERENTIAL)2018-05-06 09:44:00* Test Item Value Reference Range Comments NEUTROPHILS - REL (DIFF) (BEAKER) (test xnly=4665) 20 % LYMPHOCYTES - REL (DIFF) (BEAKER) (test jtku=9909) 76 % MONOCYTES - REL (DIFF) (BEAKER) (test xxav=9445) 1 % EOSINOPHILS - REL (DIFF) (BEAKER) (test rywx=4337) 3 % NEUTROPHILS - ABS (DIFF) (BEAKER) (test xjlh=1082) 0.12 K/ L 1.80-8.00 LYMPHOCYTES - ABS (DIFF) (BEAKER) (test wtjc=2349) 0.46 K/ L 1.48-4.50 MONOCYTES - ABS (DIFF) (BEAKER) (test ufdx=9328) 0.01 K/ L 0.00-1.30 EOSINOPHILS - ABS (DIFF) (BEAKER) (test yvab=2193) 0.02 K/ L 0.00-0.50 TOTAL COUNTED (BEAKER) (test uods=2690) 100 WBC MORPHOLOGY (BEAKER) (test ygfu=287) Normal PLT MORPHOLOGY (BEAKER) (test fzao=981) Normal TEAR DROP CELLS (BEAKER) (test ugzg=891) 2+ moderate HIV-1 ANTIGEN WITH HIV-1/2 [id number] 07:00:00* Test Item Value Reference Range Comments HIV-1 ANTIGEN WITH HIV 1\\T\\2 ANTIBODY (2) (BEAKER) (test mxpq=5198) Nonreactive Nonreactive Necessary testing for insurance request for HCV [id number] 06:34:00* Test Item Value Reference Range Comments FIBRINOGEN LEVEL (BEAKER) (test inlm=891) 218 mg/dl 225-434 [id number] 06:23:00* Test Item Value Reference Range Comments ETHANOL (BEAKER) (test gssb=236) < mg/dL <=10 Necessary testing for insurance request for HCV treatmentHEPATIC FUNCTION PANEL 2018-05-06 06:18:00* Test Item Value Reference Range Comments TOTAL PROTEIN (BEAKER) (test iszm=259) 4.3 gm/dL 6.0-8.3 ALBUMIN (BEAKER) (test tldv=2153) 2.9 g/dL 3.5-5.0 BILIRUBIN TOTAL (BEAKER) (test uqtu=862) 0.5 mg/dL 0.2-1.2 BILIRUBIN DIRECT (BEAKER) (test jqyp=530) 0.3 mg/dL 0.1-0.5 ALKALINE PHOSPHATASE (BEAKER) (test bzsc=917) 120 U/L 40-150 AST (SGOT) (BEAKER) (test slvm=158) 48 U/L 5-34 ALT (SGPT) (BEAKER) (test xtnm=078) 102 U/L 6-55 [id number] 06:18:00* Test Item Value Reference Range Comments MAGNESIUM (BEAKER) (test exoe=388) 1.8 mg/dL 1.6-2.6 BASIC METABOLIC [id number] 06:18:00* Test Item Value Reference Range Comments SODIUM (BEAKER) (test yqga=559) 139 meq/L 136-145 POTASSIUM (BEAKER) (test jsiu=785) 4.1 meq/L 3.5-5.1 CHLORIDE (BEAKER) (test mteq=374) 110 meq/L 98-107 CO2 (BEAKER) (test zczt=498) 24 meq/L 22-29 BLOOD UREA NITROGEN (BEAKER) (test ehki=352) 13 mg/dL 7-21 CREATININE (BEAKER) (test kfkh=627) 0.61 mg/dL 0.57-1.25 GLUCOSE RANDOM (BEAKER) (test bido=605) 121 mg/dL 70-105 CALCIUM (BEAKER) (test kzub=872) 8.0 mg/dL 8.4-10.2 EGFR (BEAKER) (test xxxu=6549) 104 mL/min/1.73 sq m ESTIMATED GFR IS NOT ACCURATE CREATININE CLEARANCE IN PREDICTING GLOMERULAR FILTRATION RATE. ESTIMATED GFR IS NOT APPLICABLE FOR DIALYSIS PATIENTS. RAPID DRUG SCREEN, [id number] 19:21:00* Test Item Value Reference Range Comments BARBITURATE URINE (BEAKER) (test xusv=885) Negative Negative BENZODIAZEPINE SCREEN URINE (BEAKER) (test cjem=488) Negative Negative COCAINE (METAB.) SCREEN (BEAKER) (test hedl=6054) Negative Negative METHADONE SCREEN (BEAKER) (test vhlf=4257) Negative Negative OPIATE SCREEN URINE (BEAKER) (test uyyo=324) Negative Negative CANNABINOID SCREEN URINE (BEAKER) (test ufsb=361) Negative Negative AMPH/METHAMPH SCREEN (BEAKER) (test zchp=7697) Negative Negative PHENCYCLIDINE SCREEN URINE (BEAKER) (test uzdy=037) Negative Negative OXYCODONE SCREEN URINE (BEAKER) (test utuf=2046) Negative Negative DRUG CUTOFF CONC.Cocaine 300 ng/mL Cannabinoid 50 ng/mL Benzodiazepine 200 ng/mLBarbiturate 200 ng/mLPh encyclidine 25 ng/mLOpiate 300 ng/mLMethadone 300 ng/mLAmphetamine/ 1000 ng/mL MethamphetamineOxycodone 300 ng/mLThis assay provides an unconfirmed qualitative test result for the cli nical management of patients in emergency situations. Chain of custody not maint ained. Some dgbk-ban-gfqyxej medications, as well as adulterants, may cause inac curate results. Clinical correlation should be applied. A more comprehensive fidelina g screen or confirmation of a detected drug may be performed upon request.Necess quang testing for insurance request for HCV treatmentCBC W/PLT COUNT & AUTO [id number] 11:14:00* Test Item Value Reference Range Comments WHITE BLOOD CELL COUNT (BEAKER) (test cefq=175) 0.6 K/ L 3.5-10.5 RED BLOOD CELL COUNT (BEAKER) (test xjtk=711) 3.21 M/ L 3.93-5.22 HEMOGLOBIN (BEAKER) (test ngaw=793) 8.9 GM/DL 11.2-15.7 HEMATOCRIT (BEAKER) (test inoi=281) 28.2 % 34.1-44.9 MEAN CORPUSCULAR VOLUME (BEAKER) (test noti=735) 87.9 fL 79.4-94.8 MEAN CORPUSCULAR HEMOGLOBIN (BEAKER) (test dzoo=716) 27.7 pg 25.6-32.2 MEAN CORPUSCULAR HEMOGLOBIN CONC (BEAKER) (test lwvc=179) 31.6 GM/DL 32.2-35.5 RED CELL DISTRIBUTION WIDTH (BEAKER) (test hgys=222) 17.8 % 11.7-14.4 PLATELET COUNT (BEAKER) (test yuej=113) 23 K/CU MM 150-450 MEAN PLATELET VOLUME (BEAKER) (test arhu=643) fL 9.4-12.3 Unable to report due to abnormal Platelet population distribution. NUCLEATED RED BLOOD CELLS (BEAKER) (test zfcp=828) 3 /100 WBC 0-0 (MANUAL DIFFERENTIAL)2018-05-05 11:14:00* Test Item Value Reference Range Comments NEUTROPHILS - REL (DIFF) (BEAKER) (test wfpy=1213) 15 % LYMPHOCYTES - REL (DIFF) (BEAKER) (test bzkp=9430) 76 % EOSINOPHILS - REL (DIFF) (BEAKER) (test qglv=7811) 6 % ATYPICAL LYMPHOCYTE - REL (DIFF) (BEAKER) (test rbnb=739) 3 % 0-0 NEUTROPHILS - ABS (DIFF) (BEAKER) (test ekvw=2747) 0.09 K/ L 1.80-8.00 LYMPHOCYTES - ABS (DIFF) (BEAKER) (test npkv=5088) 0.46 K/ L 1.48-4.50 EOSINOPHILS - ABS (DIFF) (BEAKER) (test yrwf=0222) 0.04 K/ L 0.00-0.50 ATYPICAL LYMPHOCYTES - ABS (DIFF) (BEAKER) (test dwvv=805) 0.02 K/ L 0.00-0.00 TOTAL COUNTED (BEAKER) (test baev=4442) 100 WBC MORPHOLOGY (BEAKER) (test kzem=877) Normal PLT MORPHOLOGY (BEAKER) (test tblo=629) Normal HYPOCHROMIA (BEAKER) (test lsvo=494) 1+ few POLYCHROMATOPHILLIC RBCS(BEAKER) (test nuyj=797) 1+ few TEAR DROP CELLS (BEAKER) (test gezz=877) 1+ few ANTI-NUCLEAR ANTIBODY (JESSICA)2018-05-05 09:41:00* Test Item Value Reference Range Comments ANTI-NUCLEAR ANTIBODY (JESSICA) (BEAKER) (test nvfq=402) Negative Negative Test performed by IFA method.Test performed by IFA method.U/S, ABDOMINAL, [id number] 09:14:00Please do with elastographyReason for exam:-> hepatitis C, r/o cirrhosisFINAL REPORT TECHNIQUE: Grayscale ultrasound of the abdomen with shear wave elastography assessment of liver tissue stiffness. INDICATION: 48-year-old woman with hepatitis C. COMPARISON: None. FINDINGS: MIDLINE VASCULATURE: The visualized inferior vena cava is patent. Portal vein is patent and measures 1.2 cm in diameter. The maximum visualized aortic diameter is 1.9 cm. LIVER: The liver is normal in size and echogenicity. Smooth liver contour. No focal lesions. Elastography assessment of liver tissue stiffness reveals average shear wave velocity of 1.25 m/sec. BILIARY:Gallbladder: Prior cholecystectomy.Common bile duct measures 0.4 cm, within normal limits. No intrahepatic biliary ductal dilatation. PANCREAS: Visualized portions of the pancreas are unremarkable. SPLEEN: The spleen is enlarged, measuring 16.9 cm. PERITONEUM: No free fluid. KIDNEYS: The right kidney measures 10 cm in length and the left kidney measures 11.9 cm in length. No hydronephrosis. No sonographically evident solid mass lesion. IMPRESSION:Unremarkable appearance of the liver. Specifically, no overt cirrho sis or focal liver lesion. Elastography assessment is consistent with normal-mil d liver fibrosis classification (Metavir score F0-F1). Splenomegaly. Signed: Jovan Lora MDReport Verified Date/Time: 05/05/2018 09:14:16 Reading Location : [address] Ultrasound Reading Room C METABOLIC [id number] 07:02:00* Test Item Value Reference Range Comments SODIUM (BEAKER) (test nosl=448) 143 meq/L 136-145 POTASSIUM (BEAKER) (test grac=466) 3.8 meq/L 3.5-5.1 CHLORIDE (BEAKER) (test wluw=533) 116 meq/L 98-107 CO2 (BEAKER) (test ftuo=324) 24 meq/L 22-29 BLOOD UREA NITROGEN (BEAKER) (test nbmf=233) 12 mg/dL 7-21 CREATININE (BEAKER) (test zioh=043) 0.55 mg/dL 0.57-1.25 GLUCOSE RANDOM (BEAKER) (test dltk=282) 84 mg/dL 70-105 CALCIUM (BEAKER) (test ugqi=478) 7.2 mg/dL 8.4-10.2 EGFR (BEAKER) (test cxit=8928) 117 mL/min/1.73 sq m ESTIMATED GFR IS NOT ACCURATE CREATININE CLEARANCE IN PREDICTING GLOMERULAR FILTRATION RATE. ESTIMATED GFR IS NOT APPLICABLE FOR DIALYSIS PATIENTS. [id number] 07:01:00* Test Item Value Reference Range Comments MAGNESIUM (BEAKER) (test dyom=705) 1.6 mg/dL 1.6-2.6 HEPATIC FUNCTION [id number] 07:01:00* Test Item Value Reference Range Comments TOTAL PROTEIN (BEAKER) (test xnxg=295) 3.8 gm/dL 6.0-8.3 ALBUMIN (BEAKER) (test irap=5806) 2.7 g/dL 3.5-5.0 BILIRUBIN TOTAL (BEAKER) (test vquk=908) 0.5 mg/dL 0.2-1.2 BILIRUBIN DIRECT (BEAKER) (test ngzr=325) 0.3 mg/dL 0.1-0.5 ALKALINE PHOSPHATASE (BEAKER) (test qsje=732) 95 U/L 40-150 AST (SGOT) (BEAKER) (test mzni=815) 45 U/L 5-34 ALT (SGPT) (BEAKER) (test jwvg=947) 92 U/L 6-55 [id number] 06:41:00* Test Item Value Reference Range Comments FIBRINOGEN LEVEL (BEAKER) (test jlwb=397) 230 mg/dl 225-434 HEPATITIS B SURFACE [id number] 22:02:00* Test Item Value Reference Range Comments HEPATITIS B SURFACE ANTIBODY (BEAKER) (test vzki=070) < mIU/mL <8.0 HEPATITIS B SURFACE [id number] 21:59:00* Test Item Value Reference Range Comments HEPATITIS B SURFACE ANTIGEN (2) (BEAKER) (test imxd=4515) Nonreactive Nonreactive HEPATITIS B CORE ANTIBODY, [id number] 21:59:00* Test Item Value Reference Range Comments HEPATITIS B CORE TOTAL ANTIBODY (BEAKER) (test iweo=105) Nonreactive Nonreactive HEPATITIS A ANTIBODY, [id number] 21:59:00* Test Item Value Reference Range Comments HEPATITIS A IGG ANTIBODY (BEAKER) (test kzig=8833) Nonreactive Nonreactive [id number] 21:13:00* Test Item Value Reference Range Comments FERRITIN (BEAKER) (test fbta=147) 502 ng/mL 5-275 IMMUNOGLOBULIN G (IGG)2018-05-04 21:09:00* Test Item Value Reference Range Comments IMMUNOGLOBULIN G (IGG) (BEAKER) (test anhl=100) 153 mg/dL 540-1,822 IRON, TIBC, % SAT. (WITHOUT FERRITIN)2018-05-04 21:04:00* Test Item Value Reference Range Comments IRON (BEAKER) (test hibg=079) 241 ug/dL 40-160 TOTAL IRON BINDING CAPACITY (BEAKER) (test rloq=337) 238 ug/dL 250-450 IRON % SATURATION (2) (BEAKER) (test tfji=0435) 101 % 20-55 [id number] 20:54:00* Test Item Value Reference Range Comments ALPHA-1 ANTITRYPSIN (BEAKER) (test ujbx=736) 158.40 mg/dL 90.00-200.00 GAMMA GLUTAMYL TRANSFERASE (GGT)2018-05-04 20:54:00* Test Item Value Reference Range Comments GAMMA GLUTAMYL TRANSFERASE (BEAKER) (test azzn=672) 137 U/L 9-64 CBC W/PLT COUNT & AUTO [id number] 12:36:00* Test Item Value Reference Range Comments WHITE BLOOD CELL COUNT (BEAKER) (test hqsm=256) 1.1 K/ L 3.5-10.5 RED BLOOD CELL COUNT (BEAKER) (test chep=758) 3.17 M/ L 3.93-5.22 HEMOGLOBIN (BEAKER) (test ljcv=517) 8.8 GM/DL 11.2-15.7 HEMATOCRIT (BEAKER) (test ngeo=584) 27.8 % 34.1-44.9 MEAN CORPUSCULAR VOLUME (BEAKER) (test plyr=061) 87.7 fL 79.4-94.8 MEAN CORPUSCULAR HEMOGLOBIN (BEAKER) (test uoqx=600) 27.8 pg 25.6-32.2 MEAN CORPUSCULAR HEMOGLOBIN CONC (BEAKER) (test btcy=521) 31.7 GM/DL 32.2-35.5 RED CELL DISTRIBUTION WIDTH (BEAKER) (test kkcz=706) 18.2 % 11.7-14.4 PLATELET COUNT (BEAKER) (test edmo=380) 35 K/CU MM 150-450 MEAN PLATELET VOLUME (BEAKER) (test ykui=645) fL 9.4-12.3 Unable to report due to abnormal Platelet population distribution. NUCLEATED RED BLOOD CELLS (BEAKER) (test tmtx=448) 0 /100 WBC 0-0 (CELLAVISION MANUAL DIFF)2018-05-04 12:36:00* Test Item Value Reference Range Comments NEUTROPHILS - REL (CELLAVISION)(BEAKER) (test npxh=7013) 51 % LYMPHOCYTES - REL (CELLAVISION)(BEAKER) (test pmey=5585) 42 % EOSINOPHILS - REL (CELLAVISION)(BEAKER) (test urfn=7248) 5 % BASOPHILS - REL (CELLAVISION)(BEAKER) (test ibth=4196) 1 % NEUTROPHILS - ABS (CELLAVISION)(BEAKER) (test xomr=9202) 0.56 K/ul 1.56-6.13 LYMPHOCYTES - ABS (CELLAVISION)(BEAKER) (test mqsp=4125) 0.46 K/ul 1.18-3.74 EOSINOPHILS - ABS (CELLAVISION)(BEAKER) (test sfrf=8499) 0.06 K/uL 0.04-0.36 BASOPHILS - ABS (CELLAVISION)(BEAKER) (test shai=4595) 0.01 K/uL 0.01-0.08 TOTAL COUNTED (BEAKER) (test nalq=4220) 100 WBC MORPHOLOGY (BEAKER) (test zqfs=002) Normal PLT MORPHOLOGY (BEAKER) (test aaui=860) Normal ANISOCYTOSIS (BEAKER) (test onka=592) 1+ few MICROCYTES (BEAKER) (test clop=638) 1+ few POIKILOCYTES (BEAKER) (test nvpc=385) 1+ few TEAR DROP CELLS (BEAKER) (test xdro=806) 1+ few ARTIFACT (CELLAVISION)(BEAKER) (test dqar=4339) Present PLATELET CONCENTRATION (CELLAVISION)(BEAKER) (test vayp=2688) Decreased Received comment: User comments: Slide comments: URIC [id number] 06:44:00* Test Item Value Reference Range Comments URIC ACID (BEAKER) (test vlul=917) < mg/dL 2.6-7.2 [id number] 06:43:00* Test Item Value Reference Range Comments MAGNESIUM (BEAKER) (test imje=201) 2.1 mg/dL 1.6-2.6 [id number] 06:43:00* Test Item Value Reference Range Comments PHOSPHORUS (BEAKER) (test hpqx=819) 3.8 mg/dL 2.3-4.7 BASIC METABOLIC [id number] 06:43:00* Test Item Value Reference Range Comments SODIUM (BEAKER) (test zonz=564) 140 meq/L 136-145 POTASSIUM (BEAKER) (test hzcb=828) 4.4 meq/L 3.5-5.1 CHLORIDE (BEAKER) (test safn=686) 109 meq/L 98-107 CO2 (BEAKER) (test euls=503) 27 meq/L 22-29 BLOOD UREA NITROGEN (BEAKER) (test irxj=008) 14 mg/dL 7-21 CREATININE (BEAKER) (test hgsh=945) 0.57 mg/dL 0.57-1.25 GLUCOSE RANDOM (BEAKER) (test vyve=299) 91 mg/dL 70-105 CALCIUM (BEAKER) (test phgb=168) 8.0 mg/dL 8.4-10.2 EGFR (BEAKER) (test hfxi=2036) 112 mL/min/1.73 sq m ESTIMATED GFR IS NOT ACCURATE CREATININE CLEARANCE IN PREDICTING GLOMERULAR FILTRATION RATE. ESTIMATED GFR IS NOT APPLICABLE FOR DIALYSIS PATIENTS. HEPATIC FUNCTION [id number] 06:43:00* Test Item Value Reference Range Comments TOTAL PROTEIN (BEAKER) (test bmaq=796) 4.3 gm/dL 6.0-8.3 ALBUMIN (BEAKER) (test mqse=4651) 2.9 g/dL 3.5-5.0 BILIRUBIN TOTAL (BEAKER) (test hlff=676) 0.6 mg/dL 0.2-1.2 BILIRUBIN DIRECT (BEAKER) (test wpnt=976) 0.3 mg/dL 0.1-0.5 ALKALINE PHOSPHATASE (BEAKER) (test fmuh=623) 100 U/L 40-150 AST (SGOT) (BEAKER) (test dims=629) 48 U/L 5-34 ALT (SGPT) (BEAKER) (test pgbz=530) 98 U/L 6-55 LACTATE DEHYDROGENASE (LDH)2018-05-04 06:43:00* Test Item Value Reference Range Comments LACTATE DEHYDROGENASE (BEAKER) (test wqca=346) 226 U/L 125-220 [id number] 06:27:00* Test Item Value Reference Range Comments FIBRINOGEN LEVEL (BEAKER) (test uzjh=347) 231 mg/dl 225-434 CBC W/PLT COUNT & AUTO [id number] 12:14:00* Test Item Value Reference Range Comments WHITE BLOOD CELL COUNT (BEAKER) (test corb=083) 1.8 K/ L 3.5-10.5 RED BLOOD CELL COUNT (BEAKER) (test upxd=027) 3.39 M/ L 3.93-5.22 HEMOGLOBIN (BEAKER) (test cyqy=614) 9.6 GM/DL 11.2-15.7 HEMATOCRIT (BEAKER) (test iate=510) 29.8 % 34.1-44.9 MEAN CORPUSCULAR VOLUME (BEAKER) (test bjns=671) 87.9 fL 79.4-94.8 MEAN CORPUSCULAR HEMOGLOBIN (BEAKER) (test veuv=392) 28.3 pg 25.6-32.2 MEAN CORPUSCULAR HEMOGLOBIN CONC (BEAKER) (test kevc=064) 32.2 GM/DL 32.2-35.5 RED CELL DISTRIBUTION WIDTH (BEAKER) (test fceq=764) 18.2 % 11.7-14.4 PLATELET COUNT (BEAKER) (test xzxp=348) 60 K/CU MM 150-450 MEAN PLATELET VOLUME (BEAKER) (test ntvf=194) fL 9.4-12.3 Unable to report due to abnormal Platelet population distribution. NUCLEATED RED BLOOD CELLS (BEAKER) (test nlcg=768) 0 /100 WBC 0-0 (CELLAVISION MANUAL DIFF)2018-05-03 12:14:00* Test Item Value Reference Range Comments NEUTROPHILS - REL (CELLAVISION)(BEAKER) (test hqoe=1255) 63 % LYMPHOCYTES - REL (CELLAVISION)(BEAKER) (test yzfp=0235) 27 % EOSINOPHILS - REL (CELLAVISION)(BEAKER) (test brpi=5592) 7 % ATYPICAL LYMPHOCYTES - REL (CELLAVISION)(BEAKER) (test ipju=8184) 3 % 0-0 NEUTROPHILS - ABS (CELLAVISION)(BEAKER) (test ehwz=6475) 1.13 K/ul 1.56-6.13 LYMPHOCYTES - ABS (CELLAVISION)(BEAKER) (test ycgz=8128) 0.49 K/ul 1.18-3.74 EOSINOPHILS - ABS (CELLAVISION)(BEAKER) (test jfpp=4909) 0.13 K/uL 0.04-0.36 ATYPICAL LYMPHOCYTES - ABS (CELLAVISION)(BEAKER) (test dxpv=8392) 0.05 K/uL 0.00-0.00 TOTAL COUNTED (BEAKER) (test nbns=3524) 100 SMUDGE CELLS (BEAKER) (test nygi=4237) Present GIANT PLATELETS (BEAKER) (test rgmk=416) Present ANISOCYTOSIS (BEAKER) (test lwdc=974) 2+ moderate MICROCYTES (BEAKER) (test bick=258) 2+ moderate POIKILOCYTES (BEAKER) (test fbwx=463) 1+ few SCHISTOCYTES (BEAKER) (test owpk=411) 1+ few ARTIFACT (CELLAVISION)(BEAKER) (test mtdl=1849) Present PLATELET CONCENTRATION (CELLAVISION)(BEAKER) (test fzae=7587) Decreased Received comment: User comments: Slide comments: CALCIUM, [id number] 07:18:00* Test Item Value Reference Range Comments CALCIUM IONIZED (BEAKER) (test wdyh=738) 1.04 mmol/L 1.12-1.27 PH, BLOOD (BEAKER) (test vkpf=8059) 7.38 [id number] 06:54:00* Test Item Value Reference Range Comments MAGNESIUM (BEAKER) (test dpem=201) 2.0 mg/dL 1.6-2.6 [id number] 06:54:00* Test Item Value Reference Range Comments PHOSPHORUS (BEAKER) (test sbmd=762) 3.3 mg/dL 2.3-4.7 BASIC METABOLIC [id number] 06:54:00* Test Item Value Reference Range Comments SODIUM (BEAKER) (test fnxn=088) 138 meq/L 136-145 POTASSIUM (BEAKER) (test zkit=614) 4.6 meq/L 3.5-5.1 CHLORIDE (BEAKER) (test pgmf=681) 111 meq/L 98-107 CO2 (BEAKER) (test wgjt=823) 24 meq/L 22-29 BLOOD UREA NITROGEN (BEAKER) (test mfee=232) 17 mg/dL 7-21 CREATININE (BEAKER) (test xnmg=738) 0.68 mg/dL 0.57-1.25 GLUCOSE RANDOM (BEAKER) (test ncld=548) 84 mg/dL 70-105 CALCIUM (BEAKER) (test npow=569) 8.0 mg/dL 8.4-10.2 EGFR (BEAKER) (test jsxf=3467) 92 mL/min/1.73 sq m ESTIMATED GFR IS NOT ACCURATE CREATININE CLEARANCE IN PREDICTING GLOMERULAR FILTRATION RATE. ESTIMATED GFR IS NOT APPLICABLE FOR DIALYSIS PATIENTS. HEPATIC FUNCTION [id number] 06:54:00* Test Item Value Reference Range Comments TOTAL PROTEIN (BEAKER) (test pumi=419) 4.5 gm/dL 6.0-8.3 ALBUMIN (BEAKER) (test bzyv=3783) 3.0 g/dL 3.5-5.0 BILIRUBIN TOTAL (BEAKER) (test wqsf=512) 1.0 mg/dL 0.2-1.2 BILIRUBIN DIRECT (BEAKER) (test pwuc=037) 0.6 mg/dL 0.1-0.5 ALKALINE PHOSPHATASE (BEAKER) (test guux=705) 97 U/L 40-150 AST (SGOT) (BEAKER) (test wonk=009) 45 U/L 5-34 ALT (SGPT) (BEAKER) (test rtwi=515) 93 U/L 6-55 LACTATE DEHYDROGENASE (LDH)2018-05-03 06:54:00* Test Item Value Reference Range Comments LACTATE DEHYDROGENASE (BEAKER) (test wxud=213) 211 U/L 125-220 URIC [id number] 06:54:00* Test Item Value Reference Range Comments URIC ACID (BEAKER) (test xocu=362) 1.5 mg/dL 2.6-7.2 [id number] 06:42:00* Test Item Value Reference Range Comments FIBRINOGEN LEVEL (BEAKER) (test xgvp=077) 220 mg/dl 225-434 CBC W/PLT COUNT & AUTO [id number] 10:48:00* Test Item Value Reference Range Comments WHITE BLOOD CELL COUNT (BEAKER) (test fwrz=741) 2.0 K/ L 3.5-10.5 RED BLOOD CELL COUNT (BEAKER) (test bsji=997) 2.45 M/ L 3.93-5.22 HEMOGLOBIN (BEAKER) (test htxg=222) 6.7 GM/DL 11.2-15.7 HEMATOCRIT (BEAKER) (test eyae=171) 22.4 % 34.1-44.9 MEAN CORPUSCULAR VOLUME (BEAKER) (test pajb=152) 91.4 fL 79.4-94.8 MEAN CORPUSCULAR HEMOGLOBIN (BEAKER) (test undp=946) 27.3 pg 25.6-32.2 MEAN CORPUSCULAR HEMOGLOBIN CONC (BEAKER) (test glhv=451) 29.9 GM/DL 32.2-35.5 RED CELL DISTRIBUTION WIDTH (BEAKER) (test ziab=331) 19.6 % 11.7-14.4 PLATELET COUNT (BEAKER) (test dvdf=883) 101 K/CU MM 150-450 MEAN PLATELET VOLUME (BEAKER) (test erok=280) 13.5 fL 9.4-12.3 NUCLEATED RED BLOOD CELLS (BEAKER) (test ienl=570) 2 /100 WBC 0-0 NEUTROPHILS RELATIVE PERCENT (BEAKER) (test botu=950) 69 % LYMPHOCYTES RELATIVE PERCENT (BEAKER) (test cjps=986) 18 % MONOCYTES RELATIVE PERCENT (BEAKER) (test zata=409) 2 % EOSINOPHILS RELATIVE PERCENT (BEAKER) (test wziq=529) 8 % BASOPHILS RELATIVE PERCENT (BEAKER) (test ryxy=881) 0 % NEUTROPHILS ABSOLUTE COUNT (BEAKER) (test xhyc=870) 1.39 K/ L 1.56-6.13 LYMPHOCYTES ABSOLUTE COUNT (BEAKER) (test uzpe=601) 0.36 K/ L 1.18-3.74 MONOCYTES ABSOLUTE COUNT (BEAKER) (test thgh=074) 0.03 K/ L 0.24-0.36 EOSINOPHILS ABSOLUTE COUNT (BEAKER) (test ctwr=627) 0.16 K/ L 0.04-0.36 BASOPHILS ABSOLUTE COUNT (BEAKER) (test mxfh=253) 0.00 K/ L 0.01-0.08 IMMATURE GRANULOCYTES-RELATIVE PERCENT (BEAKER) (test rmgs=9303) 4 % 0-1 (CELLAVISION MANUAL DIFF)2018-05-02 10:48:00* Test Item Value Reference Range Comments TOTAL COUNTED (BEAKER) (test dylo=3459) WBC MORPHOLOGY (BEAKER) (test lrbv=820) Normal PLT MORPHOLOGY (BEAKER) (test npwy=053) Normal POLYCHROMATOPHILLIC RBCS(BEAKER) (test tafs=326) 2+ moderate ANISOCYTOSIS (BEAKER) (test qhiu=569) 2+ moderate POIKILOCYTES (BEAKER) (test fggy=409) 2+ moderate OVALOCYTES (BEAKER) (test estr=406) 1+ few TEAR DROP CELLS (BEAKER) (test vych=802) 1+ few BASIC METABOLIC [id number] 08:07:00* Test Item Value Reference Range Comments SODIUM (BEAKER) (test uywq=766) 139 meq/L 136-145 POTASSIUM (BEAKER) (test wohy=117) 4.2 meq/L 3.5-5.1 CHLORIDE (BEAKER) (test ozzh=728) 113 meq/L 98-107 CO2 (BEAKER) (test lmnb=789) 21 meq/L 22-29 BLOOD UREA NITROGEN (BEAKER) (test ztws=618) 15 mg/dL 7-21 CREATININE (BEAKER) (test ggfw=764) 0.58 mg/dL 0.57-1.25 GLUCOSE RANDOM (BEAKER) (test shnf=543) 99 mg/dL 70-105 CALCIUM (BEAKER) (test lckz=757) 7.8 mg/dL 8.4-10.2 EGFR (BEAKER) (test xxpl=4944) 110 mL/min/1.73 sq m ESTIMATED GFR IS NOT ACCURATE CREATININE CLEARANCE IN PREDICTING GLOMERULAR FILTRATION RATE. ESTIMATED GFR IS NOT APPLICABLE FOR DIALYSIS PATIENTS. URIC [id number] 08:06:00* Test Item Value Reference Range Comments URIC ACID (BEAKER) (test mmsh=786) 1.1 mg/dL 2.6-7.2 [id number] 07:59:00* Test Item Value Reference Range Comments MAGNESIUM (BEAKER) (test rudy=585) 2.0 mg/dL 1.6-2.6 [id number] 07:59:00* Test Item Value Reference Range Comments PHOSPHORUS (BEAKER) (test ugkf=793) 3.6 mg/dL 2.3-4.7 HEPATIC FUNCTION [id number] 07:59:00* Test Item Value Reference Range Comments TOTAL PROTEIN (BEAKER) (test qvzz=557) 4.0 gm/dL 6.0-8.3 ALBUMIN (BEAKER) (test jqsg=7257) 2.7 g/dL 3.5-5.0 BILIRUBIN TOTAL (BEAKER) (test rnwx=330) 0.5 mg/dL 0.2-1.2 BILIRUBIN DIRECT (BEAKER) (test khyj=043) 0.2 mg/dL 0.1-0.5 ALKALINE PHOSPHATASE (BEAKER) (test fwdx=702) 78 U/L 40-150 AST (SGOT) (BEAKER) (test cjbg=168) 40 U/L 5-34 ALT (SGPT) (BEAKER) (test iwti=938) 82 U/L 6-55 LACTATE DEHYDROGENASE (LDH)2018-05-02 07:59:00* Test Item Value Reference Range Comments LACTATE DEHYDROGENASE (BEAKER) (test ldlb=402) 294 U/L 125-220 CALCIUM, [id number] 07:29:00* Test Item Value Reference Range Comments CALCIUM IONIZED (BEAKER) (test yshs=255) 1.03 mmol/L 1.12-1.27 PH, BLOOD (BEAKER) (test kgpe=5046) 7.44 [id number] 06:54:00* Test Item Value Reference Range Comments FIBRINOGEN LEVEL (BEAKER) (test rbcd=788) 174 mg/dl 225-434 (CELLAVISION MANUAL DIFF)2018-05-01 14:16:00* Test Item Value Reference Range Comments NEUTROPHILS - REL (CELLAVISION)(BEAKER) (test qcjv=1310) 63 % LYMPHOCYTES - REL (CELLAVISION)(BEAKER) (test ulif=8537) 30 % EOSINOPHILS - REL (CELLAVISION)(BEAKER) (test vuvk=3514) 7 % NEUTROPHILS - ABS (CELLAVISION)(BEAKER) (test ruid=7288) 1.39 K/ul 1.56-6.13 LYMPHOCYTES - ABS (CELLAVISION)(BEAKER) (test lgxe=5737) 0.66 K/ul 1.18-3.74 EOSINOPHILS - ABS (CELLAVISION)(BEAKER) (test dvvm=4379) 0.15 K/uL 0.04-0.36 TOTAL COUNTED (BEAKER) (test wfoy=6384) 100 WBC MORPHOLOGY (BEAKER) (test lhkb=611) Normal PLT MORPHOLOGY (BEAKER) (test fcou=090) Normal POLYCHROMATOPHILLIC RBCS(BEAKER) (test lehv=929) 1+ few ANISOCYTOSIS (BEAKER) (test ftbc=138) 1+ few POIKILOCYTES (BEAKER) (test dwdf=328) 1+ few ARTIFACT (CELLAVISION)(BEAKER) (test jhir=7226) Present PLATELET CONCENTRATION (CELLAVISION)(BEAKER) (test jupc=3296) Decreased Received comment: User comments: Slide comments: CBC W/PLT COUNT & AUTO [id number] 14:15:00* Test Item Value Reference Range Comments WHITE BLOOD CELL COUNT (BEAKER) (test tmvt=689) 2.2 K/ L 3.5-10.5 RED BLOOD CELL COUNT (BEAKER) (test icnm=175) 2.51 M/ L 3.93-5.22 HEMOGLOBIN (BEAKER) (test hepq=558) 6.9 GM/DL 11.2-15.7 HEMATOCRIT (BEAKER) (test ohrg=475) 22.9 % 34.1-44.9 MEAN CORPUSCULAR VOLUME (BEAKER) (test pysp=495) 91.2 fL 79.4-94.8 MEAN CORPUSCULAR HEMOGLOBIN (BEAKER) (test xiwg=503) 27.5 pg 25.6-32.2 MEAN CORPUSCULAR HEMOGLOBIN CONC (BEAKER) (test kdvw=715) 30.1 GM/DL 32.2-35.5 RED CELL DISTRIBUTION WIDTH (BEAKER) (test sxig=014) 19.7 % 11.7-14.4 PLATELET COUNT (BEAKER) (test bfhd=310) 145 K/CU MM 150-450 MEAN PLATELET VOLUME (BEAKER) (test epmf=288) 11.7 fL 9.4-12.3 NUCLEATED RED BLOOD CELLS (BEAKER) (test unxp=201) 0 /100 WBC 0-0 HEPATIC FUNCTION [id number] 08:01:00* Test Item Value Reference Range Comments TOTAL PROTEIN (BEAKER) (test daff=672) 3.8 gm/dL 6.0-8.3 ALBUMIN (BEAKER) (test fiff=5661) 2.7 g/dL 3.5-5.0 BILIRUBIN TOTAL (BEAKER) (test atzy=941) 0.6 mg/dL 0.2-1.2 BILIRUBIN DIRECT (BEAKER) (test nnjg=827) 0.4 mg/dL 0.1-0.5 ALKALINE PHOSPHATASE (BEAKER) (test qwxf=245) 68 U/L 40-150 AST (SGOT) (BEAKER) (test gslx=013) 58 U/L 5-34 ALT (SGPT) (BEAKER) (test muft=077) 72 U/L 6-55 [id number] 08:01:00* Test Item Value Reference Range Comments MAGNESIUM (BEAKER) (test mtgb=373) 1.9 mg/dL 1.6-2.6 BASIC METABOLIC [id number] 08:01:00* Test Item Value Reference Range Comments SODIUM (BEAKER) (test vitz=147) 137 meq/L 136-145 POTASSIUM (BEAKER) (test zhuk=068) 3.9 meq/L 3.5-5.1 CHLORIDE (BEAKER) (test olqk=213) 113 meq/L 98-107 CO2 (BEAKER) (test ogkj=979) 20 meq/L 22-29 BLOOD UREA NITROGEN (BEAKER) (test hdkq=264) 17 mg/dL 7-21 CREATININE (BEAKER) (test figm=620) 0.55 mg/dL 0.57-1.25 GLUCOSE RANDOM (BEAKER) (test fxvu=847) 77 mg/dL 70-105 CALCIUM (BEAKER) (test wuwf=145) 7.4 mg/dL 8.4-10.2 EGFR (BEAKER) (test rhgq=1005) 117 mL/min/1.73 sq m ESTIMATED GFR IS NOT ACCURATE CREATININE CLEARANCE IN PREDICTING GLOMERULAR FILTRATION RATE. ESTIMATED GFR IS NOT APPLICABLE FOR DIALYSIS PATIENTS. [id number] 08:01:00* Test Item Value Reference Range Comments PHOSPHORUS (BEAKER) (test ybnw=541) 3.7 mg/dL 2.3-4.7 URIC [id number] 07:35:00* Test Item Value Reference Range Comments URIC ACID (BEAKER) (test lkwg=862) 1.1 mg/dL 2.6-7.2 LACTATE DEHYDROGENASE (LDH)2018-05-01 07:34:00* Test Item Value Reference Range Comments LACTATE DEHYDROGENASE (BEAKER) (test vtcr=947) 1189 U/L 125-220 CALCIUM, [id number] 07:13:00* Test Item Value Reference Range Comments CALCIUM IONIZED (BEAKER) (test dsht=962) 1.06 mmol/L 1.12-1.27 PH, BLOOD (BEAKER) (test iyuv=4459) 7.40 [id number] 06:51:00* Test Item Value Reference Range Comments FIBRINOGEN LEVEL (BEAKER) (test gbur=297) 161 mg/dl 225-434 C. DIFFICILE GDH [id number] 17:46:00* Test Item Value Reference Range Comments CDT TOXIN (test zayu=[id number]) Negative Negative CDT GDH ANTIGEN (test jfmt=[id number]) Negative Negative No indication of Clostridium difficile infection and no colonization. Discontinue enteric isolation and therapy. Testing performed by [employer] Rapid Cassette Assay. For GDH, published sensitivity of the assay is 98.7% compared to cytotoxicity testing. For Toxin AB, published sensitivity is 87.8% and specificity 99.4% compared to cytotoxicity testing.Ve rification of kit performance was done by the [facility] Microbiology Lab prior to cl inical use.(CELLAVISION MANUAL DIFF)2018-04-30 07:21:00* Test Item Value Reference Range Comments NEUTROPHILS - REL (CELLAVISION)(BEAKER) (test ikrc=5884) 92 % LYMPHOCYTES - REL (CELLAVISION)(BEAKER) (test gpco=2052) 8 % NEUTROPHILS - ABS (CELLAVISION)(BEAKER) (test jzhn=2350) 3.31 K/ul 1.56-6.13 LYMPHOCYTES - ABS (CELLAVISION)(BEAKER) (test dttw=6949) 0.29 K/ul 1.18-3.74 TOTAL COUNTED (BEAKER) (test awlb=1640) 100 WBC MORPHOLOGY (BEAKER) (test wcux=916) Normal PLT MORPHOLOGY (BEAKER) (test bjds=472) Normal ANISOCYTOSIS (BEAKER) (test svfx=629) 1+ few MICROCYTES (BEAKER) (test dfaw=921) 1+ few POIKILOCYTES (BEAKER) (test sspk=276) 1+ few TEAR DROP CELLS (BEAKER) (test kuif=281) 1+ few ARTIFACT (CELLAVISION)(BEAKER) (test xhxd=8195) Present PLATELET CONCENTRATION (CELLAVISION)(BEAKER) (test yibp=7247) Adequate Received comment: User comments: Slide comments: CBC W/PLT COUNT & AUTO [id number] 07:21:00* Test Item Value Reference Range Comments WHITE BLOOD CELL COUNT (BEAKER) (test neci=661) 3.6 K/ L 3.5-10.5 RED BLOOD CELL COUNT (BEAKER) (test bfiz=706) 2.83 M/ L 3.93-5.22 HEMOGLOBIN (BEAKER) (test rfpc=632) 7.7 GM/DL 11.2-15.7 HEMATOCRIT (BEAKER) (test idis=615) 25.5 % 34.1-44.9 MEAN CORPUSCULAR VOLUME (BEAKER) (test pskc=945) 90.1 fL 79.4-94.8 MEAN CORPUSCULAR HEMOGLOBIN (BEAKER) (test vxrs=927) 27.2 pg 25.6-32.2 MEAN CORPUSCULAR HEMOGLOBIN CONC (BEAKER) (test xfny=517) 30.2 GM/DL 32.2-35.5 RED CELL DISTRIBUTION WIDTH (BEAKER) (test vnmg=848) 19.7 % 11.7-14.4 PLATELET COUNT (BEAKER) (test gawa=404) 207 K/CU MM 150-450 MEAN PLATELET VOLUME (BEAKER) (test etld=958) 12.5 fL 9.4-12.3 NUCLEATED RED BLOOD CELLS (BEAKER) (test gdkd=814) 0 /100 WBC 0-0 BASIC METABOLIC [id number] 05:54:00* Test Item Value Reference Range Comments SODIUM (BEAKER) (test lnou=443) 140 meq/L 136-145 POTASSIUM (BEAKER) (test npat=991) 3.9 meq/L 3.5-5.1 CHLORIDE (BEAKER) (test elqq=476) 112 meq/L 98-107 CO2 (BEAKER) (test bblv=834) 22 meq/L 22-29 BLOOD UREA NITROGEN (BEAKER) (test kxcr=852) 19 mg/dL 7-21 CREATININE (BEAKER) (test tyma=781) 0.60 mg/dL 0.57-1.25 GLUCOSE RANDOM (BEAKER) (test rkjo=536) 98 mg/dL 70-105 CALCIUM (BEAKER) (test znbr=539) 7.9 mg/dL 8.4-10.2 EGFR (BEAKER) (test kmye=1542) 106 mL/min/1.73 sq m ESTIMATED GFR IS NOT ACCURATE CREATININE CLEARANCE IN PREDICTING GLOMERULAR FILTRATION RATE. ESTIMATED GFR IS NOT APPLICABLE FOR DIALYSIS PATIENTS. URIC [id number] 05:54:00* Test Item Value Reference Range Comments URIC ACID (BEAKER) (test jyre=163) 1.4 mg/dL 2.6-7.2 [id number] 05:53:00* Test Item Value Reference Range Comments MAGNESIUM (BEAKER) (test vtas=760) 2.0 mg/dL 1.6-2.6 [id number] 05:53:00* Test Item Value Reference Range Comments PHOSPHORUS (BEAKER) (test ueyy=998) 3.3 mg/dL 2.3-4.7 LACTATE DEHYDROGENASE (LDH)2018-04-30 05:53:00* Test Item Value Reference Range Comments LACTATE DEHYDROGENASE (BEAKER) (test jjbm=979) 596 U/L 125-220 HEPATIC FUNCTION [id number] 05:47:00* Test Item Value Reference Range Comments TOTAL PROTEIN (BEAKER) (test xrbl=341) 4.2 gm/dL 6.0-8.3 ALBUMIN (BEAKER) (test yobs=7725) 3.0 g/dL 3.5-5.0 BILIRUBIN TOTAL (BEAKER) (test awzg=185) 0.5 mg/dL 0.2-1.2 BILIRUBIN DIRECT (BEAKER) (test splb=945) 0.2 mg/dL 0.1-0.5 ALKALINE PHOSPHATASE (BEAKER) (test owud=966) 79 U/L 40-150 AST (SGOT) (BEAKER) (test hkgy=978) 28 U/L 5-34 ALT (SGPT) (BEAKER) (test vfgw=325) 56 U/L 6-55 [id number] 05:44:00* Test Item Value Reference Range Comments FIBRINOGEN LEVEL (BEAKER) (test ucpo=368) 143 mg/dl 225-434 CBC W/PLT COUNT & AUTO [id number] 11:20:00* Test Item Value Reference Range Comments WHITE BLOOD CELL COUNT (BEAKER) (test brqf=932) 4.9 K/ L 3.5-10.5 RED BLOOD CELL COUNT (BEAKER) (test putj=953) 3.04 M/ L 3.93-5.22 HEMOGLOBIN (BEAKER) (test eltu=136) 8.3 GM/DL 11.2-15.7 HEMATOCRIT (BEAKER) (test uwiy=363) 27.6 % 34.1-44.9 MEAN CORPUSCULAR VOLUME (BEAKER) (test syio=033) 90.8 fL 79.4-94.8 MEAN CORPUSCULAR HEMOGLOBIN (BEAKER) (test suud=506) 27.3 pg 25.6-32.2 MEAN CORPUSCULAR HEMOGLOBIN CONC (BEAKER) (test binb=718) 30.1 GM/DL 32.2-35.5 RED CELL DISTRIBUTION WIDTH (BEAKER) (test dvca=005) 20.0 % 11.7-14.4 PLATELET COUNT (BEAKER) (test ywln=085) 238 K/CU MM 150-450 MEAN PLATELET VOLUME (BEAKER) (test lspt=830) 12.5 fL 9.4-12.3 NUCLEATED RED BLOOD CELLS (BEAKER) (test pvml=253) 0 /100 WBC 0-0 (CELLAVISION MANUAL DIFF)2018-04-29 11:20:00* Test Item Value Reference Range Comments NEUTROPHILS - REL (CELLAVISION)(BEAKER) (test seju=5137) 100 % NEUTROPHILS - ABS (CELLAVISION)(BEAKER) (test xeqz=8230) 4.90 K/ul 1.56-6.13 TOTAL COUNTED (BEAKER) (test qxkc=0585) 100 MANUAL NRBC PER 100 CELLS (BEAKER) (test cxha=0348) 1 /100 WBC 0-0 WBC MORPHOLOGY (BEAKER) (test ieoc=554) Normal LARGE PLT(BEAKER) (test uwpt=2561) Present POLYCHROMATOPHILLIC RBCS(BEAKER) (test ofeg=865) 2+ moderate HYPOCHROMIA (BEAKER) (test tohu=683) 1+ few SCHISTOCYTES (BEAKER) (test trol=450) 1+ few OVALOCYTES (BEAKER) (test gnnj=162) 1+ few TEAR DROP CELLS (BEAKER) (test qmrl=671) 2+ moderate ARTIFACT (CELLAVISION)(BEAKER) (test efqd=9156) Present PLATELET CONCENTRATION (CELLAVISION)(BEAKER) (test gaak=0609) Adequate Received comment: User comments: Slide comments: URIC [id number] 07:29:00* Test Item Value Reference Range Comments URIC ACID (BEAKER) (test tcyg=291) 1.1 mg/dL 2.6-7.2 [id number] 07:28:00* Test Item Value Reference Range Comments MAGNESIUM (BEAKER) (test fofo=643) 2.1 mg/dL 1.6-2.6 [id number] 07:28:00* Test Item Value Reference Range Comments PHOSPHORUS (BEAKER) (test ytff=154) 3.5 mg/dL 2.3-4.7 BASIC METABOLIC [id number] 07:28:00* Test Item Value Reference Range Comments SODIUM (BEAKER) (test carp=041) 138 meq/L 136-145 POTASSIUM (BEAKER) (test xqbe=654) 4.5 meq/L 3.5-5.1 CHLORIDE (BEAKER) (test uigg=216) 110 meq/L 98-107 CO2 (BEAKER) (test xtlv=019) 22 meq/L 22-29 BLOOD UREA NITROGEN (BEAKER) (test jyew=864) 17 mg/dL 7-21 CREATININE (BEAKER) (test ldcj=089) 0.56 mg/dL 0.57-1.25 GLUCOSE RANDOM (BEAKER) (test oesf=081) 168 mg/dL 70-105 CALCIUM (BEAKER) (test gyjq=567) 8.2 mg/dL 8.4-10.2 EGFR (BEAKER) (test dqag=0293) 115 mL/min/1.73 sq m ESTIMATED GFR IS NOT ACCURATE CREATININE CLEARANCE IN PREDICTING GLOMERULAR FILTRATION RATE. ESTIMATED GFR IS NOT APPLICABLE FOR DIALYSIS PATIENTS. HEPATIC FUNCTION [id number] 07:28:00* Test Item Value Reference Range Comments TOTAL PROTEIN (BEAKER) (test sebv=665) 4.5 gm/dL 6.0-8.3 ALBUMIN (BEAKER) (test hjzs=8325) 3.2 g/dL 3.5-5.0 BILIRUBIN TOTAL (BEAKER) (test jbjt=466) 0.6 mg/dL 0.2-1.2 BILIRUBIN DIRECT (BEAKER) (test pixv=678) 0.3 mg/dL 0.1-0.5 ALKALINE PHOSPHATASE (BEAKER) (test niyx=101) 84 U/L 40-150 AST (SGOT) (BEAKER) (test tesw=370) 26 U/L 5-34 ALT (SGPT) (BEAKER) (test bavp=462) 60 U/L 6-55 LACTATE DEHYDROGENASE (LDH)2018-04-29 07:28:00* Test Item Value Reference Range Comments LACTATE DEHYDROGENASE (BEAKER) (test gtxc=014) 469 U/L 125-220 [id number] 06:59:00* Test Item Value Reference Range Comments FIBRINOGEN LEVEL (BEAKER) (test niwh=701) 137 mg/dl 225-434 PROTHROMBIN [id number] 06:48:00* Test Item Value Reference Range Comments PROTIME (BEAKER) (test hjmf=572) 15.7 seconds 11.7-14.7 INR (BEAKER) (test nzho=857) 1.3 <=5.9 RECOMMENDED COUMADIN/WARFARIN INR THERAPY RANGESSTANDARD DOSE: 2.0 - 3.0 Inclu victoriano: PROPHYLAXIS for venous thrombosis, systemic embolization; TREATMENT for arleen ous thrombosis and/or pulmonary embolus.HIGH RISK: Target INR is 2.5-3.5 for pat ients with mechanical heart valves.[id number] 06:48:00* Test Item Value Reference Range Comments PARTIAL THROMBOPLASTIN TIME (BEAKER) (test cwcw=467) 27.6 seconds 22.5-36.0 [id number] 20:35:00* Test Item Value Reference Range Comments FIBRINOGEN LEVEL (BEAKER) (test ywhy=798) 114 mg/dl 225-434 If questions for this order, please call [phone] Dr. Richey questions for thi s order, please call [phone] Dr. Richey questions for this order, please call [phone] Dr. [id number] 20:30:00* Test Item Value Reference Range Comments PARTIAL THROMBOPLASTIN TIME (BEAKER) (test hdye=903) 29.2 seconds 22.5-36.0 If questions for this order, please call [phone] Dr. Richey questions for thi s order, please call [phone] Dr. Richey questions for this order, please call [phone] LuPROTHROMBIN TIME/[id number] 20:29:00* Test Item Value Reference Range Comments PROTIME (BEAKER) (test dauz=019) 16.5 seconds 11.7-14.7 INR (BEAKER) (test iebg=675) 1.3 <=5.9 RECOMMENDED COUMADIN/WARFARIN INR THERAPY RANGESSTANDARD DOSE: 2.0 - 3.0 Inclu victoriano: PROPHYLAXIS for venous thrombosis, systemic embolization; TREATMENT for arleen ous thrombosis and/or pulmonary embolus.HIGH RISK: Target INR is 2.5-3.5 for pat ients with mechanical heart valves.If questions for this order, please call Dr. Richey questions for this order, please call [phone] Dr. Richey qu estions for this order, please call [phone] Dr. Law W/PLT COUNT & AUTO [id number] 14:04:00* Test Item Value Reference Range Comments WHITE BLOOD CELL COUNT (BEAKER) (test siru=670) 11.2 K/ L 3.5-10.5 RED BLOOD CELL COUNT (BEAKER) (test ntkp=290) 3.13 M/ L 3.93-5.22 HEMOGLOBIN (BEAKER) (test ztfa=392) 8.4 GM/DL 11.2-15.7 HEMATOCRIT (BEAKER) (test jmcx=110) 28.4 % 34.1-44.9 MEAN CORPUSCULAR VOLUME (BEAKER) (test xknt=142) 90.7 fL 79.4-94.8 MEAN CORPUSCULAR HEMOGLOBIN (BEAKER) (test demi=557) 26.8 pg 25.6-32.2 MEAN CORPUSCULAR HEMOGLOBIN CONC (BEAKER) (test mtoh=970) 29.6 GM/DL 32.2-35.5 RED CELL DISTRIBUTION WIDTH (BEAKER) (test vyne=998) 20.2 % 11.7-14.4 PLATELET COUNT (BEAKER) (test fxaw=621) 179 K/CU MM 150-450 MEAN PLATELET VOLUME (BEAKER) (test jbyn=025) 11.4 fL 9.4-12.3 NUCLEATED RED BLOOD CELLS (BEAKER) (test dsur=574) 0 /100 WBC 0-0 (MANUAL DIFFERENTIAL)2018-04-28 14:04:00* Test Item Value Reference Range Comments NEUTROPHILS - REL (DIFF) (BEAKER) (test jdir=5400) 98 % LYMPHOCYTES - REL (DIFF) (BEAKER) (test wdhs=3423) 2 % MONOCYTES - REL (DIFF) (BEAKER) (test mutc=0992) 0 % EOSINOPHILS - REL (DIFF) (BEAKER) (test bsgs=3150) 0 % BASOPHILS - REL (DIFF) (BEAKER) (test xjoz=6981) 0 % NEUTROPHILS - ABS (DIFF) (BEAKER) (test jhxb=2245) 10.98 K/ L 1.80-8.00 LYMPHOCYTES - ABS (DIFF) (BEAKER) (test zejo=9873) 0.22 K/ L 1.48-4.50 MONOCYTES - ABS (DIFF) (BEAKER) (test qysv=4672) 0.00 K/ L 0.00-1.30 EOSINOPHILS - ABS (DIFF) (BEAKER) (test tvja=0068) 0.00 K/ L 0.00-0.50 BASOPHILS - ABS (DIFF) (BEAKER) (test smcn=0225) 0.00 K/ L 0.00-0.20 TOTAL COUNTED (BEAKER) (test slxo=4758) 100 PLT MORPHOLOGY (BEAKER) (test xpsy=422) Normal SMUDGE CELLS (BEAKER) (test jkok=1556) Present ANISOCYTOSIS (BEAKER) (test jnbw=456) 2+ moderate POIKILOCYTES (BEAKER) (test joqv=278) 1+ few URIC [id number] 08:11:00* Test Item Value Reference Range Comments URIC ACID (BEAKER) (test whub=250) 1.1 mg/dL 2.6-7.2 Specimen slightly hemolyzed LACTATE DEHYDROGENASE (LDH)2018-04-28 07:55:00* Test Item Value Reference Range Comments LACTATE DEHYDROGENASE (BEAKER) (test wgvn=238) 575 U/L 125-220 Specimen slightly hemolyzed [id number] 07:52:00* Test Item Value Reference Range Comments MAGNESIUM (BEAKER) (test zpnp=929) 2.1 mg/dL 1.6-2.6 Specimen slightly hemolyzed [id number] 07:52:00* Test Item Value Reference Range Comments PHOSPHORUS (BEAKER) (test jywu=851) 4.1 mg/dL 2.3-4.7 Specimen slightly hemolyzed BASIC METABOLIC [id number] 07:52:00* Test Item Value Reference Range Comments SODIUM (BEAKER) (test vqyx=589) 135 meq/L 136-145 POTASSIUM (BEAKER) (test kmko=989) 4.6 meq/L 3.5-5.1 Specimen slightly hemolyzed CHLORIDE (BEAKER) (test dqmj=694) 108 meq/L 98-107 CO2 (BEAKER) (test wecn=097) 20 meq/L 22-29 BLOOD UREA NITROGEN (BEAKER) (test plbk=839) 18 mg/dL 7-21 CREATININE (BEAKER) (test kmer=553) 0.63 mg/dL 0.57-1.25 Specimen slightly hemolyzed GLUCOSE RANDOM (BEAKER) (test roik=507) 212 mg/dL 70-105 CALCIUM (BEAKER) (test jnlb=186) 8.0 mg/dL 8.4-10.2 EGFR (BEAKER) (test hdep=9243) 100 mL/min/1.73 sq m ESTIMATED GFR IS NOT ACCURATE CREATININE CLEARANCE IN PREDICTING GLOMERULAR FILTRATION RATE. ESTIMATED GFR IS NOT APPLICABLE FOR DIALYSIS PATIENTS. HEPATIC FUNCTION [id number] 07:52:00* Test Item Value Reference Range Comments TOTAL PROTEIN (BEAKER) (test epim=967) 4.6 gm/dL 6.0-8.3 Specimen slightly hemolyzed ALBUMIN (BEAKER) (test hfmn=1473) 3.2 g/dL 3.5-5.0 Specimen slightly hemolyzed BILIRUBIN TOTAL (BEAKER) (test fizm=126) 0.5 mg/dL 0.2-1.2 Specimen slightly hemolyzed BILIRUBIN DIRECT (BEAKER) (test twhe=812) 0.2 mg/dL 0.1-0.5 Specimen slightly hemolyzed ALKALINE PHOSPHATASE (BEAKER) (test rkul=637) 87 U/L 40-150 AST (SGOT) (BEAKER) (test uuis=580) 28 U/L 5-34 Specimen slightly hemolyzed ALT (SGPT) (BEAKER) (test jdqk=307) 53 U/L 6-55 Specimen slightly hemolyzed B-TYPE NATRIURETIC FACTOR (BNP)2018-04-28 07:40:00* Test Item Value Reference Range Comments B-TYPE NATRIURETIC PEPTIDE (BEAKER) (test qfqy=025) 68 pg/mL 0-100 [id number] 07:29:00* Test Item Value Reference Range Comments FIBRINOGEN LEVEL (BEAKER) (test lxed=521) 72 mg/dl 225-434 CALCIUM, [id number] 06:50:00* Test Item Value Reference Range Comments CALCIUM IONIZED (BEAKER) (test aevv=240) 0.98 mmol/L 1.12-1.27 PH, BLOOD (BEAKER) (test zlla=1180) 7.51 RAD, CHEST, 1 VIEW, NON [id number] 16:41:00Reason for exam:->SOBShould this be performed at the bedside?->YesIs the patient ?->NoFINAL REPORT TECHNIQUE: Frontal chest radiograph dated 04/27/2018. CLINICAL HISTORY: SOB COMPARISON STUDY: Chest radiograph dated 04/24/2018 IMPRESSION:Left sided PICC is unchanged in position. There is linear atelectasis in the left lung base. No pleural effusion or pneumothorax. Cardiomediastinal silhouette is normal in size. No pulmonary edema. No fracture. Signed: Lillian Covarrubias MDReport Verified Date/Time: 04/27/2018 16:41:26 Reading Location: [facility] Radiology Reading Room C METABOLIC [id number] 13:31:00* Test Item Value Reference Range Comments SODIUM (BEAKER) (test ycme=631) 137 meq/L 136-145 POTASSIUM (BEAKER) (test gbwr=269) 4.0 meq/L 3.5-5.1 CHLORIDE (BEAKER) (test pizb=823) 108 meq/L 98-107 CO2 (BEAKER) (test yctd=455) 21 meq/L 22-29 BLOOD UREA NITROGEN (BEAKER) (test fptp=761) 24 mg/dL 7-21 CREATININE (BEAKER) (test txpo=230) 0.61 mg/dL 0.57-1.25 GLUCOSE RANDOM (BEAKER) (test exgn=338) 148 mg/dL 70-105 CALCIUM (BEAKER) (test pisd=943) 8.3 mg/dL 8.4-10.2 EGFR (BEAKER) (test yktt=4778) 104 mL/min/1.73 sq m ESTIMATED GFR IS NOT ACCURATE CREATININE CLEARANCE IN PREDICTING GLOMERULAR FILTRATION RATE. ESTIMATED GFR IS NOT APPLICABLE FOR DIALYSIS PATIENTS. CBC W/PLT COUNT & AUTO [id number] 13:11:00* Test Item Value Reference Range Comments WHITE BLOOD CELL COUNT (BEAKER) (test mjxz=951) 20.4 K/ L 3.5-10.5 RED BLOOD CELL COUNT (BEAKER) (test gkxy=252) 3.49 M/ L 3.93-5.22 HEMOGLOBIN (BEAKER) (test txum=344) 9.4 GM/DL 11.2-15.7 HEMATOCRIT (BEAKER) (test rdzj=191) 31.3 % 34.1-44.9 MEAN CORPUSCULAR VOLUME (BEAKER) (test clla=650) 89.7 fL 79.4-94.8 MEAN CORPUSCULAR HEMOGLOBIN (BEAKER) (test ylud=204) 26.9 pg 25.6-32.2 MEAN CORPUSCULAR HEMOGLOBIN CONC (BEAKER) (test rspq=440) 30.0 GM/DL 32.2-35.5 RED CELL DISTRIBUTION WIDTH (BEAKER) (test bxrr=117) 20.8 % 11.7-14.4 PLATELET COUNT (BEAKER) (test nqsn=765) 448 K/CU MM 150-450 MEAN PLATELET VOLUME (BEAKER) (test fqfo=241) 11.5 fL 9.4-12.3 NUCLEATED RED BLOOD CELLS (BEAKER) (test xvxq=876) 0 /100 WBC 0-0 (CELLAVISION MANUAL DIFF)2018-04-27 13:11:00* Test Item Value Reference Range Comments NEUTROPHILS - REL (CELLAVISION)(BEAKER) (test tcjf=9511) 89 % BANDS - REL (CELLAVISION)(BEAKER) (test kvww=6540) 10 % 0-10 ATYPICAL LYMPHOCYTES - REL (CELLAVISION)(BEAKER) (test ctmq=3910) 1 % 0-0 NEUTROPHILS - ABS (CELLAVISION)(BEAKER) (test deoe=2829) 18.16 K/ul 1.56-6.13 BANDS - ABS (CELLAVISION)(BEAKER) (test bkot=7652) 2.04 K/uL 0.00-0.80 ATYPICAL LYMPHOCYTES - ABS (CELLAVISION)(BEAKER) (test ruhp=0471) 0.20 K/uL 0.00-0.00 TOTAL COUNTED (BEAKER) (test jzsd=6650) 100 WBC MORPHOLOGY (BEAKER) (test odgz=519) Normal PLT MORPHOLOGY (BEAKER) (test jcvg=065) Normal POLYCHROMATOPHILLIC RBCS(BEAKER) (test asot=248) 1+ few ANISOCYTOSIS (BEAKER) (test tuab=137) 1+ few POIKILOCYTES (BEAKER) (test kklu=546) 1+ few ARTIFACT (CELLAVISION)(BEAKER) (test npjh=0096) Present PLATELET CONCENTRATION (CELLAVISION)(BEAKER) (test vvgw=9766) Adequate Received comment: User comments: Slide comments: URIC [id number] 06:56:00* Test Item Value Reference Range Comments URIC ACID (BEAKER) (test osrf=999) 1.2 mg/dL 2.6-7.2 Specimen slightly hemolyzed LACTATE DEHYDROGENASE (LDH)2018-04-27 06:56:00* Test Item Value Reference Range Comments LACTATE DEHYDROGENASE (BEAKER) (test epai=139) 1953 U/L 125-220 Specimen slightly hemolyzed [id number] 06:43:00* Test Item Value Reference Range Comments MAGNESIUM (BEAKER) (test fner=280) 2.4 mg/dL 1.6-2.6 Specimen slightly hemolyzed [id number] 06:43:00* Test Item Value Reference Range Comments PHOSPHORUS (BEAKER) (test edho=882) 4.8 mg/dL 2.3-4.7 Specimen slightly hemolyzed HEPATIC FUNCTION [id number] 06:43:00* Test Item Value Reference Range Comments TOTAL PROTEIN (BEAKER) (test fdfy=005) 5.1 gm/dL 6.0-8.3 Specimen slightly hemolyzed ALBUMIN (BEAKER) (test uuzg=5433) 3.4 g/dL 3.5-5.0 Specimen slightly hemolyzed BILIRUBIN TOTAL (BEAKER) (test ihph=222) 0.6 mg/dL 0.2-1.2 Specimen slightly hemolyzed BILIRUBIN DIRECT (BEAKER) (test vbde=211) 0.2 mg/dL 0.1-0.5 Specimen slightly hemolyzed ALKALINE PHOSPHATASE (BEAKER) (test yegq=453) 110 U/L 40-150 AST (SGOT) (BEAKER) (test zkhe=924) 44 U/L 5-34 Specimen slightly hemolyzed ALT (SGPT) (BEAKER) (test ykew=548) 48 U/L 6-55 Specimen slightly hemolyzed [id number] 06:39:00* Test Item Value Reference Range Comments FIBRINOGEN LEVEL (BEAKER) (test viao=622) 126 mg/dl 225-434 CALCIUM, [id number] 06:39:00* Test Item Value Reference Range Comments CALCIUM IONIZED (BEAKER) (test bsud=274) 1.07 mmol/L 1.12-1.27 PH, BLOOD (BEAKER) (test rmei=1590) 7.42 CBC W/PLT COUNT & AUTO [id number] 07:53:00* Test Item Value Reference Range Comments WHITE BLOOD CELL COUNT (BEAKER) (test kfws=415) 52.3 K/ L 3.5-10.5 RED BLOOD CELL COUNT (BEAKER) (test fkqc=913) 3.41 M/ L 3.93-5.22 HEMOGLOBIN (BEAKER) (test jxmu=095) 9.3 GM/DL 11.2-15.7 HEMATOCRIT (BEAKER) (test ozoa=581) 31.4 % 34.1-44.9 MEAN CORPUSCULAR VOLUME (BEAKER) (test qskr=163) 92.1 fL 79.4-94.8 MEAN CORPUSCULAR HEMOGLOBIN (BEAKER) (test zyed=417) 27.3 pg 25.6-32.2 MEAN CORPUSCULAR HEMOGLOBIN CONC (BEAKER) (test hmfe=920) 29.6 GM/DL 32.2-35.5 RED CELL DISTRIBUTION WIDTH (BEAKER) (test mzva=301) 21.0 % 11.7-14.4 PLATELET COUNT (BEAKER) (test rcwu=206) 529 K/CU MM 150-450 MEAN PLATELET VOLUME (BEAKER) (test ralv=722) 11.0 fL 9.4-12.3 NUCLEATED RED BLOOD CELLS (BEAKER) (test rlis=364) 0 /100 WBC 0-0 (CELLAVISION MANUAL DIFF)2018-04-26 07:53:00* Test Item Value Reference Range Comments NEUTROPHILS - REL (CELLAVISION)(BEAKER) (test uhsy=0712) 95 % BANDS - REL (CELLAVISION)(BEAKER) (test lywk=9488) 5 % 0-10 NEUTROPHILS - ABS (CELLAVISION)(BEAKER) (test qftu=7288) 49.69 K/ul 1.56-6.13 BANDS - ABS (CELLAVISION)(BEAKER) (test tzfr=6320) 2.62 K/uL 0.00-0.80 TOTAL COUNTED (BEAKER) (test vfay=4912) 100 WBC MORPHOLOGY (BEAKER) (test thsh=177) Normal PLT MORPHOLOGY (BEAKER) (test xytb=922) Normal ANISOCYTOSIS (BEAKER) (test lbnf=646) 1+ few MICROCYTES (BEAKER) (test qygp=602) 1+ few POIKILOCYTES (BEAKER) (test kxwa=398) 2+ moderate SCHISTOCYTES (BEAKER) (test npkj=169) 1+ few OVALOCYTES (BEAKER) (test wsdj=462) 1+ few ARTIFACT (CELLAVISION)(BEAKER) (test awql=9354) Present PLATELET CONCENTRATION (CELLAVISION)(BEAKER) (test uywt=6468) Increased Received comment: User comments: Slide comments: URIC [id number] 06:26:00* Test Item Value Reference Range Comments URIC ACID (BEAKER) (test aqno=988) 1.4 mg/dL 2.6-7.2 [id number] 06:19:00* Test Item Value Reference Range Comments MAGNESIUM (BEAKER) (test bzsb=721) 2.5 mg/dL 1.6-2.6 [id number] 06:19:00* Test Item Value Reference Range Comments PHOSPHORUS (BEAKER) (test jgva=713) 4.5 mg/dL 2.3-4.7 BASIC METABOLIC [id number] 06:19:00* Test Item Value Reference Range Comments SODIUM (BEAKER) (test qhqx=553) 138 meq/L 136-145 POTASSIUM (BEAKER) (test eool=985) 4.7 meq/L 3.5-5.1 CHLORIDE (BEAKER) (test nmph=474) 111 meq/L 98-107 CO2 (BEAKER) (test kvwb=737) 21 meq/L 22-29 BLOOD UREA NITROGEN (BEAKER) (test zasa=546) 22 mg/dL 7-21 CREATININE (BEAKER) (test oiuc=258) 0.63 mg/dL 0.57-1.25 GLUCOSE RANDOM (BEAKER) (test cypp=659) 172 mg/dL 70-105 CALCIUM (BEAKER) (test ekql=901) 8.7 mg/dL 8.4-10.2 EGFR (BEAKER) (test tyuv=1902) 100 mL/min/1.73 sq m ESTIMATED GFR IS NOT ACCURATE CREATININE CLEARANCE IN PREDICTING GLOMERULAR FILTRATION RATE. ESTIMATED GFR IS NOT APPLICABLE FOR DIALYSIS PATIENTS. HEPATIC FUNCTION [id number] 06:19:00* Test Item Value Reference Range Comments TOTAL PROTEIN (BEAKER) (test wmjw=832) 5.1 gm/dL 6.0-8.3 ALBUMIN (BEAKER) (test wwni=6872) 3.5 g/dL 3.5-5.0 BILIRUBIN TOTAL (BEAKER) (test zclh=514) 0.6 mg/dL 0.2-1.2 BILIRUBIN DIRECT (BEAKER) (test lqum=968) 0.3 mg/dL 0.1-0.5 ALKALINE PHOSPHATASE (BEAKER) (test fjya=388) 105 U/L 40-150 AST (SGOT) (BEAKER) (test itqy=575) 27 U/L 5-34 ALT (SGPT) (BEAKER) (test qvvo=525) 42 U/L 6-55 LACTATE DEHYDROGENASE (LDH)2018-04-26 06:19:00* Test Item Value Reference Range Comments LACTATE DEHYDROGENASE (BEAKER) (test agfn=718) 594 U/L 125-220 [id number] 05:51:00* Test Item Value Reference Range Comments FIBRINOGEN LEVEL (BEAKER) (test leef=388) 150 mg/dl 225-434 BLOOD [id number] 00:00:00* Test Item Value Reference Range Comments CULTURE (BEAKER) (test wsac=4416) No growth in 5 days BLOOD [id number] 00:00:00* Test Item Value Reference Range Comments CULTURE (BEAKER) (test tcwv=2466) No growth in 5 days CBC W/PLT COUNT & AUTO [id number] 11:55:00* Test Item Value Reference Range Comments WHITE BLOOD CELL COUNT (BEAKER) (test drxg=364) 85.1 K/ L 3.5-10.5 RED BLOOD CELL COUNT (BEAKER) (test frxs=707) 2.99 M/ L 3.93-5.22 HEMOGLOBIN (BEAKER) (test mkmr=262) 8.2 GM/DL 11.2-15.7 HEMATOCRIT (BEAKER) (test pctw=805) 27.3 % 34.1-44.9 MEAN CORPUSCULAR VOLUME (BEAKER) (test jmie=899) 91.3 fL 79.4-94.8 DISCORDANT MCV RESULT COMPARED TO PREVIOUS RESULT; CLINICAL CORRELATION REQUIRED. MEAN CORPUSCULAR HEMOGLOBIN (BEAKER) (test ndyq=903) 27.4 pg 25.6-32.2 MEAN CORPUSCULAR HEMOGLOBIN CONC (BEAKER) (test vcll=380) 30.0 GM/DL 32.2-35.5 RED CELL DISTRIBUTION WIDTH (BEAKER) (test hdjy=563) 21.3 % 11.7-14.4 PLATELET COUNT (BEAKER) (test gczp=775) 553 K/CU MM 150-450 MEAN PLATELET VOLUME (BEAKER) (test epah=774) 11.3 fL 9.4-12.3 NUCLEATED RED BLOOD CELLS (BEAKER) (test mwpp=795) 0 /100 WBC 0-0 (CELLAVISION MANUAL DIFF)2018-04-25 11:55:00* Test Item Value Reference Range Comments NEUTROPHILS - REL (CELLAVISION)(BEAKER) (test sewv=0336) 88 % BANDS - REL (CELLAVISION)(BEAKER) (test utpq=3065) 12 % 0-10 NEUTROPHILS - ABS (CELLAVISION)(BEAKER) (test btyh=3220) 74.89 K/ul 1.56-6.13 BANDS - ABS (CELLAVISION)(BEAKER) (test ovuf=4325) 10.21 K/uL 0.00-0.80 TOTAL COUNTED (BEAKER) (test moua=0165) 100 WBC MORPHOLOGY (BEAKER) (test yjyt=623) Normal LARGE PLT(BEAKER) (test vrkk=9100) Present POLYCHROMATOPHILLIC RBCS(BEAKER) (test jigb=741) 1+ few HYPOCHROMIA (BEAKER) (test cxsk=052) 1+ few TEAR DROP CELLS (BEAKER) (test omue=891) 1+ few ARTIFACT (CELLAVISION)(BEAKER) (test oqrh=4623) Present PLATELET CONCENTRATION (CELLAVISION)(BEAKER) (test slgw=2045) Increased Received comment: User comments: Slide comments: URIC [id number] 07:14:00* Test Item Value Reference Range Comments URIC ACID (BEAKER) (test yryv=972) 1.4 mg/dL 2.6-7.2 [id number] 07:10:00* Test Item Value Reference Range Comments MAGNESIUM (BEAKER) (test zrxf=841) 2.4 mg/dL 1.6-2.6 [id number] 07:10:00* Test Item Value Reference Range Comments PHOSPHORUS (BEAKER) (test frwj=777) 4.7 mg/dL 2.3-4.7 BASIC METABOLIC [id number] 07:10:00* Test Item Value Reference Range Comments SODIUM (BEAKER) (test sdpe=524) 140 meq/L 136-145 POTASSIUM (BEAKER) (test lybl=802) 4.6 meq/L 3.5-5.1 CHLORIDE (BEAKER) (test vxym=855) 112 meq/L 98-107 CO2 (BEAKER) (test cecc=331) 20 meq/L 22-29 BLOOD UREA NITROGEN (BEAKER) (test tzgi=484) 25 mg/dL 7-21 CREATININE (BEAKER) (test adsp=828) 0.64 mg/dL 0.57-1.25 GLUCOSE RANDOM (BEAKER) (test wxiv=597) 168 mg/dL 70-105 CALCIUM (BEAKER) (test lqvc=067) 8.6 mg/dL 8.4-10.2 EGFR (BEAKER) (test tczf=6700) 98 mL/min/1.73 sq m ESTIMATED GFR IS NOT ACCURATE CREATININE CLEARANCE IN PREDICTING GLOMERULAR FILTRATION RATE. ESTIMATED GFR IS NOT APPLICABLE FOR DIALYSIS PATIENTS. HEPATIC FUNCTION [id number] 07:10:00* Test Item Value Reference Range Comments TOTAL PROTEIN (BEAKER) (test ubhq=255) 4.9 gm/dL 6.0-8.3 ALBUMIN (BEAKER) (test bnsp=2698) 3.4 g/dL 3.5-5.0 BILIRUBIN TOTAL (BEAKER) (test xxqz=890) 0.6 mg/dL 0.2-1.2 BILIRUBIN DIRECT (BEAKER) (test jikg=247) 0.3 mg/dL 0.1-0.5 ALKALINE PHOSPHATASE (BEAKER) (test yaus=232) 107 U/L 40-150 AST (SGOT) (BEAKER) (test rian=768) 26 U/L 5-34 ALT (SGPT) (BEAKER) (test lvle=015) 32 U/L 6-55 LACTATE DEHYDROGENASE (LDH)2018-04-25 07:10:00* Test Item Value Reference Range Comments LACTATE DEHYDROGENASE (BEAKER) (test kqgp=573) 796 U/L 125-220 [id number] 06:40:00* Test Item Value Reference Range Comments FIBRINOGEN LEVEL (BEAKER) (test wssk=804) 165 mg/dl 225-434 RAD, CHEST, 1 VIEW, NON [id number] 13:43:00Reason for exam:->cough, basilar cracklesShould this be performed at the bedside?->YesFINAL REPORT AP chest HISTORY: Cough, basilar crackles COMPARISON: 04/21/2018 IMPRESSION:Left arm PICC present. Stable cardiac silhouette. Minimal left basilar atelectasis. Right lung clear. No pneumothorax. Signed: Denise Snider MDReport Verified Date/Time: 04/24/2018 13:43:28 Reading Location: [address] Ortho Consult Reading Room W/PLT COUNT & AUTO [id number] 08:21:00* Test Item Value Reference Range Comments WHITE BLOOD CELL COUNT (BEAKER) (test akph=671) 128.4 K/ L 3.5-10.5 RED BLOOD CELL COUNT (BEAKER) (test cgbx=702) 2.99 M/ L 3.93-5.22 HEMOGLOBIN (BEAKER) (test wnsr=758) 8.5 GM/DL 11.2-15.7 HEMATOCRIT (BEAKER) (test lufj=552) 28.5 % 34.1-44.9 MEAN CORPUSCULAR VOLUME (BEAKER) (test tagj=383) 95.3 fL 79.4-94.8 MEAN CORPUSCULAR HEMOGLOBIN (BEAKER) (test dfym=557) 28.4 pg 25.6-32.2 MEAN CORPUSCULAR HEMOGLOBIN CONC (BEAKER) (test wvmg=360) 29.8 GM/DL 32.2-35.5 RED CELL DISTRIBUTION WIDTH (BEAKER) (test gjzt=153) 21.9 % 11.7-14.4 PLATELET COUNT (BEAKER) (test smzz=439) 678 K/CU MM 150-450 MEAN PLATELET VOLUME (BEAKER) (test qlob=763) 11.6 fL 9.4-12.3 NUCLEATED RED BLOOD CELLS (BEAKER) (test xniz=487) 0 /100 WBC 0-0 (CELLAVISION MANUAL DIFF)2018-04-24 08:21:00* Test Item Value Reference Range Comments NEUTROPHILS - REL (CELLAVISION)(BEAKER) (test jvnh=6112) 60 % LYMPHOCYTES - REL (CELLAVISION)(BEAKER) (test oniq=7069) 2 % MONOCYTES - REL (CELLAVISION)(BEAKER) (test szkk=8625) 4 % EOSINOPHILS - REL (CELLAVISION)(BEAKER) (test vche=4321) 1 % BASOPHILS - REL (CELLAVISION)(BEAKER) (test ywft=5142) 1 % METAMYELOCYTES - REL (CELLAVISION)(BEAKER) (test dept=4609) 3 % 0-0 MYELOCYTES - REL (CELLAVISION)(BEAKER) (test aycm=1830) 3 % 0-0 BANDS - REL (CELLAVISION)(BEAKER) (test inox=0676) 26 % 0-10 NEUTROPHILS - ABS (CELLAVISION)(BEAKER) (test wlci=7978) 77.04 K/ul 1.56-6.13 LYMPHOCYTES - ABS (CELLAVISION)(BEAKER) (test xduc=0133) 2.57 K/ul 1.18-3.74 MONOCYTES - ABS (CELLAVISION)(BEAKER) (test cqho=7060) 5.14 K/uL 0.24-0.36 EOSINOPHILS - ABS (CELLAVISION)(BEAKER) (test vsbh=4277) 1.28 K/uL 0.04-0.36 BASOPHILS - ABS (CELLAVISION)(BEAKER) (test mjei=3832) 1.28 K/uL 0.01-0.08 METAMYELOCYTES - ABS (CELLAVISION)(BEAKER) (test fnzt=6991) 3.85 K/uL 0.00-0.00 MYELOCYTES-ABS (CELLAVISION)(BEAKER) (test syas=7723) 3.85 K/uL 0.00-0.00 BANDS - ABS (CELLAVISION)(BEAKER) (test wlib=9018) 33.38 K/uL 0.00-0.80 TOTAL COUNTED (BEAKER) (test svsc=6068) 100 WBC MORPHOLOGY (BEAKER) (test mspm=734) Normal PLT MORPHOLOGY (BEAKER) (test lzyd=023) Normal ANISOCYTOSIS (BEAKER) (test thtm=474) 2+ moderate MICROCYTES (BEAKER) (test kdew=064) 2+ moderate POIKILOCYTES (BEAKER) (test dwtv=636) 1+ few ARTIFACT (CELLAVISION)(BEAKER) (test ohbb=5086) Present PLATELET CONCENTRATION (CELLAVISION)(BEAKER) (test wsda=8692) Increased Received comment: User comments: Slide comments: URIC [id number] 07:54:00* Test Item Value Reference Range Comments URIC ACID (BEAKER) (test xirw=122) 1.3 mg/dL 2.6-7.2 [id number] 07:46:00* Test Item Value Reference Range Comments MAGNESIUM (BEAKER) (test rmtc=839) 2.3 mg/dL 1.6-2.6 [id number] 07:46:00* Test Item Value Reference Range Comments PHOSPHORUS (BEAKER) (test ahmd=246) 4.0 mg/dL 2.3-4.7 BASIC METABOLIC [id number] 07:46:00* Test Item Value Reference Range Comments SODIUM (BEAKER) (test ugcq=568) 138 meq/L 136-145 POTASSIUM (BEAKER) (test obkl=448) 4.7 meq/L 3.5-5.1 CHLORIDE (BEAKER) (test yijq=406) 111 meq/L 98-107 CO2 (BEAKER) (test werr=991) 20 meq/L 22-29 BLOOD UREA NITROGEN (BEAKER) (test vdta=272) 19 mg/dL 7-21 CREATININE (BEAKER) (test ymbp=561) 0.72 mg/dL 0.57-1.25 GLUCOSE RANDOM (BEAKER) (test bvtk=240) 156 mg/dL 70-105 CALCIUM (BEAKER) (test qfkb=209) 8.4 mg/dL 8.4-10.2 EGFR (RONAKER) (test qmlf=6291) 86 mL/min/1.73 sq m ESTIMATED GFR IS NOT ACCURATE CREATININE CLEARANCE IN PREDICTING GLOMERULAR FILTRATION RATE. ESTIMATED GFR IS NOT APPLICABLE FOR DIALYSIS PATIENTS. HEPATIC FUNCTION [id number] 07:46:00* Test Item Value Reference Range Comments TOTAL PROTEIN (BEAKER) (test khfy=579) 5.1 gm/dL 6.0-8.3 ALBUMIN (BEAKER) (test ctsj=1759) 3.4 g/dL 3.5-5.0 BILIRUBIN TOTAL (BEAKER) (test otnp=041) 0.4 mg/dL 0.2-1.2 BILIRUBIN DIRECT (BEAKER) (test fnxm=422) 0.2 mg/dL 0.1-0.5 ALKALINE PHOSPHATASE (BEAKER) (test cxvy=264) 117 U/L 40-150 AST (SGOT) (BEAKER) (test oeth=325) 27 U/L 5-34 ALT (SGPT) (BEAKER) (test bnex=989) 27 U/L 6-55 LACTATE DEHYDROGENASE (LDH)2018-04-24 07:46:00* Test Item Value Reference Range Comments LACTATE DEHYDROGENASE (BEAKER) (test nlmq=822) 1100 U/L 125-220 [id number] 07:03:00* Test Item Value Reference Range Comments FIBRINOGEN LEVEL (RONAKER) (test qlfj=447) 177 mg/dl 225-434 HEPATITIS C PCR, [id number] 06:52:00* Test Item Value Reference Range Comments HCV NUMERIC RESULT (DARIO) (test sogn=5512) [id number] IU/mL <15 This test uses a Real-Time Polymerase Chain Reaction (RT-PCR) methodology and wa s performed using ASYA Ampliprep/ASYA TaqMan HCV test kit version 2.0 ([employer]).Reportable range for this assay is 15 - 100,000,000 IU per mL (1.18 - 8.00 Log IU/mL).CBC W/PLT COUNT & AUTO [id number] 13:27:00* Test Item Value Reference Range Comments WHITE BLOOD CELL COUNT (RONAKER) (test dsnx=809) 182.4 K/ L 3.5-10.5 RED BLOOD CELL COUNT (BEAKER) (test aoql=268) 2.99 M/ L 3.93-5.22 HEMOGLOBIN (BEAKER) (test jdmx=949) 8.5 GM/DL 11.2-15.7 HEMATOCRIT (BEAKER) (test hnax=853) 28.2 % 34.1-44.9 MEAN CORPUSCULAR VOLUME (BEAKER) (test fcja=745) 94.3 fL 79.4-94.8 MEAN CORPUSCULAR HEMOGLOBIN (BEAKER) (test lqxm=493) 28.4 pg 25.6-32.2 MEAN CORPUSCULAR HEMOGLOBIN CONC (BEAKER) (test kivo=192) 30.1 GM/DL 32.2-35.5 RED CELL DISTRIBUTION WIDTH (BEAKER) (test nixa=299) 22.1 % 11.7-14.4 PLATELET COUNT (BEAKER) (test eyvp=652) 765 K/CU MM 150-450 MEAN PLATELET VOLUME (BEAKER) (test mqgk=515) 11.0 fL 9.4-12.3 NUCLEATED RED BLOOD CELLS (BEAKER) (test jqjq=435) 0 /100 WBC 0-0 (MANUAL DIFFERENTIAL)2018-04-23 13:27:00* Test Item Value Reference Range Comments NEUTROPHILS - REL (DIFF) (BEAKER) (test yaux=2100) 40 % LYMPHOCYTES - REL (DIFF) (BEAKER) (test gecy=4469) 1 % MONOCYTES - REL (DIFF) (BEAKER) (test wkui=2729) 1 % EOSINOPHILS - REL (DIFF) (BEAKER) (test akaz=4922) 6 % BASOPHILS - REL (DIFF) (BEAKER) (test hnbk=4529) 3 % METAMYELOCYTES-REL (DIFF) (BEAKER) (test dpky=339) 9 % 0-0 MYELOCYTES-REL (DIFF) (BEAKER) (test fvza=4916) 9 % 0-0 PROMYELOCYTES-REL (DIFF) (BEAKER) (test jmbb=140) 3 % 0-0 BANDS - REL (DIFF) (BEAKER) (test miwf=3122) 24 % 0-10 BLASTS - REL (DIFF) (BEAKER) (test qdtm=2307) 4 % 0-0 NEUTROPHILS - ABS (DIFF) (BEAKER) (test geye=5955) 72.96 K/ L 1.80-8.00 LYMPHOCYTES - ABS (DIFF) (BEAKER) (test idfn=2679) 1.82 K/ L 1.48-4.50 MONOCYTES - ABS (DIFF) (BEAKER) (test smhx=2708) 1.82 K/ L 0.00-1.30 EOSINOPHILS - ABS (DIFF) (BEAKER) (test nlkw=9428) 10.94 K/ L 0.00-0.50 BASOPHILS - ABS (DIFF) (BEAKER) (test edtr=8682) 5.47 K/ L 0.00-0.20 METAMYELOCTYES - ABS (DIFF) (BEAKER) (test igvj=057) 16.42 K/ L 0.00-0.00 PROMYELOCYTES - ABS (DIFF) (BEAKER) (test euen=439) 5.47 K/ L 0.00-0.00 BANDS-ABS (DIFF) (BEAKER) (test ggmw=8336) 43.8 K/ L 0.0-0.8 BLASTS - ABS (DIFF) (BEAKER) (test rpvs=0360) 7.30 K/ L 0.00-0.00 MYELOCYTES-ABS (DIFF) (BEAKER) (test nfkp=3801) 16.42 K/ L 0.00-0.00 TOTAL COUNTED (BEAKER) (test ytrr=7000) 100 BANDS + SEGMENTED NEUTROPHILS (BEAKER) (test trfb=2156) 116.74 WBC MORPHOLOGY (BEAKER) (test ukgg=707) Normal LARGE PLT(BEAKER) (test dwnm=3852) Present GIANT PLATELETS (BEAKER) (test sngl=274) Present ANISOCYTOSIS (BEAKER) (test iyws=077) 2+ moderate POLYCHROMATOPHILLIC RBCS(BEAKER) (test iupg=474) 2+ moderate TEAR DROP CELLS (BEAKER) (test qyaz=372) 2+ moderate URINE [id number] 10:20:00* Test Item Value Reference Range Comments CULTURE (BEAKER) (test vrjq=4958) ENTEROBACTER AEROGENES 10-19,000 col/mL Enterobacter aerogenes Amikacin (test code=1) Aztreonam (test code=32) Cefepime (test code=51) Cefoxitin (test code=68) Ceftazidime (test code=27) Ceftriaxone (test code=52) Ertapenem (test code=38) Gentamicin (test code=18) Levofloxacin (test code=22) Meropenem (test code=34) Nitrofurantoin (test code=23) Piperacillin + Tazobactam (test code=29) Tetracycline (test code=2) Tobramycin (test code=25) Trimethoprim + Sulfamethoxazole (test code=47) 10-19,000 col/mL skin floraPERIPHERAL BLOOD SMEAR - HOLD [id number] 07:27:00 * Test Item Value Reference Range Comments PERIPHERAL SMEAR SAVE (BEAKER) (test ewpm=4126) saved HEPATIC FUNCTION [id number] 06:59:00* Test Item Value Reference Range Comments TOTAL PROTEIN (BEAKER) (test stan=617) 5.0 gm/dL 6.0-8.3 ALBUMIN (BEAKER) (test ihol=4458) 3.5 g/dL 3.5-5.0 BILIRUBIN TOTAL (BEAKER) (test pzrb=762) 0.5 mg/dL 0.2-1.2 BILIRUBIN DIRECT (BEAKER) (test yzvl=581) 0.3 mg/dL 0.1-0.5 ALKALINE PHOSPHATASE (BEAKER) (test sfin=680) 126 U/L 40-150 AST (SGOT) (BEAKER) (test pcrk=805) 28 U/L 5-34 ALT (SGPT) (BEAKER) (test dgib=870) 27 U/L 6-55 URIC [id number] 06:21:00* Test Item Value Reference Range Comments URIC ACID (BEAKER) (test yept=922) 1.2 mg/dL 2.6-7.2 [id number] 06:15:00* Test Item Value Reference Range Comments MAGNESIUM (BEAKER) (test yjzb=429) 2.5 mg/dL 1.6-2.6 [id number] 06:15:00* Test Item Value Reference Range Comments PHOSPHORUS (BEAKER) (test uuhw=056) 3.9 mg/dL 2.3-4.7 BASIC METABOLIC [id number] 06:15:00* Test Item Value Reference Range Comments SODIUM (BEAKER) (test nxmy=162) 143 meq/L 136-145 POTASSIUM (BEAKER) (test yuqy=523) 4.2 meq/L 3.5-5.1 CHLORIDE (BEAKER) (test nmsy=518) 114 meq/L 98-107 CO2 (BEAKER) (test xxum=948) 21 meq/L 22-29 BLOOD UREA NITROGEN (BEAKER) (test suyg=105) 10 mg/dL 7-21 CREATININE (BEAKER) (test yjtq=190) 0.69 mg/dL 0.57-1.25 GLUCOSE RANDOM (BEAKER) (test xjdb=675) 169 mg/dL 70-105 CALCIUM (BEAKER) (test nzog=094) 8.6 mg/dL 8.4-10.2 EGFR (BEAKER) (test xqjs=1487) 90 mL/min/1.73 sq m ESTIMATED GFR IS NOT ACCURATE CREATININE CLEARANCE IN PREDICTING GLOMERULAR FILTRATION RATE. ESTIMATED GFR IS NOT APPLICABLE FOR DIALYSIS PATIENTS. LACTATE DEHYDROGENASE (LDH)2018-04-23 06:15:00* Test Item Value Reference Range Comments LACTATE DEHYDROGENASE (BEAKER) (test eiro=207) 1146 U/L 125-220 [id number] 05:29:00* Test Item Value Reference Range Comments FIBRINOGEN LEVEL (BEAKER) (test rylx=682) 205 mg/dl 225-434 PERIPHERAL BLOOD SMEAR - HOLD [id number] 15:26:00* Test Item Value Reference Range Comments PERIPHERAL SMEAR SAVE (BEAKER) (test lcgi=5436) SAVED FLOW CYTOMETRY [id number] 13:28:00* Test Item Value Reference Range Comments FLOW CYTOMETRY RESULT POINTER (BEAKER) (test vghm=0327) See Separate Report FLOW CYTOMETRY AP CASE # (BEAKER) (test vzrv=8891) [id number] CBC W/PLT COUNT & AUTO [id number] 12:24:00* Test Item Value Reference Range Comments WHITE BLOOD CELL COUNT (BEAKER) (test tsqu=322) 193.5 K/ L 3.5-10.5 RED BLOOD CELL COUNT (BEAKER) (test prqa=925) 3.10 M/ L 3.93-5.22 HEMOGLOBIN (BEAKER) (test kpug=690) 9.0 GM/DL 11.2-15.7 HEMATOCRIT (BEAKER) (test oeyu=129) 29.1 % 34.1-44.9 MEAN CORPUSCULAR VOLUME (BEAKER) (test ysnw=359) 93.9 fL 79.4-94.8 MEAN CORPUSCULAR HEMOGLOBIN (BEAKER) (test tqbh=464) 29.0 pg 25.6-32.2 MEAN CORPUSCULAR HEMOGLOBIN CONC (BEAKER) (test inzb=005) 30.9 GM/DL 32.2-35.5 RED CELL DISTRIBUTION WIDTH (BEAKER) (test fasc=633) 21.6 % 11.7-14.4 PLATELET COUNT (BEAKER) (test ocrq=787) 838 K/CU MM 150-450 MEAN PLATELET VOLUME (BEAKER) (test twus=436) 11.0 fL 9.4-12.3 NUCLEATED RED BLOOD CELLS (BEAKER) (test ffrk=822) 0 /100 WBC 0-0 (MANUAL DIFFERENTIAL)2018-04-22 12:24:00* Test Item Value Reference Range Comments NEUTROPHILS - REL (DIFF) (BEAKER) (test pbyj=4487) 29 % LYMPHOCYTES - REL (DIFF) (BEAKER) (test topn=0732) 3 % MONOCYTES - REL (DIFF) (BEAKER) (test jemu=1156) 7 % EOSINOPHILS - REL (DIFF) (BEAKER) (test onjc=4032) 8 % BASOPHILS - REL (DIFF) (BEAKER) (test bxax=7930) 3 % METAMYELOCYTES-REL (DIFF) (BEAKER) (test peri=008) 4 % 0-0 MYELOCYTES-REL (DIFF) (BEAKER) (test dodg=5816) 12 % 0-0 PROMYELOCYTES-REL (DIFF) (BEAKER) (test lflw=725) 6 % 0-0 BANDS - REL (DIFF) (BEAKER) (test czgh=6830) 22 % 0-10 BLASTS - REL (DIFF) (BEAKER) (test vshs=1908) 6 % 0-0 NEUTROPHILS - ABS (DIFF) (BEAKER) (test znhx=5757) 56.12 K/ L 1.80-8.00 LYMPHOCYTES - ABS (DIFF) (BEAKER) (test vsyw=4138) 5.81 K/ L 1.48-4.50 MONOCYTES - ABS (DIFF) (BEAKER) (test fqse=5142) 13.55 K/ L 0.00-1.30 EOSINOPHILS - ABS (DIFF) (BEAKER) (test scqr=2813) 15.48 K/ L 0.00-0.50 BASOPHILS - ABS (DIFF) (BEAKER) (test dxwq=1657) 5.81 K/ L 0.00-0.20 METAMYELOCTYES - ABS (DIFF) (BEAKER) (test jcnw=188) 7.74 K/ L 0.00-0.00 PROMYELOCYTES - ABS (DIFF) (BEAKER) (test kljk=106) 11.61 K/ L 0.00-0.00 BANDS-ABS (DIFF) (BEAKER) (test nleo=1614) 42.6 K/ L 0.0-0.8 BLASTS - ABS (DIFF) (BEAKER) (test ftau=7308) 11.61 K/ L 0.00-0.00 MYELOCYTES-ABS (DIFF) (BEAKER) (test oxud=0577) 23.22 K/ L 0.00-0.00 TOTAL COUNTED (BEAKER) (test zbze=8532) 100 BANDS + SEGMENTED NEUTROPHILS (BEAKER) (test khsd=1940) 98.69 MANUAL NRBC PER 100 CELLS (BEAKER) (test ivke=9096) 1 /100 WBC 0-0 WBC MORPHOLOGY (BEAKER) (test whzs=060) Normal LARGE PLT(BEAKER) (test odbe=8221) Present HYPOCHROMIA (BEAKER) (test yufw=402) 1+ few POLYCHROMATOPHILLIC RBCS(BEAKER) (test fopy=073) 1+ few FLOW [id number] 08:37:00Flow Cytometry Report Case: [id number] Authorizing Provider: Silvina Pereira, Collected: 04/21/2018 Barbie BRUMFIELD Ordering Location: [address] Received: 04/21/2018 7730 SERVICE Pathologist: Hever Velasquez MD Specimen: Other PERIPHERAL BLOOD, FLOW CYTOMETRY:CIRCULATING MYELOID BLASTS, 3.3% OF ANALYZED EVENTS. [id number] BLOOD cytoplasmic (c) MPO, cCD79a, CD34, CD19, CD7, CD3, cCD3, CD45, CD16, CD13, CD117, CD11b, CD10, CD36, CD64, CD33, CD14, HLA-DR, cTdT, CD56.Specimen Viability: 99.0%Abnormal myeloblast population identified (3.3% of total cellularity)POSITIVE: CD45(DIM), CD34, CD7(PARTIAL), MPO(PARTIAL), HLA-DR, CD13(DIM), CD33(DIM), CD117(DIM), CD64(DIM), CD56(DIM)NEGATIVE: CD19, CD79A, cCD3, CD3, CD16, CD11B, CD16, CD14, CD36, CD10In addition, the following populations are identified:Lymp hocytes: Bright CD45+ lymphocytes comprise 1.6% of total cells.Myeloid/monocytic populations: As identified by CD45 and light scatter characteristics, granulocy evangelina comprise the majority of cells analyzed, and monocytes comprise 1.4% of tota l cells.The remaining events analyzed represent nonviable cells, non-hematolymph oid cells, and debrisThese tests were developed and their performance characteri stics determined by [facility]. They have not been cleared or approved by [facility] U.S. Food and Drug Administration. The FDA has determined that such clearance or approval is not necessary. It should not be regarded as investigational or f or research. This laboratory is certified under the Clinical Laboratory Improvem ent Amendments of 1988 ("CLIA") as qualified to perform high-complexity clinical testing.URIC [id number] 07:49:00* Test Item Value Reference Range Comments URIC ACID (BEAKER) (test cpnh=200) 1.6 mg/dL 2.6-7.2 [id number] 07:37:00* Test Item Value Reference Range Comments MAGNESIUM (BEAKER) (test crsr=634) 2.2 mg/dL 1.6-2.6 [id number] 07:37:00* Test Item Value Reference Range Comments PHOSPHORUS (BEAKER) (test qxhs=967) 4.5 mg/dL 2.3-4.7 BASIC METABOLIC [id number] 07:37:00* Test Item Value Reference Range Comments SODIUM (BEAKER) (test yawc=208) 139 meq/L 136-145 POTASSIUM (BEAKER) (test hnde=684) 4.3 meq/L 3.5-5.1 CHLORIDE (BEAKER) (test sofv=042) 110 meq/L 98-107 CO2 (BEAKER) (test ukob=375) 25 meq/L 22-29 BLOOD UREA NITROGEN (BEAKER) (test zhmb=676) 8 mg/dL 7-21 CREATININE (BEAKER) (test gone=936) 0.76 mg/dL 0.57-1.25 GLUCOSE RANDOM (BEAKER) (test mtdf=122) 160 mg/dL 70-105 CALCIUM (BEAKER) (test rold=318) 8.6 mg/dL 8.4-10.2 EGFR (BEAKER) (test hora=7961) 81 mL/min/1.73 sq m ESTIMATED GFR IS NOT ACCURATE CREATININE CLEARANCE IN PREDICTING GLOMERULAR FILTRATION RATE. ESTIMATED GFR IS NOT APPLICABLE FOR DIALYSIS PATIENTS. HEPATIC FUNCTION [id number] 07:37:00* Test Item Value Reference Range Comments TOTAL PROTEIN (BEAKER) (test pekm=114) 5.1 gm/dL 6.0-8.3 ALBUMIN (BEAKER) (test aqry=2084) 3.5 g/dL 3.5-5.0 BILIRUBIN TOTAL (BEAKER) (test auof=056) 0.8 mg/dL 0.2-1.2 BILIRUBIN DIRECT (BEAKER) (test njmd=460) 0.5 mg/dL 0.1-0.5 ALKALINE PHOSPHATASE (BEAKER) (test pxuk=910) 138 U/L 40-150 AST (SGOT) (BEAKER) (test mvgi=833) 43 U/L 5-34 ALT (SGPT) (BEAKER) (test laio=677) 35 U/L 6-55 LACTATE DEHYDROGENASE (LDH)2018-04-22 07:37:00* Test Item Value Reference Range Comments LACTATE DEHYDROGENASE (BEAKER) (test hivx=613) 1187 U/L 125-220 [id number] 07:18:00* Test Item Value Reference Range Comments FIBRINOGEN LEVEL (BEAKER) (test hnum=811) 255 mg/dl 225-434 RESPIRATORY PANEL [id number] 20:51:00* Test Item Value Reference Range Comments HUMAN METAPNEUMOVIRUS (BEAKER) (test nraq=0280) Not detected Not detected, Equivocal RHINOVIRUS (BEAKER) (test spwq=9474) Not detected Not detected, Equivocal INFLUENZA A (BEAKER) (test gmwg=2055) Not detected Not detected, Equivocal INFLUENZA A (NO SUBTYPE) (test zzez=1648) Not detected Not detected, Equivocal INFLUENZA A SUBTYPE H1 (BEAKER) (test pivr=8740) Not detected Not detected, Equivocal INFLUENZA A SUBTYPE H3 (BEAKER) (test qjia=6811) Not detected Not detected, Equivocal INFLUENZA A SUBTYPE H1-2009 (BEAKER) (test uttf=6303) Not detected Not detected, Equivocal INFLUENZA B (BEAKER) (test sqlw=7109) Not detected Not detected, Equivocal RESPIRATORY SYNCYTIAL VIRUS (BEAKER) (test afnd=2591) Not detected Not detected, Equivocal PARAINFLUENZA VIRUS 1 (BEAKER) (test fjxl=8510) Not detected Not detected, Equivocal PARAINFLUENZA VIRUS 2 (BEAKER) (test ayve=8684) Not detected Not detected, Equivocal PARAINFLUENZA VIRUS 3 (BEAKER) (test dwfy=0687) Not detected Not detected, Equivocal PARAINFLUENZA VIRUS 4 (BEAKER) (test jyvp=1411) Not detected Not detected, Equivocal ADENOVIRUS (BEAKER) (test wopq=0388) Not detected Not detected, Equivocal CORONAVIRUS 229E (BEAKER) (test nosg=1045) Not detected Not detected, Equivocal CORONAVIRUS HKU1 (BEAKER) (test jfok=1930) Not detected Not detected, Equivocal CORONAVIRUS NL63 (BEAKER) (test fnay=1243) Not detected Not detected, Equivocal CORONAVIRUS OC43 (BEAKER) (test aocl=9423) Not detected Not detected, Equivocal BORDETELLA PERTUSSIS (BEAKER) (test jnhl=2200) Not detected Not detected, Equivocal CHLAMYDOPHILA PNEUMONIAE (BEAKER) (test gcvn=7988) Not detected Not detected, Equivocal MYCOPLASMA PNEUMONIAE (BEAKER) (test eoas=0400) Not detected Not detected, Equivocal Other viruses and bacteria not targeted by this PCR panel cannot be excluded; th erefore clinical correlation and follow up of serology, culture results, and ot er molecular studies is required. The results are not intended to be used as the sole means for clinical diagnosis or patient management decisions. This sample was tested at the [facility] using the [employer] Respiratory Panel. It is FDA cleared and has been verified and approved by the [facility] for clinical use on nasal swab specim ens. It is not FDA-cleared for use on bronchial wash/lavage samples. However, fo r this sample type, validation was performed and test characteristics were deter mined and approved, by [facility] Molecular Diagnostics laboratory for clinical use u nder the Clinical Laboratory Improvement Amendments (CLIA) of 1988 requirements. Therefore, FDA clearance is not required. This laboratory is CLIA-certified and [employer] ([employer])-accredited to perform high complexity t esting.Other viruses and bacteria not targeted by this PCR panel cannot be exclu ded; therefore clinical correlation and follow up of serology, culture results, and other molecular studies is required. The results are not intended to be used as the sole means for clinical diagnosis or patient management decisions. This sample was tested at the [facility] Diagn[facility] Laboratory using the [employer] Film[employer] Respiratory Panel. It is FDA cleared and has been verified and appro lissette by the [facility] for clinical use on nasal swab specimens. It is not FDA-cleared for use on bronchial wash/lavage samples. Meléndez june, for this sample type, validation was performed and test characteristics wer e determined and approved, by [facility] Molecular Diagnostics laboratory for clinica l use under the Clinical Laboratory Improvement Amendments (CLIA) of 1988 requir ements. Therefore, FDA clearance is not required. This laboratory is CLIA-certi fied and [employer] ([employer])-accredited to perform high compl exity testing.CBC W/PLT COUNT & AUTO [id number] 20:42:00* Test Item Value Reference Range Comments WHITE BLOOD CELL COUNT (BEAKER) (test abks=069) 192.6 K/ L 3.5-10.5 RED BLOOD CELL COUNT (BEAKER) (test sems=871) 3.33 M/ L 3.93-5.22 HEMOGLOBIN (BEAKER) (test jxkm=080) 9.4 GM/DL 11.2-15.7 HEMATOCRIT (BEAKER) (test zpbi=308) 31.4 % 34.1-44.9 MEAN CORPUSCULAR VOLUME (BEAKER) (test gpoh=636) 94.3 fL 79.4-94.8 MEAN CORPUSCULAR HEMOGLOBIN (BEAKER) (test isil=841) 28.2 pg 25.6-32.2 MEAN CORPUSCULAR HEMOGLOBIN CONC (BEAKER) (test noqd=225) 29.9 GM/DL 32.2-35.5 RED CELL DISTRIBUTION WIDTH (BEAKER) (test cnda=707) 22.0 % 11.7-14.4 PLATELET COUNT (BEAKER) (test hpfw=923) 1003 K/CU MM 150-450 MEAN PLATELET VOLUME (BEAKER) (test soxi=491) 11.5 fL 9.4-12.3 NUCLEATED RED BLOOD CELLS (BEAKER) (test ufwm=655) 1 /100 WBC 0-0 (CELLAVISION MANUAL DIFF)2018-04-21 20:42:00* Test Item Value Reference Range Comments NEUTROPHILS - REL (CELLAVISION)(BEAKER) (test vsre=0717) 38 % LYMPHOCYTES - REL (CELLAVISION)(BEAKER) (test rqgx=2026) 1 % MONOCYTES - REL (CELLAVISION)(BEAKER) (test yprr=8154) 18 % EOSINOPHILS - REL (CELLAVISION)(BEAKER) (test sdxz=4285) 3 % BASOPHILS - REL (CELLAVISION)(BEAKER) (test delj=3733) 6 % METAMYELOCYTES - REL (CELLAVISION)(BEAKER) (test mppm=7229) 6 % 0-0 MYELOCYTES - REL (CELLAVISION)(BEAKER) (test gujk=3039) 4 % 0-0 PROMYELOCYTES - REL (CELLAVSION)(BEAKER) (test wcqi=3231) 5 % 0-0 BANDS - REL (CELLAVISION)(BEAKER) (test djcs=2762) 11 % 0-10 BLASTS - REL (CELLAVISION)(BEAKER) (test ahox=3043) 7 % 0-0 ATYPICAL LYMPHOCYTES - REL (CELLAVISION)(BEAKER) (test jcix=8896) 1 % 0-0 NEUTROPHILS - ABS (CELLAVISION)(BEAKER) (test rtct=3169) 73.19 K/ul 1.56-6.13 LYMPHOCYTES - ABS (CELLAVISION)(BEAKER) (test evpe=1675) 1.93 K/ul 1.18-3.74 MONOCYTES - ABS (CELLAVISION)(BEAKER) (test vnwz=7349) 34.67 K/uL 0.24-0.36 EOSINOPHILS - ABS (CELLAVISION)(BEAKER) (test wagd=5979) 5.78 K/uL 0.04-0.36 BASOPHILS - ABS (CELLAVISION)(BEAKER) (test jwha=4247) 11.56 K/uL 0.01-0.08 METAMYELOCYTES - ABS (CELLAVISION)(BEAKER) (test tyzf=1801) 11.56 K/uL 0.00-0.00 MYELOCYTES-ABS (CELLAVISION)(BEAKER) (test evay=2884) 7.70 K/uL 0.00-0.00 PROMYELOCYTES - ABS (CELLAVISION)(BEAKER) (test nbxz=1497) 9.63 K/uL 0.00-0.00 BANDS - ABS (CELLAVISION)(BEAKER) (test rjqg=7393) 21.19 K/uL 0.00-0.80 BLASTS - ABS (CELLAVISION)(BEAKER) (test zcqs=4925) 13.48 K/uL 0.00-0.00 ATYPICAL LYMPHOCYTES - ABS (CELLAVISION)(BEAKER) (test ifzw=7491) 1.93 K/uL 0.00-0.00 TOTAL COUNTED (BEAKER) (test tiar=4281) 100 RBC MORPHOLOGY (BEAKER) (test cdfj=522) Normal WBC MORPHOLOGY (BEAKER) (test ghke=409) Normal PLT MORPHOLOGY (BEAKER) (test fjah=030) Normal GIANT PLATELETS (BEAKER) (test cakb=610) Present ANISOCYTOSIS (BEAKER) (test llfy=147) 2+ moderate MICROCYTES (BEAKER) (test qiej=600) 2+ moderate POIKILOCYTES (BEAKER) (test teth=743) 2+ moderate SPHEROCYTES (BEAKER) (test dymz=542) 1+ few JONY CELLS (BEAKER) (test vohj=239) 1+ few ARTIFACT (CELLAVISION)(BEAKER) (test hmqz=0434) Present PLATELET CONCENTRATION (CELLAVISION)(BEAKER) (test udvc=9705) Increased Received comment: User comments: Slide comments: [id number] 19:03:00 * Test Item Value Reference Range Comments HAPTOGLOBIN (BEAKER) (test zlqr=865) 29 mg/dL 14-258 VITAMIN B12 AND [id number] 18:27:00* Test Item Value Reference Range Comments VITAMIN B12 (BEAKER) (test npcf=630) > pg/mL 213-816 FOLATE (BEAKER) (test xhfr=732) 9.1 ng/mL >=7.0 [id number] 18:24:00* Test Item Value Reference Range Comments FERRITIN (BEAKER) (test phrn=927) 313 ng/mL 5-275 URIC [id number] 17:57:00* Test Item Value Reference Range Comments URIC ACID (BEAKER) (test oqbj=466) 1.9 mg/dL 2.6-7.2 IRON, TIBC, % SAT. (WITHOUT FERRITIN)2018-04-21 17:56:00* Test Item Value Reference Range Comments IRON (BEAKER) (test neip=460) 38 ug/dL 40-160 TOTAL IRON BINDING CAPACITY (BEAKER) (test lwrw=337) 336 ug/dL 250-450 IRON % SATURATION (2) (BEAKER) (test jjnn=5260) 11 % 20-55 [id number] 17:51:00* Test Item Value Reference Range Comments MAGNESIUM (BEAKER) (test kikl=000) 2.4 mg/dL 1.6-2.6 [id number] 17:51:00* Test Item Value Reference Range Comments PHOSPHORUS (BEAKER) (test ccft=646) 3.5 mg/dL 2.3-4.7 HEPATIC FUNCTION [id number] 17:51:00* Test Item Value Reference Range Comments TOTAL PROTEIN (BEAKER) (test vzuj=298) 5.6 gm/dL 6.0-8.3 ALBUMIN (BEAKER) (test roso=5756) 3.9 g/dL 3.5-5.0 BILIRUBIN TOTAL (BEAKER) (test dmib=850) 0.8 mg/dL 0.2-1.2 BILIRUBIN DIRECT (BEAKER) (test jiyk=511) 0.5 mg/dL 0.1-0.5 ALKALINE PHOSPHATASE (BEAKER) (test bonp=257) 159 U/L 40-150 AST (SGOT) (BEAKER) (test wubk=913) 59 U/L 5-34 ALT (SGPT) (BEAKER) (test cvef=101) 41 U/L 6-55 LACTATE DEHYDROGENASE (LDH)2018-04-21 17:51:00* Test Item Value Reference Range Comments LACTATE DEHYDROGENASE (BEAKER) (test caix=611) 1433 U/L 125-220 BASIC METABOLIC [id number] 17:49:00* Test Item Value Reference Range Comments SODIUM (BEAKER) (test pbql=207) 138 meq/L 136-145 POTASSIUM (BEAKER) (test wclu=410) 4.5 meq/L 3.5-5.1 CHLORIDE (BEAKER) (test zzbi=682) 105 meq/L 98-107 CO2 (BEAKER) (test fbbj=311) 25 meq/L 22-29 BLOOD UREA NITROGEN (BEAKER) (test bvmw=704) 9 mg/dL 7-21 CREATININE (BEAKER) (test hyny=916) 0.82 mg/dL 0.57-1.25 GLUCOSE RANDOM (BEAKER) (test xoru=423) 123 mg/dL 70-105 CALCIUM (BEAKER) (test ecew=997) 9.2 mg/dL 8.4-10.2 EGFR (BEAKER) (test pkww=8903) 74 mL/min/1.73 sq m ESTIMATED GFR IS NOT ACCURATE CREATININE CLEARANCE IN PREDICTING GLOMERULAR FILTRATION RATE. ESTIMATED GFR IS NOT APPLICABLE FOR DIALYSIS PATIENTS. [id number] 17:33:00* Test Item Value Reference Range Comments D-DIMER QUANTITATIVE (BEAKER) (test vxgr=873) 0.57 MG/L FEU <0.50 Intended Use: The D-Dimer Assay can be used to aid in the diagnosis of Deep Vein Thrombosis (DVT) and Pulmonary Embolism Disease (PED).In patients with low pre- test probability, various studies concerning STA Liatest D-dimer test have repor ryann that with a cutoff value of 0.50 MG/L FEU, the Negative Predictive Value ([employer] V) regarding the exclusion of thrombosis is within 95-100% range.FIBRINOGEN 2018-04-21 17:31:00* Test Item Value Reference Range Comments FIBRINOGEN LEVEL (BEAKER) (test ffte=864) 277 mg/dl 225-434 [id number] 17:31:00* Test Item Value Reference Range Comments PROTIME (BEAKER) (test qwfg=703) 15.4 seconds 11.7-14.7 INR (BEAKER) (test ftww=295) 1.2 <=5.9 PARTIAL THROMBOPLASTIN TIME (BEAKER) (test oeiy=793) 35.5 seconds 22.5-36.0 RECOMMENDED COUMADIN/WARFARIN INR THERAPY RANGESSTANDARD DOSE: 2.0 - 3.0 Inclu victoriano: PROPHYLAXIS for venous thrombosis, systemic embolization; TREATMENT for arleen ous thrombosis and/or pulmonary embolus.HIGH RISK: Target INR is 2.5-3.5 for pat ients with mechanical heart valves.RETICULOCYTE [id number] 17:21:00* Test Item Value Reference Range Comments RETICULOCYTE COUNT PCT (BEAKER) (test hrna=489) 1.7 % 0.5-1.7 RAD, CHEST, 1 VIEW, NON [id number] 15:18:00Reason for exam:->check picc placementShould this be performed at the bedside?->YesFINAL REPORT Clinical History: check picc placement Comparison Study: April 20, 2018 Findings: The heart and lungs are within normal limits. A left-sided PICC line is noted, the tip projecting over the SVC. The pleural spaces are clear. No significant bony or soft tissue abnormalities are seen. Impression: No active cardiopulmonary disease. Signed: Latesha Lam MDReport Verified Date/Time: 04/21/2018 15:18:15 Reading Location: [address] Consult Reading Room PHERAL BLOOD SMEAR - PATHOLOGIST [id number] 11:50:00* Test Item Value Reference Range Comments RBC MORPHOLOGY (BEAKER) (test hgkd=0528) Polychromasia RBC MORPHOLOGY (BEAKER) (test havh=11329) Anisocytosis RBC MORPHOLOGY (BEAKER) (test nezm=40309) Poikilocytosis RBC MORPHOLOGY (BEAKER) (test wzsr=39421) Tear Drop RBC MORPHOLOGY (BEAKER) (test luqb=942307) Nucleated Red Blood Cells RBC MORPHOLOGY (BEAKER) (test mahv=606007) Elliptocytes WBC MORPHOLOGY (BEAKER) (test gsgv=1258) Blasts WBC MORPHOLOGY (BEAKER) (test jjdu=051864) Left Shift WBC MORPHOLOGY (BEAKER) (test jpks=653738) Myelocytes WBC MORPHOLOGY (BEAKER) (test rity=744261) Metamyelocytes WBC MORPHOLOGY (BEAKER) (test nxgw=803933) See comment PLT MORPHOLOGY (BEAKER) (test thby=8386) Large Platelets PLT MORPHOLOGY (BEAKER) (test ykcb=525719) Giant Platelets PERIPHERAL SMR REVIEW (BEAKER) (test lpkf=7875) The overall findings are consistent with involvement by the patient's previously diagnosed chronic myelogenous leukemia (CML) with 5% circulating myeloid blasts. Cell counts are confirmed. [id number] (BEAKER) (test bgkl=3285) Dpahney Conway MD (electronic signature) CBC W/PLT COUNT & AUTO [id number] 21:48:00* Test Item Value Reference Range Comments WHITE BLOOD CELL COUNT (BEAKER) (test dojg=086) 197.7 K/ L 3.5-10.5 RED BLOOD CELL COUNT (BEAKER) (test jzbj=272) 3.45 M/ L 3.93-5.22 HEMOGLOBIN (BEAKER) (test fgfj=464) 9.9 GM/DL 11.2-15.7 HEMATOCRIT (BEAKER) (test mpdj=968) 31.2 % 34.1-44.9 MEAN CORPUSCULAR VOLUME (BEAKER) (test qkvn=729) 90.4 fL 79.4-94.8 MEAN CORPUSCULAR HEMOGLOBIN (BEAKER) (test yfjp=730) 28.7 pg 25.6-32.2 MEAN CORPUSCULAR HEMOGLOBIN CONC (BEAKER) (test wmwl=795) 31.7 GM/DL 32.2-35.5 RED CELL DISTRIBUTION WIDTH (BEAKER) (test fxne=129) 22.2 % 11.7-14.4 PLATELET COUNT (BEAKER) (test ffif=216) 851 K/CU MM 150-450 MEAN PLATELET VOLUME (BEAKER) (test jcif=886) 12.1 fL 9.4-12.3 NUCLEATED RED BLOOD CELLS (BEAKER) (test hoyi=932) 1 /100 WBC 0-0 (CELLAVISION MANUAL DIFF)2018-04-20 21:48:00* Test Item Value Reference Range Comments NEUTROPHILS - REL (CELLAVISION)(BEAKER) (test qjyi=1702) 29 % LYMPHOCYTES - REL (CELLAVISION)(BEAKER) (test slpt=8379) 2 % MONOCYTES - REL (CELLAVISION)(BEAKER) (test zpzu=1860) 5 % EOSINOPHILS - REL (CELLAVISION)(BEAKER) (test ctnf=2848) 6 % BASOPHILS - REL (CELLAVISION)(BEAKER) (test cyge=8081) 7 % METAMYELOCYTES - REL (CELLAVISION)(BEAKER) (test kbpk=5235) 13 % 0-0 MYELOCYTES - REL (CELLAVISION)(BEAKER) (test okld=2376) 15 % 0-0 PROMYELOCYTES - REL (CELLAVSION)(BEAKER) (test dpsy=2220) 6 % 0-0 BANDS - REL (CELLAVISION)(BEAKER) (test kxlw=9198) 12 % 0-10 BLASTS - REL (CELLAVISION)(BEAKER) (test mgdf=3392) 5 % 0-0 NEUTROPHILS - ABS (CELLAVISION)(BEAKER) (test wkhx=9084) 57.33 K/ul 1.56-6.13 LYMPHOCYTES - ABS (CELLAVISION)(BEAKER) (test truq=4642) 3.95 K/ul 1.18-3.74 MONOCYTES - ABS (CELLAVISION)(BEAKER) (test vuiy=6937) 9.89 K/uL 0.24-0.36 EOSINOPHILS - ABS (CELLAVISION)(BEAKER) (test gcmz=2170) 11.86 K/uL 0.04-0.36 BASOPHILS - ABS (CELLAVISION)(BEAKER) (test zngf=6422) 13.84 K/uL 0.01-0.08 METAMYELOCYTES - ABS (CELLAVISION)(BEAKER) (test xdvd=4247) 25.70 K/uL 0.00-0.00 MYELOCYTES-ABS (CELLAVISION)(BEAKER) (test dttp=4575) 29.66 K/uL 0.00-0.00 PROMYELOCYTES - ABS (CELLAVISION)(BEAKER) (test qqir=8711) 11.86 K/uL 0.00-0.00 BANDS - ABS (CELLAVISION)(BEAKER) (test iskg=3496) 23.72 K/uL 0.00-0.80 BLASTS - ABS (CELLAVISION)(BEAKER) (test ajsm=0508) 9.89 K/uL 0.00-0.00 TOTAL COUNTED (BEAKER) (test ojbk=6602) 100 MANUAL NRBC PER 100 CELLS (BEAKER) (test ooan=7263) 2 /100 WBC 0-0 WBC MORPHOLOGY (BEAKER) (test yirb=384) Normal PLT MORPHOLOGY (BEAKER) (test kgvh=436) Normal POLYCHROMATOPHILLIC RBCS(BEAKER) (test mivh=811) 1+ few ANISOCYTOSIS (BEAKER) (test qxsr=929) 2+ moderate MICROCYTES (BEAKER) (test bqte=663) 1+ few POIKILOCYTES (BEAKER) (test vtsp=195) 1+ few ROULEAUX (BEAKER) (test uvtg=787) 1+ few TEAR DROP CELLS (BEAKER) (test wfbc=022) 1+ few ARTIFACT (CELLAVISION)(BEAKER) (test hkgu=1402) Present PLATELET CONCENTRATION (CELLAVISION)(BEAKER) (test qtvu=7145) Increased Received comment: User comments: Slide comments: LACTIC ACID, VENOUS, WHOLE [id number] 18:48:00* Test Item Value Reference Range Comments LACTATE BLOOD VENOUS (2) (BEAKER) (test awkj=6322) 1.1 mmol/L 0.5-2.2 Effective 10/31/2015: Units/Reference Range ChangeNew: 0.5-2.2 mmol/L Previous: 5 -18 mg/dLBASIC METABOLIC [id number] 18:08:00* Test Item Value Reference Range Comments SODIUM (BEAKER) (test ndkk=329) 139 meq/L 135-148 POTASSIUM (BEAKER) (test mevd=490) 3.5 meq/L 3.6-5.5 CHLORIDE (BEAKER) (test kwnl=179) 99 meq/L 98-106 CO2 (BEAKER) (test ymww=486) 30 meq/L 24-32 BLOOD UREA NITROGEN (BEAKER) (test ldmb=690) 10 mg/dL 10-26 CREATININE (BEAKER) (test veqp=184) 0.73 mg/dL 0.50-1.20 GLUCOSE RANDOM (BEAKER) (test tfzl=923) 93 mg/dL 70-110 CALCIUM (BEAKER) (test enzt=688) 8.8 mg/dL 8.5-10.5 EGFR (BEAKER) (test tguf=6520) 84 mL/min/1.73 sq m ESTIMATED GFR IS NOT ACCURATE CREATININE CLEARANCE IN PREDICTING GLOMERULAR FILTRATION RATE. ESTIMATED GFR IS NOT APPLICABLE FOR DIALYSIS PATIENTS. RAPID INFLUENZA A&B [id number] 17:45:00* Test Item Value Reference Range Comments RAPID INFLUENZA A AG (BEAKER) (test jtph=3702) Negative Negative, Inconclusive RAPID INFLUENZA B AG (BEAKER) (test mjty=8476) Negative Negative, Inconclusive URINALYSIS W/ [id number] 17:37:00* Test Item Value Reference Range Comments COLOR (BEAKER) (test trbh=995) Dark Yellow CLARITY (BEAKER) (test tgve=310) Clear SPECIFIC GRAVITY UA (BEAKER) (test olna=547) 1.015 1.001-1.035 PH UA (BEAKER) (test tvxg=044) 7.0 5.0-8.0 PROTEIN UA (BEAKER) (test zvgq=885) Negative Negative GLUCOSE UA (BEAKER) (test xsli=465) Negative Negative KETONES UA (BEAKER) (test mtlh=459) Negative Negative BILIRUBIN UA (BEAKER) (test aesz=783) Negative Negative BLOOD UA (BEAKER) (test afun=550) Negative Negative NITRITE UA (BEAKER) (test feox=963) Negative Negative LEUKOCYTE ESTERASE UA (BEAKER) (test sewv=773) Negative Negative UROBILINOGEN UA (BEAKER) (test hntj=495) >=mg/dL 0.2-1.0 BACTERIA (BEAKER) (test quhy=011) Few RBC UA-MANUAL (BEAKER) (test ptll=6127) <5 /HPF WBC UA-MANUAL (BEAKER) (test jnit=5126) <5 /HPF SQUAMOUS EPITHELIAL MANUAL (BEAKER) (test vltz=1984) <5 /HPF SOURCE(BEAKER) (test qxce=3233) CT, BRAIN, WITHOUT [id number] 16:55:00Reason for exam:->headacheIs the patient ?->UnknownWhat is the patient's sedation requirement?->No SedationFINAL REPORT CT head without contrast. Reason for exam: headachedizziness/vision change Comparisons: June 22, 2004 Discussion: Multiple axial CT images of the head are provided without contrast evaluated in brain and bone windows. This exam was performed according to our departmental dose optimization program which includes automated exposure control, adjustment of the mA and/or kV according to patient's size and/or use of iterative reconstructive technique. The minor-white differentiation is maintained. There is no CT evidence of intracranial hemorrhage, mass-effect, hydrocephalus, shift, or extra-axial collections. The visualized orbital contents, bones and surrounding soft tissues are unremarkable. The visualized paranasal sinuses and mastoid air cells are unremarkable. Impressions: No CT evidence of acute intracranial process. Signed: Yadira Harvey Verified Date/Time: 04/20/2018 16:55:40 Reading Location: [address] Consult Reading Room , CHEST, 1 VIEW, NON [id number] 16:52:00Reason for exam:->feverpatient c/o feeling dizzy,both eyes with blurry vision and headache onset few hours agoShould this be performed at the bedside?->YesFINAL REPORT Chest one view. Clinical history: fever Comparison: March 16, 2004 Discussion: A frontal chest is provided. The cardiac and mediastinal contours are normal. There is no pneumothorax, heraclio pulmonary edema, consolidation or significant pleural effusion. The bony structures are unremarkable. Signed: Yadira Harvey Verified Date/Time: 04/20/2018 16:52:57 Reading Location: [address] Consult Reading Room
--- OUTSIDE RECORDS SUMMARY | 2019-08-20 20:08 | XMS REPORT ---
Author Author Admin, [place] Organization [facility] Address [address] [address] Phone Allergies, Adverse Reactions, Alerts Allergy Name Reaction Description Start Date Severity Status Provider WHOOPING COUGH VACCINE Possible Anaphalysis Severe Active Jessie Barney MD PHENERGAN Critical Active Melba Pablo D.O. LEVAQUIN Critical Active Melba Pablo D.O. DOLOBID Critical Active Melba Pablo D.O. DILANTIN Critical Active Melba Peres.O. DARVOCET Critical Active Melba Hirschdalavonne D.O. LEVAQUIN Critical Active Melba Pablo D.O. ERYTHROMYCIN Critical Active Melba Pablo D.O. WALNUTS Critical Active Melba Pablo D.O. MUSHROOMS Critical Active Melba Pablo D.O. PLASTIC TAPE Critical Active Melba Pablo D.O. MORPHINE Critical Active Melba Pablo D.O. ASPIRIN Critical Active Melba Pablo D.O. CODEINE Critical Active Melba Pablo D.O. PENICILLIN Critical Active Melba Pablo D.O. Conditions or Problems Problem Name Problem Code Onset Date Status Entry Date Provider Comment Standard Description Annotate Headache, atypical 784.0 Active Jessie Barney MD Headache Poor dentition 520.9 Active Navarro Marroquin MD Unspecified disorder of tooth development and eruption Hip joint pain, right 719.45 Active Jessie Barney MD Pain in joint involving pelvic region and thigh Nausea 787.02 Active Jessie Barney MD Nausea alone Foot joint pain, right 719.47 Active Jessie Barney MD Pain in joint involving ankle and foot Rash, unspecified 782.1 Active Jessie Barney MD Rash and other nonspecific skin eruption Lower extremity weakness 729.89 Active Jessie Barney MD Other musculoskeletal symptoms referable to limbs Neck pain, acute 723.1 Active Jessie Barney MD Cervicalgia Otitis externa, bilateral 380.10 Active Jessie Barney MD Infective otitis externa, unspecified Poor dentition 520.9 Active Jessie Barney MD Unspecified disorder of tooth development and eruption Hx of allergic reaction V15.09 Active Jessie Barney MD Other allergy, other than to medicinal agents Hx of palpitations V12.50 Active Jessie Barney MD Personal history of unspecified circulatory disease Flu vaccine V04.81 Active Jessie Barney MD Need for prophylactic vaccination and inoculation against influenza Lower back pain 724.2 Active Jessie Barney MD Lumbago Cough 786.2 Active Nilay Cleaning MD Cough since 1 week, dry, OTC attempts failed Knee pain, left 719.46 Active Melba Pablo D.O. Pain in joint involving lower leg Pain in right hip 719.45 Active Nilay Cleaning MD Pain in joint involving pelvic region and thigh fell and landed on concrete Frequent falls 781.2 Active Josette Pringle DO Abnormality of gait Hyperlipidemia 272.4 Active Jero Thompson MD Other and unspecified hyperlipidemia Ankle arthralgia 719.47 Active Melba Pablo D.O. Pain in joint involving ankle and foot Chronic myelocytic leukemia 205.10 Active Melba Pablo D.O. Chronic myeloid leukemia without mention of having achieved remission Peripheral neuropathy 356.9 Active Jero Thompson MD Unspecified hereditary and idiopathic peripheral neuropathy BMI 36.0-36.9 Active Rishi Granger MD Body Mass Index 36.0-36.9, adult Back pain 724.5 Active Melba Pablo D.O. 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 Asthma, unspecified Bipolar 1 disorder, depressed 296.50 Active Navarro Marroquin MD Bipolar I disorder, most recent episode (or current) depressed, unspecified GERD 530.81 Active Melba Peres.O. Esophageal reflux Hepatitis C, chronic 070.54 Active Melba Peres.O. Chronic hepatitis C without mention of hepatic coma Insomnia 780.52 Active Melba Peres.O. Insomnia, unspecified MORBID OBESITY 278.01 Active Melba LamO. Morbid obesity Overactive bladder 596.51 Active Melba Pablo D.O. Hypertonicity of bladder Panic disorder 300.01 Active Navarro Marroquin MD Panic disorder without agoraphobia Symp swell/mass/lump, localized superficial 782.2 Active Jessie Barney MD Localized superficial swelling, mass, or lump Urinary tract infection ICD-599.0 Inactive Nilay Cleaning MD Sore throat (acute) ICD-462 Inactive Josette Roopani DO Symptom, cough ICD-786.2 Inactive Josette Roopani DO URI ICD-465.9 Inactive Josette Roopani DO Abdominal pain ICD-789.00 Inactive Josette Roopani DO Chest discomfort, atypical ICD-786.59 Inactive Josette Roopani DO Ingrown toenail without infection ICD-703.0 Inactive Josette Roopani DO Need for prophylactic vaccination with unspecified combined vaccine V06.9 Inactive Sol Knutson [employer] Need for prophylactic vaccination with unspecified combined vaccine Need for prophylactic vaccination with unspecified combined vaccine ICD-V06.9 Inactive Sol Knutson [employer] Hyperglycemia 790.29 Inactive Kylah Santos MD Other abnormal glucose Screening for diabetes mellitus ICD-V77.1 Inactive Josette Roopani DO URI ICD-465.9 Inactive Josette Roopani DO Chest pain ICD-786.50 Inactive Josette Roopani DO Chest pain ICD-786.50 Inactive Josette Roopani DO Chest pain ICD-786.50 Inactive Josette Roopani DO Bronchitis, acute ICD-466.0 Inactive Josette Roopani DO Anemia, iron deficiency ICD-280.9 Inactive Josette Roopani DO Bipolar disorder 296.80 Inactive Melba Pablo D.O. Bipolar disorder, unspecified Hx of panic attack 300.01 Inactive Melba Pablo D.O. Panic disorder without agoraphobia Urinary tract infection 599.0 Resolved Nilay Cleaning MD Urinary tract infection, site not specified Sore throat (acute) 462 Resolved Melba Pablo D.O. Acute pharyngitis Symptom, cough 786.2 Resolved Jero Thompson MD Cough URI 465.9 Resolved Melba Pablo D.O. Acute upper respiratory infections of unspecified site Abdominal pain 789.00 Resolved Jero Thompson MD Abdominal pain, unspecified site Chest discomfort, atypical 786.59 Resolved Jero Thompson MD Other chest pain Ingrown toenail without infection 703.0 Resolved Jero Thompson MD Ingrowing nail Screening for diabetes mellitus V77.1 Resolved Josette Pringle DO Screening for diabetes mellitus URI 465.9 Resolved Kylah Santos MD Acute upper respiratory infections of unspecified site Chest pain 786.50 Resolved Kylah Santos MD Unspecified chest pain Chest pain 786.50 Resolved Kylah Santos MD Unspecified chest pain Chest pain 786.50 Resolved Kylah Santos MD Unspecified chest pain Bronchitis, acute 466.0 Resolved Kylah Santos MD Acute bronchitis Anemia, iron deficiency 280.9 Resolved Jero Thompson MD Iron deficiency anemia, unspecified Symp swell/mass/lump, localized superficial 782.2 Resolved Kylah Santos MD Localized superficial swelling, mass, or lump Medication List Medication Instructions Start Date Stop Date Generic Name NDC Status Provider Patient Instruction SYNRIBO SOLUTION RECONSTITUTED OMACETAXINE MEPESUCCINATE SOLR 96666547522 Active Navarro Marroquin MD Active AZITHROMYCIN 250 MG ORAL TABLET 2 tablets by mouth on day one then one tablet by mouth each day for a total of 5 days AZITHROMYCIN 21599521015 Active Jessie Barney MD Active ACETIC ACID 2 % OTIC SOLUTION 4 gtt in ear(s) q4 hrs x 5 days ACETIC ACID 45783040225 Servando Barney MD Active KEFLEX 250 MG ORAL CAPSULE 1 by mouth 4 times a day CEPHALEXIN 61911397291 Servando Barney MD Active HYDROXYZINE HCL 25 MG ORAL TABLET 1-3 tab By Mouth take at bedtime HYDROXYZINE HCL 94159981293 Servando Barney MD Active LIDOCAINE VISCOUS 2 % MOUTH/THROAT SOLUTION 5 ml q3h As Needed, swish and spit LIDOCAINE HCL 61401937500 Servando Barney MD Active METOPROLOL TARTRATE 25 MG ORAL TABLET 1 by mouth twice a day METOPROLOL TARTRATE 27252614485 Servando Barney MD Active IBUPROFEN 600 MG ORAL TABLET 1 By Mouth Every 8 hours As Needed pain IBUPROFEN 47044136932 Servando Barney MD Active NEBULIZER/ADULT MASK KIT use as instructed RESPIRATORY THERAPY SUPPLIES 97377334344 Active Tara Ramirez MD Active TESSALON PERLES 100 MG ORAL CAPSULE 1 by mouth 3 times a day as needed for cough BENZONATATE 52249433034 Active Tara Ramirez MD Active MOBIC 15 MG ORAL TABLET 1 by mouth daily MELOXICAM 99424492280 Active Carol Nevarez [employer] Active GABAPENTIN 600 MG ORAL TABLET 1 tab By Mouth Three Times a Day GABAPENTIN 40376751557 Active Navarro Marroquin MD Active LYRICA 100 MG ORAL CAPSULE 1 cap By Mouth Twice a Day PREGABALIN 37158075009 Servando Barney MD Active SPRYCEL 70 MG ORAL TABLET DASATINIB 45525369916 Active Jero Thompson MD Active BUSPIRONE HCL 7.5 MG ORAL TABLET 1 tab By Mouth By Mouth take at bedtime for anxiety BUSPIRONE HCL 44698698219 Active Navarro Marroquin MD Active ATORVASTATIN CALCIUM 20 MG ORAL TABLET 1 tab By Mouth take at bedtime ATORVASTATIN CALCIUM 04133959714 Active Jessie Barney MD Active LAMICTAL 100 MG ORAL TABLET 2 tabs By Mouth take at bedtime for mood, depression LAMOTRIGINE 71001010496 Active Navarro Marroquin MD Active TRAMADOL HCL 50 MG ORAL TABLET 1 tablets by mouth Twice a Day As Needed pain TRAMADOL HCL 30988405178 Active Jessie Barney MD Active NAPROXEN 500 MG ORAL TABLET 1 by mouth twice a day As Needed arthritis pain NAPROXEN 69473953286 Active Olga Mishra [employer] [employer] Active PROAIR HFA 108 (90 Base) MCG/ACT INHALATION AEROSOL SOLUTION 2 puffs every 4 - 6 hours as needed ALBUTEROL SULFATE 35814450779 Active Nilay Cleaning MD Active ALBUTEROL SULFATE (2.5 MG/3ML) 0.083% INHALATION NEBULIZATION SOLUTION 1 via Hand held neb every 4 - 6 hours as needed ALBUTEROL SULFATE 95224389642 Active Tara Ramirez MD Active ATIVAN 2 MG ORAL TABLET 1 tab By Mouth Twice a Day for anxiety LORAZEPAM 69610650050 Active Navarro Marroquin MD Active DOCUSATE SODIUM 100 MG ORAL TABLET Take 1 cap by mouth every 12 hours as needed for constipation DOCUSATE SODIUM 81033537114 Active Carol Nevarez [employer]IP[employer]GE[employer] Active EPIPEN 2-VASHTI 0.3 MG/0.3ML INJECTION SOLUTION AUTO-INJECTOR use as directed EPINEPHRINE 98339426345 Active Nilay Cleaning MD Active NEXIUM 40 MG ORAL CAPSULE DELAYED RELEASE 1 by mouth daily ESOMEPRAZOLE MAGNESIUM 40183723935 Active Leonila Dickey MD (res) Active OXYBUTYNIN CHLORIDE 5 MG ORAL TABLET one tablet by mouth twice a day OXYBUTYNIN CHLORIDE 13727225590 Active Jessie Barney MD Active SINGULAIR 10 MG ORAL TABLET take 1 tablet by mouth at bedtime MONTELUKAST SODIUM 59810139761 [facility] SYMB[facility] 160-4.5 MCG/ACT INHALATION AEROSOL 1 inhalation bid BUDESONIDE- FORMOTEROL FUMARATE 61509159950 Active Eliane CruzANNIE Active SAPHRIS 2.5 MG SUBLINGUAL TABLET SUBLINGUAL 1 tab By Mouth Twice a Day for Bipolar depression SAPHRIS 2.5 MG SUBLINGUAL TABLET SUBLINGUAL ASENAPINE MALEATE Inactive LATUDA 20 MG ORAL TABLET 1 tab By Mouth take at bedtime for bipolar depression, mood swings LATUDA 20 MG ORAL TABLET LURASIDONE HCL Inactive METHOCARBAMOL 750 MG ORAL TABLET 1 by mouth every 8 hours as needed METHOCARBAMOL 750 MG ORAL TABLET 887407 METHOCARBAMOL Inactive MACROBID 100 MG ORAL CAPSULE 1 by mouth twice a day MACROBID 100 MG ORAL CAPSULE 0721318 NITROFURANTOIN MONOHYD MACRO Inactive ALLOPURINOL 300 MG ORAL TABLET ALLOPURINOL 300 MG ORAL TABLET 038346 ALLOPURINOL Inactive SPRYCEL 100 MG ORAL TABLET SPRYCEL 100 MG ORAL TABLET DASATINIB Inactive REMERON 15 MG ORAL TABLET 1 by mouth nightly at bedtime REMERON 15 MG ORAL TABLET 877000 MIRTAZAPINE Inactive KEFLEX 250 MG ORAL CAPSULE 1 by mouth 4 times a day KEFLEX 250 MG ORAL CAPSULE 955147 CEPHALEXIN Inactive AMITRIPTYLINE HCL 25 MG ORAL TABLET 1 by mouth nightly at bedtime AMITRIPTYLINE HCL 25 MG ORAL TABLET 664511 AMITRIPTYLINE HCL Inactive CIPROFLOXACIN HCL 750 MG ORAL TABLET 1 tab By Mouth every 12 hours CIPROFLOXACIN HCL 750 MG ORAL TABLET 245805 CIPROFLOXACIN HCL Inactive FLAGYL 500 MG ORAL TABLET 1 tab by mouth every 6 hours (four times a day) FLAGYL 500 MG ORAL TABLET 928603 METRONIDAZOLE Inactive NAPROXEN 500 MG ORAL TABLET 1 by mouth twice a day as needed for pain and inflammation NAPROXEN 500 MG ORAL TABLET 814149 NAPROXEN Inactive ASCORBIC ACID 500 MG ORAL TABLET Take 1 tablet by mouth daily ASCORBIC ACID 500 MG ORAL TABLET 494503 ASCORBIC ACID Inactive FERROUS SULFATE 325 (65 Fe) MG ORAL TABLET DELAYED RELEASE 1 by mouth 2 times a day FERROUS SULFATE 325 (65 Fe) MG ORAL TABLET DELAYED RELEASE 829191 FERROUS SULFATE Inactive GABAPENTIN 100 MG ORAL CAPSULE 1 cap By Mouth Three Times a Day As Needed anxiety GABAPENTIN 100 MG ORAL CAPSULE 491320 GABAPENTIN Inactive METHOCARBAMOL 750 MG ORAL TABLET 1 by mouth every 8 hours as needed METHOCARBAMOL 750 MG ORAL TABLET 674723 METHOCARBAMOL Inactive SEROQUEL 100 MG ORAL TABLET SEROQUEL 100 MG ORAL TABLET 443364 QUETIAPINE FUMARATE Inactive TRAZODONE HCL 100 MG ORAL TABLET 1 by mouth nightly at bedtime TRAZODONE HCL 100 MG ORAL TABLET 919446 TRAZODONE HCL Inactive SAPHRIS 2.5 MG SUBLINGUAL TABLET SUBLINGUAL 1 tab By Mouth Twice a Day for Bipolar depression ASENAPINE MALEATE 40578451253 No Longer Active Navarro Marroquin MD Active LATUDA 20 MG ORAL TABLET 1 tab By Mouth take at bedtime for bipolar depression, mood swings LURASIDONE HCL 46504987863 No Longer Active Navarro Marroquin MD Active METHOCARBAMOL 750 MG ORAL TABLET 1 by mouth every 8 hours as needed METHOCARBAMOL 45847340916 No Longer Active Jessie Barney MD Active MACROBID 100 MG ORAL CAPSULE 1 by mouth twice a day NITROFURANTOIN MONOHYD MACRO 36699824455 No Longer Active Nilay Cleaning MD Active ALLOPURINOL 300 MG ORAL TABLET ALLOPURINOL 70759933341 No Longer Active Nilay Cleaning MD Active SPRYCEL 100 MG ORAL TABLET DASATINIB 16893552548 No Longer Active Jero Thompson MD Active REMERON 15 MG ORAL TABLET 1 by mouth nightly at bedtime MIRTAZAPINE 78407087133 No Longer Active Navarro Marroquin MD Active KEFLEX 250 MG ORAL CAPSULE 1 by mouth 4 times a day CEPHALEXIN 12223988372 No Longer Active Jero Thompson MD Active AMITRIPTYLINE HCL 25 MG ORAL TABLET 1 by mouth nightly at bedtime AMITRIPTYLINE HCL 02404742548 No Longer Active Jero Thompson MD Active CIPROFLOXACIN HCL 750 MG ORAL TABLET 1 tab By Mouth every 12 hours CIPROFLOXACIN HCL 17820367649 No Longer Active Sarah De Anda DO Active FLAGYL 500 MG ORAL TABLET 1 tab by mouth every 6 hours (four times a day) METRONIDAZOLE 04948725030 No Longer Active Sarah De Anda DO Active NAPROXEN 500 MG ORAL TABLET 1 by mouth twice a day as needed for pain and inflammation NAPROXEN 14986077973 No Longer Active Melba Pablo D.O. Active ASCORBIC ACID 500 MG ORAL TABLET Take 1 tablet by mouth daily ASCORBIC ACID 83325563625 No Longer Active Jero Thmopson MD Active FERROUS SULFATE 325 (65 Fe) MG ORAL TABLET DELAYED RELEASE 1 by mouth 2 times a day FERROUS SULFATE 89191372762 No Longer Active Jero Thompson MD Active GABAPENTIN 100 MG ORAL CAPSULE 1 cap By Mouth Three Times a Day As Needed anxiety GABAPENTIN 94540226859 No Longer Active Jero Thompson MD Active METHOCARBAMOL 750 MG ORAL TABLET 1 by mouth every 8 hours as needed METHOCARBAMOL 77443796402 No Longer Active Melba Pablo D.O. Active SEROQUEL 100 MG ORAL TABLET QUETIAPINE FUMARATE 99522007000 No Longer Active Jero Thompson MD Active TRAZODONE HCL 100 MG ORAL TABLET 1 by mouth nightly at bedtime TRAZODONE HCL 90904621753 No Longer Active Jero Thompson MD Active Immunizations Vaccine Administration Date Value Standard Description influenza immunization (Flu Vax) has been administered given influenza virus vaccine, unspecified formulation hepatitis A immunization #2 given hepatitis A vaccine, unspecified formulation hepatitis B vaccine #3 given hepatitis B vaccine, unspecified formulation hepatitis B vaccine #2 given given hepatitis B vaccine, unspecified formulation hepatitis B vaccine #2 given given hepatitis B vaccine, unspecified formulation hepatitis A immunization #1 given hepatitis A vaccine, unspecified formulation hepatitis B vaccine #1 given given hepatitis B vaccine, unspecified formulation Vital Signs Date Name Value Unit Range Description blood pressure, diastolic 79 mm[Hg] BP connell blood pressure, systolic 117 mm[Hg] BP sys height E&M 61 [in_us] Bdy height pulse rate E&M 76 /min Heart rate respiratory rate E&M 19 /min Resp rate temperature E&M 98.7 [degF] Body temperature weight E&M 202.40 [lb_av] Weight Measured blood pressure, diastolic 62 mm[Hg] BP connell blood pressure, systolic 107 mm[Hg] BP sys height E&M 61 [in_us] Bdy height pulse rate E&M 107 /min Heart rate weight E&M 196 [lb_av] Weight Measured blood pressure, diastolic 76 mm[Hg] BP connell blood pressure, systolic 118 mm[Hg] BP sys height E&M 61 [in_us] Bdy height pulse rate E&M 83 /min Heart rate respiratory rate E&M 16 /min Resp rate temperature E&M 98.6 [degF] Body temperature weight E&M 198 [lb_av] Weight Measured blood pressure, diastolic 76 mm[Hg] BP connell blood pressure, systolic 110 mm[Hg] BP sys height E&M 61 [in_us] Bdy height pulse rate E&M 83 /min Heart rate respiratory rate E&M 22 /min Resp rate temperature E&M 98.9 [degF] Body temperature weight E&M 201.20 [lb_av] Weight Measured blood pressure, diastolic 69 mm[Hg] BP connell blood pressure, systolic 90 mm[Hg] BP sys height E&M 61 [in_us] Bdy height pulse rate E&M 73 /min Heart rate weight E&M 203.60 [lb_av] Weight Measured blood pressure, diastolic 56 mm[Hg] BP connell blood pressure, systolic 128 mm[Hg] BP sys height E&M 61 [in_us] Bdy height pulse rate E&M 88 /min Heart rate respiratory rate E&M 17 /min Resp rate temperature E&M 98.8 [degF] Body temperature weight E&M 211 [lb_av] Weight Measured blood pressure, diastolic 66 mm[Hg] BP connell blood pressure, systolic 107 mm[Hg] BP sys height E&M 61 [in_us] Bdy height pulse rate E&M 77 /min Heart rate weight E&M 212.80 [lb_av] Weight Measured blood pressure, diastolic 72 mm[Hg] BP connell blood pressure, systolic 107 mm[Hg] BP sys height E&M 61 [in_us] Bdy height pulse rate E&M 66 /min Heart rate weight E&M 217 [lb_av] Weight Measured blood pressure, diastolic 74 mm[Hg] BP connell blood pressure, systolic 126 mm[Hg] BP sys height E&M 61 [in_us] Bdy height pulse rate E&M 70 /min Heart rate weight E&M 218.60 [lb_av] Weight Measured blood pressure, diastolic 80 mm[Hg] BP connell blood pressure, systolic 150 mm[Hg] BP sys height E&M 61 [in_us] Bdy height pulse rate E&M 76 /min Heart rate respiratory rate E&M 16 /min Resp rate temperature E&M 98.5 [degF] Body temperature weight E&M 219 [lb_av] Weight Measured blood pressure, diastolic 74 mm[Hg] BP connell blood pressure, systolic 106 mm[Hg] BP sys height E&M 61 [in_us] Bdy height pulse rate E&M 87 /min Heart rate respiratory rate E&M 16 /min Resp rate temperature E&M 98.8 [degF] Body temperature weight E&M 209 [lb_av] Weight Measured Diagnostic Results Date Name Value Unit Range Description Lab Report: CBC With Differential/Platelet, Comp. Metabolic Panel (14), ... - Urinalysis mucus on urinalysis Present Not Estab. Lab Report: TSH+Free T4, CBC With Differential/Platelet, Immature Cells, ... - Chemistry thyroid stimulating hormone, serum 3.100 u[iU]/mL 0.450-4.500 Lab Report: CBC With Differential/Platelet, Comp. Metabolic Panel (14), ... - Urinalysis WBC urine on microscopy 0-5 /hpf {Cells}/[HPF] 0 - 5 Lab Report: CBC With Differential/Platelet, Comp. Metabolic Panel (14), ... - Chemistry very low density lipoproteins 27 mg/dL 5-40 Lab Report: CBC With Differential/Platelet, Comp. Metabolic Panel (14), ... - Urinalysis epithelial cells, urine 0-10 /[LPF] 0 - 10 Lab Report: CBC With Differential/Platelet, Comp. Metabolic Panel (14), ... - Chemistry chloride, serum 105 mmol/L 97-108 urea nitrogen, blood 16 mg/dL 6-24 Office Visit: Adult Followup RM#[id number]-roopani - Urinalysis leukocyte esterase, urine, by dipstick negative Lab Report: TSH+Free T4, CBC With Differential/Platelet, Immature Cells, ... - Hematology mean corpuscular hemoglobin concentration, RBC 30.3 G/DL % 31.5-35.7 erythrocyte (RBC) count 5.12 X10E6/UL 10*6/mm3 3.77-5.28 Office Visit: Adult Followup RM#4-roopani - Urinalysis nitrite, urine, semiquantitative negative Lab Report: TSH+Free T4, CBC With Differential/Platelet, Immature Cells, ... - Chemistry thyroid peroxidase autoantibody, serum 15 [iU]/mL 0-34 Office Visit: Adult Followup RM#4-roopani - Urinalysis urine color light yellow Lab Report: TSH+Free T4, CBC With Differential/Platelet, Immature Cells, ... - Chemistry Absolute Neutrophils 13.5 X10E3/UL 10*3/uL 1.4-7.0 Office Visit: Adult Followup RM#4-roopani - Urinalysis bilirubin, urine negative Lab Report: CBC With Differential/Platelet, Comp. Metabolic Panel (14), ... 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 - Hematology mean corpuscular volume, RBC 73 fL 79-97 Lab Report: CBC With Differential/Platelet, Comp. Metabolic Panel (14), ... - Chemistry HDL cholesterol, serum 39 mg/dL >39 Lab Report: TSH+Free T4, CBC With Differential/Platelet, Immature Cells, ... - Hematology monocytes as percent of blood leukocytes 2 % Not Estab. Lab Report: CBC With Differential/Platelet, Comp. Metabolic Panel (14), ... - Chemistry albumin/globulin ratio, serum 1.8 1.1-2.5 creatinine, serum 1.01 mg/dL 0.57-1.00 cholesterol, serum 196 mg/dL 141-756 2546/05/05 bilirubin, serum, total 0.4 mg/dL 0.0-1.2 Lab Report: TSH+Free T4, CBC With Differential/Platelet, Immature Cells, ... - Hematology Eosinophil Absolute Count 0.2 X10E3/UL 10*3/uL 0.0-0.4 Office Visit: Adult Followup #[id number]-roopani - Urinalysis blood in urine (hemoglobin) by dipstick negative appearance, urine clear Lab Report: CBC With Differential/Platelet, Comp. Metabolic Panel (14), ... - Chemistry aspartate aminotransferase (SGOT), serum 18 U/L 0-40 Lab Report: TSH+Free T4, CBC With Differential/Platelet, Immature Cells, ... - Hematology red blood cell distribution width 20.8 % 12.3-15.4 Lab Report: Hemoglobin A1c, RPR, Rfx Qn RPR/Confirm TP, Vitamin B12 - Chemistry B-12, serum 1582 pg/mL 211-946 Lab Report: CBC With Differential/Platelet, Comp. Metabolic Panel (14), ... - Urinalysis urinalysis, microscopic examination See below: Lab Report: TSH+Free T4, CBC With Differential/Platelet, Immature Cells, ... - Hematology leukocyte count, blood 20.1 X10E3/UL 10*3/mm3 3.4-10.8 Office Visit: Adult Followup #[id number]-roopani - Urinalysis pH, urine, semiquantitative 6.0 Lab Report: CBC With Differential/Platelet, Comp. Metabolic Panel (14), ... - Chemistry potassium, serum 5.3 mmol/L 3.5-5.2 albumin, serum 4.2 g/dL 3.5-5.5 immature granulocytes, percentage of total cells, blood 2 % Lab Report: TSH+Free T4, CBC With Differential/Platelet, Immature Cells, ... - Hematology lymphocyte count, blood, automated 2.6 X10E3/UL 10*3/mm3 0.7-3.1 hematocrit, blood 37.3 % 34.0-46.6 Lab Report: CBC With Differential/Platelet, Comp. Metabolic Panel (14), ... - Chemistry sodium, serum 143 mmol/L 134-144 Lab Report: CBC With Differential/Platelet, Comp. Metabolic Panel (14), ... - Urinalysis urine culture Escherichia coli Lab Report: TSH+Free T4, CBC With Differential/Platelet, Immature Cells, ... - Hematology neutrophils as percent of blood leukocytes 57 % Not Estab. Internal Correspondence: Pre-Visit Planning - Other List of providers caring for patient Dr. Barney Lab Report: TSH+Free T4, CBC With Differential/Platelet, Immature Cells, ... - Hematology basophils as percent of blood leukocytes 5 % Not Estab. Lab Report: CBC With Differential/Platelet, Comp. Metabolic Panel (14), ... - Chemistry specific gravity, body fluid 1.014 1.005-1.030 Office Visit: Acute Visit Dr Dickey # 1 - Serology influenza virus A antigen negative Office Visit: Adult Followup RM#4-roopani - Urinalysis protein, urine, semiquantitative (dipstick) negative Lab Report: CBC With Differential/Platelet, Comp. Metabolic Panel (14), ... - Chemistry RBC, Urine 0-2 /hpf /[HPF] 0 - 2 Lab Report: Hemoglobin A1c, RPR, Rfx Qn RPR/Confirm TP, Vitamin B12 - Serology rapid plasma reagin antibody, serum Non Reactive Non Reactive Lab Report: CBC With Differential/Platelet, Comp. Metabolic Panel (14), ... - Chemistry carbon dioxide, venous blood 25 mmol/L 18-29 nitrate, urine Positive Negative triglyceride, serum, fasting 136 mg/dL 0-149 calcium, serum 9.3 mg/dL 8.7-10.2 alanine aminotransferase (SGPT), serum 14 U/L 0-32 Lab Report: TSH+Free T4, CBC With Differential/Platelet, Immature Cells, ... - Hematology mean corpuscular hemoglobin, RBC 22.1 pg 26.6-33.0 Office Visit: Adult Followup #[id number]-roopani - Urinalysis specific gravity, urine 1.015 Lab Report: CBC With Differential/Platelet, Comp. Metabolic Panel (14), ... - Urinalysis bacteria, urine microscopy None seen None seen/Few Lab Report: CBC With Differential/Platelet, Comp. Metabolic Panel (14), ... - Chemistry protein, total, serum 6.5 g/dL 6.0-8.5 alkaline phosphatase, serum 131 U/L 39-117 Lab Report: TSH+Free T4, CBC With Differential/Platelet, Immature Cells, ... - Hematology hemoglobin, blood 11.3 g/dL 11.1-15.9 Office Visit: Acute Visit Dr Dickey # 1 - Lab Microbial identification kit, rapid strep method negative Lab Report: TSH+Free T4, CBC With Differential/Platelet, Immature Cells, ... - Hematology lymphocytes as percent of blood leukocytes 13 % Not Estab. Lab Report: Hemoglobin A1c - Chemistry hemoglobin A1C, blood, as % of total hemoglobin 5.7 % 4.8-5.6 Office Visit: Adult Followup #[id number]-roopani - Urinalysis glucose, urine, semiquantitative negative Lab Report: CBC With Differential/Platelet, Comp. Metabolic Panel (14), ... - Genetics/fertility eGFR if 77 mL/min/1.73m2 >59 Lab Report: TSH+Free T4, CBC With Differential/Platelet, Immature Cells, ... - Chemistry thyroxine, serum, free 1.46 ng/dL 0.82-1.77 Lab Report: TSH+Free T4, CBC With Differential/Platelet, Immature Cells, ... - Hematology basophil count, absolute 1.0 x10E3/uL 0.0-0.2 Lab Report: CBC With Differential/Platelet, Comp. Metabolic Panel (14), ... - Chemistry globulin, serum 2.3 1.5-4.5 Estimated Glomerular Filtration Rate (calc) 66 mL/min/1.73m2 >59 Lab Report: CBC With Differential/Platelet, Comp. Metabolic Panel (14), ... - Basic Occult Blood, urine Negative Negative Lab Report: TSH+Free T4, CBC With Differential/Platelet, Immature Cells, ... - Hematology eosinophils as percent of blood leukocytes 1 % Not Estab. Lab Report: CBC With Differential/Platelet, Comp. Metabolic Panel (14), ... - Chemistry blood glucose, random 95 mg/dL 65-99 Office Visit: Adult Followup RM#4-sohan - Urinalysis urobilinogen, urine, semiquantitative (dipstick) negative Lab Report: TSH+Free T4, CBC With Differential/Platelet, Immature Cells, ... - Hematology monocyte count, blood, automated 0.4 X10E3/UL 10*3/uL 0.1-0.9 platelet count 295 X10E3/UL 10*3/mm3 150-379 Office Visit: Adult Followup RM#4-sohan - Urinalysis ketones, urine, by test strip negative Encounters Date Encounter Provider Code Facility 14:35:07 ASSISTANT CLINICAL NURSE MANAGER Est Patient Exp Problem - [id number] Jessie Barney MD CPT-62524 [facility] 13:17:55 CDT Est Patient Detailed - 19711 Jessie Barney MD CPT-48042 [facility] 09:05:37 CDT Est Patient Exp Problem - 31524 Navarro Marroquin MD CPT-46824 [facility] 09:59:00 CDT Est Patient Detailed - 77585 Jessie Barney MD CPT-37880 [facility] 09:11:02 CDT Est Patient Exp Problem - 14856 Navarro Marroquin MD CPT-68726 [facility] 13:44:23 CDT Est Patient Exp Problem - 63044 Jessie Barney MD CPT-15071 [facility] 09:41:41 CDT Est Patient Exp Problem - 37906 Navarro Marroquin MD CPT-64241 [facility] 09:48:31 CDT Est Patient Exp Problem - 24763 Navarro Marroquin MD CPT-37854 [facility] 09:01:30 ASSISTANT CLINICAL NURSE MANAGER Est Patient Detailed - 66404 Navarro Marroquin MD CPT-21555 [facility] 18:36:12 ASSISTANT CLINICAL NURSE MANAGER Est Patient Exp Problem - 80739 Jessie Barney MD CPT-70465 [facility] 10:31:32 ASSISTANT CLINICAL NURSE MANAGER Est Patient Detailed - 30125 Jessie Barney MD CPT-24927 [facility] 17:14:26 ASSISTANT CLINICAL NURSE MANAGER Est Patient Exp Problem - 60885 Jessie Barney MD CPT-00439 [facility] 09:33:03 ASSISTANT CLINICAL NURSE MANAGER Est Patient Detailed - 47506 Navarro Marroquin MD CPT-77952 [facility] 21:08:43 ASSISTANT CLINICAL NURSE MANAGER Est Patient Exp Problem - 08067 Jessie Barney MD CPT-97948 [facility] 17:16:40 ASSISTANT CLINICAL NURSE MANAGER Est Patient Exp Problem - 88770 Jessie Barney MD CPT-05800 [facility] 13:46:26 ASSISTANT CLINICAL NURSE MANAGER Est Patient Exp Problem - 97584 Navarro Marroquin MD CPT-01778 [facility] 18:41:33 ASSISTANT CLINICAL NURSE MANAGER Est Patient Exp Problem - 77238 Jessie Barney MD CPT-53060 [facility] 09:00:39 CDT Est Patient Exp Problem - 05839 Jessie Barney MD CPT-28329 [facility] 13:43:21 CDT Est Patient Exp Problem - 17157 Navarro Marroquin MD CPT-48665 [facility] 09:28:29 CDT Est Patient Exp Problem - 71072 Jessie Barney MD CPT-29489 [facility] 08:33:04 CDT Est Patient Exp Problem - 51189 Tara Ramirez MD CPT-94649 [facility] 12:55:24 CDT Est Patient Exp Problem - 27686 Nilay Cleaning MD CPT-00813 [facility] 09:44:25 CDT Est Patient Exp Problem - 62751 Navarro Marroquin MD CPT-66524 [facility] 11:31:22 CDT Est Patient Detailed - 18926 Navarro Marroquin MD CPT-91055 [facility] 11:41:53 CDT Est Patient Exp Problem - 28996 Melba Pablo D.O. CPT-05413 [facility] 08:42:29 CDT Est Patient Detailed - 78565 Navarro Marroquin MD CPT-12492 [facility] 16:22:15 CDT Est Patient Exp Problem - 27147 Nilay Cleaning MD CPT-18476 [facility] 08:43:48 CDT Est Patient Exp Problem - 98159 Navarro Marroquin MD CPT-88614 [facility] 09:55:03 CDT Est Patient Exp Problem - 36450 Jero Thompson MD CPT-33261 [facility] 09:24:23 CDT Est Patient Exp Problem - 49157 Navarro Marroquin MD CPT-82546 [facility] 13:28:22 ASSISTANT CLINICAL NURSE MANAGER Est Patient Exp Problem - 32465 Melba Pablo D.O. CPT-60273 [facility] 14:39:25 ASSISTANT CLINICAL NURSE MANAGER Est Patient Exp Problem - 64382 Jero Thompson MD CPT-51046 [facility] 12:54:54 ASSISTANT CLINICAL NURSE MANAGER Est Patient Exp Problem - 24118 Melba Pablo D.O. CPT-36489 [facility] 14:41:38 ASSISTANT CLINICAL NURSE MANAGER Est Patient Exp Problem - 23886 Rishi Granger MD CPT-83716 [facility] 10:35:48 CDT Est Patient Exp Problem - 05004 Nilay Cleaning MD CPT-25324 [facility] 11:57:06 CDT Est Patient Exp Problem - 46505 Melba Pablo D.O. CPT-90814 [facility] 11:55:55 ASSISTANT CLINICAL NURSE MANAGER Est Patient Exp Problem - 80400 Jero Thompson MD CPT-53311 [facility] 22:58:14 ASSISTANT CLINICAL NURSE MANAGER Est Patient Exp Problem - 87902 Kylah Santos MD CPT-15891 [facility] 21:02:58 CDT Ofc Vst, Est Level III Tara Ramirez MD CPT-89602 [facility] 14:25:07 CDT Est Patient Exp Problem - 69255 Jero Thompson MD CPT-15736 [facility] 13:38:26 CDT Est Patient Exp Problem - 95234 Jero Thompson MD CPT-43877 [facility] 12:24:46 CDT Est Patient Detailed - 31275 Melba Pablo D.O. CPT-53495 [facility] Procedures Code Procedure Name Date Entry Date Standard Description CPT-45146 Psychotherapy 45 (38-52*) min - 47259 (with patient and/or family member) 21:39:19 ASSISTANT CLINICAL NURSE MANAGER CPT-55513 IM or SQ Injection 09:36:28 ASSISTANT CLINICAL NURSE MANAGER CPT-J1100 Injection, dexamethasone sodium phosphate, 1mg 09:36:28 ASSISTANT CLINICAL NURSE MANAGER CPT-J1100 Injection, dexamethasone sodium phosphate, 1mg 09:36:27 [facility] CPT-17088 IM or SQ Injection 17:14:26 ASSISTANT CLINICAL NURSE MANAGER CPT-J1885 Injection, ketorolac tromethamine (toradol), per 15 mg 17:14:26 ASSISTANT CLINICAL NURSE MANAGER CPT-70943 IM or SQ Injection 17:14:26 ASSISTANT CLINICAL NURSE MANAGER CPT-J1885 Injection, ketorolac tromethamine (toradol), per 15 mg 17:14:26 [facility] CPT-84186 Psychotherapy 45 (38-52*) min - 38315 (with patient and/or family member) 12:42:51 ASSISTANT CLINICAL NURSE MANAGER CPT-79496 Psychotherapy 45 (38-52*) min - 06484 (with patient and/or family member) 09:29:23 ASSISTANT CLINICAL NURSE MANAGER CPT-92339 Psychotherapy 45 (38-52*) min - 71018 (with patient and/or family member) 14:40:01 ASSISTANT CLINICAL NURSE MANAGER CPT-76619 Psychotherapy 45 (38-52*) min - 19722 (with patient and/or family member) 12:38:14 CDT CPT-53421 INFLUENZA VACCINE QUADRIVALENT 3 YRS PLUS IM 09:31:41 CDT CPT-92984 Psychotherapy 45 (38-52*) min - 59673 (with patient and/or family member) 13:02:27 CDT CPT-41283 Rapid Strep - In House 12:55:25 CDT CPT-42387 Rapid Flu - In House 12:55:25 CDT CPT-20930 Psychotherapy 45 (38-52*) min - 86006 (with patient and/or family member) 15:43:45 CDT CPT-61253 Psychotherapy 45 (38-52*) min - 91076 (with patient and/or family member) 20:36:10 CDT CPT-14938 Psychotherapy 30 (16-37*) min - 00075 (with patient and/or family member) 16:26:39 CDT CPT-81413 Urinalysis - Dip only - In House 09:55:05 CDT CPT-13001 Diagnostic evaluation (no medical) - 00846 13:03:51 CDT CPT-04671 Psychotherapy 30 (16-37*) min - 85063 (with patient and/or family member) 13:49:49 ASSISTANT CLINICAL NURSE MANAGER CPT-59508 Diagnostic evaluation with medical - 71474 09:54:45 ASSISTANT CLINICAL NURSE MANAGER CPT-HE001 Health Education/Supportive Counseling 13:10:26 ASSISTANT CLINICAL NURSE MANAGER CPT-84640 Diagnostic evaluation (no medical) - 48880 22:32:42 ASSISTANT CLINICAL NURSE MANAGER CPT-97339 Rapid Flu - In House 14:39:26 ASSISTANT CLINICAL NURSE MANAGER CPT-66204 Hepatitis B - Adult 11:27:34 ASSISTANT CLINICAL NURSE MANAGER CPT-84686 Hepatitis A - Adult 11:27:34 ASSISTANT CLINICAL NURSE MANAGER CPT-51135 Admin of Vaccine - Injection - Each Add'l 11:27:34 ASSISTANT CLINICAL NURSE MANAGER CPT-51073 Admin of Vaccine - Injection - 1 11:27:34 ASSISTANT CLINICAL NURSE MANAGER CPT-G0404 ECG RTN ECG W/12 LEADS TRACING ONLY 16:00:07 ASSISTANT CLINICAL NURSE MANAGER CPT-56891 BRNCDILAT RSPSE SPMTRY PRE&POST-BRNCDILAT ADMN 13:38:26 CDT CPT-J7613 Albuterol inhalation solution 0.083 3ml 1unit 13:38:25 CDT CPT-64163 Nebulizers 13:38:25 CDT CPT-46076 Hepatitis A - Adult 12:24:47 CDT CPT-26684 Hepatitis B - Adult 12:24:47 CDT
--- OUTSIDE RECORDS SUMMARY | 2019-08-20 20:09 | XMS REPORT ---
Author Author Admin, [place] Organization Unknown Address Unknown Phone Unavailable PROBLEMS Condition Status Date Provider Notes Headache, atypical active Jessie Ector Poor dentition active Jessie Ector Hip joint pain, right active Jessie Ector Nausea active Jessie Ector Rash, unspecified active Jessie Ector Foot joint pain, right active Jessie Ector Lower extremity weakness active Jessie Ector Neck pain, acute active Jessie Ector Otitis externa, bilateral active Jessie Ector Poor dentition active Jessie Ector Hx of palpitations active Jessie Ector Hx of allergic reaction active Jessie Ector Flu vaccine active Jessie Ector Lower back pain active Jessie Ector Cough active Leonila Dickey since 1 week, dry, OTC attempts failed Knee pain, left active Josette Roopani Pain in right hip active Nilay Cleaning fell and landed on concrete Frequent falls active Josette Roopani Urinary tract infection completed - Madhumita Black Hyperlipidemia active Josette Roopani Ankle arthralgia active Josette Roopani Chronic myelocytic leukemia active Josette Roopani Peripheral neuropathy active Josette Roopani Sore throat (acute) completed - Josette Roopani Symptom, cough completed - Josette Roopani URI completed - Josette Roopani BMI 36.0-36.9 active Rishi Garnger Back pain active Sarah De Anda Abdominal pain completed - Josette Roopani Osteoarthritis, fingers active Josette Roopani Ingrown toenail without infection completed - Josette Roopani Chest discomfort, atypical completed - Josette Roopani Need for prophylactic vaccination with unspecified combined vaccine completed - Sol Knutson Prediabetes active Josette Roopani Screening for diabetes mellitus completed - Josette Roopani URI completed - Josette Roopani Chest pain completed - Josette Roopani Chest pain completed - Josette Roopani Chest pain completed - Josette Roopani Bronchitis, acute completed - Josette Roopani Symp swell/mass/lump, localized superficial active Jessie Barney Insomnia active Josette Roopani GERD active Josette Roopani Overactive bladder active Josette Roopani Panic disorder active Navarro Atri Bipolar 1 disorder, depressed active Navarro Atri Anemia, iron deficiency completed - Josette Roopani Hepatitis C, chronic active Josette Roopani Asthma active Josette Roopani MORBID OBESITY active Josette Roopani ENCOUNTERS Date Type Provider Location Encounter Diagnosis - Ambulatory Encounter Jessie Ector Barney [facility] UNK - Ambulatory Encounter Allyson Herrera [facility] Contact Center UNK - Ambulatory Encounter Jessie Barney [facility] UNK - Ambulatory Encounter Navarro Briceño Atri Miriam Davidson Ramila Kerns [facility] UNK - Ambulatory Encounter Navarro Hernandezutmayelin Marroquin Aleta BhagatBcOrtiz [facility] Contact Center UNK - Ambulatory Encounter Jessie Roman Ector [facility] UNK - Ambulatory Encounter Blaire Rice [facility] UNK - Ambulatory Encounter Fax Status [facility] UNK - Ambulatory Encounter Yuly Almas [facility] UNK - Ambulatory Encounter Jessie Roman Ector [facility] UNK - Ambulatory Encounter Jessie [facility] - [facility]ulatory Encounter Jessie Roman Ector [facility] UNK - Ambulatory Encounter Jessie Roman Ector Jen Genao [facility] Headache, atypical - Ambulatory Encounter Chhaya Norberto [facility] UNK - Ambulatory Encounter Navarro Briceño Atri Miriam Stuart [facility] UNK - Ambulatory Encounter Jessie Roman Ector [facility] UNK - Ambulatory Encounter Olga Mishra [facility] UNK - Ambulatory Encounter Olga Mishra Med[facility]herence [facility] UNK - Ambulatory Encounter Jessie Roman Ector [facility] UNK - Ambulatory Encounter Jessie Briceño Atri Navarro Lopez Aguirre [facility] Poor dentition - Ambulatory Encounter Jessie Ector Barney LinkLogic [place] [facility] UNK - Ambulatory Encounter Jessie Ector Roman Ector LinkLogic [place] [facility] UNK - Ambulatory Encounter Chhaya Thornton [facility] UNK - Ambulatory Encounter Jessie Ector Barney LinkLogic [place] [facility] UNK - Ambulatory Encounter Jessie Ector Barney [facility] UNK - Ambulatory Encounter Jessie Ector Barney Allyson Arguelles [facility] UNK - Ambulatory Encounter Jessie Ector Barney Kim Reyes [facility] Hip joint pain, right - Ambulatory Encounter Jessie Ector Barney LinkLogic [place] [facility] UNK - Ambulatory Encounter Chhaya Thornton [facility] UNK - Ambulatory Encounter Allyson Pablo [facility] UNK - Ambulatory Encounter Jessie Ector Barney LinkLogic [place] [facility] UNK - Ambulatory Encounter Olga Mishra MedAdherence [place] [facility] UNK - Ambulatory Encounter Olga Mishra MedAdherence LinkLogic [place] [facility] UNK - Ambulatory Encounter Carol Nevarez [facility] UNK - Ambulatory Encounter Carol Nevarez MedAdherence LinkLogic [facility] UNK - Ambulatory Encounter Jessie Ector Barney Danii Gaming [facility] UNK - Ambulatory Encounter Chhaya Thornton [facility] UNK - Ambulatory Encounter Jessie Ector Roman Ector LinkLogic [facility] UNK - Ambulatory Encounter Jessie Ector Jessie Ector LinkLog[facility] UNK - Ambulatory Encounter Jessie Ector Jessie Whiteome LinkLog[facility] UNK - Ambulatory Encounter Jessie Ector Roman Ector LinkLogic [facility] UNK - Ambulatory Encounter Farhana Cardona [facility] UNK - Ambulatory Encounter Jessie Ector Jessie Ector LinkLogic [facility] UNK - Ambulatory Encounter Jessie Ector Jessie Whiteome LinkLog[facility] UNK - Ambulatory Encounter Navarromiladys Briceño Atri Soila Reyes [facility] UNK - Ambulatory Encounter Jessie Ector Whiteome LinkLogic [facility] UNK - Ambulatory Encounter Jessie Ector Whiteome LinkLogic [facility] UNK - Ambulatory Encounter Jessie Ector Whiteome LinkLogic [facility] UNK - Ambulatory Encounter Jessie Ector Jessie Ector LinkLogic [facility] UNK - Ambulatory Encounter Jessie Ector Jessie Whiteome LinkLog[facility] UNK - Ambulatory Encounter Chhaya Thornton [facility] UNK - Ambulatory Encounter Jessie Ector Jessie Ector LinkLogic [facility] UNK - Ambulatory Encounter Jessie Ector Jessie Ector LinkLogic [facility] UNK - Ambulatory Encounter Jessie Ector Jessie Ector [facility] UNK - Ambulatory Encounter Farhana Cardona [facility] UNK - Ambulatory Encounter Jessie Ector Barney [facility] UNK - Ambulatory Encounter Jessie Ector Barney [facility] UNK - Ambulatory Encounter Melba Inman Clifflavonne [facility] UNK - Ambulatory Encounter Jessie Ector Roman Ector [facility] UNK - Ambulatory Encounter Jessie Ector Barney Jeniffer Ruffin [facility] Nausea - Ambulatory Encounter Chhaya [facility] UNK - Ambulatory Encounter Navarro Rizvi [facility] UNK - Ambulatory Encounter Melba Storm Pablo [facility] UNK - Ambulatory Encounter Jessie Ector [facility]K - Ambulatory Encounter Melba Storm Pablo [facility] UNK - Ambulatory Encounter Enma Kohli [facility] UNK - Ambulatory Encounter Santos Penaloza [facility] UNK - Ambulatory Encounter Carol Nevarez [facility] - Ambulatory En[facility] - Ambulatory Encounter Jessie Ector Barney [facility] UNK - Ambulatory Encounter Jessie Ector Barney LinkLogic [facility] UNK - Ambulatory Encounter Olga Mishra MedAdherence [facility] UNK - Ambulatory Encounter Olga Tad MedAdherence LinkLogic [facility] UNK - Ambulatory Encounter Navarro Rizvi [facility] UNK - Ambulatory Encounter Aleta Jaswinder [facility] UNK - Ambulatory Encounter Aleta San [facility] UNK - Ambulatory Encounter Farhana Cardona [facility] UNK - Ambulatory Encounter Carol Nevarez [facility]Gen[facility] Center[facility] UNK - Ambulatory Encounter Carol Nevarez MedAdherSelect [facility] ArborLogCitizens [facility] HealthcareB[facility] UNK - Ambulatory Encounter Jessie Roman [facility] LinkLogic [facility] UNK - Ambulatory Encounter Jessie Roman [facility] LinkLogic [facility] UNK - Ambulatory Encounter Navarro Davidson [facility] UNK - Ambulatory Encounter Jessie Roman Ector LinkLogic [facility] UNK - Ambulatory Encounter Chhaya Thornton [facility] UNK - Ambulatory Encounter Chhaya Norberto [facility] UNK - Ambulatory Encounter Navarro Marroquin [facility] UNK - Ambulatory Encounter Navarro Briceño Atri Soila Reyes [facility] UNK - Ambulatory Encounter Fax Status [facility] UNK - Ambulatory Encounter Fax Status [facility] UNK - Ambulatory Encounter Fax Status [facility] UNK - Ambulatory Encounter Jessie Barney [facility] UNK - Ambulatory Encounter Jessie Dumas [facility] Foot joint pain, rightRash, unspecified - Ambulatory Encounter Raghavham Dove [facility] UNK - Ambulatory Encounter Arghav Derrell [facility] UNK - Ambulatory Encounter Jessie Barney [facility] UNK - Ambulatory Encounter Jamila Cuadra [facility] UNK - Ambulatory Encounter Yuly Coburn [facility] UNK - Ambulatory Encounter Jessie Arguelles [facility] UNK - Ambulatory Encounter Navarro Marroquin [facility] UNK - Ambulatory Encounter [facility] UNK - Ambulatory Encounter Jessie Barney [facility] UNK - Ambulatory Encounter Jessie Barney [facility] UNK - Ambulatory Encounter Jessie Cohen [facility] Symp swell/mass/lump, localized superficialLower extremity weakness - Ambulatory Encounter Carol Nevarez [facility] - Ambulatory Encounter Jessie Ector Barney LinkLogM[facility]view [facility] Hospital and Clinicso [facility] UNK - Ambulatory Encounter Olga Mishra [facility] UNK - Ambulatory Encounter Olga Mishra [facility] UNK - Ambulatory Encounter Jessie Ector Barney [facility]Log[facility] Clinicso [facility] UNK - Ambulatory Encounter Jessie Ector Barney [facility] UNK - Ambulatory Encounter Jessie Ector Barney [facility] UNK - Ambulatory Encounter Jessie Ector Barney [facility] UNK - Ambulatory Encounter Jessie Ector Barney [facility] UNK - Ambulatory Encounter Jessie Whiteome Farheen Cohen [facility] Neck pain, acute - Ambulatory Encounter Navarro Atri Navarro Atri [facility] UNK - Ambulatory Encounter Navarro Atri Navarro Atri Miriam Davidson [facility] UNK - Ambulatory Encounter Navarro Atri Navarro Atri [facility] UNK - Ambulatory Encounter Yuly Coburn [facility] UNK - Ambulatory Encounter Jessie Ector Barney [place] [facility] UNK - Ambulatory Encounter Jessie Ector Jessie Ector [place] [facility] UNK - Ambulatory Encounter Jessie Whiteome Enma Edwards [facility] Otitis externa, bilateral - Ambulatory Encounter Nilay Cleaning [facility] UNK - Ambulatory Encounter Jessie Ector Roman Ector LinkLogic [facility] UNK - Ambulatory Encounter Yuly Almas [facility] UNK - Ambulatory Encounter Olga [facility]ishra [facility] - Ambulatory Encounter Olga Mishra [facility] LinkLogic [facility] UNK - Ambulatory Encounter Blaire Dwayne [facility] UNK - Ambulatory Encounter Blaire Dwayne [facility] UNK - Ambulatory Encounter Jessie Ector Jessie Ector [facility] HospitalLog[facility] UNK - Ambulatory Encounter Blaire Dwayne [facility] UNK - Ambulatory Encounter Jessie Ector Jessie Ector [facility] UNK - Ambulatory Encounter Jessie Ector Jessie Ector Seeham Sotonila River Arellano [place] [facility] Poor dentition - Ambulatory Encounter Navarro Briceño Atri [facility] UNK - Ambulatory Encounter Navarro Hernandezutosh Atri Zeeshan Owens [facility] UNK - Ambulatory Encounter Sharad [facility] - Ambulatory Encounter Laurent Villanueva LinkLog [facility] UNK - Ambulatory Encounter Sol Knutson [facility]K - Ambulatory Encounter Jessie Ector Eli Ector [facility]Log[facility] UNK - Ambulatory Encounter Jessie Ector Jessie Ector [facility] UNK - Ambulatory Encounter Jessie Barney [facility] UNK - Ambulatory Encounter Jessie Ector Barney Jeniffer Cohen [facility] Hx of allergic reactionHx of palpitations - Ambulatory Encounter Jessie Ector Condon [facility] UNK - Ambulatory Encounter Melba Pablo [facility] UNK - Ambulatory Encounter Jessie Ector Barney [facility] UNK - Ambulatory Encounter Melba Inman Torreyedin [facility] UNK - Ambulatory Encounter Jessie Ector Barney [facility] UNK - Ambulatory Encounter Yuly Coburn [facility] UNK - Ambulatory Encounter Tara Ramirez [facility] UNK - Ambulatory Encounter Jessie Ector Barney [facility] UNK - Ambulatory Encounter [facility] UNK - Ambulatory En[facility] - Ambulatory Encounter Jessie Ector Barney [facility] UNK - Ambulatory Encounter Olga Mishra [facility] UNK - Ambulatory Encounter Olga Mishra [facility] UNK - Ambulatory Encounter Olga Mishra [facility] UNK - Ambulatory Encounter Jessie Ector Barney [facility] UNK - Ambulatory Encounter Jessie Ector Jessie Ector [facility] UNK - Ambulatory Encounter Jessie Elizabethierrez [facility] UNK - Ambulatory Encounter Olga Mishra [facility] UNK - Ambulatory Encounter Olga Mishra [facility] UNK - Ambulatory Encounter Tara Ashley [facility] UNK - Ambulatory Encounter Navarro Atri Navarro Atri [facility] UNK - Ambulatory Encounter Navarro Atri Navarro Atri [facility] UNK - Ambulatory Encounter Navarro Atri Navarro Atri [facility] UNK - Ambulatory Encounter Navarro Atri Navarro Atri Soila Reyes [facility] UNK - Ambulatory Encounter Yuly Coburn [facility] UNK - Ambulatory En[facility] - Ambulatory Encounter Jessie Ector Jessie Ector [facility] UNK - Ambulatory Encounter Jessie Whiteome Jessie Whiteome Sol Ruffin [facility] Lower back painFlu vaccine - Ambulatory Encounter Melba Pablo [facility] UNK - Ambulatory En[facility] UNK - Ambulatory Encounter Yuly Cobunr [facility] UNK - Ambulatory Encounter Aleta San [facility] UNK - Ambulatory Encounter Aleta Diasdo [facility] UNK - Ambulatory Encounter Melba Pablo [facility] UNK - Ambulatory Encounter Olga Mishra MedSan [facility] Apache Tribe Healthcare Corporationence [facility] UNK - Ambulatory Encounter Olga Mishra MedAdherence [facility] UNK - Ambulatory Encounter Tara Ashley [facility] UNK - Ambulatory Encounter Sharad Caceres [facility] UNK - Ambulatory Encounter Olga Mishra [facility] UNK - Ambulatory Encounter Lisset Cardona [facility] UNK - Ambulatory Encounter Olga Mishra MedAdherence [facility] UNK - Ambulatory Encounter Tara [facility]John [facility] UNK - Ambulatory Encounter Tara Ashley James Munson [facility] UNK - Ambulatory Encounter Sharad Caceres [facility] UNK - Ambulatory Encounter Leonila Dickey [facility] UNK - Ambulatory Encounter Leonila Dickey [facility] UNK - Ambulatory Encounter Nilay Tyson [facility] Cough - Ambulatory Encounter Carol Nevarez [facility] UNK - Ambulatory Encounter Eliane Madison [facility] UNK - Ambulatory Encounter Eliane Madison [facility] UNK - Ambulatory Encounter Eliane Madison [facility] UNK - Ambulatory Encounter Eliane Madison [facility] UNK - Ambulatory Encounter Eliane Madison Link[facility] UNK - Ambulatory Encounter Navarro Atri Navarro Atri [facility] UNK - Ambulatory Encounter Navarro Atri Navarro Atri Miriam Davidson [facility] UNK - Ambulatory Encounter Rosa Guevara [facility] UNK - Ambulatory Encounter Rosa Guevara [facility] UNK - Ambulatory Encounter Yuly Coburn [facility] UNK - Ambulatory Encounter Carol Nevarez MedAdherence [facility] UNK - Ambulatory Encounter Carol Nevarez MedSelect Special[facility] Hospital-Ann ArborLogic [facility] UNK - Ambulatory Encounter Melba Pablo LinkLogic [facility] UNK - Ambulatory Encounter Melba Pablo LinkLog[facility] UNK - Ambulatory Encounter Melba Pablo LinkLog[facility] UNK - Ambulatory Encounter Melba Pablo LinkLog[facility] UNK - Ambulatory Encounter Navarro Atri Navarro Atri [facility] UNK - Ambulatory Encounter Navarro Atri Navarro Atri Miriam Davidson [facility] UNK - Ambulatory Encounter Rosa Guevara [facility] UNK - Ambulatory Encounter Rosa Guevara [facility] UNK - Ambulatory Encounter Sharad unoelle LinkLog[facility] UNK - Ambulatory Encounter Melba Storm Pablo LinkLog[facility] UNK - Ambulatory Encounter Melba Storm Coronadolavonne LinkLogic [facility] UNK - Ambulatory Encounter Sharad Goldsteinunoelle LinkLogic [facility] UNK - Ambulatory Encounter Rajivjaswant [facility] LinkLogBay[facility] UNK - Ambulatory Encounter Jessie SalcidoAultman Orrville Hospitaljaswant Caceres [facility] UNK - Ambulatory Encounter Olga Mishra MedAdherence [facility] UNK - Ambulatory Encounter Olga Mishra MedAdherence LinkLog[facility] UNK - Ambulatory Encounter Melba Pablo LinkLog[facility] UNK - Ambulatory Encounter Melba Pablo LinkLog[facility] UNK - Ambulatory Encounter Melba Pablo LinkLog[facility] UNK - Ambulatory Encounter Yuly Coburn [facility] UNK - Ambulatory Encounter Melba Pablo LinkLog[facility] UNK - Ambulatory Encounter Nilay Cleaning LinkLogCitizens Memorial HealthcareB[facility] UNK - Ambulatory Encounter Josette Pringle [facility]Log[facility] UNK - Ambulatory Encounter Josette Pringle [facility] UNK - Ambulatory Encounter Melba Pablo [facility] UNK - Ambulatory Encounter Olga Mishra [facility] UNK - Ambulatory Encounter Olga Mishra [facility] UNK - Ambulatory Encounter James Roland [facility] UNK - Ambulatory Encounter Nilay Cleaning [facility] UNK - Ambulatory Encounter Aleta Roland [facility] UNK - Ambulatory Encounter Carol Nevarez [facility] UNK - Ambulatory Encounter Fax Status LinkLogic [facility] UNK - Ambulatory Encounter Fax Status LinkLogic [facility] UNK - Ambulatory Encounter Fax Status LinkLogic [facility] UNK - Ambulatory Encounter Carol Nevarez MedAdherSelect Specialty Hospital-Ann ArborLogSharp [facility] UNK - Ambulatory Encounter Josette Pringle [facility] UNK - Ambulatory Encounter Kathy Schmidt [facility] UNK - Ambulatory Encounter Melba Dumas [facility] Knee pain, left - Ambulatory Encounter Rosa Guevara [facility] UNK - Ambulatory Encounter Rosa Ismael [facility] UNK - Ambulatory Encounter Farhana Paige [facility] Contact Center UNK - Ambulatory Encounter Navarro Atri Navarro Atri [facility] UNK - Ambulatory Encounter Kylah Santos [facility] - Ambulatory Encounter Nilay Bandamitham Cleaning [facility]Log[facility] UNK - Ambulatory Encounter Josette Roleonor Pichardoa Pino [facility]K - Ambulatory Encounter Josette Rograceni Josette Roopawaylon [facility] UNK - Ambulatory Encounter Navarro Atri Navarro Atri [facility] UNK - Ambulatory Encounter Navarro Atri Navarro Atri Miriamyusra [facility] UNK - Ambulatory Encounter Josette Dalyopani Josette Pino Mccarthyquez [facility] Contact Center UNK - Ambulatory Encounter Nilay Bandamita Black [facility]LogMoundview [facility] Hospital [facility] Clinicso [facility] UNK - Ambulatory Encounter Josette Vázquez [facility] - Ambulatory Encounter Josette Roopani Josette Roopawaylon [facility] UNK - Ambulatory Encounter Melba Pablo [facility] UNK - Ambulatory Encounter Jero Thompson [facility] UNK - Ambulatory Encounter Nilay Cleaning [facility] UNK - Ambulatory Encounter Nilay Cleaning Nilay Mathurham Roland [facility] Urinary tract infectionPain in right hip - Ambulatory Encounter Josette Pino Pichardoa Pino [facility] Frequent falls - Ambulatory Encounter Melba Pablo [facility] UNK - Ambulatory Encounter Olga Mishra [facility] UNK - Ambulatory Encounter Olga Mishra [facility] UNK - Ambulatory Encounter Rishi Granger [facility] UNK - Ambulatory Encounter Carol Nevarez [facility] UNK - Ambulatory Encounter Josette Pino Pichardoa Roleonor [facility] UNK - Ambulatory Encounter Josette Pichardoa Roleonor Alvarenga [facility] UNK - Ambulatory Encounter Jero Thompson [facility] UNK - Ambulatory Encounter Jero Thompson [facility] UNK - Ambulatory Encounter Melba Pablo [facility] UNK - Ambulatory Encounter Jero Thompson [facility] UNK - Ambulatory Encounter Navarro Atri Navarro Atri [facility] UNK - Ambulatory Encounter Navarro Atri Navarro Atri Miriam Davidson [facility] UNK - Ambulatory Encounter Josette Pino Pichardoa [facility] UNK - Ambulatory Encounter Josette Asiawaylon Finch Roopawaylon [facility] UNK - Ambulatory Encounter [facility] UNK - Ambulatory Encounter Josette Asiawaylon Josette Roopawaylon [facility] UNK - Ambulatory Encounter Josette Asiawaylon Finch Pino [facility] UNK - Ambulatory Encounter Olga [facility] UN[facility] - [facility] En[facility]ga [facility] - Ambulatory Encounter Olga Mishra MedAdherence [facility] UNK - Ambulatory Encounter Olga Mishra MedAdherence [facility] UNK - Ambulatory Encounter Josette Asiawaylon Josette Roopawaylon [facility] UNK - Ambulatory Encounter Jero Thompson [facility] Aleta Finch Roopawaylon [facility] HyperlipidemiaUrinary tract infection - Ambulatory Encounter Minal Crowder [facility] UNK - Ambulatory Encounter Carol Nevarez [facility] - Ambulatory Encounter Carol Nevarez [facility] UNK - Ambulatory Encounter Melba Inman edin [facility] UNK - Ambulatory Encounter [facility] UNK - Ambulatory Encounter Navarro Atri Navarro Atri Mir[facility] - Ambulatory Encounter Radha Neff [facility] UNK - Ambulatory Encounter Yuly Coburn [facility] UNK - Ambulatory Encounter [facility] UNK - Ambulatory Encounter Aleta Jaswinder [place] [facility] UNK - Ambulatory Encounter Aleta [place] [facility] UNK - Ambulatory Encounter [facility] UNK - Ambulatory Encounter Josette Vázquez [facility] UNK - Ambulatory Encounter Josette Vázquez [facility] UNK - Ambulatory Encounter Navarro Marroquin [facility] UNK - Ambulatory Encounter Navarro Atri Navarro Atri Lisa Pineda [facility] Bipolar 1 disorder, depressedPanic disorder - Ambulatory Encounter Josette Vázquez [facility] UNK - Ambulatory Encounter Josette Pringle [facility] UNK - Ambulatory Encounter Josette Pino [place] Pino [facility] UNK - Ambulatory Encounter Public [facility] Services Provider Shea Fernandez [place] [facility] UNK - Ambulatory [facility] UNK - Ambulatory Encounter Vicky Laron [place] [facility] UNK - Ambulatory Encounter Shea Fernandez [place] [facility] UNK - Ambulatory Encounter Fax Status [facility] UNK - Ambulatory Encounter Fax Status [facility] UNK - Ambulatory Encounter Fax Status [facility] UNK - Ambulatory Encounter Kathy Brayan [facility] UNK - Ambulatory Encounter Josette Pichardoa Pino [facility] UNK - Ambulatory Encounter Melba [facility] URISore throat (acute)Chronic myelocytic leukemiaAnkle arthralgia - Ambulatory Encounter Mikhail Gresham [facility] UNK - Ambulatory Encounter Josette Pichardoa Pino Armstrong [facility] UNK - Ambulatory Encounter Kathy Brayan [facility] UNK - Ambulatory Encounter Carol Roque [facility] UNK - Ambulatory Encounter Carol Nevarez [facility] UNK - Ambulatory Encounter Josette Rograceni Josette Roleonor [facility] UNK - Ambulatory En[facility] - [facility]ulatory Encounter Jero Pichardoa [facility] Anemia, iron deficiencyChest discomfort, atypicalIngrown toenail without infectionAbdominal painSymptom, coughPeripheral neuropathy - Ambulatory Encounter Olga Mishra [facility] UNK - Ambulatory Encounter Radha Neff [facility] UNK - Ambulatory Encounter Melba Swift Ruffin [facility] Symptom, coughSore throat (acute) - Ambulatory Encounter Clotilde Khalif [facility] UNK - Ambulatory Encounter Clotilde Khalif [facility] UNK - Ambulatory Encounter Olga Mishra [facility] UNK - Ambulatory Encounter Olga Mishra [facility] UNK - Ambulatory Encounter Rishi Granger [facility] UNK - Ambulatory Encounter Rishi Swift [facility] BMI 36.0-36.9URI - Ambulatory Encounter Angelique Svetlana [facility] UNK - Ambulatory Encounter Angelique Svetlana [facility] UNK - Ambulatory Encounter Angelique Svetlana [facility] UNK - Ambulatory Encounter Mahesh Edgar [facility] UNK - Ambulatory Encounter Melba Pablo [facility] UNK - Ambulatory Encounter Aaron Rosales [facility] UNK - Ambulatory Encounter Carol Nevarez [facility] UNK - Ambulatory Encounter Carol Nevarez MedAdherence [facility] UNK - Ambulatory Encounter Maxine Hutchins [facility] UNK - Ambulatory Encounter Josette Roopani Josette Roopawaylon [facility] UNK - Ambulatory Encounter Christopher [facility] - Ambulatory Encounter Christopher [facility] UNK - Ambulatory Encounter Sarah Martinezvino [facility] UNK - Ambulatory Encounter Christopher [facility] UNK - Ambulatory Encounter Sarah De Anda [facility] UNK - Ambulatory Encounter Sarah De Anda [facility] UNK - Ambulatory Encounter Solomitham Aleman [facility] UNK - Ambulatory Encounter [facility] UNK - Ambulatory Encounter [facility] UNK - Ambulatory Encounter Christopher [facility] UNK - Ambulatory Encounter Christopher Connie [facility] UNK - Ambulatory Encounter Josette Roopani Josette Roopani [facility] UNK - Ambulatory Encounter Josette Roopani Josette Roopani [facility] UNK - Ambulatory Encounter Olga Mishra [facility] German Vaughan [facility] Contact Center UNK - Ambulatory Encounter Aleta De Anda [facility] UNK - Ambulatory Encounter Josette Roopani Josette Roopani [facility] UNK - Ambulatory Encounter Josette Roopani Josette Roopani [facility] UNK - Ambulatory Encounter LSJ Lab Support [facility] Sarah De Anda [facility] UNK - Ambulatory [facility] - [facility] - Ambulatory Encounter Sarah [facility] UNK - Ambulatory Encounter Melba Rosales [facility] Abdominal painBack pain - Ambulatory Encounter Josette Roopani Josette Roopani [facility] UNK - Ambulatory Encounter Josette Roopani Josette Roopani [facility] UNK - Ambulatory Encounter Josette Roopani Josette Roopani [facility] UNK - Ambulatory Encounter F[facility] Status [facility]K - Ambulatory Encounter [facility]K - Ambulatory Encounter Fax Status [facility] UNK - Ambulatory Encounter Fax Status [facility] UNK - Ambulatory Encounter Fax Status [facility] UNK - Ambulatory Encounter Fax Status [facility] UNK - Ambulatory Encounter Josette Roopani Josette Rograceni [facility] UNK - Ambulatory Encounter Josette Roopani Josette Roopani [facility] UNK - Ambulatory Encounter Jero Pichardoa Roopani Josette Roopani Mili Garcia [facility] Chest discomfort, atypicalIngrown toenail without infectionOsteoarthritis, fingers - Ambulatory Encounter Angelique Mota [facility] UNK - Ambulatory Encounter Angelique Mota [facility] UNK - Ambulatory Encounter Josette Roopani Josette Roopani [facility] UNK - Ambulatory Encounter Sol Knutson [facility] Need for prophylactic vaccination with unspecified combined vaccine - Ambulatory Encounter My [facility] UNK - Ambulatory Encounter Josette Roopani Josette Roleonor [facility] UNK - Ambulatory Encounter James Love [facility] UNK - Ambulatory Encounter James Love [facility] UNK - Ambulatory Encounter Josette Roopani Josette Roopani [facility] Screening for diabetes mellitusPrediabetes - Ambulatory Encounter Josette Roopani Josette Roopani [facility] UNK - Ambulatory Encounter Josette Roopani Josette Roopani [facility] UNK - Ambulatory Encounter James Love [facility] UNK - Ambulatory Encounter Melba Pablo [facility] UNK - Ambulatory Encounter Josette Finch Roopawaylon [facility] UNK - Ambulatory Encounter Josette Kauffmanopawaylon [facility] UNK - Ambulatory Encounter Kylah Pichardoa Roopani [facility] Symp swell/mass/lump, localized superficialBronchitis, acuteChest painChest painChest painURIScreening for diabetes mellitusPrediabetes - Ambulatory Encounter Angelique [facility] UNK - Ambulatory Encounter Angelique Svetlana [facility] UNK - Ambulatory Encounter Melba Pablo [facility] UNK - Ambulatory Encounter Carol Smartvino [facility] UNK - Ambulatory Encounter Carol Nevarez [facility] Aleta Jacobs [facility] UNK - Ambulatory Encounter Carol Nevarez [facility] UNK - Ambulatory Encounter Carol Nevarez [facility] UNK - Ambulatory Encounter Carol Nevarez MedAdherence [facility] UNK - Ambulatory Encounter Josette Finch Roleonor [facility] UNK - Ambulatory Encounter Melba Pablo [facility] UNK - Ambulatory Encounter Melba Pablo [facility] UNK - Ambulatory Encounter Melbaham Pablo [facility] UNK - Ambulatory Encounter Melba Marquez [facility] URI - Ambulatory Encounter Tara Ashley [facility] UNK - [facility] Encounter Tara Ashley Garcia [facility] Chest painChest painChest pain - Ambulatory Encounter Melba Storm Pablo [facility] UNK - Ambulatory Encounter Josette Roopani Josette Roleonor [facility] UNK - Ambulatory Encounter Josette Roopani Josette Roopani [facility] UNK - Ambulatory Encounter Josette Roopani Josette Roopani [facility] UNK - Ambulatory Encounter Josette Roopani Josette Roopani [facility] UNK - Ambulatory Encounter Josette Roopani Josette Roopani [facility] UNK - Ambulatory Encounter Jero Kauffmanopani Josette Dalyopawaylon Toure [facility] Bronchitis, acute - Ambulatory Encounter Sol Knutson [facility] UNK - Ambulatory Encounter Ghassan Epperson [facility] UNK - Ambulatory Encounter Josette Roopani Josette Roopawaylon [facility] UNK - Ambulatory Encounter Jero Muir [facility] UNK - Ambulatory Encounter LSJ Care Coordination Paula Armstrong [facility] Contact Center UNK - Ambulatory Encounter Fax Status [facility] UNK - Ambulatory Encounter Fax Status [facility] UNK - Ambulatory Encounter Fax Status [facility] UNK - Ambulatory Encounter Josette Roopani [facility] Rograceni [facility] Josette Roopani Josette Roopani [facility] UNK - Ambulatory Encounter Josette Roopani Josette Roopani [facility] UNK - Ambulatory Encounter Melba Pichardoa Roopani Josette Roopani Mili [facility] MORBID OBESITYAsthmaHepatitis C, chronicAnemia, iron deficiencyBipolar 1 disorder, depressedPanic disorderOveractive bladderGERDInsomniaSymp swell/mass/lump, localized superficial - Ambulatory Encounter Melba Pablo [facility] UNK - Ambulatory Encounter Angelique Mota [facility] UNK - Ambulatory Encounter Angelique Mota [facility] UNK - Ambulatory Encounter Jainism Preload [facility] UNK VITAL SIGNS No Information Available ALLERGIES Allergy Name Onset Date Reaction Criticality Status WHOOPING COUGH VACCINE Possible Anaphalysis High Criticality active PHENERGAN High Criticality active LEVAQUIN High Criticality active DOLOBID High Criticality active DILANTIN High Criticality active DARVOCET High Criticality active LEVAQUIN High Criticality active ERYTHROMYCIN High Criticality active WALNUTS High Criticality active MUSHROOMS High Criticality active PLASTIC TAPE High Criticality active MORPHINE High Criticality active ASPIRIN High Criticality active CODEINE High Criticality active PENICILLIN High Criticality active REASON FOR REFERRAL Start Date - End Date Service - X-RAY - Ultrasound RESULTS Date Observation Value Provider Reference Range Interpretation Location thyroid peroxidase autoantibody, serum 15 [iU]/mL [facility] 0-34 " basophil count, absolute 1.0 x10E3/uL [facility] 0.0-0.2 High " Eosinophil Absolute Count 0.2 X10E3/UL [facility] 0.0-0.4 " monocyte count, blood, automated 0.4 X10E3/UL [facility] 0.1-0.9 " lymphocyte count, blood, automated 2.6 X10E3/UL [facility] 0.7-3.1 " Absolute Neutrophils 13.5 X10E3/UL [facility] 1.4-7.0 High " basophils as percent of blood leukocytes 5 % [facility] Not Estab. " eosinophils as percent of blood leukocytes 1 % [facility] Not Estab. " monocytes as percent of blood leukocytes 2 % [facility] Not Estab. " lymphocytes as percent of blood leukocytes 13 % [facility] Not Estab. " neutrophils as percent of blood leukocytes 57 % [facility] Not Estab. " platelet count 295 X10E3/UL [facility] 150-379 " red blood cell distribution width 20.8 % [facility] 12.3-15.4 High " mean corpuscular hemoglobin concentration, RBC 30.3 G/DL [facility] 31.5-35.7 Low " mean corpuscular hemoglobin, RBC 22.1 pg [facility] 26.6-33.0 Low " mean corpuscular volume, RBC 73 fL [facility] 79-97 Low " hematocrit, blood 37.3 % [facility] 34.0-46.6 " hemoglobin, blood 11.3 g/dL [facility] 11.1-15.9 " erythrocyte (RBC) count 5.12 X10E6/UL [facility] 3.77-5.28 " leukocyte count, blood 20.1 X10E3/UL [facility] 3.4-10.8 Panic high " thyroxine, serum, free 1.46 ng/dL [facility] 0.82-1.77 " thyroid stimulating hormone, serum 3.100 u[iU]/mL [facility] 0.450-4.500 hemoglobin A1C, blood, as % of total hemoglobin 5.7 % [facility] 4.8-5.6 High influenza virus A antigen negative Susan Tyson " Microbial identification kit, rapid strep method negative Susan Tyson B-12, serum 1582 pg/mL [facility] 211-946 High " rapid plasma reagin antibody, serum Non Reactive [facility] Non Reactive " hemoglobin A1C, blood, as % of total hemoglobin 4.8 % [facility] 4.8-5.6 specific gravity, urine 1.015 James Love " pH, urine, semiquantitative 6.0 James Love " glucose, urine, semiquantitative negative James Love " bilirubin, urine negative James Love " ketones, urine, by test strip negative James Love " blood in urine (hemoglobin) by dipstick negative James Love " protein, urine, semiquantitative (dipstick) negative James Love " urobilinogen, urine, semiquantitative (dipstick) negative James Love " nitrite, urine, semiquantitative negative James Love " leukocyte esterase, urine, by dipstick negative James Love " appearance, urine clear James Love " urine color light yellow James Love LDL cholesterol, serum 130 mg/dL [facility] 0-99 High " very low density lipoproteins 27 mg/dL [facility] 5-40 " HDL cholesterol, serum 39 mg/dL [facility] >39 Low " triglyceride, serum, fasting 136 mg/dL [facility] 0-149 " cholesterol, serum 196 mg/dL [facility] 100-199 " urine culture Escherichia coli [facility] Abnormal " bacteria, urine microscopy None seen [facility] None seen/Few " mucus on urinalysis Present [facility] Not Estab. " epithelial cells, urine 0-10 [facility] 0 - 10 " RBC, Urine 0-2 /hpf [facility] 0 - 2 " WBC urine on microscopy 0-5 /hpf [facility] 0 - 5 " urinalysis, microscopic examination See below: [facility] " nitrate, urine Positive [facility] Negative Abnormal " urobilinogen, urine, semiquantitative (dipstick) 0.2 [facility] 0.2-1.0 " bilirubin, urine Negative [facility] Negative " ketones, urine, by test strip Negative [facility] Negative " glucose, urine, semiquantitative Negative [facility] Negative " protein, urine, semiquantitative (dipstick) Negative [facility] Negative/Trace " leukocyte esterase, urine, by dipstick Negative [facility] Negative " appearance, urine Clear [facility] Clear " urine color Yellow [facility] Yellow " pH, urine, semiquantitative 6.0 [facility] 5.0-7.5 " specific gravity, body fluid 1.014 [facility] 1.005-1.030 " alanine aminotransferase (SGPT), serum 14 1/L [facility] 0-32 " aspartate aminotransferase (SGOT), serum 18 1/L [facility] 0-40 " alkaline phosphatase, serum 131 1/L [facility] 39-117 High " bilirubin, serum, total 0.4 mg/dL [facility] 0.0-1.2 " albumin/globulin ratio, serum 1.8 [facility] 1.1-2.5 " globulin, serum 2.3 [facility] 1.5-4.5 " albumin, serum 4.2 g/dL [facility] 3.5-5.5 " protein, total, serum 6.5 g/dL [facility] 6.0-8.5 " calcium, serum 9.3 mg/dL [facility] 8.7-10.2 " carbon dioxide, venous blood 25 mmol/L [facility] 18-29 " chloride, serum 105 mmol/L [facility] 97-108 " potassium, serum 5.3 mmol/L [facility] 3.5-5.2 High " sodium, serum 143 mmol/L [facility] 134-144 " urea nitrogen/creatinine ratio, serum 16 [facility] 9-23 " eGFR if 77 mL/min/((173/100).m2) [facility] >59 " Estimated Glomerular Filtration Rate (calc) 66 mL/min/((173/100).m2) [facility] >59 " creatinine, serum 1.01 mg/dL [facility] 0.57-1.00 High " urea nitrogen, blood 16 mg/dL [facility] 6-24 " blood glucose, random 95 mg/dL [facility] 65-99 " immature granulocytes, percentage of total cells, blood 2 % [facility] " basophil count, absolute 0.3 x10E3/uL [facility] 0.0-0.2 High " Eosinophil Absolute Count 0.1 X10E3/UL [facility] 0.0-0.4 " monocyte count, blood, automated 0.7 X10E3/UL [facility] 0.1-0.9 " lymphocyte count, blood, automated 2.1 X10E3/UL [facility] 0.7-3.1 " Absolute Neutrophils 7.2 X10E3/UL [facility] 1.4-7.0 High " basophils as percent of blood leukocytes 3 % [facility] " eosinophils as percent of blood leukocytes 1 % [facility] " monocytes as percent of blood leukocytes 7 % [facility] " lymphocytes as percent of blood leukocytes 19 % [facility] " neutrophils as percent of blood leukocytes 68 % [facility] " platelet count 288 X10E3/UL [facility] 150-379 " red blood cell distribution width 16.9 % [facility] 12.3-15.4 High " mean corpuscular hemoglobin concentration, RBC 31.5 G/DL [facility] 31.5-35.7 " mean corpuscular hemoglobin, RBC 24.8 pg [facility] 26.6-33.0 Low " mean corpuscular volume, RBC 79 fL [facility] 79-97 " hematocrit, blood 35.9 % [facility] 34.0-46.6 " hemoglobin, blood 11.3 g/dL [facility] 11.1-15.9 " erythrocyte (RBC) count 4.56 X10E6/UL [facility] 3.77-5.28 " leukocyte count, blood 10.6 X10E3/UL [facility] 3.4-10.8 hemoglobin A1C, blood, as % of total hemoglobin 6.1 % [facility] 4.8-5.6 High " LDL cholesterol, serum 133 mg/dL [facility] 0-99 High " very low density lipoproteins 38 mg/dL [facility] 5-40 " HDL cholesterol, serum 36 mg/dL [facility] >39 Low " triglyceride, serum, fasting 188 mg/dL [facility] 0-149 High " cholesterol, serum 207 mg/dL [facility] 100-199 High HISTORY OF IMMUNIZATIONS No Information Available HISTORY OF MEDICATION USE Medication Instructions Dates Provider Comments SYNRIBO SOLUTION RECONSTITUTED Navarro Atri SAPHRIS 2.5 MG SUBLINGUAL TABLET SUBLINGUAL 1 tab By Mouth Twice a Day for Bipolar depression - Navarro Atri AZITHROMYCIN 250 MG ORAL TABLET 2 tablets by mouth on day one then one tablet by mouth each day for a total of 5 days Jessie Ector LATUDA 20 MG ORAL TABLET 1 tab By Mouth take at bedtime for bipolar depression, mood swings - Navarro Atri ACETIC ACID 2 % OTIC SOLUTION 4 gtt in ear(s) q4 hrs x 5 days Jessie Ector KEFLEX 250 MG ORAL CAPSULE 1 by mouth 4 times a day Jessie Ector LIDOCAINE VISCOUS 2 % MOUTH/THROAT SOLUTION 5 ml q3h As Needed, swish and spit Jessie Ector HYDROXYZINE HCL 25 MG ORAL TABLET 1-3 tab By Mouth take at bedtime Jessie Ector METOPROLOL TARTRATE 25 MG ORAL TABLET 1 by mouth twice a day Jessie Ector IBUPROFEN 600 MG ORAL TABLET 1 By Mouth Every 8 hours As Needed pain Jessie Ector METHOCARBAMOL 750 MG ORAL TABLET 1 by mouth every 8 hours as needed - Jessie Ector NEBULIZER/ADULT MASK KIT use as instructed Tara Ashley TESSALON PERLES 100 MG ORAL CAPSULE 1 by mouth 3 times a day as needed for cough Tara Ashley MOBIC 15 MG ORAL TABLET 1 by mouth daily Josette Roopani MACROBID 100 MG ORAL CAPSULE 1 by mouth twice a day - Madhumita Black SPRYCEL 70 MG ORAL TABLET Josette Roopani LYRICA 100 MG ORAL CAPSULE 1 cap By Mouth Twice a Day Nilay Mathura GABAPENTIN 600 MG ORAL TABLET 1 tab By Mouth Three Times a Day Nilay Black BUSPIRONE HCL 7.5 MG ORAL TABLET 1 tab By Mouth By Mouth take at bedtime for anxiety Navarro Atri SPRYCEL 100 MG ORAL TABLET - Josette Roopani ALLOPURINOL 300 MG ORAL TABLET - Nilay Mathura REMERON 15 MG ORAL TABLET 1 by mouth nightly at bedtime - Navarro Atri KEFLEX 250 MG ORAL CAPSULE 1 by mouth 4 times a day - Josette Roopani FLAGYL 500 MG ORAL TABLET 1 tab by mouth every 6 hours (four times a day) - Sarah De Anda CIPROFLOXACIN HCL 750 MG ORAL TABLET 1 tab By Mouth every 12 hours - Sarah De Anda TRAMADOL HCL 50 MG ORAL TABLET 1 tablets by mouth Twice a Day As Needed pain Jessie Ector LAMICTAL 100 MG ORAL TABLET 2 tabs By Mouth take at bedtime for mood, depression Navarro Marroquin ATORVASTATIN CALCIUM 20 MG ORAL TABLET 1 tab By Mouth take at bedtime Sarah De Anda AMITRIPTYLINE HCL 25 MG ORAL TABLET 1 by mouth nightly at bedtime - Josette Rograceni NAPROXEN 500 MG ORAL TABLET 1 by mouth twice a day As Needed arthritis pain Sarah De Anda take with food PROAIR HFA 108 (90 Base) MCG/ACT INHALATION AEROSOL SOLUTION 2 puffs every 4 - 6 hours as needed Melba Hirschdalavonne NAPROXEN 500 MG ORAL TABLET 1 by mouth twice a day as needed for pain and inflammation - Melba Pablo TRAZODONE HCL 100 MG ORAL TABLET 1 by mouth nightly at bedtime - Josette Roopani SYMBICORT 160-4.5 MCG/ACT INHALATION AEROSOL 1 inhalation bid Josette Roopani SEROQUEL 100 MG ORAL TABLET - Josette Roopani OXYBUTYNIN CHLORIDE 5 MG ORAL TABLET one tablet by mouth twice a day Josette Roopani NEXIUM 40 MG ORAL CAPSULE DELAYED RELEASE 1 by mouth daily Josette Roopani SINGULAIR 10 MG ORAL TABLET take 1 tablet by mouth at bedtime Josette Roopani METHOCARBAMOL 750 MG ORAL TABLET 1 by mouth every 8 hours as needed - Josette Roopani ATIVAN 2 MG ORAL TABLET 1 tab By Mouth Twice a Day for anxiety Navarro Atri GABAPENTIN 100 MG ORAL CAPSULE 1 cap By Mouth Three Times a Day As Needed anxiety - Josette Roopani EPIPEN 2-VASHTI 0.3 MG/0.3ML INJECTION SOLUTION AUTO-INJECTOR use as directed Madhumita Black DOCUSATE SODIUM 100 MG ORAL TABLET Take 1 cap by mouth every 12 hours as needed for constipation Josette Roopani FERROUS SULFATE 325 (65 Fe) MG ORAL TABLET DELAYED RELEASE 1 by mouth 2 times a day - Josette Roopani ASCORBIC ACID 500 MG ORAL TABLET Take 1 tablet by mouth daily - Josette Roopani ALBUTEROL SULFATE (2.5 MG/3ML) 0.083% INHALATION NEBULIZATION SOLUTION 1 via Hand held neb every 4 - 6 hours as needed Josette Pringle SOCIAL HISTORY Date Observation Value Provider time of call 05/09/2019 3:31 PM Sharon Arias Exercise Program Referral Justen Barney " Weight Management Counseling Provided Justen Barney " Nutrition intervention Justen Barney " drug use, illicit Previously Jen Pool " alcohol use Never Jen Pool " social history E&M since 9 yrs. 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 Pt have 1 sister live [place] Not homeless. Born in [facility]. City: [place]. State: [place]. lives in [place] with . and Pt pet,Sondog Not employed. Disabled. 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 Sexual orientation: Heterosexual. Gender identity: Female. Gender of partner(s): male. Sexually Active: Yes. Samaritan, Crocheting, computer games,baking Jen Pool " social history reviewed E&M reviewed today Jen Pool " assessment of health literacy ([facility] 2014 Standards, 3C10) Adequate Jen Pool " passive cigarette smoke exposure No Jen Pool " smoking status never smoker Jen Pool drug use, illicit Previously Navarro Atri " alcohol use Never Navarro Atri " smoking status never smoker Navarro Atri " social history E&M since 9 yrs. 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 Pt have 1 sister live [place] Not homeless. Born in [facility]. City: [place]. State: [place]. lives in [place] with . and Pt pet,Sondog Not employed. Disabled. 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 Sexual orientation: Heterosexual. Gender identity: Female. Gender of partner(s): male. Sexually Active: Yes. Samaritan, Crocheting, computer games,baking Navarro Atri " social history reviewed E&M reviewed today Navarro Atri Exercise Program Referral Justen Barney " Weight Management Counseling Provided Justen Barney " Nutrition intervention Justen Barney " drug use, illicit Previously Allyson Arguelles " alcohol use Never Allyson Arguelles " social history E&M since 9 yrs. 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 Pt have 1 sister live [place] Not homeless. Born in [facility]. City: [place]. State: [place]. lives in [place] with . and Pt pet,Sondog Not employed. Disabled. 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 Sexual orientation: Heterosexual. Gender identity: Female. Gender of partner(s): male. Sexually Active: Yes. Samaritan, Crocheting, computer games,baking Allyson Arguelles " social history reviewed E&M reviewed today Allyson Arguelles " sexual orientation Heterosexual Allyson Arguelles " assessment of health literacy ([facility] 2014 Standards, 3C10) Adequate Allyson Arguelles " passive cigarette smoke exposure No Allyson Arguelles " smoking status never smoker Allyson Arguelles drug use, illicit Previously Kim Reyes " alcohol use Never Kim Reyes " social history E&M since 9 yrs. 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 Pt have 1 sister live [place] Not homeless. Born in [facility]. City: [place]. State: [place]. lives in [place] with . and Pt pet,Sondog Not employed. Disabled. 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 Sexual orientation: Heterosexual. Gender identity: Female. Gender of partner(s): male. Sexually Active: Yes. Samaritan, Crocheting, computer games,baking Kim Reyes " social history reviewed E&M reviewed today Kim Reyes " Exercise Program Referral T Kim Reyes " Weight Management Counseling Provided T Kim Reyes " Nutrition intervention T Kim Reyes " sexual orientation Heterosexual Kim Reyes " assessment of health literacy ([facility] 2014 Standards, 3C10) Adequate Kim Reyes " passive cigarette smoke exposure No Kim Reyes " smoking status never smoker Kim Reyes time of call 01/27/2018 8:28 AM Danii Gaming drug use, illicit Previously Navarro Atri " alcohol use Never Navarro Atri " smoking status never smoker Navarro Atri " social history E&M since 9 yrs. 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 Pt have 1 sister live [place]. Born in [place]. City: [place]. State: [place]. lives in [place] with . and Pt pet,Sondog Not employed. Disabled. 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 Sexual orientation: Heterosexual. Gender identity: Female. Gender of partner(s): male. Sexually Active: Yes. Samaritan, Crocheting, computer games,baking Navarro Atri " social history reviewed E&M reviewed today Navarro Atri Exercise Program Referral Justen Barney " Weight Management Counseling Provided Justen Barney " Nutrition intervention Justen Barney " drug use, illicit Previously Jeniffer Ruffin " alcohol use Never Jeniffer Ruffin " social history E&M since 9 yrs. 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 Pt have 1 sister live [place] Not homeless. Born in [facility]. City: [place]. State: [place]. lives in [place] with . and Pt pet,Sondog Not employed. Disabled. 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 Sexual orientation: Heterosexual. Gender identity: Female. Gender of partner(s): male. Sexually Active: Yes. Samaritan, Crocheting, computer games,baking Jeniffer Ruffin " social history reviewed E&M reviewed today Ejniffer Ruffin " sexual orientation Heterosexual Jeniffer Ruffin " assessment of health literacy ([facility] 2014 Standards, 3C10) Adequate Jeniffer Ruffin " passive cigarette smoke exposure No Jeniffer Ruffin " smoking status never smoker Jeniffer Ruffin social history E&M since 9 yrs. 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 Pt have 1 sister live [place] Not homeless. Born in [facility]. City: [place]. State: [place]. lives in [place] with . and Pt pet,Sondog Not employed. Disabled. 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 Sexual orientation: Heterosexual. Gender identity: Female. Gender of partner(s): male. Sexually Active: Yes. [employer]aritan, Crocheting, computer games,baking Navarro Atri " social history reviewed E&M reviewed today Navarro Atri drug use, illicit Previously Navarro Atri " alcohol use Never Navarro Atri " smoking status never smoker Navarro Atri " social history E&M since 9 yrs. 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 Pt have 1 sister live [place] Not homeless. Born in [facility]. City: [place]. State: [place]. lives in [place] with . and Pt pet,Sondog Not employed. Disabled. 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 Sexual orientation: Heterosexual. Gender identity: Female. Gender of partner(s): male. Sexually Active: Yes. [employer]aritan, Crocheting, computer games,baking Navarro Atri " social history reviewed E&M reviewed today Navarro Atri Exercise Program Referral T Jessie Barney " Weight Management Counseling Provided Justen Barney " Nutrition intervention T Jessie Barney " drug use, illicit Previously Allyson Arguelles " alcohol use Never Allyson Arguelles " social history E&M since 9 yrs. 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 Pt have 1 sister live [place] homeless. Born in [facility]. City: [place]. State: [place]. lives in [place] with . and Pt pet,Sondog Not employed. Disabled. 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 Sexual orientation: Heterosexual. Gender identity: Female. Gender of partner(s): male. Sexually Active: Yes. Samaritan, Crocheting, computer games,baking Allyson Arguelles " social history reviewed E&M reviewed today Allyson Arguelles " sexual orientation Heterosexual Allyson Arguelles " passive cigarette smoke exposure No Allyson Arguelles " smoking status never smoker Allyson Arguelles " assessment of health literacy ([facility] 2014 Standards, 3C10) Adequate Allyson Arguelles Exercise Program Referral T Jessie Barney " Weight Management Counseling Provided Justen Barney " Nutrition intervention T Jessie Barney " drug use, illicit Previously Allyson Arguelles " alcohol use Never Allyson Arguelles " social history E&M since 9 yrs. 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 Pt have 1 sister live [place] homeless. Born in [facility]. City: [place]. State: [place]. lives in [place] with . and Pt pet,Sondog Not employed. Disabled. 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 Sexual orientation: Heterosexual. Gender identity: Female. Gender of partner(s): male. Sexually Active: Yes. Samaritan, Crocheting, computer games,baking Allyson Arguelles " social history reviewed E&M reviewed today Allyson Arguelles " passive cigarette smoke exposure No Allyson Arguelles " smoking status never smoker Allyson Arguelles alcohol use Never Farheen Muir " drug use, illicit Previously Farheen Muir " sexual orientation Heterosexual Farheen Muir " passive cigarette smoke exposure No Farheen Muir " smoking status never smoker Farheen Muir smoking status never smoker Navarro Atri " alcohol use Never Navarro Atri " drug use, illicit Previously Navarro Atri " social history E&M since 9 yrs. 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 Pt have 1 sister live [place] homeless. Born in [facility]. City: [place]. State: [place]. lives in [place] with . and Pt pet,Sondog Not employed. Disabled. 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 Sexual orientation: Heterosexual. Gender identity: Female. Gender of partner(s): male. Sexually Active: Yes. Samaritan, Crocheting, computer games,baking Navarro Atri " social history reviewed E&M reviewed today Navarro Atri drug use, illicit Previously Enma Jerry " alcohol use Never Enma Jerry " social history E&M since 9 yrs. 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 Pt have 1 sister live [place] homeless. Born in [facility]. City: [place]. State: [place]. lives in [place] with . and Pt pet,Sondog Not employed. Disabled. 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 Sexual orientation: Heterosexual. Gender identity: Female. Gender of partner(s): male. Sexually Active: Yes. Samaritan, Crocheting, computer games,baking Enma Edwards " social history reviewed E&M reviewed today Enma Edwards " sexual orientation Heterosexual Enma Edwards " is there any chance that you could be ? No Enma Edwards " passive cigarette smoke exposure No Enma Edwards " smoking status never smoker Enma Edwards " assessment of health literacy ([facility] 2014 Standards, 3C10) Adequate Enma Edwards " Exercise Program Referral T Enma Edwards " Weight Management Counseling Provided T Enma Edwards " Nutrition intervention T Enma Edwards drug use, illicit Previously Aleta Arellano " alcohol use Never Aleta Arellano " social history E&M since 9 yrs. 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 Pt have 1 sister live [place] homeless. Born in [facility]. City: [place]. State: [place]. lives in [place] with . and Pt pet,Sondog Not employed. Disabled. 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 Sexual orientation: Heterosexual. Gender identity: Female. Gender of partner(s): male. Sexually Active: Yes. Samaritan, Crocheting, computer games,baking Aleta Kennedys " social history reviewed E&M reviewed today Aleta Arellano " sexual orientation Heterosexual Aleta Arellano " passive cigarette smoke exposure Yes Aleta Kennedys " smoking status never smoker Aleta Arellano " assessment of health literacy ([facility] 2014 Standards, 3C10) Adequate Aleta Arellano " Exercise Program Referral T Aleta Arellano " Weight Management Counseling Provided T Aleta Kennedys " Nutrition intervention T Aleta Kennedys smoking status never smoker Navarro Atri " drug use, illicit Previously Navarro Atri " alcohol use Never Navarro Atri " social history E&M since 9 yrs. 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 Pt have 1 sister live [place] homeless. Born in [facility]. City: [place]. State: [place]. lives in [place] with . and Pt pet,Sondog Not employed. Disabled. 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 Sexual orientation: Heterosexual. Gender identity: Female. Gender of partner(s): male. Sexually Active: Yes. Samaritan, Crocheting, computer games,baking Navarro Atri " social history reviewed E&M reviewed today Navarro Atri drug use, illicit Previously Teresita Cohen " alcohol use Never Teresita Cohen " social history E&M since 9 yrs. 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 Pt have 1 sister live [place] homeless. Born in [facility]. City: [place]. State: [place] lives in [place] with . and Pt pet,Sondog Not employed. Disabled. 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 Sexual orientation: Heterosexual. Gender identity: Female. Gender of partner(s): male. Sexually Active: Yes. Samaritan, Crocheting, computer games,baking Teresita Cohen " social history reviewed E&M reviewed today Teresita Cohen " sexual orientation Heterosexual Teresita Cohen " passive cigarette smoke exposure Yes Teresita Cohen " smoking status never smoker Teresita Cohen " assessment of health literacy ([facility] 2014 Standards, 3C10) Adequate Teresita Cohen Exercise Program Referral Justen Barney " Weight Management Counseling Provided Justen Barney " Nutrition intervention Justen Barney " drug use, illicit Previously Allyson Arguelles " alcohol use Never Allyson Arguelles " social history E&M since 9 yrs. 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 Pt have 1 sister live [place] homeless. Born in [facility]. City: [place]. State: [place] lives in [place] with . and Pt pet,Sondog Not employed. Disabled. 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 Sexual orientation: Heterosexual. Gender identity: Female. Gender of partner(s): male. Sexually Active: Yes. Samaritan, Crocheting, computer games,baking Allyson Marquisrez " social history reviewed E&M reviewed today Allyson Elizabethierrez " sexual orientation Heterosexual Allyson Elizabethierrez " passive cigarette smoke exposure Yes Allyson Marquisrez " smoking status never smoker Allyson Marquisrez drug use, illicit Previously Navarro Atri " smoking status never smoker Navarro Atri " alcohol use Never Navarro Atri " social history E&M since 9 yrs. 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 Pt have 1 sister live [place] homeless. Born in [facility]. City: [place]. [place]: [place] lives in [place] with . and Pt pet,Sondog Not employed. Disabled. 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 Sexual orientation: Heterosexual. Gender identity: Female. Gender of partner(s): male. Sexually Active: Yes. Samaritan, Crocheting, computer games,baking Navarro Atri " social history reviewed E&M reviewed today Navarro Atri Exercise Program Referral Justen Barney " Weight Management Counseling Provided Justen Barney " Nutrition intervention T Jessie Ector " drug use, illicit Previously Jeniffer Ruffin " alcohol use Never Jeniffer Ruffin " social history E&M since 9 yrs. 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 Pt have 1 sister live [place] homeless. Born in [facility]. City: [place]. State: [place] lives in [place] with . and Pt pet,Sondog Not employed. Disabled. 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 Sexual orientation: Heterosexual. Gender identity: Female. Gender of partner(s): male. Sexually Active: Yes. Samaritan, Crocheting, computer games,baking Jeniffer Ruffin " social history reviewed E&M reviewed today Jeniffer Ruffin " sexual orientation Heterosexual Jeniffer Ruffin " passive cigarette smoke exposure Yes Jeniffer Ruffin " smoking status never smoker Jeniffer Ruffin " assessment of health literacy ([facility] 2014 Standards, 3C10) Adequate Jeniffer Ruffin drug use, illicit Previously Jose Arpit " alcohol use Never Jose Arpit " social history E&M since 9 yrs. 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 Pt have 1 sister live [place] homeless. Born in [facility]. City: [place]. State: [place] lives in [place] with . and Pt pet,Sondog Not employed. Disabled. 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 Sexual orientation: Heterosexual. Gender identity: Female. Gender of partner(s): male. Sexually Active: Yes. Samaritan, Crocheting, computer games,baking Jose Arpit " social history reviewed E&M reviewed today Jose Arpit " sexual orientation Heterosexual Jose Arpit " passive cigarette smoke exposure Yes Jose Arpit " smoking status never smoker Jose Arpit " assessment of health literacy ([facility] 2014 Standards, 3C10) Adequate Jose Arpit " Exercise Program Referral T Jose Arpit " Weight Management Counseling Provided T Jose Arpit " Nutrition intervention T Jose Arpit is there any chance that you could be ? No Susan Tyson " passive cigarette smoke exposure Yes Susan Tyson " Exercise Program Referral T Susan Tyson " Weight Management Counseling Provided T Susan Tyson " Nutrition intervention T Susan Tyson " drug use, illicit Previously Susan Tyson " alcohol use Never Susan Tyson " smoking status never smoker Susan Tyson " social history E&M since 9 yrs. 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 Pt have 1 sister live [place] homeless. Born in [facility]. City: [place]. State: [place] lives in [place] with . and Pt pet,Sondog Not employed. Disabled. 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 Sexual orientation: Heterosexual. Gender identity: Female. Gender of partner(s): male. Sexually Active: Yes. Samaritan, Crocheting, computer games,baking Susan Tyson " social history reviewed E&M reviewed today Susan Tyson " sexual orientation Heterosexual Susan Tyson " assessment of health literacy ([facility] 2014 Standards, 3C10) Adequate Susan Tyson drug use, illicit Previously Navarro Atri " alcohol use Never Navarro Atri " smoking status never smoker Navarro Atri " social history E&M since 9 yrs. 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 Pt have 1 sister live [place]. Born in [facility]. City: [place]. State: [place] lives in [place] with . and Pt pet,Sondog Not employed. Disabled. 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 Sexual orientation: Heterosexual. Gender identity: Female. Gender of partner(s): male. Sexually Active: Yes. Samaritan, Crocheting, computer games,baking Navarro Atri " social history reviewed E&M reviewed today Navarro Atri drug use, illicit Previously Navarro Atri " alcohol use Never Navarro Atri " smoking status never smoker Navarro Atri " social history E&M since 9 yrs. 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 Pt have 1 sister live [place]. Born in [facility]. City: [place]. State: [place] lives in [place] with . and Pt pet,Sondog Not employed. Disabled. 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 Sexual orientation: Heterosexual. Gender identity: Female. Gender of partner(s): male. Sexually Active: Yes. Samaritan, Crocheting, computer games,baking Navarro Atri " social history reviewed E&M reviewed today Navarro Atri time of call 01/01/2017 4:49 PM Leticia Aguirre drug use, illicit Previously Jose Arpit " alcohol use Never Jose Arpit " social history E&M since 9 yrs. 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 Pt have 1 sister live [place] homeless. Born in [facility]. City: [place]. State: [place] lives in [place] with . and Pt pet,Sondog Not employed. Disabled. 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 Sexual orientation: Heterosexual. Gender identity: Female. Gender of partner(s): male. Sexually Active: Yes. Samaritan, Crocheting, computer games,baking Jose Arpit " social history reviewed E&M reviewed today Jose Arpit " sexual orientation Heterosexual Jose Arpit " passive cigarette smoke exposure Yes Jose Munson " smoking status never smoker Jose Arpit " assessment of health literacy ([facility] 2014 Standards, 3C10) Adequate Jose Munson " Exercise Program Referral T Jose Munson " Weight Management Counseling Provided T Jose Munson " Nutrition intervention T Jose Munson time of call 11/21/2016 9:19 AM Grecia Jacobo drug use, illicit Previously Navarro Atri " alcohol use Never Navarro Atri " smoking status never smoker Navarro Atri " social history E&M since 9 yrs. 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 Pt have 1 sister live in [place] Not homeless. Born in [facility]. City: [place]. State: [place]. lives in [place] with . and Pt pet,Sondog Not employed. Disabled. 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 Sexual orientation: Heterosexual. Gender identity: Female. Gender of partner(s): male. Sexually Active: Yes. Samaritan, Crocheting, computer games,baking Navarro Atri " social history reviewed E&M reviewed today Navarro Atri social history E&M since 9 yrs. 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 Pt have 1 sister live [place] Not homeless. Born in [facility]. City: [place]. State: [place]. lives in [place] with . and Pt pet,Sondog Not employed. Disabled. 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 Sexual orientation: Heterosexual. Gender identity: Female. Gender of partner(s): male. Sexually Active: Yes. Samaritan, Crocheting, computer games,baking Aleta Roland " social history reviewed E&M reviewed today Aleta Roland " sexual orientation Heterosexual Aleta Roland " passive cigarette smoke exposure Yes Aleta Roland " smoking status never smoker Aleta Roland " Exercise Program Referral Justen Roland " Weight Management Counseling Provided Justen Roland " Nutrition intervention Justen Roland time of call 10/29/2016 12:07 PM Lisandra Alvarenga drug use, illicit Previously Navarro Atri " alcohol use Never Navarro Atri " smoking status never smoker Navarro Atri " social history E&M since 9 yrs. 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 Pt have 1 sister live [place] Not homeless. Born in [facility]. City: [place]. State: [place]. lives in [place] with . and Pt pet,Sondog Not employed. Disabled. 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 Sexual orientation: Heterosexual. Gender identity: Female. Gender of partner(s): male. Sexually Active: Yes. Samaritan, Crocheting, computer games,baking Navarro Atri " social history reviewed E&M reviewed today Navarro Atri drug use, illicit Previously Aleta Epperson " alcohol use Never Aleta Epperson " social history E&M since 9 yrs. 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 Pt have 1 sister live [place] homeless. Born in [place]. City: [place]. State: [place]. lives in [place] with . and Pt pet,Sondog Not employed. Disabled. 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 Sexual orientation: Heterosexual. Gender identity: Female. Gender of partner(s): male. Sexually Active: Yes. Samaritan, Crocheting, computer games,baking Aleta Epperson " social history reviewed E&M reviewed today Aleta Epperson " sexual orientation Heterosexual Aleta Epperson " passive cigarette smoke exposure Yes Aleta Epperson " smoking status never smoker Aleta Epperson " assessment of health literacy ([facility] 2014 Standards, 3C10) Adequate Aleta Epperson " Exercise Program Referral T Aleta Epperson " Weight Management Counseling Provided T Aleta Epperson " Nutrition intervention Justen Epperson Suicide Addendum Question 11, unusual risks No Navarro Atri " Suicide Addendum Question 2, feeling hopeless No Navarro Atri " Suicide Addendum Question 1, thoughts of harming yourself No Navarro Atri " drug use, illicit Previously Navarro Atri " alcohol use Never Navarro Atri " smoking status never smoker Navarro Atri " social history E&M since 9 yrs. 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 Pt have 1 sister live [place] Not homeless. Born in [facility]. City: [place]. State: [place]. lives in [place] with . and Pt pet,Sondog Not employed. Disabled. 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 Sexual orientation: Heterosexual. Gender identity: Female. Gender of partner(s): male. Sexually Active: Yes. Samaritan, Crocheting, computer games,baking Navarro Atri " social history reviewed E&M reviewed today Navarro Atri Suicide Addendum Question 12, plans for next 24-48 hours spend time with sister in-law at [facility] Yuly Almore " Suicide Addendum Question 11, unusual risks No Yuly Almore " Suicide Addendum Question 10, use of alcohol or non-prescription drugs No Yuly Almore " Suicide Addendum Question 9, attempted suicide before Yes Yuly Almore " Suicide Addendum Question 7, imagine you would be rescued Yes Yuly Almore " Suicide Addendum Question 6, intend to act No Yuly Almore " Suicide Addendum Question 5, means and availability No Yuly Almore " Suicide Addendum Question 4, plan for suicide No Yuly Almore " Suicide Addendum Question 2, feeling hopeless No Yuly Almore " Suicide Addendum Question 1, thoughts of harming yourself No Yuly Almore " social history reviewed E&M reviewed today Yuly Almore " social history E&M since 9 yrs. 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 Pt have 1 sister live [place] Not homeless. Born in [facility]. City: [place]. State: [place]. lives in [place] with . and Pt pet,Sondog Not employed. Disabled. 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 Sexual orientation: Heterosexual. Gender identity: Female. Gender of partner(s): male. Sexually Active: Yes. Samaritan, Crocheting, computer games,baking Yuly Almore " drug use, illicit Previously Yuly Almore " alcohol use Never Yuly Almore " smoking status never smoker Yuly Almore " home/family situation, assessment lives in [place] with . 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 Pt have 1 sister live [place] 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 Navarro Atri " drug use, illicit Previously Navarro Atri " alcohol use Never Navarro Atri " smoking status never smoker Navarro Atri " social history E&M Single. ; has 3 children grown. Not homeless. Born in [facility]. City: [place]. State: [place]. lives in [place] with . Not employed. Disabled. 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 Sexual orientation: Heterosexual. Gender identity: Female. Gender of partner(s): male. Sexually Active: Yes. Nvaarro Atri " social history reviewed E&M reviewed today Navarro Atri drug use, illicit Never Aleta Arellano " alcohol use Never Aleta Arellano " social history E&M Single. ; has 3 children grown. Not homeless. Born in [facility]. City: [place]. State: [place]. lives in [place] with . Not employed. Disabled. 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 Sexual orientation: Heterosexual. Gender identity: Female. Gender of partner(s): male. Sexually Active: Yes. Aleta Arellano " social history reviewed E&M reviewed today Aleta Arellano " sexual orientation Heterosexual Aleta Arellano " passive cigarette smoke exposure No Aleta Arellano " smoking status never smoker Aleta Arellano " assessment of health literacy ([facility] 2014 Standards, 3C10) Adequate Aleta Arellano " Exercise Program Referral T Aleta Arellano " Weight Management Counseling Provided Justen Aleta Arellano " Nutrition intervention T Aleta Kennedys social history reviewed E&M reviewed today Kathy Schmidt " social history E&M Single. ; has 3 children grown. Not homeless. Born in [facility]. City: [place]. State: [place]. lives in [place] with . Not employed. Disabled. 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 Sexual orientation: Heterosexual. Gender identity: Female. Gender of partner(s): male. Sexually Active: Yes. Kathy Schmidt " home/family situation, assessment lives in [place] with . Kathy Schmidt " family support ; has 3 children grown. Kathy Schmidt " sexual orientation Heterosexual Kathy Schmidt drug use, illicit Never Mili Garcia " alcohol use Never Mili Garcia " passive cigarette smoke exposure No Mili Garcia " smoking status never smoker Mili Garcia Exercise Program Referral T Radha Neff " Weight Management Counseling Provided T Radha Neff " Nutrition intervention T Radha Neff " drug use, illicit Never Jeniffer Ruffin " alcohol use Never Jeniffer Ruffin " social history reviewed E&M reviewed today Jeniffer Ruffin " passive cigarette smoke exposure No Ejniffer Ruffin " smoking status never smoker Jeniffer Ruffin " assessment of health literacy ([facility] 2014 Standards, 3C10) Adequate Jeniffer Ruffin Exercise Program Referral Justen Granger " Weight Management Counseling Provided Justen Granger " Nutrition intervention T Rishi Granger " assessment of health literacy ([facility] 2014 Standards, 3C10) Adequate Jeniffer Ruffin " drug use, illicit Never Jeniffer Ruffin " alcohol use Never Jeniffer Ruffin " social history reviewed E&M reviewed today Jeniffer Ruffin " passive cigarette smoke exposure No Jeniffer Ruffin " smoking status never smoker Jeniffer Ruffin social history reviewed E&M reviewed today Talimark Montillaniz " passive cigarette smoke exposure No Tali Aleman " smoking status never smoker Tali Aleman time of call 11/15/2015 1:55 PM Aaron Rosales social history reviewed E&M reviewed today Aleta Roland " passive cigarette smoke exposure No Aleta Roland " smoking status never smoker Aleta Roland drug use, illicit Never Mili Garcia " alcohol use Never Mili Garcia " passive cigarette smoke exposure No Mili Garcia " smoking status never smoker Mili Garcia drug use, illicit Never Aleta Epperson " alcohol use Never Aleta Epperson " passive cigarette smoke exposure No Aleta Epperson " smoking status never smoker Aleta Epperson " Exercise Program Referral T Aleta Epperson " Weight Management Counseling Provided Justen Epperson " Nutrition intervention Justen Epperson home/family situation, assessment lives in [place] Melba Pablo " family support ; has 3 children grown Melba Pablo " social history reviewed E&M reviewed today Celia Marquez " passive cigarette smoke exposure No Celia Marquez " smoking status never smoker Celia Marquez drug use, illicit Never Mili Garcia " alcohol use Never Mili Garcia " passive cigarette smoke exposure No Mili Garcia " smoking status never smoker Mili Garcia drug use, illicit Never Toneka McCdante " alcohol use Never Toneka Mesfin " passive cigarette smoke exposure No Toneka McCardell " smoking status never smoker Mady Toure drug use, illicit Never Farheen Muir " alcohol use Never Farheen Muir " passive cigarette smoke exposure No Farheen Muir " smoking status former smoker Farheen Muir time of call 01/30/2015 9:40 AM Cecile Armstrong Exercise Program Referral Justen Pringle " Weight Management Counseling Provided Justen Pringle " Nutrition intervention Justen Pringle " drug use, illicit Never Mili Garcia " alcohol use Never Mili Garcia " sex at female Mili Garcia " Occupation #1 Disabled Mili Garcia " patient considered to be homeless No Mili Garcia " smoking status never smoker Mili Garcia FUNCTIONAL STATUS No Information Available MENTAL STATUS Date Observation Value Provider Generalized Anxiety Disorder Questionnaire - Question 2 0 [facility] " Generalized Anxiety Disorder Questionnaire - Question 1 0 Jen Genao assessment of judgment and insight E&M intact [facility] " mental status examination: orientation E&M oriented to time, place, and person [facility] " assessment of mood and affect E&M no depression, anxiety, or agitation [facility] mental status assessment, judgment good Navarromiladys Marroquin " insight (mental status exam) good Navarro Atri " Mental Status Exam: intelligence adequate fund of information, intact memory processes, oriented to person, oriented to place, oriented to time, oriented to situation, oriented to reality Navarro Atri " hallucinations none Navarro Atri " thought content (mental status exam) (E&M) lucid Navarro Atri " mental status assessment, process able to abstract, goal-directed, logical Navarro Atri " mental status assessment, sensorium alert, attentive, clear Navarro Atri " affect (mental status exam) congruent, normal intensity, normal range Navarro Atri " mood (mental status exam) pleasant Navarro Atri " mental status assessment, speech activity normal flow, normal pace, normal pressure, normal rate, normal tone, normal volume, spontaneous Navarro Atri " mental status assessment, motor activity normal gait, normal posture Navarro Atri " behavior (mental status exam) appropriate, candid, cooperative, good eye contact, polite, responsive Navarro Atri " mental appearance (mental status exam) adequate hygiene, appropriate dress, looks like stated age, neat Navarro Atri assessment of judgment and insight E&M intact [facility] " mental status examination: orientation E&M oriented to time, place, and person [facility] " assessment of mood and affect E&M no depression, anxiety, or agitation Jessie Ector If any problems checked, how difficult have these problems made it for you to do your work, take care of things at home, or get along with other people (GAD7, question 8) 1 Allyson Marquisrez " Generalized Anxiety Disorder Questionnaire - Question 7 3 Allyson Marquisrez " Generalized Anxiety Disorder Questionnaire - Question 4 3 Allyson Marquisrez " Generalized Anxiety Disorder Questionnaire - Question 3 3 Allyson Marquisrez " Generalized Anxiety Disorder Questionnaire - Question 6 3 Allyson Marquisrez " Generalized Anxiety Disorder Questionnaire - Question 5 2 Allyson Marquisrez " Generalized Anxiety Disorder Questionnaire - Question 2 3 Allyson Marquisrez " Generalized Anxiety Disorder Questionnaire - Question 1 3 Allyson Marquisrez Generalized Anxiety Disorder Questionnaire - Question 2 0 Kim Eric " Generalized Anxiety Disorder Questionnaire - Question 1 0 Kim Reyes mental status assessment, judgment good Navarro Atri " insight (mental status exam) good Navarro Atri " Mental Status Exam: intelligence adequate fund of information, intact memory processes, oriented to person, oriented to place, oriented to time, oriented to situation, oriented to reality Navarro Atri " hallucinations none Navarro Atri " thought content (mental status exam) (E&M) lucid Navarro Atri " mental status assessment, process able to abstract, goal-directed, logical Navarro Atri " mental status assessment, sensorium alert, attentive, clear Navarro Atri " affect (mental status exam) congruent, normal intensity, normal range Navarro Atri " mood (mental status exam) anxious Navarro Atri " mental status assessment, speech activity normal flow, normal pace, normal pressure, normal rate, normal tone, normal volume, spontaneous Navarro Atri " mental status assessment, motor activity normal gait, normal posture Navarro Atri " behavior (mental status exam) appropriate, candid, cooperative, good eye contact, polite, responsive Navarro Atri " mental appearance (mental status exam) adequate hygiene, appropriate dress, looks like stated age, neat Navarro Atri assessment of judgment and insight E&M intact Jessie Ector " assessment of mood and affect E&M no depression, anxiety, or agitation Jessie Ector " Generalized Anxiety Disorder Questionnaire - Question 2 0 Jeniffer Augustin " Generalized Anxiety Disorder Questionnaire - Question 1 0 Jeniffer Ruffin mental status assessment, judgment good Navarro Atri " insight (mental status exam) good Navarro Atri " Mental Status Exam: intelligence adequate fund of information, intact memory processes, oriented to person, oriented to place, oriented to time, oriented to situation, oriented to reality Navarro Atri " hallucinations none Navarro Atri " thought content (mental status exam) (E&M) lucid Navarro Atri " mental status assessment, process able to abstract, goal-directed, logical Navarro Atri " mental status assessment, sensorium alert, attentive, clear Navarro Atri " affect (mental status exam) congruent, normal intensity, normal range Navarro Atri " mood (mental status exam) anxious Navarro Atri " mental status assessment, speech activity normal flow, normal pace, normal pressure, normal rate, normal tone, normal volume, spontaneous Navarro Atri " mental status assessment, motor activity normal gait, normal posture Navarro Atri " behavior (mental status exam) appropriate, candid, cooperative, good eye contact, polite, responsive Navarro Atri " mental appearance (mental status exam) adequate hygiene, appropriate dress, looks like stated age, neat Navarro Atri mental status assessment, judgment good Navarro Atri " insight (mental status exam) good Navarro Atri " Mental Status Exam: intelligence adequate fund of information, intact memory processes, oriented to person, oriented to place, oriented to time, oriented to situation, oriented to reality Navarro Atri " hallucinations none Navarro Atri " thought content (mental status exam) (E&M) lucid Navarro Atri " mental status assessment, process able to abstract, goal-directed, logical Navarro Atri " mental status assessment, sensorium alert, attentive, clear Navarro Atri " affect (mental status exam) congruent, normal intensity, normal range, labile Navarro Atri " mood (mental status exam) anxious Navarro Atri " mental status assessment, speech activity normal flow, normal pace, normal pressure, normal rate, normal tone, normal volume, spontaneous Navarro Atri " mental status assessment, motor activity normal gait, normal posture Navarro Atri " behavior (mental status exam) appropriate, candid, cooperative, good eye contact, polite, responsive Navarro Atri " mental appearance (mental status exam) adequate hygiene, appropriate dress, looks like stated age, neat Navarro Atri mental status assessment, judgment good Navarro Atri " insight (mental status exam) good Navarro Atri " Mental Status Exam: intelligence adequate fund of information, intact memory processes, oriented to person, oriented to place, oriented to time, oriented to situation, oriented to reality Navarro Atri " hallucinations none Navarro Atri " thought content (mental status exam) (E&M) lucid Navarro Atri " mental status assessment, process able to abstract, goal-directed, logical Navarro Atri " mental status assessment, sensorium alert, attentive, clear Navarro Atri " affect (mental status exam) congruent, normal intensity, normal range, labile Navarro Atri " mood (mental status exam) anxious Navarro Atri " mental status assessment, speech activity normal flow, normal pace, normal pressure, normal rate, normal tone, normal volume, spontaneous Navarro Atri " mental status assessment, motor activity normal gait, normal posture Navarro Atri " behavior (mental status exam) appropriate, candid, cooperative, good eye contact, polite, responsive Navarro Atri " mental appearance (mental status exam) adequate hygiene, appropriate dress, looks like stated age, ko Briceño Atri Generalized Anxiety Disorder Questionnaire - Question 2 0 Allyson Arguelles " Generalized Anxiety Disorder Questionnaire - Question 1 0 Allyson Arguelles mental status assessment, judgment good Yuly Almore " insight (mental status exam) good Yuly Almore " Mental Status Exam: intelligence adequate fund of information, intact memory processes, oriented to person, oriented to place, oriented to time, oriented to situation, oriented to reality Yuly Almore " hallucinations none Yuly Almore " thought content (mental status exam) (E&M) lucid Yuly Almore " mental status assessment, process able to abstract, goal-directed, logical Yuly Almore " mental status assessment, sensorium alert, attentive, clear Yuly Almore " affect (mental status exam) congruent, normal intensity, normal range, labile Yuly Almore " mood (mental status exam) anxious, pleasant Yuly Almore " mental status assessment, speech activity normal flow, normal pace, normal pressure, normal rate, normal tone, normal volume, spontaneous Yuly Almore " mental status assessment, motor activity normal gait, normal posture Yuly Almore " behavior (mental status exam) appropriate, candid, cooperative, good eye contact, polite, responsive Yuly Almore " mental appearance (mental status exam) adequate hygiene, appropriate dress, looks like stated age, ko Emery Cristianaore assessment of judgment and insight E&M intact Jessie Ector " assessment of mood and affect E&M no depression, anxiety, or agitation Jessie Ector " Generalized Anxiety Disorder Questionnaire - Question 2 0 Allyson Blane " Generalized Anxiety Disorder Questionnaire - Question 1 0 Allyson Blane Generalized Anxiety Disorder Questionnaire - Question 2 0 Farheen Muir " Generalized Anxiety Disorder Questionnaire - Question 1 0 Farheen Isadora mental status assessment, judgment good Navarro Atri " insight (mental status exam) good Navarro Atri " Mental Status Exam: intelligence adequate fund of information, intact memory processes, oriented to person, oriented to place, oriented to time, oriented to situation, oriented to reality Navarro Atri " hallucinations none Navarro Atri " thought content (mental status exam) (E&M) lucid Navarro Atri " mental status assessment, process able to abstract, goal-directed, logical Navarro Atri " mental status assessment, sensorium alert, attentive, clear Navarro Atri " affect (mental status exam) congruent, normal intensity, normal range, labile Navarro Atri " mood (mental status exam) frustrated, pleasant Navarro Atri " mental status assessment, speech activity normal flow, normal pace, normal pressure, normal rate, normal tone, normal volume, spontaneous Navarro Atri " mental status assessment, motor activity normal gait, normal posture Navarro Atri " behavior (mental status exam) appropriate, candid, cooperative, good eye contact, polite, responsive Navarro Atri " mental appearance (mental status exam) adequate hygiene, appropriate dress, looks like stated age, ko Navarro Atri mental status assessment, judgment good Yuly Almore " insight (mental status exam) good Yuly Almore " Mental Status Exam: intelligence adequate fund of information, intact memory processes, oriented to person, oriented to place, oriented to time, oriented to situation, oriented to reality Yuly Almore " hallucinations none Yuly Almore " thought content (mental status exam) (E&M) lucid Yuly Almore " mental status assessment, process able to abstract, goal-directed, logical Yuly Almore " mental status assessment, sensorium alert, attentive, clear Yuly Almore " affect (mental status exam) congruent, normal intensity, normal range, labile Yuly Almore " mood (mental status exam) frustrated, pleasant Yuly Almore " mental status assessment, speech activity normal flow, normal pace, normal pressure, normal rate, normal tone, normal volume, spontaneous Yuly Almore " mental status assessment, motor activity normal gait, normal posture Yuly Almore " behavior (mental status exam) appropriate, candid, cooperative, good eye contact, polite, responsive Yuly Almore " mental appearance (mental status exam) adequate hygiene, appropriate dress, looks like stated age ko Yuly Coburn assessment of judgment and insight E&M intact Jessie Ector " assessment of mood and affect E&M no depression, anxiety, or agitation Jessie Ector " Generalized Anxiety Disorder Questionnaire - Question 2 0 Enma Edwards " Generalized Anxiety Disorder Questionnaire - Question 1 0 Enma Edwards mental status assessment, judgment good Yuly Almore " insight (mental status exam) good Yuly Almore " Mental Status Exam: intelligence adequate fund of information, intact memory processes, oriented to person, oriented to place, oriented to time, oriented to situation, oriented to reality Yuly Almore " hallucinations none Yuly Almore " thought content (mental status exam) (E&M) lucid Yuly Almore " mental status assessment, process able to abstract, goal-directed, logical Yuly Almore " mental status assessment, sensorium alert, attentive, clear Yuly Almore " affect (mental status exam) congruent, normal intensity, normal range, labile Yuly Almore " mood (mental status exam) frustrated, pleasant Yuly Almore " mental status assessment, speech activity normal flow, normal pace, normal pressure, normal rate, normal tone, normal volume, spontaneous Yuly Almore " mental status assessment, motor activity normal gait, normal posture Yuly Almore " behavior (mental status exam) appropriate, candid, cooperative, good eye contact, polite, responsive Yuly Almore " mental appearance (mental status exam) adequate hygiene, appropriate dress, looks like stated reena ko Coburn assessment of judgment and insight E&M intact Jessie Ector " assessment of mood and affect E&M no depression, anxiety, or agitation Jessie Ector " Generalized Anxiety Disorder Questionnaire - Question 2 0 Aleta Arellano " Generalized Anxiety Disorder Questionnaire - Question 1 0 Aleta Adan mental status assessment, judgment good Navarro Atri " insight (mental status exam) good Navarro Atri " Mental Status Exam: intelligence adequate fund of information, intact memory processes, oriented to person, oriented to place, oriented to time, oriented to situation, oriented to reality Navarro Atri " hallucinations none Navarro Atri " thought content (mental status exam) (E&M) lucid Navarro Atri " mental status assessment, process able to abstract, goal-directed, logical Navarro Atri " mental status assessment, sensorium alert, attentive, clear Navarro Atri " affect (mental status exam) congruent, normal intensity, normal range, labile Navarro Atri " mood (mental status exam) pleasant Navarro Atri " mental status assessment, speech activity normal flow, normal pace, normal pressure, normal rate, normal tone, normal volume, spontaneous Navarro Atri " mental status assessment, motor activity normal gait, normal posture Navarro Atri " behavior (mental status exam) appropriate, candid, cooperative, good eye contact, polite, responsive Navarro Atri " mental appearance (mental status exam) adequate hygiene, appropriate dress, looks like stated age, neat Navarro Atri assessment of judgment and insight E&M intact Jessie Ector " assessment of mood and affect E&M no depression, anxiety, or agitation Jessie Ector " Generalized Anxiety Disorder Questionnaire - Question 2 0 Teresita Cohen " Generalized Anxiety Disorder Questionnaire - Question 1 0 Teresita Cohen mental status assessment, judgment good Yuly Almore " insight (mental status exam) good Yuly Almore " Mental Status Exam: intelligence adequate fund of information, intact memory processes, oriented to person, oriented to place, oriented to time, oriented to situation, oriented to reality Yuly Almore " hallucinations none Yuly Almore " thought content (mental status exam) (E&M) lucid Yuly Almore " mental status assessment, process able to abstract, goal-directed, logical Yuly Almore " mental status assessment, sensorium alert, attentive, clear Yuly Almore " affect (mental status exam) congruent, normal intensity, normal range, labile Yuly Almore " mood (mental status exam) pleasant Yuly Almore " mental status assessment, speech activity normal flow, normal pace, normal pressure, normal rate, normal tone, normal volume, spontaneous Yuly Cristianaore " mental status assessment, motor activity normal gait, normal posture Yuly Coburn " behavior (mental status exam) appropriate, candid, cooperative, good eye contact, polite, responsive Yuly Coburn " mental appearance (mental status exam) adequate hygiene, appropriate dress, looks like stated age, neat Yuly Almas assessment of judgment and insight E&M intact Jessie Ector " If any problems checked, how difficult have these problems made it for you to do your work, take care of things at home, or get along with other people (GAD7, question 8) 0 Allyson Arguelles " Generalized Anxiety Disorder Questionnaire - Question 7 1 Allyson Arguelles " Generalized Anxiety Disorder Questionnaire - Question 6 3 Allyson Arguelles " Generalized Anxiety Disorder Questionnaire - Question 5 3 Allyson Arguelles " Generalized Anxiety Disorder Questionnaire - Question 4 1 Allyson Arguelles " Generalized Anxiety Disorder Questionnaire - Question 3 1 Allyson Arguelles " Generalized Anxiety Disorder Questionnaire - Question 2 0 Allyson Arguelles " Generalized Anxiety Disorder Questionnaire - Question 1 3 Allyson Arguelles mental status assessment, judgment good Navarro Atri " insight (mental status exam) good Navarro Atri " Mental Status Exam: intelligence adequate fund of information, intact memory processes, oriented to person, oriented to place, oriented to time, oriented to situation, oriented to reality Navarro Atri " hallucinations none Navarro Atri " thought content (mental status exam) (E&M) lucid Navarro Atri " mental status assessment, process able to abstract, goal-directed, logical Navarro Atri " mental status assessment, sensorium alert, attentive, clear Navarro Atri " affect (mental status exam) congruent, normal intensity, normal range, labile Navarro Atri " mood (mental status exam) pleasant Navarro Atri " mental status assessment, speech activity normal flow, normal pace, normal pressure, normal rate, normal tone, normal volume, spontaneous Navarro Atri " mental status assessment, motor activity normal gait, normal posture Navarro Atri " behavior (mental status exam) appropriate, candid, cooperative, good eye contact, polite, responsive Navarro Atri " mental appearance (mental status exam) adequate hygiene, appropriate dress, looks like stated age, ko Briceño Atri mental status assessment, judgment good Yuly Almore " insight (mental status exam) good Yuly Almore " Mental Status Exam: intelligence adequate fund of information, intact memory processes, oriented to person, oriented to place, oriented to time, oriented to situation, oriented to reality Yuly Almore " hallucinations none Yuly Almore " thought content (mental status exam) (E&M) lucid Yuly Almore " mental status assessment, process able to abstract, goal-directed, logical Yuly Almore " mental status assessment, sensorium alert, attentive, clear Yuly Almore " affect (mental status exam) congruent, normal intensity, normal range, labile Yuly Almore " mood (mental status exam) pleasant, sad Yuly Almore " mental status assessment, speech activity normal flow, normal pace, normal pressure, normal rate, normal tone, normal volume, spontaneous Yuly Almore " mental status assessment, motor activity normal gait, normal posture Yuly Almore " behavior (mental status exam) appropriate, candid, cooperative, good eye contact, polite, responsive Yuly Almore " mental appearance (mental status exam) adequate hygiene, appropriate dress, looks like stated age, ko Yuly Almore assessment of judgment and insight E&M intact Jessie Ector " assessment of mood and affect E&M no depression, anxiety, or agitation Jessie Ector " Generalized Anxiety Disorder Questionnaire - Question 2 0 Jeniffer Ruffin " Generalized Anxiety Disorder Questionnaire - Question 1 0 Jeniffer Ruffin mental status assessment, judgment good Yuly Almore " insight (mental status exam) good Yuly Almore " Mental Status Exam: intelligence adequate fund of information, intact memory processes, oriented to person, oriented to place, oriented to time, oriented to situation, oriented to reality Yuly Almore " hallucinations none Yuly Almore " thought content (mental status exam) (E&M) lucid Yuly Almore " mental status assessment, process able to abstract, goal-directed, logical Yuly Almore " mental status assessment, sensorium alert, attentive, clear Yuly Almore " affect (mental status exam) congruent, normal intensity, normal range, labile Yuly Almore " mood (mental status exam) anxious, pleasant, sad Yuly Almore " mental status assessment, speech activity normal flow, normal pace, normal pressure, normal rate, normal tone, normal volume, spontaneous Yuly Almore " mental status assessment, motor activity normal gait, normal posture Yuly Almore " behavior (mental status exam) appropriate, candid, cooperative, good eye contact, polite, responsive Yuly Almore " mental appearance (mental status exam) adequate hygiene, appropriate dress, looks like stated age, neat Yuly Almore Generalized Anxiety Disorder Questionnaire - Question 2 0 Jose Munson " Generalized Anxiety Disorder Questionnaire - Question 1 0 Jose Munson mental status examination: orientation E&M oriented to time, place, and person Leonila Dickey " assessment of mood and affect E&M anxious Leonila Dickey " Generalized Anxiety Disorder Questionnaire - Question 2 0 Susan Tyson " Generalized Anxiety Disorder Questionnaire - Question 1 0 Susan Tyson mental status assessment, judgment good Navarro Atri " insight (mental status exam) good Navarro Atri " Mental Status Exam: intelligence adequate fund of information, intact memory processes, oriented to person, oriented to place, oriented to time, oriented to situation, oriented to reality Navarro Atri " hallucinations none Navarro Atri " thought content (mental status exam) (E&M) lucid Navarro Atri " mental status assessment, process able to abstract, goal-directed, logical Navarro Atri " mental status assessment, sensorium alert, attentive, clear Navarro Atri " affect (mental status exam) congruent, normal intensity, normal range, labile Navarro Atri " mood (mental status exam) anxious, pleasant, sad Navarro Atri " mental status assessment, speech activity normal flow, normal pace, normal pressure, normal rate, normal tone, normal volume, spontaneous Navarro Atri " mental status assessment, motor activity normal gait, normal posture Navarro Atri " behavior (mental status exam) appropriate, candid, cooperative, good eye contact, polite, responsive Navarro Atri " mental appearance (mental status exam) adequate hygiene, appropriate dress, looks like stated age, neat Navarro Atri mental status assessment, judgment good Yuly Almore " insight (mental status exam) good Yuly Almore " Mental Status Exam: intelligence adequate fund of information, intact memory processes, oriented to person, oriented to place, oriented to time, oriented to situation, oriented to reality Yuly Almore " hallucinations none Yuly Almore " thought content (mental status exam) (E&M) lucid Yuly Almore " mental status assessment, process able to abstract, goal-directed, logical Yuly Almore " mental status assessment, sensorium alert, attentive, clear Yuly Almore " affect (mental status exam) congruent, normal intensity, normal range, labile Yuyl Almore " mood (mental status exam) anxious, pleasant, sad Yuly Almore " mental status assessment, speech activity normal flow, normal pace, normal pressure, normal rate, normal tone, normal volume, spontaneous Yuly Almore " mental status assessment, motor activity normal gait, normal posture Yuly Almore " behavior (mental status exam) appropriate, candid, cooperative, good eye contact, polite, responsive Yuly Almore " mental appearance (mental status exam) adequate hygiene, appropriate dress, looks like stated age, neat Yuly Almore mental status assessment, judgment good Navarro Atri " insight (mental status exam) good Navarro Atri " Mental Status Exam: intelligence adequate fund of information, intact memory processes, oriented to person, oriented to place, oriented to time, oriented to situation, oriented to reality Navarro Atri " hallucinations none Navarro Atri " thought content (mental status exam) (E&M) lucid Navarro Atri " mental status assessment, process able to abstract, goal-directed, logical Navarro Atri " mental status assessment, sensorium alert, attentive, clear Navarro Atri " affect (mental status exam) congruent, normal intensity, normal range, labile Navarro Atri " mood (mental status exam) anxious, pleasant, sad Navarro Atri " mental status assessment, speech activity normal flow, normal pace, normal pressure, normal rate, normal tone, normal volume, spontaneous Navarro Atri " mental status assessment, motor activity normal gait, normal posture Navarro Atri " behavior (mental status exam) appropriate, candid, cooperative, good eye contact, polite, responsive Navarro Atri " mental appearance (mental status exam) adequate hygiene, appropriate dress, looks like stated ko valles mental status assessment, judgment good Yuly Almore " insight (mental status exam) good Yuly Almore " Mental Status Exam: intelligence adequate fund of information, intact memory processes, oriented to person, oriented to place, oriented to time, oriented to situation, oriented to reality Uyly Almore " hallucinations none Yuly Almore " thought content (mental status exam) (E&M) lucid Yuly Almore " mental status assessment, process able to abstract, goal-directed, logical Yuly Almore " mental status assessment, sensorium alert, attentive, clear Yuly Almore " affect (mental status exam) congruent, normal intensity, normal range, labile Yuly Almore " mood (mental status exam) anxious, pleasant, sad Yuly Almore " mental status assessment, speech activity normal flow, normal pace, normal pressure, normal rate, normal tone, normal volume, spontaneous Yuly Almore " mental status assessment, motor activity normal gait, normal posture Yuly Almore " behavior (mental status exam) appropriate, candid, cooperative, good eye contact, polite, responsive Yuly Almore " mental appearance (mental status exam) adequate hygiene, appropriate dress, looks like stated ok valles Almore mental status assessment, judgment good Kathy Schmidt " insight (mental status exam) good Kathy Schmidt " Mental Status Exam: intelligence adequate fund of information, intact memory processes, oriented to person, oriented to place, oriented to time, oriented to situation, oriented to reality Kathy Schmidt " hallucinations none Kathy Schmidt " thought content (mental status exam) (E&M) lucid Kathy Schmidt " mental status assessment, process able to abstract, goal-directed, logical Kathy Schmidt " mental status assessment, sensorium alert, attentive, clear Kathy Schmidt " affect (mental status exam) congruent, normal intensity, normal range, labile Kathy Schmidt " mood (mental status exam) anxious, pleasant, sad Kathy Schmidt " mental status assessment, speech activity normal flow, normal pace, normal pressure, normal rate, normal tone, normal volume, spontaneous Kathy Schmidt " mental status assessment, motor activity normal gait, normal posture Kathy Schmidt " behavior (mental status exam) appropriate, candid, cooperative, good eye contact, polite, responsive Kathy Schmidt " mental appearance (mental status exam) adequate hygiene, appropriate dress, looks like stated age, neat Kathy Schmidt assessment of mood and affect E&M anxious Josette Pringle " Generalized Anxiety Disorder Questionnaire - Question 2 0 Jose Munson " Generalized Anxiety Disorder Questionnaire - Question 1 0 Jose Munson mental status assessment, judgment good Navarro Atri " insight (mental status exam) good Navarro Atri " Mental Status Exam: intelligence adequate fund of information, intact memory processes, oriented to person, oriented to place, oriented to time, oriented to situation, oriented to reality Navarro Atri " hallucinations none Navarro Atri " thought content (mental status exam) (E&M) lucid Navarro Atri " mental status assessment, process able to abstract, goal-directed, logical Navarro Atri " mental status assessment, sensorium alert, attentive, clear Navarro Atri " affect (mental status exam) congruent, normal intensity, normal range, labile Navarro Atri " mood (mental status exam) anxious, pleasant, sad Navarro Atri " mental status assessment, speech activity normal flow, normal pace, normal pressure, normal rate, normal tone, normal volume, spontaneous Navarro Atri " mental status assessment, motor activity normal gait, normal posture Navarro Atri " behavior (mental status exam) appropriate, candid, cooperative, good eye contact, polite, responsive Navarro Atri " mental appearance (mental status exam) adequate hygiene, appropriate dress, looks like stated age, neat Navarro Atri assessment of mood and affect E&M anxious Nilay Cleaning " Generalized Anxiety Disorder Questionnaire - Question 2 0 Aleta Roland " Generalized Anxiety Disorder Questionnaire - Question 1 0 Aleta Roland mental status assessment, judgment good Navarro Atri " insight (mental status exam) good Navarro Atri " Mental Status Exam: intelligence adequate fund of information, intact memory processes, oriented to person, oriented to place, oriented to time, oriented to situation, oriented to reality Navarro Atri " hallucinations none Navarro Atri " thought content (mental status exam) (E&M) lucid Navarro Atri " mental status assessment, process able to abstract, goal-directed, logical Navarro Atri " mental status assessment, sensorium alert, attentive, clear Navarro Atri " affect (mental status exam) congruent, normal intensity, normal range, labile Navarro Atri " mood (mental status exam) anxious, pleasant, sad Navarro Atri " mental status assessment, speech activity normal flow, normal pace, normal pressure, normal rate, normal tone, normal volume, spontaneous Navarro Atri " mental status assessment, motor activity normal gait, normal posture, fidgety Navarro Atri " behavior (mental status exam) appropriate, candid, cooperative, good eye contact, polite, responsive Navarro Atri " mental appearance (mental status exam) adequate hygiene, appropriate dress, looks like stated age, neat Navarro Atri assessment of mood and affect E&M depressed mood Josette Pringle " Generalized Anxiety Disorder Questionnaire - Question 2 0 Aleta Epperson " Generalized Anxiety Disorder Questionnaire - Question 1 0 Aleta Epperson mental status assessment, judgment good Navarro Atri " insight (mental status exam) good Navarro Atri " Mental Status Exam: intelligence adequate fund of information, intact memory processes, oriented to person, oriented to place, oriented to time, oriented to situation, oriented to reality Navarro Atri " hallucinations none Navarro Atri " thought content (mental status exam) (E&M) lucid Navarro Atri " mental status assessment, process able to abstract, goal-directed, logical Navarro Atri " mental status assessment, sensorium alert, attentive, clear Navarro Atri " affect (mental status exam) congruent, normal intensity, normal range, labile Navarro Atri " mood (mental status exam) anxious, pleasant, sad Navarro Atri " mental status assessment, speech activity normal flow, normal pace, normal pressure, normal rate, normal tone, normal volume, spontaneous Navarro Atri " mental status assessment, motor activity normal gait, normal posture, fidgety Navarro Atri " behavior (mental status exam) appropriate, candid, cooperative, good eye contact, polite, responsive Navarro Atri " mental appearance (mental status exam) adequate hygiene, appropriate dress, looks like stated age, neat Navarro Atri mental status assessment, judgment good Yuly Coburn " insight (mental status exam) good Yuly Almore " Mental Status Exam: intelligence adequate fund of information, intact memory processes, oriented to person, oriented to place, oriented to time, oriented to situation, oriented to reality Yuly Almore " hallucinations none Yuly Almore " thought content (mental status exam) (E&M) lucid Yuly Almore " mental status assessment, process able to abstract, goal-directed, logical Yuyl Cristianaore " mental status assessment, sensorium alert, attentive, clear Yuly Cristianaore " mood (mental status exam) anxious, pleasant, sad Yuly Almore " mental status assessment, speech activity normal flow, normal pace, normal pressure, normal rate, normal tone, normal volume, spontaneous Yuly Almore " mental status assessment, motor activity normal gait, normal posture, fidgety, rocking Yuly Almore " behavior (mental status exam) appropriate, candid, cooperative, good eye contact, polite, responsive Yuly Cristianaore " mental appearance (mental status exam) adequate hygiene, appropriate dress, looks like stated age, neat Yuly Coburn " anxiety worry a lot, irritability, panic attacks Yuly oCburn mental status assessment, judgment fair Kathy Schmidt " insight (mental status exam) fair Kathy Schmidt " Mental Status Exam: intelligence adequate fund of information, intact memory processes, oriented to person, oriented to place, oriented to time, oriented to situation, oriented to reality Kathy Schmidt " hallucinations none Kathy Schmidt " thought content (mental status exam) (E&M) lucid Kathy Schmidt " mental status assessment, process tangential Kathy Schmidt " mental status assessment, sensorium alert, attentive, clouded Kathy Schmidt " affect (mental status exam) congruent, normal intensity, normal range, labile Kathy Schmidt " mood (mental status exam) anxious, frustrated Kathy Schmidt " mental status assessment, speech activity normal flow, normal pace, normal pressure, normal rate, normal tone, normal volume, spontaneous Kathy Schmidt " mental status assessment, motor activity normal gait, normal posture Kathy Schmidt " behavior (mental status exam) cooperative, polite, responsive, tearful Kathy Schmidt " mental appearance (mental status exam) adequate hygiene, appropriate dress, looks like stated age, neat, looks older than age Kathy Brayan mental status assessment, judgment fair Navarro Atri " insight (mental status exam) fair Navarro Atri " Mental Status Exam: intelligence adequate fund of information, intact memory processes, oriented to person, oriented to place, oriented to time, oriented to situation, oriented to reality Navarro Atri " hallucinations none Navarro Atri " thought content (mental status exam) (E&M) lucid Navarro Lopez " mental status assessment, process tangential Navarro Atri " mental status assessment, sensorium alert, attentive, clouded Navarro Atri " affect (mental status exam) congruent, normal intensity, normal range, labile Navarro Atri " mood (mental status exam) anxious Navarro Atri " mental status assessment, speech activity normal flow, normal pace, normal pressure, normal rate, normal tone, normal volume, spontaneous Navarro Atri " mental status assessment, motor activity normal gait, normal posture Navarro Atri " behavior (mental status exam) cooperative, polite, responsive, tearful Navarro Atri " mental appearance (mental status exam) adequate hygiene, appropriate dress, looks like stated age, neat, looks older than age Navarro Atri " anxiety worry a lot, sleep disturbance, restlessness, panic attacks Navarro Atri assessment of judgment and insight E&M intact Josette Pino " assessment of mood and affect E&M depressed mood Josette Roopani " Generalized Anxiety Disorder Questionnaire - Question 2 0 Aleta Arellano " Generalized Anxiety Disorder Questionnaire - Question 1 0 Aleta Arellano mood (mental status exam) anxious, frustrated Kathy Schmidt " mental status assessment, judgment fair Kathy Schmidt " insight (mental status exam) fair Kathy Schmidt " Mental Status Exam: intelligence adequate fund of information, intact memory processes, oriented to person, oriented to place, oriented to time, oriented to situation, oriented to reality Kathy Schmidt " thought content (mental status exam) (E&M) lucid Kathy Alandez " mental status assessment, process tangential Kathy Schmidt " mental status assessment, sensorium alert, attentive, clouded Kathy Schmidt " affect (mental status exam) congruent, normal intensity, normal range, labile Kathy Schmidt " mental status assessment, speech activity normal flow, normal pace, normal pressure, normal rate, normal tone, normal volume, spontaneous Kathyizabel Alandez " mental status assessment, motor activity normal gait, normal posture Kathy Schmidt " behavior (mental status exam) cooperative, polite, responsive, tearful Kathy Schmidt " mental appearance (mental status exam) adequate hygiene, appropriate dress, looks like stated age, neat, looks older than age Kathy Schmidt " delusion No Kathy Schmidt " hallucinations none Kathy Schmidt assessment of judgment and insight E&M intact Josette Roopani " assessment of mood and affect E&M no depression, anxiety, or agitation Josette Roopani " If any problems checked, how difficult have these problems made it for you to do your work, take care of things at home, or get along with other people (GAD7, question 8) 1 James Love " Generalized Anxiety Disorder Questionnaire - Question 7 2 James Love " Generalized Anxiety Disorder Questionnaire - Question 6 1 James Love " Generalized Anxiety Disorder Questionnaire - Question 5 1 James Love " Generalized Anxiety Disorder Questionnaire - Question 4 2 James Love " Generalized Anxiety Disorder Questionnaire - Question 3 2 James Love " Generalized Anxiety Disorder Questionnaire - Question 2 1 Jamesdelia Rodgersly " Generalized Anxiety Disorder Questionnaire - Question 1 1 James Love assessment of judgment and insight E&M intact Radha Fairfield Neff " assessment of mood and affect E&M no depression, anxiety, or agitation Radha Fairfield Neff " Generalized Anxiety Disorder Questionnaire - Question 2 0 Jenifferus Ruffin " Generalized Anxiety Disorder Questionnaire - Question 1 0 Jeniffer Augustin assessment of judgment and insight E&M intact Rishi Granger " assessment of mood and affect E&M no depression, anxiety, or agitation Rishi Granger " Generalized Anxiety Disorder Questionnaire - Question 2 0 Jenifferus Ruffin " Generalized Anxiety Disorder Questionnaire - Question 1 0 Jeniffer Ruffin assessment of judgment and insight E&M intact Sarah De Anda " assessment of mood and affect E&M no depression, anxiety, or agitation Sarah De Anda " Generalized Anxiety Disorder Questionnaire - Question 2 0 Tali Aleman " Generalized Anxiety Disorder Questionnaire - Question 1 0 Tali Aleman assessment of judgment and insight E&M intact Sarah De Anda " assessment of mood and affect E&M no depression, anxiety, or agitation Sarah De Anda " Generalized Anxiety Disorder Questionnaire - Question 2 0 Aleta Roland " Generalized Anxiety Disorder Questionnaire - Question 1 0 Aleta Roland assessment of judgment and insight E&M intact Josette Roopani " assessment of mood and affect E&M + depression, denies suicidal or homicidal ideation Josette Roopani " If any problems checked, how difficult have these problems made it for you to do your work, take care of things at home, or get along with other people (GAD7, question 8) 2 James Love " Generalized Anxiety Disorder Questionnaire - Question 4 3 James Rodgersly " Generalized Anxiety Disorder Questionnaire - Question 3 3 James Kate " Generalized Anxiety Disorder Questionnaire - Question 7 1 Jamesdelia Rodgersly " Generalized Anxiety Disorder Questionnaire - Question 6 2 Jamesdelia Rodgersly " Generalized Anxiety Disorder Questionnaire - Question 5 2 Jamesdelia Rodgersly " Generalized Anxiety Disorder Questionnaire - Question 2 3 James Rodgersly " Generalized Anxiety Disorder Questionnaire - Question 1 3 James Love assessment of judgment and insight E&M intact Josette Roopani " assessment of mood and affect E&M no depression, anxiety, or agitation Josette Roopani " Generalized Anxiety Disorder Questionnaire - Question 2 0 Aleta Epperson " Generalized Anxiety Disorder Questionnaire - Question 1 0 Aleta Epperson assessment of judgment and insight E&M intact Melba M Ehdaie " assessment of mood and affect E&M no depression, anxiety, or agitation Melba M Ehdaie " Generalized Anxiety Disorder Questionnaire - Question 2 0 Celia Marquez " Generalized Anxiety Disorder Questionnaire - Question 1 0 Celia Marquez assessment of judgment and insight E&M intact Tara Ashley " assessment of mood and affect E&M no depression, anxiety, or agitation Tara Ashley " Generalized Anxiety Disorder Questionnaire - Question 2 0 Mili Garcia " Generalized Anxiety Disorder Questionnaire - Question 1 0 Mili Garcia assessment of judgment and insight E&M intact Josette Roopani " assessment of mood and affect E&M no depression, anxiety, or agitation Josette Roopani " Generalized Anxiety Disorder Questionnaire - Question 2 0 Mady Toure " Generalized Anxiety Disorder Questionnaire - Question 1 0 Mady Toure Generalized Anxiety Disorder Questionnaire - Question 2 0 Farheen Muir " Generalized Anxiety Disorder Questionnaire - Question 1 0 Farheen Muir assessment of judgment and insight E&M intact Josetteham Pringle " assessment of mood and affect E&M no depression, anxiety, or agitation Josette Roopani " Generalized Anxiety Disorder Questionnaire - Question 2 0 Miliranjit Garcia " Generalized Anxiety Disorder Questionnaire - Question 1 0 Mili Garcia MEDICAL EQUIPMENT No Information Available FAMILY HISTORY No Information Available INSURANCE PROVIDERS No Information Available ADVANCE DIRECTIVES No Information Available TREATMENT PLAN Date Name Thyroid Peroxidase (TPO) Ab TSH+Free T4 CBC With Differential/Platelet Hemoglobin A1c Urine Culture, Routine FIT- Fecal immunoassay test Urinalysis Complete w/reflex to Culture Lipid Panel Comp. Metabolic Panel (14) CBC With Differential/Platelet Lipid Panel Hemoglobin A1c Influenza A/B Ab, Quant - - - - - - - - ingrown toenail - chest discomfort - Est Patient Exp Problem - 06283 Est Patient Detailed - 45288 Est Patient Exp Problem - 82224 Dental - Internal Est Patient Detailed - 81878 Est Patient Exp Problem - 01466 Est Patient Exp Problem - 88306 Est Patient Exp Problem - 77405 Est Patient Exp Problem - 49112 Est Patient Detailed - 63444 Est Patient Exp Problem - 21470 Psychotherapy 45 (38-52*) min - 57742 (with patient and/or family member) IM or SQ Injection Injection, dexamethasone sodium phosphate, 1mg Injection, dexamethasone sodium phosphate, 1mg Est Patient Detailed - 70182 IM or SQ Injection Injection, ketorolac tromethamine (toradol), per 15 mg IM or SQ Injection Injection, ketorolac tromethamine (toradol), per 15 mg Est Patient Exp Problem - 90736 Est Patient Detailed - 15972 Psychotherapy 45 (38-52*) min - 44903 (with patient and/or family member) Est Patient Exp Problem - 66190 Psychotherapy 45 (38-52*) min - 20513 (with patient and/or family member) Dental - Internal Est Patient Exp Problem - 77867 Est Patient Exp Problem - 33965 Est Patient Exp Problem - 73858 Psychotherapy 45 (38-52*) min - 26977 (with patient and/or family member) Est Patient Exp Problem - 63408 Est Patient Exp Problem - 37295 Psychotherapy 45 (38-52*) min - 97106 (with patient and/or family member) INFLUENZA VACCINE QUADRIVALENT 3 YRS PLUS IM Est Patient Exp Problem - 70419 Psychotherapy 45 (38-52*) min - 39056 (with patient and/or family member) Est Patient Exp Problem - 75113 Rapid Strep - In House Rapid Flu - In House Est Patient Exp Problem - 51212 Est Patient Exp Problem - 76695 Psychotherapy 45 (38-52*) min - 81917 (with patient and/or family member) Est Patient Detailed - 88728 Psychotherapy 45 (38-52*) min - 10317 (with patient and/or family member) [facility] Brief Follow Up Psychotherapy 30 (16-37*) min - 84812 (with patient and/or family member) Est Patient Exp Problem - 41879 Est Patient Detailed - 34642 Est Patient Exp Problem - 68547 Est Patient Exp Problem - 97044 Urinalysis - Dip only - In House Est Patient Exp Problem - 28507 Est Patient Exp Problem - 98055 Diagnostic evaluation (no medical) - 49839 [facility] Brief Follow Up Psychotherapy 30 (16-37*) min - 09521 (with patient and/or family member) Behavioral Health - Therapy Diagnostic evaluation with medical - 72346 Health Education/Supportive Counseling Integrated Behavioral Health Assessment (IBH) Patient Health Education - Internal Est Patient Exp Problem - 90597 [facility] Assessment - Motorman/Woman Diagnostic evaluation (no medical) - 04985 Rapid Flu - In House Est Patient Exp Problem - 74690 Est Patient Exp Problem - 13202 Est Patient Exp Problem - 20432 Est Patient Exp Problem - 95172 [facility] Osteopathic Manipulative Medicine Est Patient Exp Problem - 13751 Est Patient Exp Problem - 14857 Hepatitis B - Adult Hepatitis A - Adult Admin of Vaccine - Injection - Each Add'l Admin of Vaccine - Injection - 1 Est Patient Exp Problem - 05282 ECG RTN ECG W/12 LEADS TRACING ONLY Ofc Vst, Est Level III Est Patient Exp Problem - 14276 Est Patient Exp Problem - 37691 BRNCDILAT RSPSE SPMTRY PRE&POST-BRNCDILAT ADMN Albuterol inhalation solution 0.083 3ml 1unit Nebulizers Hepatitis A - Adult Hepatitis B - Adult Est Patient Detailed - 66472 [facility] Procedure Clinic HISTORY OF PROCEDURES Procedure Date Procedure Name Provider Procedure Notes Status Psychotherapy 45 (38-52*) min - 79016 (with patient and/or family member) Yuly Coburn completed IM or SQ Injection Allysonjennifer Marquisrez completed Injection, dexamethasone sodium phosphate, 1mg Allyson Arguelles completed Injection, dexamethasone sodium phosphate, 1mg Allyson Arguelles completed IM or SQ Injection Jessie Ector completed Injection, ketorolac tromethamine (toradol), per 15 mg Jessie Ector completed IM or SQ Injection Jessie Ector completed Injection, ketorolac tromethamine (toradol), per 15 mg Jessie Ector completed Psychotherapy 45 (38-52*) min - 36892 (with patient and/or family member) Yuly Coburn completed Psychotherapy 45 (38-52*) min - 07462 (with patient and/or family member) Yuly Coburn completed Psychotherapy 45 (38-52*) min - 25029 (with patient and/or family member) Yuly Coburn completed Psychotherapy 45 (38-52*) min - 00508 (with patient and/or family member) Yuly Coburn completed Psychotherapy 45 (38-52*) min - 48918 (with patient and/or family member) Yuly Coburn completed Rapid Strep - In House Madhumita Black completed Rapid Flu - In House Madhumita Black completed Psychotherapy 45 (38-52*) min - 13347 (with patient and/or family member) Yuly Coburn completed Psychotherapy 45 (38-52*) min - 57544 (with patient and/or family member) Yuly Coburn completed IBH Brief Follow Up Kathy Schmidt completed Psychotherapy 30 (16-37*) min - 84146 (with patient and/or family member) Kathy Schmidt completed Urinalysis - Dip only - In House Jero Thompson completed Diagnostic evaluation (no medical) - 24360 Yuly Coburn completed IB Brief Follow Up Kathy Schmidt completed Psychotherapy 30 (16-37*) min - 16046 (with patient and/or family member) Kathy Schmidt completed Diagnostic evaluation with medical - 64034 Navarro Marroquin completed Health Education/Supportive Counseling [facility] Provider completed [facility] Assessment - Motorman/Woman Kathy Schmidt completed Diagnostic evaluation (no medical) - 31183 Kathy Schmidt completed Rapid Flu - In House Jero Thompson completed ECG RTN ECG W/12 LEADS TRACING ONLY Melba Pablo completed BRNCDILAT RSPSE SPMTRY PRE&POST-BRNCDILAT ADMN Melba Pablo completed Albuterol inhalation solution 0.083 3ml 1unit Melba Palbo completed Nebulizers Melba Pablo completed GOALS No Information Available HEALTH CONCERNS No Information Available
== END 2019-08-20 20:10 | disposition home or self-care (01) ==
LOC: ER 20:00
DX: M54.6 Pain in thoracic spine (principal); M54.5 Low back pain; G89.29 Other chronic pain
CPT/HCPCS: 99282